=== PATIENT | male | born 1965 | race Caucasian/White ===

== ENCOUNTER 2016-11-25 14:51 | Inpatient (IN) | payer MEDICAID ==
[2016-11-25] VITALS (21 sets, daily range): BP systolic 87–133; BP diastolic 71–96; PULSE 73–84; RESP 16–23; TEMP 98; Ht 182.9 cm; Wt 90.1 kg
[~2016-11-25] VITALS: Ht 182.9 cm; Wt 90.1 kg
[2016-11-25] MEDS ORDERED: SODIUM CHLORIDE 0.9% 500 ML BAG IV* STA (15:29)
[2016-11-25] MEDS ORDERED: VECURONIUM 100 MG in DEXTROSE 5% 100 ML IV ONE (15:29)
[2016-11-25] MEDS ORDERED: MIDAZOLAM (DRIP) 50 mg/50 mL 50 ML IV SCH (15:30)
[2016-11-25 15:41] LABS: ADD SCAN DIFF NO
[2016-11-25 15:47] LABS: ABNORMAL IP MESSAGE 1; BASOPHIL # 0.1 10^3/ul (0.0-0.1); BASOPHILS % 0.4 % (0.0-2.0); EOSINOPHILS # 0.5 10^3/ul (0.0-0.5); EOSINOPHILS % 3.2 % (0.0-7.0); HEMATOCRIT 49.7 % (42.0-52.0); HEMOGLOBIN 15.5 g/dl (14.0-18.0); LYMPHOCYTES # 6.1 10^3/ul (0.8-2.9); MEAN CORPUSCULAR HEMOGLOBIN 29.3 pg (29.0-33.0); MEAN CORPUSCULAR HGB CONC 31.2 g/dl (32.0-37.0); MEAN PLATELET VOLUME 10.5 fl (7.4-10.4); MONOCYTE # 0.8 10^3/ul (0.3-0.9); MONOCYTES % 5.2 % (0.0-11.0); NEUTROPHIL # 5.9 10^3/ul (1.6-7.5); NEUTROPHILS % 41.1 % (39.0-77.0); NUCLEATED RED BLOOD CELLS # 0.1 10^3/ul (0.0-0.0); NUCLEATED RED BLOOD CELLS% 0.4 /100WBC (0.0-0.0); PLATELET COUNT 152 10^3/UL (140-415); RED BLOOD COUNT 5.29 10^6/ul (4.70-6.10); WHITE BLOOD COUNT 14.3 10^3/ul (4.8-10.8)
[2016-11-25 15:56] LABS: INR 1.55; PROTIME 18.7 Sec (12.2-14.2); PT RATIO 1.5
[2016-11-25 15:57] LABS: ADD UMIC YES; URINE BILIRUBIN (Dip) NEGATIVE (NEGATIVE); URINE BLOOD (Dip) 1+ (NEGATIVE); URINE COLOR LT. YELLOW (YELLOW); URINE GLUCOSE (Dip) NEGATIVE (NEGATIVE); URINE KETONES (Dip) NEGATIVE (NEGATIVE); URINE LEUKOCYTE ESTERASE (Dip) NEGATIVE (NEGATIVE); URINE NITRITE (Dip) NEGATIVE (NEGATIVE); URINE TOTAL PROTEIN (Dip) 1+ (NEGATIVE); URINE UROBILINOGEN (Dip) 0.2 E.U./dL (0.1-1.0)
[2016-11-25 15:58] LABS: ALBUMIN 3.4 g/dl (3.3-4.9)
[2016-11-25 15:59] LABS: POTASSIUM 3.6 mmol/L (3.5-5.1)
[2016-11-25 16:01] LABS: ALBUMIN/GLOBULIN RATIO 1.41; BILIRUBIN,INDIRECT 0.1 mg/dl (0-1.1); BILIRUBIN,TOTAL 0.1 mg/dl (0.2-1.3); CREATININE 1.16 mg/dl (0.61-1.24); TOTAL PROTEIN 5.8 g/dl (6.1-8.1)
[2016-11-25 16:02] LABS: CALCIUM 8.3 mg/dl (8.4-10.2); MAGNESIUM 2.9 mg/dl (1.7-2.5); PHOSPHORUS 9.7 mg/dl (2.5-4.9)
[2016-11-25] MEDS ORDERED: ROCURONIUM 50 MG INJ IV STA (16:03)
--- NOTE | 2016-11-25 16:03 | RADRPT ---
PROCEDURE: XR Chest. CLINICAL INDICATION: Assess nasogastric tube placement an endotracheal tube placement. TECHNIQUE: Single frontal view of the chest was obtained COMPARISON: No. FINDINGS: The soft tissues are normal. An atrial distal position at T3. An NG tube is noted distal to the GE junction. Monitoring electrodes return across the chest. The heart is enlarged. The cardiomedias tinal silhouette, pulmonary vasculature and hilar structures are normal. There is a left-sided aorta . there are bilateral mixed interstitial and alveolar infiltrates. The costophrenic angles are nor mal. IMPRESSION: 1. Cardiomegaly with bilateral pulmonary edema. 2. Indicated tube is well-positioned at T3-4. 3. The NG tube is well positioned distal to the GE junction. RPTAT:AAJJ Physician Simone Date Time Electronically viewed and signed by Luis Daniel Rodriguez Physician on 11/25/2016 16:03 RYAN/
[2016-11-25 16:11] LABS: BACTERIA,URINE MODERATE; SPERM,URINE MODERATE
[2016-11-25 16:20] LABS: TROPONIN-I 0.234 ng/ml (0.00-0.12)
[2016-11-25 17:00] LABS: AADO2 Arterial 582.3 mmHg (7.0-24.0); Allen Test ACCEPTAB; Arterial Base Excess -19.4 mmol/L (-3.0-3); Arterial COHb 1.6 % (0.0-3.0); Arterial Fraction of Oxyhgb 79.9 % (93.0-99.0); Arterial HCO3 13.5 mmol/L (22.0-26.0); Arterial MetHb 0.4 % (0.0-1.5); Arterial Total Hemglobin 16.8 g/dl (12.0-18.0); MODE VENT - AC
[2016-11-25 17:01] LABS: PARTIAL THROMBOPLASTIN TIME 84.4 Sec (25.0-35.0)
--- NOTE | 2016-11-25 17:05 | RADRPT ---
PROCEDURE: CT Head without. CLINICAL INDICATION: Hypothermia, cardiac arrest. TECHNIQUE: The study was performed utilizing a multi-slice, multidetector CT scanner. Direct spira l 1 mm axial sections were obtained through the head without the use of intravenous contrast materia l. 1 or more of the following dose reduction techniques were utilized: Automated exposure control, adjustment of the mA and/or kV according to patient's size, iterative reconstruction technique. Co chelita and sagittal reformations were obtained. The images were reviewed on a PACS workstation. RADIATION DOSE: CTDIvol: 50.6 mGyDLP: 817.8 mGy-cm COMPARISON: No prior studies are available for comparison. FINDINGS: There is no intracranial hemorrhage, extra-axial fluid collection, mass lesion, midline shift or hyd rocephalus. The ventricles, sulci and cisterns are within normal limits. The white matter is unrem arkable. The wilson-white matter differentiation is preserved. The basal cisterns are patent. The m idline structures are intact. The orbits, calvarium and extracranial soft tissues are normal in drake earance. The visualized paranasal sinuses, mastoid air cells and middle ear cavities are normally ae rated. IMPRESSION: 1. No acute intracranial abnormality. No intracranial hemorrhage, extra-axial fluid collection, ma ss lesion or hydrocephalous. Number 2. The wilson-white matter differentiation appears preserved wit hout significant cerebral edema at this time. RPTAT: HGAS .Benny Austin MD, Date Time Electronically viewed and signed by .Benny Austin MD, on 11/25/2016 17:05 .S/
[2016-11-25] MEDS ORDERED: PANTOPRAZOLE IV 80 MG in SOD CHLORIDE 0.9% 100 ML IV STA (17:19)
[2016-11-25] MEDS ORDERED: PANTOPRAZOLE IV 80 MG in SOD CHLORIDE 0.9% 100 ML IVPB STA (17:19)
[2016-11-25] MEDS ORDERED: NA BICARBONATE 8.4% 50 ML SYG IV ONE ×2 (17:30)
--- NOTE | 2016-11-25 17:33 | ERA ---
ER Documentation Chief Complaint Date/Time DATE: 11/25/16 TIME: 17:23 Chief Complaint cardiac arrest HPI This is a 50-year-old male who was at a massage parlor and once he completed his massage told the staff that he did not feel well. They told him to lay down and rest. When he came back to check on him 10 minutes later they found him unresponsive and 911 was called. When EMS arrived the patient had agonal respirations with initial rhythm of V. fib. The patient was in refractory V. fib during CPR and received defibrillation 7-8 and epinephrine intravenously 7 -8. Patient was intubated in the field successfully. The patient had CPR for 32-34 minutes by the paramedics without return of spontaneous circulation until they pulled up into our ambulance bay and a pulse was palpated. The patient soon lost his pulse when arrived in the ER here and CPR was reinstated along with bicarbonate and epinephrine. The patient was also shocked 2 more times and CPR was continued off and on until a pulse was again palpated and was sustained. Patient's blood pressure was adequate. There is no known medical history. ROS All systems reviewed and are negative except as per history of present illness. Medications Home Meds Unable to Obtain Active Prescriptions or Reported Meds PMhx/Soc Medical and Surgical Hx: Unable to obtain Hx Alcohol Use: No (unk) Hx Substance Use: No (unk) Hx Tobacco Use: No (unk) Smoking Status: Never smoker FmHx Unable to obtain due to mental status Physical Exam Vitals Vital Signs Date Time Temp Pulse Resp B/P Pulse Ox O2 Delivery O2 Flow Rate FiO2 11/25/16 17:15 88 22 88 100 11/25/16 15:37 59 30 100 11/25/16 14:55 48 12 128/84 79 Physical Exam Const: [] Head: Atraumatic, normocephalic Eyes: Normal Conjunctiva, pupils are mid range and not reacting ENT: Normal External Ears, Nose and Mouth. Neck: Full range of motion..~ No meningismus. Resp: No spontaneous respiration Cardio: No spontaneous cardiac activity Abd: Soft nondistended Skin: No petechiae or rashes, the skin is cyanotic from the neck up with delayed cap refill Back: Not inspected Ext: No cyanosis, or edema Neur: GCS of 3 Psych: Unable to obtain Result Diagram: 11/25/16 1450 11/25/16 1450 Results 24 hrs Laboratory Tests Test 11/25/16 14:45 11/25/16 14:50 11/25/16 15:00 11/25/16 15:29 Urine Amorphous Urates MODERATE Urine Bacteria MODERATE Urine Bilirubin NEGATIVE Urine Clarity SLIGHTLY CLOUDY Urine Color LT. YELLOW Urine Glucose NEGATIVE% Urine Hemoglobin 1+ Urine Ketones NEGATIVE Urine Leukocyte Esterase NEGATIVE Urine Microscopic RBC 2-5/HPF Urine Microscopic WBC NONE SEEN/HPF Urine Nitrite NEGATIVE Urine Specific [place] 1.025 Urine Sperm MODERATE Urine Total Protein 1+ Urine Urobilinogen 0.2 E.U./dL Urine pH 6.5 Alanine Aminotransferase (ALT/SGPT) 41IU/L Albumin 3.4g/dl Albumin/Globulin Ratio 1.41 Alkaline Phosphatase 74IU/L Anion Gap 33 Aspartate Amino Transf (AST/SGOT) 50IU/L Basophils # 0.110^3/ul Basophils % 0.4% Blood Urea Nitrogen 11mg/dl Calcium Level 8.3mg/dl Carbon Dioxide Level 15mmol/L Chloride Level 102mmol/L Creatinine 1.16mg/dl Differential Comment AUTO w/SCAN Direct Bilirubin 0.00mg/dl Eosinophils # 0.510^3/ul Eosinophils % 3.2% Globulin 2.40g/dl Glucose Level 329mg/dl Hematocrit 49.7% Hemoglobin 15.5g/dl Indirect Bilirubin 0.1mg/dl Lymphocytes # 6.110^3/ul Lymphocytes % 43.0% Magnesium Level 2.9mg/dl Mean Corpuscular Hemoglobin 29.3pg Mean Corpuscular Hemoglobin Concent 31.2g/dl Mean Corpuscular Volume 94.0fl Mean Platelet Volume 10.5fl Monocytes # 0.810^3/ul Monocytes % 5.2% Neutrophils # 5.910^3/ul Neutrophils % 41.1% Nucleated Red Blood Cells # 0.110^3/ul Nucleated Red Blood Cells % 0.4/100WBC Phosphorus Level 9.7mg/dl Platelet Count 29107^3/UL Potassium Level 3.6mmol/L Red Blood Count 5.2910^6/ul Red Cell Distribution Width 13.0% Sodium Level 146mmol/L Total Bilirubin 0.1mg/dl Total Protein 5.8g/dl Troponin I 0.234ng/ml White Blood Count 14.310^3/ul Bedside Glucose 302mg/dL Arterial Blood HCO3 13.5mmol/L Arterial Blood Base Excess -19.4mmol/L Arterial Blood Oxygen Saturation 81.5mmHG Shaun Test ACCEPTAB Arterial Blood Gas Puncture Site Left Radial Arterial Blood Carboxyhemoglobin 1.6% Arterial Blood Date Drawn 11/25/2016 4:55:01 PM Arterial Blood Methemoglobin 0.4% Arterial Blood pCO2 (Temp correct) 62.4mmhg Arterial Blood pH (Temp corrected) 6.954 Arterial Blood pO2 (Temp corrected) 68.3mmHG Blood Gas A-a O2 Differential 582.3mmHg Blood Gas Actual Respiration Rate 25 Blood Gas Critical Value Read Back ADRY Tinajero Blood Gas Low PEEP Setting 5.0cmH2O Blood Gas Modality VENT - AC Blood Gas Notified Time 11/25/2016 4:59:44 PM Blood Gas Notified Whom MDA Blood Gas Respiration Rate 18.0 Blood Gas Specimen Source Blood arterial Blood Gas Temperature 37.0C Blood Gas Tidal Volume 600.0mL FiO2 100.0% Oxyhemoglobin Percent 79.9% Total Hemoglobin 16.8g/dl Test 11/25/16 15:55 Activated Partial Thromboplast Time 84.4Sec INR International Normalized Ratio 1.55 Prothrombin Time 18.7Sec Prothrombin Time Ratio 1.5 Current Medications Medications (Trade) Dose Ordered Sig/Darlene Route PRN Reason Start Time Stop Time Status Last Admin Dose Admin Sodium Chloride 500 ml 500 ml ONCE STAT IV* 11/25/16 15:29 11/25/16 15:32 DC 11/25/16 15:00 Midazolam HCl 50 ml @ 2 mls/hr ONCE IV 11/25/16 15:30 11/25/16 16:11 Vecuronium Chambers/Dextrose (Norcuron/D5W) 100 ml @ 0 mls/hr Q0M ONCE IV 11/25/16 15:29 11/25/16 15:33 DC 11/25/16 16:16 Rocuronium Chambers (Zemuron) 70 mg ONCE STAT IV 11/25/16 16:03 11/25/16 16:05 DC 11/25/16 16:10 Sodium Bicarbonate (Na Bicarb 8.4% Syg) 50 ml ONCE ONCE IV 11/25/16 17:30 11/25/16 17:31 Sodium Bicarbonate (Na Bicarb 8.4% Syg) 50 ml ONCE ONCE IV 11/25/16 17:30 11/25/16 17:31 Procedures/MDM EKG: Rate/Rhythm: Undetermined rhythm wide-complex, right bundle branch block QRS, ST, QT: Wide QRS, QT] Impression: Abnormal EKG] EKG: Rate/Rhythm: Normal sinus rhythm with ST elevation in the inferior leads QRS, ST, QT: NORMAL VA, QRS, QT] Impression: Acute PR EKG] Central Line Placement by me: Patient consented, sterilely draped, full prep, gown, glove, mask, time out performed. Anesthesia: None Location: Right femoral Device: Multiple lumen Technique: Seldinger technique. Secured with suture. Results: Venous return from all ports with easy saline flush. No complications. [XOXOXO]Guide wire retrieved and disposed of. PROCEDURE: XR Chest. CLINICAL INDICATION: Assess nasogastric tube placement an endotracheal tube placement. TECHNIQUE: Single frontal view of the chest was obtained COMPARISON: No. FINDINGS: The soft tissues are normal. An atrial distal position at T3. An NG tube is noted distal to the GE junction. Monitoring electrodes return across the chest. The heart is enlarged. The cardiomediastinal silhouette, pulmonary vasculature and hilar structures are normal. There is a left-sided aorta. there are bilateral mixed interstitial and alveolar infiltrates. The costophrenic angles are normal. IMPRESSION: 1. Cardiomegaly with bilateral pulmonary edema. 2. Indicated tube is well-positioned at T3-4. 3. The NG tube is well positioned distal to the GE junction. RPTAT:AAJJ Physician Simone Date Time Electronically viewed and signed by Physician Simone on 11/25/2016 16:03 RYAN/ CC: KELLY RIDER DO PROCEDURE: CT Head without. CLINICAL INDICATION: Hypothermia, cardiac arrest. TECHNIQUE: The study was performed utilizing a multi-slice, multidetector CT scanner. Direct spiral 1 mm axial sections were obtained through the head without the use of intravenous contrast material. 1 or more of the following dose reduction techniques were utilized: Automated exposure control, adjustment of the mA and/or kV according to patient's size, iterative reconstruction technique. Coronal and sagittal reformations were obtained. The images were reviewed on a PACS workstation. RADIATION DOSE: CTDIvol: 50.6 mGy DLP: 817.8 mGy-cm COMPARISON: No prior studies are available for comparison. FINDINGS: There is no intracranial hemorrhage, extra-axial fluid collection, mass lesion, midline shift or hydrocephalus. The ventricles, sulci and cisterns are within normal limits. The white matter is unremarkable. The wilson-white matter differentiation is preserved. The basal cisterns are patent. The midline structures are intact. The orbits, calvarium and extracranial soft tissues are normal in appearance. The visualized paranasal sinuses, mastoid air cells and middle ear cavities are normally aerated. IMPRESSION: 1. No acute intracranial abnormality. No intracranial hemorrhage, extra-axial fluid collection, mass lesion or hydrocephalous. Number 2. The wilson-white matter differentiation appears preserved without significant cerebral edema at this time. RPTAT: HGAS .Benny Austin MD, MD Date Time Electronically viewed and signed by .Benny Austin MD, MD on 11/25/2016 17: 05 .S/ CC: KELLY RIDER DO Spoke with cardiology Dr. Seo and he reviewed the EKG and told me to activate the Office Receptionist. During this time an NG tube was placed and we were able to pullback 100 cc of dark red blood. The patient had been biting on his ET tube prior however do not see a gross tongue laceration or because of bleeding. It is possible that the blood is from his tongue however he could have a GI bleed. His coags are elevated however he is having a myocardial infarction and will go to the Office Receptionist now. Because the blood could be from his mouth will defer giving FFP at this time and will get GI involved. Critical Care Time: 45 minutes Treatments/Evaluations: Close monitoring and treatment of unstable vital signs, cardiorespiratory, and neurologic status, while maintaining tight balance of fluid, respiratory, and cardiac interventions. This time includes discussing the case with the patient and the patient's family. This time does not include all procedures stated elsewhere in this record. This time also includes reviewing old records, labs and radiological studies. This time includes examining and re-examining the patient. Additionally, this time also includes arranging care with admitting and consulting physicians. Departure Diagnosis: Primary Impression: Cardiac arrest Additional Impression: STEMI (ST elevation myocardial infarction) Qualified Code: I21.11 - ST elevation myocardial infarction involving right coronary artery Condition: Critical KELLY RIDER DO Nov 25, 2016 17:33
[2016-11-25 17:46] LABS: INR 1.33; PROTIME 16.6 Sec (12.2-14.2); PT RATIO 1.3
[2016-11-25] MEDS ORDERED: LIDOCAINE 1% (MDV) 20 ML INJ ONE (17:54)
[2016-11-25] MEDS ORDERED: SOD CHLORIDE 0.9% 500 ML ONE (17:54)
[2016-11-25] MEDS ORDERED: IODIXANOL LOCM 100 ML BTL ONE (17:54)
[2016-11-25] MEDS ORDERED: HEPARIN 1000 UNITS/ML 10 ML INJ ONE (17:54)
[2016-11-25 17:55] LABS: BARBITURATES Negative (NEGATIVE); BENZODIAZEPINES Negative (NEGATIVE); CANNABINOIDS Positive (NEGATIVE)
[2016-11-25 17:56] LABS: COCAINE Negative (NEGATIVE); OPIATES Negative (NEGATIVE)
[2016-11-25] MEDS ORDERED: NITROGLYCERIN (IC) 100 MCG/ML INJ ONE (17:56)
--- NOTE | 2016-11-25 17:56 | CONS ---
Date/Time of Note Date/Time of Note DATE: 11/25/16 TIME: 17:50 Assessment/Plan Assessment/Plan Chief Complaint/Hosp Course Impression: Inferior STEMI Abnormal EKG Ventricular fibrillation arrest Respiratory failure Metabolic acidosis Recommendation/plan: proceed emergently with cardiac cath; prognosis poor Problems: Consultation Date/Type/Reason Admit Date/Time Date of Consultation: Nov 25, 2016 Reason for Consultation ROSC, STEMI Hx of Present Illness The patient is a 50 y/o male who suffered cardiac arrest at [facility], shocked multiple times for Vfib arrest, intubated, received CPR for approximately 30 minutes in the field; upon arrival to ED patient lost pulse again, received CPR with shock x 2, hypothermia initiated. EKG with sinus tachycardia and 1-2mm ST elevations inferior leads; code AMI activated and patient taken emergently to cardiac seed analysis laboratory assistant. Subjective hx not possible: pt non-verbal Social History Smoking Status: Never smoker Exam/Review of Systems Vital Signs Vitals Vital Signs Date Time Temp Pulse Resp B/P Pulse Ox O2 Delivery O2 Flow Rate FiO2 11/25/16 17:15 88 22 88 100 11/25/16 14:55 128/84 Exam Eyes: PERRL Respiratory: normal air movement Cardiovascular: regular rate and rhythm Gastrointestinal: soft Extremities: No edema Results Result Diagram: 11/25/16 1450 11/25/16 1450 Results 24 hrs Laboratory Tests Test 11/25/16 14:45 11/25/16 14:50 11/25/16 15:00 11/25/16 15:29 Urine Amorphous Urates MODERATE Urine Bacteria MODERATE Urine Bilirubin NEGATIVE Urine Clarity SLIGHTLY CLOUDY Urine Color LT. YELLOW Urine Glucose NEGATIVE Urine Hemoglobin 1+ H Urine Ketones NEGATIVE Urine Leukocyte Esterase NEGATIVE Urine Microscopic RBC 2-5 Urine Microscopic WBC NONE SEEN Urine Nitrite NEGATIVE Urine Specific [place] 1.025 Urine Sperm MODERATE Urine Total Protein 1+ H Urine Urobilinogen 0.2 E.U./dL Urine pH 6.5 Alanine Aminotransferase (ALT/SGPT) 41 Albumin 3.4 Albumin/Globulin Ratio 1.41 Alkaline Phosphatase 74 Anion Gap 33 H Aspartate Amino Transf (AST/SGOT) 50 H Basophils # 0.1 Basophils % 0.4 Blood Urea Nitrogen 11 Calcium Level 8.3 L Carbon Dioxide Level 15 L Chloride Level 102 Creatinine 1.16 Differential Comment AUTO w/SCAN Direct Bilirubin 0.00 Eosinophils # 0.5 Eosinophils % 3.2 Globulin 2.40 Glucose Level 329 H Hematocrit 49.7 Hemoglobin 15.5 Indirect Bilirubin 0.1 Lymphocytes # 6.1 H Lymphocytes % 43.0 Magnesium Level 2.9 H Mean Corpuscular Hemoglobin 29.3 Mean Corpuscular Hemoglobin Concent 31.2 L Mean Corpuscular Volume 94.0 Mean Platelet Volume 10.5 H Monocytes # 0.8 Monocytes % 5.2 Neutrophils # 5.9 Neutrophils % 41.1 Nucleated Red Blood Cells # 0.1 H Nucleated Red Blood Cells % 0.4 H Phosphorus Level 9.7 H Platelet Count 152 Potassium Level 3.6 Red Blood Count 5.29 Red Cell Distribution Width 13.0 Sodium Level 146 H Total Bilirubin 0.1 L Total Protein 5.8 L Troponin I 0.234 *H White Blood Count 14.3 H Bedside Glucose 302 H Arterial Blood HCO3 13.5 L Arterial Blood Base Excess -19.4 L Arterial Blood Oxygen Saturation 81.5 L Shaun Test ACCEPTAB Arterial Blood Gas Puncture Site Left Radial Arterial Blood Carboxyhemoglobin 1.6 Arterial Blood Date Drawn 11/25/2016 4:55:01 PM Arterial Blood Methemoglobin 0.4 Arterial Blood pCO2 (Temp correct) 62.4 H Arterial Blood pH (Temp corrected) 6.954 *L Arterial Blood pO2 (Temp corrected) 68.3 L Blood Gas A-a O2 Differential 582.3 H Blood Gas Actual Respiration Rate 25 Blood Gas Critical Value Read Back ADRY Tinajero Blood Gas Low PEEP Setting 5.0 Blood Gas Modality VENT - AC Blood Gas Notified Time 11/25/2016 4:59:44 PM Blood Gas Notified Whom MDA Blood Gas Respiration Rate 18.0 Blood Gas Specimen Source Blood arterial Blood Gas Temperature 37.0 Blood Gas Tidal Volume 600.0 FiO2 100.0 Oxyhemoglobin Percent 79.9 L Total Hemoglobin 16.8 Test 11/25/16 15:55 11/25/16 17:20 Activated Partial Thromboplast Time 84.4 *H 63.0 H INR International Normalized Ratio 1.55 1.33 Prothrombin Time 18.7 H 16.6 H Prothrombin Time Ratio 1.5 1.3 Medications Medications Current Medications Midazolam HCl (Versed) 50 ml @ 2 mls/hr ONCE IV Last administered on 11/25/16t 16:11; Admin Dose 2 MLS/HR; Start 11/25/16 at 15:30 ANNIA EVANS 23, 2017 17:56
[2016-11-25] MEDS ORDERED: CANGRELOR TETRASODIUM/ NS 250 50 MG IV ONE (18:19)
[2016-11-25 18:29] LABS: AADO2 Arterial 637.2 mmHg (7.0-24.0); Arterial Base Excess -23.2 mmol/L (-3.0-3); Arterial COHb 0.1 % (0.0-3.0); Arterial Fraction of Oxyhgb 74.7 % (93.0-99.0); Arterial HCO3 5.7 mmol/L (22.0-26.0); Arterial MetHb 0.9 % (0.0-1.5); Arterial Total Hemglobin 9.2 g/dl (12.0-18.0); MODE VENT - AC
[2016-11-25] MEDS ORDERED: NA BICARBONATE 8.4% 50 ML SYG ONE (18:36)
[2016-11-25] MEDS ORDERED: AMIODARONE 900 MG in DEXTROSE 5% 482 ML IV SCH (19:00)
[2016-11-25] MEDS ORDERED: LIDOCAINE 1%/EPI (MDV) 20 ML INJ ONE (19:15)
[2016-11-25] MEDS ORDERED: IODIXANOL LOCM 50 ML BTL ONE (19:27)
--- NOTE | 2016-11-25 19:55 | EN ---
Date/Time of Note Date/Time of Note DATE: 11/25/16 TIME: 19:41 Event Note Cardiology Cardiology Event Note DATE OF PROCEDURE: 11/25/2016 UNHAIRING INSPECTOR: Bradly Evans MD PROCEDURES PERFORMED: 1. Balloon angioplasty and stent placement of the proximal Obtuse Marginal with ELISABETH Promus 3.0 x 16 and Promus 3.0 x 12 2. Manual aspiration thrombectomy of the Obtuse Marginal 3. Left heart catheterization. 4. Right femoral angiogram. 5. Closure device applied to right femoral arteriotomy site. PREINTERVENTION DIAGNOSIS: 1. Acute Inferior ST elevation myocardial infarction. POSTINTERVENTION DIAGNOSES: 1. Acute Inferior ST elevation myocardial infarction. DESCRIPTION OF PROCEDURE: The patient placed on monitoring analyst, pulse oximetry and supplemental oxygen as necessary. The right groin [] was prepped and draped in a sterile fashion and infiltrated with 1% lidocaine. Via the Seldinger technique, the right femoral artery was accessed. A 6-Panamanian sheath was inserted and through this the right coronary catheter and left coronary catheter and pigtail were advanced into the right coronary artery and left coronary artery and the left ventricle. Placement confirmed by fluoroscopy and hemodynamics. CATHETERIZATION FINDINGS: 1. Left main: No significant disease. 2. LAD: Large caliber vessel with no significant disease. 3. Circumflex: Medium caliber vessel with no significant disease. 4. Obtuse marginal: Medium caliber vessel with proximal 100% thrombotic occlusion 5. RCA: Large dominant vessel with no significant disease HEMODYNAMICS: LVEDP 18. No significant aortic valve gradient on pigtail pullback. LV EF: 40-45% with inferoapical hypokinesis RATIONALE FOR INTERVENTIONAL PROCEDURE: Decision was made to intervene on the OM due to the occlusive nature of the lesion angiographically and patient's presentation of Vfib arrest in the setting of STEMI. MEDICATIONS GIVEN DURING PROCEDURE: IC Nitroglycerin IV Cangrelor ANGIOPLASTY EQUIPMENT: 1. Guide: 6-Panamanian XB 3.5 2. Wire: Whisper. 3. Stent: ELISABETH Promus 3.0 x 16 and Promus 3.0 x 12 DESCRIPTION OF INTERVENTIONAL PROCEDURE: The guide catheter was advanced in the usual manner and the left main was engaged. Angioplasty wire was then used to successfully cross the lesion into the distal OM2. A second whisper wire was used to place in the distal OM3. Next, a pronto catheter was used to manually aspirate the lesion multiple times; repeat angiogram revealed improved URMILA 3 flow. The wire in the OM3 was removed and the lesion was direct stented with Promus 3.0 x 16. Repeat angiogram revealed dissection just distal to the stent. As such a second Promus 3.0 x 12 was used to stent the dissected area with stent overlap. Final coronary angiogram revealed adequate stent expansion , URMILA 3 flow, and no dissection. TOTAL CONTRAST: 150cc FLUOROSCOPY TIME: 8.0 min minutes. COMPLICATIONS: None. FINAL RESULTS: Successful balloon angioplasty and stent placement of the of the proximal Obtuse Marginal with ELISABETH Promus 3.0 x 16 and Promus 3.0 x 12 Pre- intervention stenosis 100%, post-intervention stenosis less than 5%. RECOMMENDATIONS: ICU admit Vent support Hypothermia protocol Assess for neurologic recovery Anticoagulation/antiplatelets held due to glenis bleeding from ET Tube Type and Screen PRBC Transfusion Prognosis extremely poor BRADLY EVANS Nov 25, 2016 19:55
--- NOTE | 2016-11-25 20:09 | RADRPT ---
Echocardiogram Report Patient Name: PERLA Chappell Gender: Male Date: 1965 Study Date: 25-Nov-2016 Tile Decorator: Randy Zapata RDCS Location: [facility] Ref. Physician: BRADLY EVANS Quality: Adequate Procedures: Transthoracic echocardiogram with complete 2D, M-Mode, and doppler examination. Indications: STEMI. 2D/M Mode Doppler Measurement Value Normal Ranges Measurement Value Normal Ranges LVIDd 2D 5.8 3.5 - 5.6 cm AV Peak [place] 1.2 m/sec LVIDs 2D 3.7 2.1 - 4.1 cm AV Peak PG 5.7 mmHg LVPWd 2D 0.9 0.6 - 1.1 cm LVOT Peak [place] 1.0 m/sec IVSd 2D 0.9 0.6 - 1.1 cm LVOT Peak PG 3.6 mmHg AoR Diam 2D 3.6 2.0 - 3.7 cm MV E Peak [place] 0.5 m/sec EDV 2D 169.4 cm3 MV A Peak [place] 0.6 m/sec ESV 2D 51.2 cm3 MV E/A 0.9 LA Dimen 2D 2.6 2.3 - 4.0 cm MV Decel Time 137 msec MV Decel Walker 4 MV E/A 0.9 TR Peak [place] 2.5 m/sec TR Peak PG 25.7 mmHg RVSP 41.0 mmHg Findings Left Ventricle: Mild global left ventricular systolic dysfunction. Ejection fraction is visually estimated at 45 %. Right Ventricle: Normal right ventricular size. Normal right ventricular systolic function. Left Atrium: The left atrium is normal in size. Right Atrium: The right atrium is normal in size. Mitral Valve: Normal appearance and function of the mitral valve with trace physiologic regurgitation. Aortic Valve: Normal appearance of the aortic valve. No significant aortic stenosis or insufficiency. Tricuspid Valve: Normal appearance and function of the tricuspid valve with trace physiologic regurgitation. Normal right ventricular systolic pressure. Pulmonic Valve: Normal pulmonic valve appearance. Pericardium: Normal pericardium with no significant pericardial effusion. Aorta: Normal aortic root. IVC: Inferior vena cava without respiratory collapse, however, patient on ventilator. Conclusions 1.Mild global left ventricular systolic dysfunction. Ejection fraction is visually estimated at 45 %. 2.Normal appearance and function of the mitral valve with trace physiologic regurgitation. 3.Normal appearance and function of the tricuspid valve with trace physiologic regurgitation. Normal right ventricular systolic pressure. Electronically Signed By: Bradly Evans 25-Nov-2016 20:08:18 -0800 Patient Name: PERLA Chappell Study Date: 25-Nov-2016 [id number]
[2016-11-25] MEDS ORDERED: DEXTROSE 5%-0.45% NACL 1,000 ML IV SCH (20:50)
[2016-11-25] MEDS ORDERED: ONDANSETRON 4 MG INJ IV PRN (21:00)
[2016-11-25] MEDS ORDERED: IPRATROPIUM (HFA) 12.9 GM INHALER INH PRN (21:00)
[2016-11-25] MEDS ORDERED: ALBUTEROL HFA 8 GM INHALER INH PRN (21:00)
[2016-11-25] MEDS ORDERED: ACETAMINOPHEN 650 MG SUPP PR PRN ×2 (21:00)
[2016-11-25] MEDS ORDERED: DEXTROSE 50% 50 ML SYRINGE IV PRN ×2 (21:00)
[2016-11-25] MEDS ORDERED: MEPERIDINE 25 MG INJ IV PRN ×2 (21:00)
[2016-11-25 21:25] LABS: AADO2 Arterial 645.1 mmHg (7.0-24.0); Allen Test ACCEPTAB; Arterial Base Excess -7.7 mmol/L (-3.0-3); Arterial COHb 0.4 % (0.0-3.0); Arterial Fraction of Oxyhgb 87.2 % (93.0-99.0); Arterial HCO3 18.7 mmol/L (22.0-26.0); Arterial MetHb 0.4 % (0.0-1.5); Arterial Total Hemglobin 17.2 g/dl (12.0-18.0); MODE VENT - AC
[2016-11-25] MEDS ORDERED: INSULIN REGULAR, HUMAN 100 UNIT in SOD CHLORIDE 0.9% 99 ML IV SCH ×2 (22:00)
[2016-11-25] MEDS ORDERED: NORepinephrine 8MG/250 ML (PMX 250 ML IV SCH (22:00)
--- NOTE | 2016-11-25 22:07 | RADRPT ---
PROCEDURE: XR Abdomen. CLINICAL INDICATION: Hyperthermia protocol TECHNIQUE: AP supine abdomen x-rays. COMPARISON: None. FINDINGS: Distal tip of a nasogastric tube is pointing inferiorly towards the midline in the region of the dis fuentes stomach. The bowel gas pattern is normal. There is no evidence of obstruction. Contrast media w ithin the kidneys and urinary bladder is present as well as the ureters, the bladder contracted arou nd a Layne catheter. A right inguinal approach central venous access catheter is present the tip pr ojecting over the right sacrum. The osseous structures are unremarkable. RPTAT:HJJR IMPRESSION: 1. Nasogastric tube and right inguinal central venous access catheter in good positions. 2. Residual contrast media within the chest urinary collecting system, the urinary bladder contract ed around a Layne catheter. 3. No evidence of acute intra-abdominal or intrapelvic pathology. Physician Aliya Date Time Electronically viewed and signed by Physician Ailya on 11/25/2016 22:06 /
[2016-11-25 22:35] LABS: ADD SCAN DIFF NO
[2016-11-25] MEDS: ACCUCHECK XX SCH ×2 (22:35→23:22)
[2016-11-25 22:37] LABS: ABNORMAL IP MESSAGE 1; HEMATOCRIT 47.5 % (42.0-52.0); HEMOGLOBIN 15.9 g/dl (14.0-18.0); MEAN CORPUSCULAR HEMOGLOBIN 29.4 pg (29.0-33.0); MEAN CORPUSCULAR HGB CONC 33.5 g/dl (32.0-37.0); MEAN CORPUSCULAR VOLUME 87.8 fl (82.0-101.0); MEAN PLATELET VOLUME 9.7 fl (7.4-10.4); PLATELET COUNT 258 10^3/UL (140-415); RED BLOOD COUNT 5.41 10^6/ul (4.70-6.10); RED CELL DISTRIBUTION WIDTH 13.2 % (11.5-14.5); WHITE BLOOD COUNT 29.4 10^3/ul (4.8-10.8)
[2016-11-25] MEDS ORDERED: VECURONIUM 100 MG in DEXTROSE 5% 100 ML IV SCH (22:46)
[2016-11-25 22:53] LABS: ALBUMIN/GLOBULIN RATIO 1.25; BILIRUBIN,INDIRECT 0.2 mg/dl (0-1.1); BILIRUBIN,TOTAL 0.2 mg/dl (0.2-1.3); CALCIUM 6.9 mg/dl (8.4-10.2); CREATININE 1.73 mg/dl (0.61-1.24); TOTAL PROTEIN 5.4 g/dl (6.1-8.1)
[2016-11-25 22:54] LABS: INR 1.44; PROTIME 17.6 Sec (12.2-14.2); PT RATIO 1.4
[2016-11-25 22:58] LABS: POTASSIUM 2.6 mmol/L (3.5-5.1)
[2016-11-25] MEDS ORDERED: FENTAnyl 50 MCG/ML VIAL IV SCH (23:00)
[2016-11-25] MEDS ORDERED: POTASSIUM CHLORIDE 50 ML ONE (23:09)
[2016-11-25] MEDS: POTASSIUM CHLORIDE 50 ML IVPB SCH (23:18)
[2016-11-25 23:25] LABS: LYMPHOCYTES # 2.1 10^3/ul (0.8-2.9); MONOCYTE # 0.3 10^3/ul (0.3-0.9); NEUTROPHIL # 23.8 10^3/ul (1.6-7.5)
[2016-11-25 23:26] LABS: PARTIAL THROMBOPLASTIN TIME 113.8 Sec (25.0-35.0)
[2016-11-25 23:27] LABS: D-DIMER > 10000.00 ng/ml (<460)
[2016-11-25] MEDS: CEFEPIME 1GM/50 ML (PMX) 50 ML IVPB SCH (23:30)
[2016-11-26] VITALS (83 sets, daily range): BP systolic 105–157; BP diastolic 73–112; PULSE 50–128; RESP 20–24
[2016-11-26] MEDS: ARTIFICIAL TEARS 15 ML OPH BOTH EYES SCH ×4 (00:31→18:34)
[2016-11-26] MEDS: OCULAR LUBRICANT 3.5 GM OPH OINT BOTH EYES SCH ×4 (00:31→18:34)
[2016-11-26] MEDS: ACCUCHECK XX SCH ×23 (00:32→22:59)
[2016-11-26] MEDS: POTASSIUM CHLORIDE 50 ML IVPB SCH ×3 (00:59→08:07)
[2016-11-26] MEDS: MIDAZOLAM (DRIP) 50 mg/50 mL 50 ML IV SCH ×3 (01:08→16:14)
[2016-11-26 03:11] LABS: AADO2 Arterial 600.8 mmHg (7.0-24.0); Allen Test ACCEPTAB; Arterial Base Excess -10.5 mmol/L (-3.0-3); Arterial COHb 0.3 % (0.0-3.0); Arterial Fraction of Oxyhgb 96.6 % (93.0-99.0); Arterial HCO3 17.3 mmol/L (22.0-26.0); Arterial MetHb 0.3 % (0.0-1.5); Arterial Total Hemglobin 16.8 g/dl (12.0-18.0); MODE VENT - AC
[2016-11-26 04:45] LABS: ADD SCAN DIFF NO
[2016-11-26 04:49] LABS: ABNORMAL IP MESSAGE 1; BASOPHIL # 0.1 10^3/ul (0.0-0.1); BASOPHILS % 0.3 % (0.0-2.0); HEMATOCRIT 46.9 % (42.0-52.0); HEMOGLOBIN 15.5 g/dl (14.0-18.0); LYMPHOCYTES % 3.6 % (15.0-51.0); MEAN CORPUSCULAR HEMOGLOBIN 28.9 pg (29.0-33.0); MEAN CORPUSCULAR VOLUME 87.5 fl (82.0-101.0); MEAN PLATELET VOLUME 9.6 fl (7.4-10.4); MONOCYTE # 0.9 10^3/ul (0.3-0.9); MONOCYTES % 3.1 % (0.0-11.0); NEUTROPHIL # 26.5 10^3/ul (1.6-7.5); NEUTROPHILS % 91.3 % (39.0-77.0); PLATELET COUNT 224 10^3/UL (140-415); RED BLOOD COUNT 5.36 10^6/ul (4.70-6.10); RED CELL DISTRIBUTION WIDTH 13.2 % (11.5-14.5)
[2016-11-26 05:12] LABS: ALBUMIN 2.8 g/dl (3.3-4.9)
[2016-11-26 05:14] LABS: BILIRUBIN,INDIRECT 0.2 mg/dl (0-1.1); BILIRUBIN,TOTAL 0.2 mg/dl (0.2-1.3); CHOL/HDL RATIO 5.8 RATIO; CREATININE 1.92 mg/dl (0.61-1.24)
[2016-11-26 05:15] LABS: ALBUMIN/GLOBULIN RATIO 1.12; TOTAL PROTEIN 5.3 g/dl (6.1-8.1)
[2016-11-26 05:20] LABS: POTASSIUM 2.5 mmol/L (3.5-5.1)
[2016-11-26 05:32] LABS: MAGNESIUM 1.7 mg/dl (1.7-2.5); PHOSPHORUS 0.8 mg/dl (2.5-4.9)
[2016-11-26 05:46] LABS: THYROID STIMULATING HORMONE 2.56 MIU/L (0.465-4.680)
[2016-11-26] MEDS ORDERED: PANTOPRAZOLE 40 MG INJ IV SCH (06:00)
[2016-11-26] MEDS: D5W-0.45 NACL + KCL 20 MEQ 1,000 ML IV SCH ×2 (06:07→16:14)
[2016-11-26 06:25] LABS: INR 1.32; PROTIME 16.5 Sec (12.2-14.2); PT RATIO 1.3
[2016-11-26 06:26] LABS: PARTIAL THROMBOPLASTIN TIME 37.9 Sec (25.0-35.0)
[2016-11-26] MEDS ORDERED: VANCOMYCIN IV PER PHARMACY XX SCH (06:30)
[2016-11-26 07:50] LABS: AADO2 Arterial 538.5 mmHg (7.0-24.0); Allen Test ACCEPTAB; Arterial Base Excess -9.3 mmol/L (-3.0-3); Arterial COHb 0.3 % (0.0-3.0); Arterial Fraction of Oxyhgb 98.1 % (93.0-99.0); Arterial HCO3 17.5 mmol/L (22.0-26.0); Arterial MetHb 0.4 % (0.0-1.5); Arterial Total Hemglobin 16.6 g/dl (12.0-18.0); MODE VENT - AC
[2016-11-26] MEDS: VECURONIUM 100 MG in DEXTROSE 5% 100 ML IV SCH ×2 (08:00→19:53)
[2016-11-26] MEDS ORDERED: VANCOMYCIN 1.75 GM in NS 500 ML IVPB ONE (08:00)
--- NOTE | 2016-11-26 08:06 | HP ---
DATE OF ADMISSION: 11/25/2016 TIME SEEN: 3 a.m. CHIEF COMPLAINT: Cardiac arrest. HISTORY OF PRESENT ILLNESS: The patient is a 50-year-old male with unknown medical history who was brought to the ER after having had a V fib cardiac arrest. Reportedly, the patient finished getting a massage when he informed the staff that he was not feeling well and wanted to lie down for a jaime le longer. After about 10 to 30 minutes, when they checked on him, they noticed that he was unconsc ious. After EMS arrived, he was shocked about 7 times and was given about 7 rounds of epinephrine a nd was intubated successfully in the field. It was also noted that the patient had agonal breathing when EMS arrived. Resuscitation by EMS was done about 35 minutes, and the patient with without ret urn of spontaneous circulation until the ambulance pulled up in the ER. As also as the patient got into the ER, he lost his pulse again, and CPR was restarted, he was shocked 2 times, and was given e pinephrine and bicarbonate before return of spontaneous circulation. EKG shows sinus tachycardia wi th ST elevation in the inferior leads, and as such, he was emergently taken to the research laboratory technician and had balloon angioplasty and stent placement of the proximal obtuse margin, and manual aspiration thrombe ctomy of the obtuse margin. He was started on hypothermia protocol and admitted to the ICU. It is also noted that after the patient was intubated, there was upper GI bleeding around his OG tube, and currently I have noticed that about 300 mL of bright red blood was suctioned. There was also a lit tle bit of blood that was oozing from his mouth which I suctioned, and I believes was about 50 mL. I did not notice any obvious injury while I examined his oral cavity. He is currently hemodynamical ly stable, but he has had multiple episodes of nonsustained ventricular tachycardia, the longest one being 14 beats. As far as his laboratory results are concerned, he presented with initial WBC of 1 4,000, which increased to 29,000 on repeat lab. Also, his bicarbonate was 15, anion gap 33, his ini tial glucose 329, and his first troponin was 0.234, but after he came back from the research laboratory technician, his tr oponin increased to 217. Also his initial liver chemistries were within normal limits except for sl ightly elevated AST of 50, but the repeat labs show AST also 653 and ALT of 144. His initial lactic acid was 9.5. Also, his initial creatinine was 1.16 which increased to 1.73. His initial potassiu m was 3.6, but since then he has been hypokalemic despite replacement. The patient is currently sed ated and also on paralytics, but he does not have a gag reflex and no corneal reflex, but his pupils are very minimally reactive to light. An attempt was made to reach any family members, but so far we have not been successful. REVIEW OF SYSTEMS: Unable to fully assess. PAST MEDICAL HISTORY: Unknown. PAST SURGICAL HISTORY: Unknown. SOCIAL HISTORY: Based on urine toxicology, positive for marijuana. ALLERGIES: UNKNOWN. HOME MEDICATIONS: Unknown. PHYSICAL EXAMINATION: VITAL SIGNS: Currently blood pressure on the monitor 128/95, heart rate 65, respiratory rate 22, te mperature earlier was 91 on hypothermia protocol and oxygen saturation 100% on 100% FIO2. GENERAL: The patient is intubated. He is unresponsive. No gag reflex, no corneal reflex. His pup ils are minimally reactive to light. HEENT: As mentioned above, plus he had some oozing of bright red blood from his mouth and around hi s OG tube. CARDIOVASCULAR: Tachycardic. LUNGS: Decreased breath sounds anteriorly at the bases. ABDOMEN: Soft, nontender, nondistended, positive bowel sounds. EXTREMITIES: No edema. NEUROLOGIC: Unable to fully assess, but as mentioned above. The patient had no gag reflex, no corn eal reflex, only his pupils are minimally reactive to light. LABORATORY: Pertinent positives as mentioned in the HPI. IMAGING: Chest x-ray: Cardiomegaly with bilateral pulmonary edema. Brain CT: No acute intracrani al abnormality. KUB: No evidence of acute intraabdominal or intrapelvic pathology. IMPRESSION: 1. Status post ventricular fibrillation cardiac arrest. 2. Acute inferior ST-elevation myocardial infarction, status post balloon angioplasty and stent nat cement of the proximal obtuse marginal as well as manual aspiration thrombectomy of the obtuse landen nal. 3. Ventilator-dependent respiratory failure. 4. Upper gastrointestinal bleed. 5. Likely anoxic brain injury. 6. Acute kidney injury. 7. Probable shock liver. 8. Hyperglycemia. 9. Hypokalemia. 10. Lactic acidosis. We will continue vent support as well as the hypothermia protocol. Unfortunately, given his active GI bleed, he will not be placed on antiplatelets and obviously also no anticoagulation. He will be seen by gastroenterology. He will be followed by cardiology, pulmonary, as well as nephrology. The patient is showing multiorgan failure with his rise in creatinine as well as his elevated transamin ases, likely secondary to shock liver. The patient, at this point, has an extremely poor prognosis. We will try to reach family members. We will place a consult for case finisher to help us locate h is family or friends. Will also get neurology involved and order an EEG to evaluate for likely anox ic brain injury. Will continue to replace the electrolytes and will continue him on insulin drip fo r better glycemic control. Further workup and management will be per clinical course. Total critical time spent is about 1 hour. PROGNOSIS: Extremely poor. Dictated By: BENNIE ANTONIO/KENDRA Conf#: [id number] DID#: [id number]
[2016-11-26] MEDS: CEFEPIME 1GM/50 ML (PMX) 50 ML IVPB SCH ×2 (09:10→21:43)
--- NOTE | 2016-11-26 09:17 | CONS ---
Date/Time of Note Date/Time of Note DATE: 11/26/16 TIME: 09:10 Assessment/Plan Assessment/Plan Additional Assessment/Plan ?Upper GI bleed * Stool OB * Monitor hemoglobin every 8 hours, transfuse 2 units for hemoglobin less than 7.5 * Protonix drip * EGD when clinically stable Transaminitis. * Likely secondary to shock liver. * Acute hepatitis panel * Monitor liver function tests Status post ventricular fibrillation cardiac arrest. Acute inferior ST-elevation myocardial infarction, status post balloon angioplasty and stent placement of the proximal obtuse marginal as well as manual aspiration thrombectomy of the obtuse marginal. Ventilator-dependent respiratory failure. Likely anoxic brain injury. Acute kidney injury. * Nephrology following Further recommendations depend on clinical course Patient seen in collaboration with Dr. Hernandez Consultation Date/Type/Reason Admit Date/Time Type of Consultation: Gastroenterology Reason for Consultation Upper GI bleeding Patient unresponsive at bedside secondary to sedation and intubation. Per previous as follows: This is a 50-year-old male who was at a massage parlor and once he completed his massage told the staff that he did not feel well. They told him to lay down and rest. When he came back to check on him 10 minutes later they found him unresponsive and 911 was called. When EMS arrived the patient had agonal respirations with initial rhythm of V. fib. The patient was in refractory V. fib during CPR and received defibrillation 7-8 and epinephrine intravenously 7 -8. Patient was intubated in the field successfully. The patient had CPR for 32-34 minutes by the paramedics without return of spontaneous circulation until they pulled up into our ambulance bay and a pulse was palpated. The patient soon lost his pulse when arrived in the ER here and CPR was reinstated along with bicarbonate and epinephrine. The patient was also shocked 2 more times and CPR was continued off and on until a pulse was again palpated and was sustained. Patient's blood pressure was adequate. There is no known medical history. Social History Smoking Status: Unknown if ever smoked Exam/Review of Systems Vital Signs Vitals Vital Signs Date Time Temp Pulse Resp B/P Pulse Ox O2 Delivery O2 Flow Rate FiO2 11/26/16 08:00 92.0 59 24 139/99 100 Mechanical Ventilator 11/26/16 05:23 100 Intake and Output 11/25/16 11/25/16 11/26/16 15:00 23:00 07:00 Intake Total 2363 ml 1035 ml Output Total 680 ml 680 ml Balance 1683 ml 355 ml Exam Constitutional: non-verbal ENMT: mucosa pink and moist, nl external ears & nose, nl lips & teeth, nl nasal mucosa & septum Respiratory: other (Intubated) Cardiovascular: irregular rhythm Gastrointestinal: non-tender, soft Musculoskeletal: nl extremities to inspection Neurological: other (Sedated) Results Result Diagram: 11/26/16 04211/26/16 0425 Results 24 hrs Laboratory Tests Test 11/25/16 14:45 11/25/16 14:50 11/25/16 15:00 11/25/16 15:29 Urine Amorphous Urates MODERATE Urine Amphetamines Screen Negative Urine Bacteria MODERATE Urine Barbiturates Negative Urine Benzodiazepines Screen Negative Urine Bilirubin NEGATIVE Urine Cannabinoids Positive Urine Clarity SLIGHTLY CLOUDY Urine Cocaine Screen Negative Urine Color LT. YELLOW Urine Glucose NEGATIVE Urine Hemoglobin 1+ H Urine Ketones NEGATIVE Urine Leukocyte Esterase NEGATIVE Urine Microscopic RBC 2-5 Urine Microscopic WBC NONE SEEN Urine Nitrite NEGATIVE Urine Opiates Screen Negative Urine Specific [place] 1.025 Urine Sperm MODERATE Urine Total Protein 1+ H Urine Urobilinogen 0.2 E.U./dL Urine pH 6.5 Alanine Aminotransferase (ALT/SGPT) 41 Albumin 3.4 Albumin/Globulin Ratio 1.41 Alkaline Phosphatase 74 Anion Gap 33 H Aspartate Amino Transf (AST/SGOT) 50 H Basophils # 0.1 Basophils % 0.4 Blood Urea Nitrogen 11 Calcium Level 8.3 L Carbon Dioxide Level 15 L Chloride Level 102 Creatinine 1.16 Differential Comment AUTO w/SCAN Direct Bilirubin 0.00 Eosinophils # 0.5 Eosinophils % 3.2 Globulin 2.40 Glucose Level 329 H Hematocrit 49.7 Hemoglobin 15.5 Indirect Bilirubin 0.1 Lymphocytes # 6.1 H Lymphocytes % 43.0 Magnesium Level 2.9 H Mean Corpuscular Hemoglobin 29.3 Mean Corpuscular Hemoglobin Concent 31.2 L Mean Corpuscular Volume 94.0 Mean Platelet Volume 10.5 H Monocytes # 0.8 Monocytes % 5.2 Neutrophils # 5.9 Neutrophils % 41.1 Nucleated Red Blood Cells # 0.1 H Nucleated Red Blood Cells % 0.4 H Phosphorus Level 9.7 H Platelet Count 152 Potassium Level 3.6 Red Blood Count 5.29 Red Cell Distribution Width 13.0 Sodium Level 146 H Total Bilirubin 0.1 L Total Protein 5.8 L Troponin I 0.234 *H White Blood Count 14.3 H Bedside Glucose 302 H Arterial Blood HCO3 13.5 L Arterial Blood Base Excess -19.4 L Arterial Blood Oxygen Saturation 81.5 L Shaun Test ACCEPTAB Arterial Blood Gas Puncture Site Left Radial Arterial Blood Carboxyhemoglobin 1.6 Arterial Blood Date Drawn 11/25/2016 4:55:01 PM Arterial Blood Methemoglobin 0.4 Arterial Blood pCO2 (Temp correct) 62.4 H Arterial Blood pH (Temp corrected) 6.954 *L Arterial Blood pO2 (Temp corrected) 68.3 L Blood Gas A-a O2 Differential 582.3 H Blood Gas Actual Respiration Rate 25 Blood Gas Critical Value Read Back ADRY Tinajero Blood Gas Low PEEP Setting 5.0 Blood Gas Modality VENT - AC Blood Gas Notified Time 11/25/2016 4:59:44 PM Blood Gas Notified Whom MDA Blood Gas Respiration Rate 18.0 Blood Gas Specimen Source Blood arterial Blood Gas Temperature 37.0 Blood Gas Tidal Volume 600.0 FiO2 100.0 Oxyhemoglobin Percent 79.9 L Total Hemoglobin 16.8 Test 11/25/16 15:55 11/25/16 17:20 11/25/16 18:22 11/25/16 20:50 Activated Partial Thromboplast Time 84.4 *H 63.0 H INR International Normalized Ratio 1.55 1.33 Prothrombin Time 18.7 H 16.6 H Prothrombin Time Ratio 1.5 1.3 Arterial Blood HCO3 5.7 *L 18.7 L Arterial Blood Base Excess -23.2 L -7.7 L Arterial Blood Oxygen Saturation 75.5 L 87.9 L Shaun Test N/A ACCEPTAB Arterial Blood Gas Puncture Site OTHER Left Radial Arterial Blood Carboxyhemoglobin 0.1 0.4 Arterial Blood Date Drawn 11/25/2016 6:24:48 PM 11/25/2016 9:10:55 PM Arterial Blood Methemoglobin 0.9 0.4 Arterial Blood pCO2 (Temp correct) 21.8 L 34.0 L Arterial Blood pH (Temp corrected) 7.039 *L 7.335 L Arterial Blood pO2 (Temp corrected) 54.0 *L 43.7 *L Blood Gas A-a O2 Differential 637.2 H 645.1 H Blood Gas Actual Respiration Rate 22 22 Blood Gas Critical Value Read Back FAKHERI M.D. JACKELINE RN Blood Gas Low PEEP Setting 10.0 10.0 Blood Gas Modality VENT - AC VENT - AC Blood Gas Notified Time 11/25/2016 6:28:50 PM 11/25/2016 9:25:30 PM Blood Gas Notified Whom KIRAN ANANYA Blood Gas Respiration Rate 22.0 22.0 Blood Gas Specimen Source Blood arterial Blood arterial Blood Gas Temperature 37.0 32.8 Blood Gas Tidal Volume 600.0 600.0 FiO2 100.0 100.0 Oxyhemoglobin Percent 74.7 L 87.2 L Total Hemoglobin 9.2 L 17.2 Test 11/25/16 21:13 11/25/16 22:20 11/25/16 22:23 11/26/16 00:27 Bedside Glucose 254 H 221 H 181 Activated Partial Thromboplast Time 113.8 *H Alanine Aminotransferase (ALT/SGPT) 144 H Albumin 3.0 L Albumin/Globulin Ratio 1.25 Alkaline Phosphatase 87 Amylase Level 234 H Anion Gap 18 #H Aspartate Amino Transf (AST/SGOT) 653 #H Band Neutrophils % 11.0 H Blood Urea Nitrogen 19 Calcium Level 6.9 L Carbon Dioxide Level 24 Chloride Level 102 Creatinine 1.73 H D-Dimer > 26366.00 H Direct Bilirubin 0.00 Fibrinogen 216.0 Globulin 2.40 Glucose Level 236 H Hematocrit 47.5 Hemoglobin 15.9 Hemoglobin A1c 5.8 INR International Normalized Ratio 1.44 Indirect Bilirubin 0.2 Lactic Acid Level 9.5 *H Lipase 227 Lymphocytes # 2.1 Lymphocytes % 7.0 L Magnesium Level 2.0 Mean Corpuscular Hemoglobin 29.4 Mean Corpuscular Hemoglobin Concent 33.5 Mean Corpuscular Volume 87.8 Mean Platelet Volume 9.7 Monocytes # 0.3 Monocytes % 1.0 Neutrophils # 23.8 H Neutrophils % 81.0 H Phosphorus Level 2.4 #L Platelet Count 258 # Potassium Level 2.6 *L Prothrombin Time 17.6 H Prothrombin Time Ratio 1.4 Red Blood Count 5.41 Red Cell Distribution Width 13.2 Sodium Level 141 Total Bilirubin 0.2 Total Protein 5.4 L Troponin I 217.000 *H White Blood Count 29.4 #H Test 11/26/16 01:20 11/26/16 02:11 11/26/16 02:50 11/26/16 03:03 Bedside Glucose 205 198 211 Arterial Blood HCO3 17.3 L Arterial Blood Base Excess -10.5 L Arterial Blood Oxygen Saturation 97.2 Shaun Test ACCEPTAB Arterial Blood Gas Puncture Site Left Radial Arterial Blood Carboxyhemoglobin 0.3 Arterial Blood Date Drawn 11/26/2016 3:00:05 AM Arterial Blood Methemoglobin 0.3 Arterial Blood pCO2 (Temp correct) 36.7 Arterial Blood pH (Temp corrected) 7.266 *L Arterial Blood pO2 (Temp corrected) 86.2 Blood Gas A-a O2 Differential 600.8 H Blood Gas Actual Respiration Rate 22 Blood Gas Critical Value Read Back JACKELINE RN Blood Gas Low PEEP Setting 12.0 Blood Gas Modality VENT - AC Blood Gas Notified Time 11/26/2016 3:11:01 AM Blood Gas Notified Whom MA Blood Gas Respiration Rate 22.0 Blood Gas Specimen Source Blood arterial Blood Gas Temperature 32.4 Blood Gas Tidal Volume 550.0 FiO2 100.0 Oxyhemoglobin Percent 96.6 Total Hemoglobin 16.8 Test 11/26/16 04:25 11/26/16 04:27 11/26/16 05:00 11/26/16 05:48 Activated Partial Thromboplast Time 37.9 H Alanine Aminotransferase (ALT/SGPT) 173 H Albumin 2.8 L Albumin/Globulin Ratio 1.12 Alkaline Phosphatase 69 Anion Gap 18 H Aspartate Amino Transf (AST/SGOT) 817 H Basophils # 0.1 Basophils % 0.3 Blood Urea Nitrogen 22 H Calcium Level 7.0 L Carbon Dioxide Level 22 Chloride Level 105 Cholesterol Level 176 Cholesterol/HDL Ratio 5.8 Creatinine 1.92 H Direct Bilirubin 0.00 Eosinophils # 0.0 Eosinophils % 0.0 Globulin 2.50 Glucose Level 220 HDL Cholesterol 30 Hematocrit 46.9 Hemoglobin 15.5 INR International Normalized Ratio 1.32 Indirect Bilirubin 0.2 LDL Cholesterol, Calculated 129 Lymphocytes # 1.0 Lymphocytes % 3.6 L Mean Corpuscular Hemoglobin 28.9 L Mean Corpuscular Hemoglobin Concent 33.0 Mean Corpuscular Volume 87.5 Mean Platelet Volume 9.6 Monocytes # 0.9 Monocytes % 3.1 Neutrophils # 26.5 H Neutrophils % 91.3 H Nucleated Red Blood Cells # 0.0 Nucleated Red Blood Cells % 0.0 Platelet Count 224 Potassium Level 2.5 *L Prothrombin Time 16.5 H Prothrombin Time Ratio 1.3 Red Blood Count 5.36 Red Cell Distribution Width 13.2 Sodium Level 142 Thyroid Stimulating Hormone (TSH) 2.560 Total Bilirubin 0.2 Total Protein 5.3 L Triglycerides Level 87 Troponin I 253.000 *H White Blood Count 29.0 H Bedside Glucose 207 192 Magnesium Level 1.7 Phosphorus Level 0.8 #L Test 11/26/16 06:53 11/26/16 07:00 11/26/16 07:57 Bedside Glucose 177 194 Arterial Blood HCO3 17.5 L Arterial Blood Base Excess -9.3 L Arterial Blood Oxygen Saturation 98.8 H Shaun Test ACCEPTAB Arterial Blood Gas Puncture Site Right Radial Arterial Blood Carboxyhemoglobin 0.3 Arterial Blood Date Drawn 11/26/2016 7:16:53 AM Arterial Blood Methemoglobin 0.4 Arterial Blood pCO2 (Temp correct) 35.7 Arterial Blood pH (Temp corrected) 7.291 *L Arterial Blood pO2 (Temp corrected) 146.7 H Blood Gas A-a O2 Differential 538.5 H Blood Gas Actual Respiration Rate 24 Blood Gas Critical Value Read Back Maren CUBA RN Blood Gas Low PEEP Setting 12.0 Blood Gas Modality VENT - AC Blood Gas Notified Time 11/26/2016 7:49:56 AM Blood Gas Notified Whom JLD Blood Gas Respiration Rate 24.0 Blood Gas Specimen Source Blood arterial Blood Gas Temperature 33.7 Blood Gas Tidal Volume 550.0 FiO2 100.0 Oxyhemoglobin Percent 98.1 Total Hemoglobin 16.6 Medications Medications Current Medications Amiodarone HCl/ Dextrose (Cordarone Iv/ D5W) 500 ml @ 0 mls/hr Q0M IV Last administered on 11/25/16 15:13; Admin Dose 33 MLS/HR; Start 11/25/16 at 19:00; Stop 11/26/16 at 18:59 Ondansetron HCl (Zofran Inj) 4 mg Q6H PRN IV NAUSEA AND/OR VOMITING; Start at 21:00 Acetaminophen (Tylenol Supp) 650 mg Q4H PRN MO PAIN LEVEL 1-3 OR FEVER; Start 11/25/16 at 21:00 Lorazepam (Ativan) 1 mg Q2H PRN IV ANXIETY; Start 11/25/16 at 21:00 Pantoprazole (Protonix Iv) 40 mg DAILY@06 IV Last administered on 11/26/16 06: 07; Admin Dose 40 MG; Start 11/26/16 at 06:00 Acetaminophen (Tylenol Supp) 650 mg Q4H PRN MO TEMP > 37C; Start 11/25/16 at 21 :00 Acetaminophen (Tylenol Liquid) 650 mg Q4H PRN PO TEMP > 37C; Start 11/25/16 at 21:00 Acetaminophen (Tylenol Supp) 500 mg Q6H MO ; Start 11/26/16 at 21:00 Acetaminophen (Tylenol Liquid) 500 mg Q6H PO ; Start 11/26/16 at 21:00 Meperidine HCl (Demerol) 12.5 mg Q4H PRN IV POST OPERATIVE SHIVERING; Start at 21:00 Meperidine HCl (Demerol) 25 mg Q4H PRN IV POST OPERATIVE SHIVERING; Start 11/25 at 21:00 Eye Lubricant (Akwa Oint) 1 applic Q6 BOTH EYES Last administered on 11/26/16 06:07; Admin Dose 1 APPLIC; Start 11/26/16 at 00:00 Eye Lubricant (Artificial Tears Oph) 2 drop Q6 BOTH EYES Last administered on 06:06; Admin Dose 2 DROP; Start 11/26/16 at 00:00 Diagnostic Test (Pha) (Accucheck) 1 ea Q1H XX Last administered on 11/26/16 08 :19; Admin Dose 1 EA; Start 11/25/16 at 22:00 Dextrose (D50w Syringe) 25 ml Q15M PRN IV Till BS 80 mg/dL or above x2; Start 11/25/16 at 21:00 Dextrose 50 ml 50 ml Q15M PRN IV Till BS 80 mg/dL or above x2; Start 11/25/16 at 21:00 Cefepime HCl 50 ml @ 100 mls/hr Q12 IVPB Last administered on 11/25/16 23:30 ; Admin Dose 100 MLS/HR; Start 11/25/16 at 21:30 Norepinephrine 16 mg/Dextrose 500 ml @ 1.87 mls/hr TITRATE IV ; Start 11/26/16 at 02:00 Potassium Chloride 50 ml @ 25 mls/hr Q2H IVPB Last administered on 11/26/16 08 :07; Admin Dose 25 MLS/HR; Start 11/26/16 at 06:00; Stop 11/26/16 at 09:59 Potassium Chloride/Dextrose/ Sod Cl 1,000 ml @ 100 mls/hr Q10H IV Last administered on 11/26/16 06:07; Admin Dose 100 MLS/HR; Start 11/26/16 at 06:00 Vancomycin HCl/ Sodium Chloride (Vancocin/NS) 500 ml @ 125 mls/hr ONCE ONCE IVPB Last administered on 11/26/16 08:14; Admin Dose 125 MLS/HR; Start at 08:00; Stop 11/26/16 at 11:59 RUSS ARECHIGA Nov 26, 2016 09:17
[2016-11-26] MEDS: PANTOPRAZOLE IV 80 MG in SOD CHLORIDE 0.9% 100 ML IV SCH ×2 (09:21→19:53)
--- NOTE | 2016-11-26 09:38 | CONS ---
Date/Time of Note Date/Time of Note DATE: 11/26/16 TIME: 09:30 Assessment/Plan Assessment/Plan Additional Assessment/Plan Chest x-ray was reviewed from yesterday which is showing bilateral pneumonia with possibly superimposed pulmonary edema. Findings are much worse on the right side. Endotracheal tube is at an adequate level. Current ventilator settings; assist control of 24, tidal volume of 550, 80% FiO2 , PEEP of 12. Assessment and recommendations; 1. Patient admitted with acute inferior DC with cardiac arrest and underwent prolonged CPR. 2. Status post emergent PTCA of proximal obtuse marginal branch. 3. Likely significant aspiration pneumonia. 4. Shock liver. 5. Renal insufficiency. 6. Likely anoxic brain injury. 7. Cardiac arrhythmia. However currently in sinus rhythm. Continue current supportive care. Obtain a blood gas on current ventilator settings. Prognosis depends upon adequate mental status recovery. Mental status to be evaluated once patient is off hypothermia protocol. Consultation Date/Type/Reason Admit Date/Time Date of Consultation: Nov 26, 2016 Type of Consultation: Pulmonary/critical care Reason for Consultation Patient admitted with cardiac arrest, pulmonary consultation obtained for management of respiratory failure. Next History of present in the; patient is a 50-year-old white male who was brought into the ER after he sustained a cardiac arrest while undergoing massage. EMS were called in and prolonged CPR was done lasting more than 30 minutes with revival of vital signs. When evaluated here the patient was diagnosed with acute inferior DC , patient was immediately taken to chemical laboratory scientist where emergent angiography was performed with stenting of obtuse marginal branch which was 100 % occluded. Patient currently remains orally intubated and sedated as well as paralyzed and is currently on hypothermia protocol. Next Past medical history; is essentially unremarkable per records. Medications; reviewed. Allergies; are none. Social history; currently not available. Family history; not available. Occupational history; not available. Review of systems; currently unable to be obtained. General exam; middle aged male, or intubated sedated. Social History Smoking Status: Unknown if ever smoked Exam/Review of Systems Vital Signs Vitals Vital Signs Date Time Temp Pulse Resp B/P Pulse Ox O2 Delivery O2 Flow Rate FiO2 11/26/16 08:00 61 11/26/16 08:00 92.0 24 139/99 100 Mechanical Ventilator 11/26/16 05:23 100 Intake and Output 11/25/16 11/25/16 11/26/16 15:00 23:00 07:00 Intake Total 2363 ml 1035 ml Output Total 680 ml 680 ml Balance 1683 ml 355 ml Exam H EENT examination; supple neck, pupils are small and fixed. Orally intubated. There is fresh blood seen coming from NG tube. He does have carious teeth. No thyromegaly. No neck masses. Midline trachea. Chest examination; diminished breath sounds bilaterally. S1-S2 audible, no murmurs. Regular rhythm. Abdomen examination; soft, bowel sounds are absent. No organomegaly. Extremity examination; no peripheral edema. Pulses 1+ bilaterally. LIVING ADVISOR examination; patient is sedated and paralyzed. Results Result Diagram: 11/26/16 0425 11/26/16 0425 Results 24 hrs Laboratory Tests Test 11/25/16 14:45 11/25/16 14:50 11/25/16 15:00 11/25/16 15:29 Urine Amorphous Urates MODERATE Urine Amphetamines Screen Negative Urine Bacteria MODERATE Urine Barbiturates Negative Urine Benzodiazepines Screen Negative Urine Bilirubin NEGATIVE Urine Cannabinoids Positive Urine Clarity SLIGHTLY CLOUDY Urine Cocaine Screen Negative Urine Color LT. YELLOW Urine Glucose NEGATIVE Urine Hemoglobin 1+ H Urine Ketones NEGATIVE Urine Leukocyte Esterase NEGATIVE Urine Microscopic RBC 2-5 Urine Microscopic WBC NONE SEEN Urine Nitrite NEGATIVE Urine Opiates Screen Negative Urine Specific [place] 1.025 Urine Sperm MODERATE Urine Total Protein 1+ H Urine Urobilinogen 0.2 E.U./dL Urine pH 6.5 Alanine Aminotransferase (ALT/SGPT) 41 Albumin 3.4 Albumin/Globulin Ratio 1.41 Alkaline Phosphatase 74 Anion Gap 33 H Aspartate Amino Transf (AST/SGOT) 50 H Basophils # 0.1 Basophils % 0.4 Blood Urea Nitrogen 11 Calcium Level 8.3 L Carbon Dioxide Level 15 L Chloride Level 102 Creatinine 1.16 Differential Comment AUTO w/SCAN Direct Bilirubin 0.00 Eosinophils # 0.5 Eosinophils % 3.2 Globulin 2.40 Glucose Level 329 H Hematocrit 49.7 Hemoglobin 15.5 Indirect Bilirubin 0.1 Lymphocytes # 6.1 H Lymphocytes % 43.0 Magnesium Level 2.9 H Mean Corpuscular Hemoglobin 29.3 Mean Corpuscular Hemoglobin Concent 31.2 L Mean Corpuscular Volume 94.0 Mean Platelet Volume 10.5 H Monocytes # 0.8 Monocytes % 5.2 Neutrophils # 5.9 Neutrophils % 41.1 Nucleated Red Blood Cells # 0.1 H Nucleated Red Blood Cells % 0.4 H Phosphorus Level 9.7 H Platelet Count 152 Potassium Level 3.6 Red Blood Count 5.29 Red Cell Distribution Width 13.0 Sodium Level 146 H Total Bilirubin 0.1 L Total Protein 5.8 L Troponin I 0.234 *H White Blood Count 14.3 H Bedside Glucose 302 H Arterial Blood HCO3 13.5 L Arterial Blood Base Excess -19.4 L Arterial Blood Oxygen Saturation 81.5 L Shaun Test ACCEPTAB Arterial Blood Gas Puncture Site Left Radial Arterial Blood Carboxyhemoglobin 1.6 Arterial Blood Date Drawn 11/25/2016 4:55:01 PM Arterial Blood Methemoglobin 0.4 Arterial Blood pCO2 (Temp correct) 62.4 H Arterial Blood pH (Temp corrected) 6.954 *L Arterial Blood pO2 (Temp corrected) 68.3 L Blood Gas A-a O2 Differential 582.3 H Blood Gas Actual Respiration Rate 25 Blood Gas Critical Value Read Back ADRY Tinajero Blood Gas Low PEEP Setting 5.0 Blood Gas Modality VENT - AC Blood Gas Notified Time 11/25/2016 4:59:44 PM Blood Gas Notified Whom MDA Blood Gas Respiration Rate 18.0 Blood Gas Specimen Source Blood arterial Blood Gas Temperature 37.0 Blood Gas Tidal Volume 600.0 FiO2 100.0 Oxyhemoglobin Percent 79.9 L Total Hemoglobin 16.8 Test 11/25/16 15:55 11/25/16 17:20 11/25/16 18:22 11/25/16 20:50 Activated Partial Thromboplast Time 84.4 *H 63.0 H INR International Normalized Ratio 1.55 1.33 Prothrombin Time 18.7 H 16.6 H Prothrombin Time Ratio 1.5 1.3 Arterial Blood HCO3 5.7 *L 18.7 L Arterial Blood Base Excess -23.2 L -7.7 L Arterial Blood Oxygen Saturation 75.5 L 87.9 L Shaun Test N/A ACCEPTAB Arterial Blood Gas Puncture Site OTHER Left Radial Arterial Blood Carboxyhemoglobin 0.1 0.4 Arterial Blood Date Drawn 11/25/2016 6:24:48 PM 11/25/2016 9:10:55 PM Arterial Blood Methemoglobin 0.9 0.4 Arterial Blood pCO2 (Temp correct) 21.8 L 34.0 L Arterial Blood pH (Temp corrected) 7.039 *L 7.335 L Arterial Blood pO2 (Temp corrected) 54.0 *L 43.7 *L Blood Gas A-a O2 Differential 637.2 H 645.1 H Blood Gas Actual Respiration Rate 22 22 Blood Gas Critical Value Read Back NATHAN VIVEROS RN Blood Gas Low PEEP Setting 10.0 10.0 Blood Gas Modality VENT - AC VENT - AC Blood Gas Notified Time 11/25/2016 6:28:50 PM 11/25/2016 9:25:30 PM Blood Gas Notified Whom KIRAN HARE Blood Gas Respiration Rate 22.0 22.0 Blood Gas Specimen Source Blood arterial Blood arterial Blood Gas Temperature 37.0 32.8 Blood Gas Tidal Volume 600.0 600.0 FiO2 100.0 100.0 Oxyhemoglobin Percent 74.7 L 87.2 L Total Hemoglobin 9.2 L 17.2 Test 11/25/16 21:13 11/25/16 22:20 11/25/16 22:23 11/26/16 00:27 Bedside Glucose 254 H 221 H 181 Activated Partial Thromboplast Time 113.8 *H Alanine Aminotransferase (ALT/SGPT) 144 H Albumin 3.0 L Albumin/Globulin Ratio 1.25 Alkaline Phosphatase 87 Amylase Level 234 H Anion Gap 18 #H Aspartate Amino Transf (AST/SGOT) 653 #H Band Neutrophils % 11.0 H Blood Urea Nitrogen 19 Calcium Level 6.9 L Carbon Dioxide Level 24 Chloride Level 102 Creatinine 1.73 H D-Dimer > 13269.00 H Direct Bilirubin 0.00 Fibrinogen 216.0 Globulin 2.40 Glucose Level 236 H Hematocrit 47.5 Hemoglobin 15.9 Hemoglobin A1c 5.8 INR International Normalized Ratio 1.44 Indirect Bilirubin 0.2 Lactic Acid Level 9.5 *H Lipase 227 Lymphocytes # 2.1 Lymphocytes % 7.0 L Magnesium Level 2.0 Mean Corpuscular Hemoglobin 29.4 Mean Corpuscular Hemoglobin Concent 33.5 Mean Corpuscular Volume 87.8 Mean Platelet Volume 9.7 Monocytes # 0.3 Monocytes % 1.0 Neutrophils # 23.8 H Neutrophils % 81.0 H Phosphorus Level 2.4 #L Platelet Count 258 # Potassium Level 2.6 *L Prothrombin Time 17.6 H Prothrombin Time Ratio 1.4 Red Blood Count 5.41 Red Cell Distribution Width 13.2 Sodium Level 141 Total Bilirubin 0.2 Total Protein 5.4 L Troponin I 217.000 *H White Blood Count 29.4 #H Test 11/26/16 01:20 11/26/16 02:11 11/26/16 02:50 11/26/16 03:03 Bedside Glucose 205 198 211 Arterial Blood HCO3 17.3 L Arterial Blood Base Excess -10.5 L Arterial Blood Oxygen Saturation 97.2 Shaun Test ACCEPTAB Arterial Blood Gas Puncture Site Left Radial Arterial Blood Carboxyhemoglobin 0.3 Arterial Blood Date Drawn 11/26/2016 3:00:05 AM Arterial Blood Methemoglobin 0.3 Arterial Blood pCO2 (Temp correct) 36.7 Arterial Blood pH (Temp corrected) 7.266 *L Arterial Blood pO2 (Temp corrected) 86.2 Blood Gas A-a O2 Differential 600.8 H Blood Gas Actual Respiration Rate 22 Blood Gas Critical Value Read Back JACKELINE RN Blood Gas Low PEEP Setting 12.0 Blood Gas Modality VENT - AC Blood Gas Notified Time 11/26/2016 3:11:01 AM Blood Gas Notified Whom MA Blood Gas Respiration Rate 22.0 Blood Gas Specimen Source Blood arterial Blood Gas Temperature 32.4 Blood Gas Tidal Volume 550.0 FiO2 100.0 Oxyhemoglobin Percent 96.6 Total Hemoglobin 16.8 Test 11/26/16 04:25 11/26/16 04:27 11/26/16 05:00 11/26/16 05:48 Activated Partial Thromboplast Time 37.9 H Alanine Aminotransferase (ALT/SGPT) 173 H Albumin 2.8 L Albumin/Globulin Ratio 1.12 Alkaline Phosphatase 69 Anion Gap 18 H Aspartate Amino Transf (AST/SGOT) 817 H Basophils # 0.1 Basophils % 0.3 Blood Urea Nitrogen 22 H Calcium Level 7.0 L Carbon Dioxide Level 22 Chloride Level 105 Cholesterol Level 176 Cholesterol/HDL Ratio 5.8 Creatinine 1.92 H Direct Bilirubin 0.00 Eosinophils # 0.0 Eosinophils % 0.0 Globulin 2.50 Glucose Level 220 HDL Cholesterol 30 Hematocrit 46.9 Hemoglobin 15.5 Hemoglobin A1c 5.6 INR International Normalized Ratio 1.32 Indirect Bilirubin 0.2 LDL Cholesterol, Calculated 129 Lymphocytes # 1.0 Lymphocytes % 3.6 L Mean Corpuscular Hemoglobin 28.9 L Mean Corpuscular Hemoglobin Concent 33.0 Mean Corpuscular Volume 87.5 Mean Platelet Volume 9.6 Monocytes # 0.9 Monocytes % 3.1 Neutrophils # 26.5 H Neutrophils % 91.3 H Nucleated Red Blood Cells # 0.0 Nucleated Red Blood Cells % 0.0 Platelet Count 224 Potassium Level 2.5 *L Prothrombin Time 16.5 H Prothrombin Time Ratio 1.3 Red Blood Count 5.36 Red Cell Distribution Width 13.2 Sodium Level 142 Thyroid Stimulating Hormone (TSH) 2.560 Total Bilirubin 0.2 Total Protein 5.3 L Triglycerides Level 87 Troponin I 253.000 *H White Blood Count 29.0 H Bedside Glucose 207 192 Magnesium Level 1.7 Phosphorus Level 0.8 #L Test 11/26/16 06:53 11/26/16 07:00 11/26/16 07:57 11/26/16 09:06 Bedside Glucose 177 194 198 Arterial Blood HCO3 17.5 L Arterial Blood Base Excess -9.3 L Arterial Blood Oxygen Saturation 98.8 H Shaun Test ACCEPTAB Arterial Blood Gas Puncture Site Right Radial Arterial Blood Carboxyhemoglobin 0.3 Arterial Blood Date Drawn 11/26/2016 7:16:53 AM Arterial Blood Methemoglobin 0.4 Arterial Blood pCO2 (Temp correct) 35.7 Arterial Blood pH (Temp corrected) 7.291 *L Arterial Blood pO2 (Temp corrected) 146.7 H Blood Gas A-a O2 Differential 538.5 H Blood Gas Actual Respiration Rate 24 Blood Gas Critical Value Read Back E BEREKET PALMA Blood Gas Low PEEP Setting 12.0 Blood Gas Modality VENT - AC Blood Gas Notified Time 11/26/2016 7:49:56 AM Blood Gas Notified Whom JLD Blood Gas Respiration Rate 24.0 Blood Gas Specimen Source Blood arterial Blood Gas Temperature 33.7 Blood Gas Tidal Volume 550.0 FiO2 100.0 Oxyhemoglobin Percent 98.1 Total Hemoglobin 16.6 Medications Medications Current Medications Amiodarone HCl/ Dextrose (Cordarone Iv/ D5W) 500 ml @ 0 mls/hr Q0M IV Last administered on 11/25/16t 15:13; Admin Dose 33 MLS/HR; Start 11/25/16 at 19:00; Stop 11/26/16 at 18:59 Ondansetron HCl (Zofran Inj) 4 mg Q6H PRN IV NAUSEA AND/OR VOMITING; Start at 21:00 Acetaminophen (Tylenol Supp) 650 mg Q4H PRN MS PAIN LEVEL 1-3 OR FEVER; Start 11/25/16 at 21:00 Lorazepam (Ativan) 1 mg Q2H PRN IV ANXIETY; Start 11/25/16 at 21:00 Acetaminophen (Tylenol Supp) 650 mg Q4H PRN MS TEMP > 37C; Start 11/25/16 at 21 :00 Acetaminophen (Tylenol Liquid) 650 mg Q4H PRN PO TEMP > 37C; Start 11/25/16 at 21:00 Acetaminophen (Tylenol Supp) 500 mg Q6H MS ; Start 11/26/16 at 21:00 Acetaminophen (Tylenol Liquid) 500 mg Q6H PO ; Start 11/26/16 at 21:00 Meperidine HCl (Demerol) 12.5 mg Q4H PRN IV POST OPERATIVE SHIVERING; Start at 21:00 Meperidine HCl (Demerol) 25 mg Q4H PRN IV POST OPERATIVE SHIVERING; Start 11/25 at 21:00 Eye Lubricant (Akwa Oint) 1 applic Q6 BOTH EYES Last administered on 11/26/16 06:07; Admin Dose 1 APPLIC; Start 11/26/16 at 00:00 Eye Lubricant (Artificial Tears Oph) 2 drop Q6 BOTH EYES Last administered on 06:06; Admin Dose 2 DROP; Start 11/26/16 at 00:00 Diagnostic Test (Pha) (Accucheck) 1 ea Q1H XX Last administered on 11/26/16 09 :11; Admin Dose 1 EA; Start 11/25/16 at 22:00 Dextrose (D50w Syringe) 25 ml Q15M PRN IV Till BS 80 mg/dL or above x2; Start 11/25/16 at 21:00 Dextrose 50 ml 50 ml Q15M PRN IV Till BS 80 mg/dL or above x2; Start 11/25/16 at 21:00 Cefepime HCl 50 ml @ 100 mls/hr Q12 IVPB Last administered on 11/26/16 09:10 ; Admin Dose 100 MLS/HR; Start 11/25/16 at 21:30 Norepinephrine 16 mg/Dextrose 500 ml @ 1.87 mls/hr TITRATE IV ; Start 11/26/16 at 02:00 Potassium Chloride 50 ml @ 25 mls/hr Q2H IVPB Last administered on 11/26/16 08 :07; Admin Dose 25 MLS/HR; Start 11/26/16 at 06:00; Stop 11/26/16 at 09:59 Potassium Chloride/Dextrose/ Sod Cl 1,000 ml @ 100 mls/hr Q10H IV Last administered on 11/26/16 06:07; Admin Dose 100 MLS/HR; Start 11/26/16 at 06:00 Vancomycin HCl 1.75 gm/Sodium Chloride 500 ml @ 125 mls/hr ONCE ONCE IVPB Last administered on 11/26/16 08:14; Admin Dose 125 MLS/HR; Start 11/26/16 at 08:00; Stop 11/26/16 at 11:59 Pantoprazole/ Sodium Chloride (Protonix Iv/NS) 100 ml @ 10 mls/hr Q10H IV Last administered on 11/26/16 09:21; Admin Dose 10 MLS/HR; Start 11/26/16 at 10 :00 BRITTNY GARG Nov 26, 2016 09:38
[2016-11-26 09:53] LABS: ADD SCAN DIFF NO
[2016-11-26 09:55] LABS: ABNORMAL IP MESSAGE 1; HEMATOCRIT 44.8 % (42.0-52.0); HEMOGLOBIN 15.1 g/dl (14.0-18.0); MEAN CORPUSCULAR HEMOGLOBIN 29.4 pg (29.0-33.0); MEAN CORPUSCULAR HGB CONC 33.7 g/dl (32.0-37.0); MEAN CORPUSCULAR VOLUME 87.3 fl (82.0-101.0); MEAN PLATELET VOLUME 9.7 fl (7.4-10.4); PLATELET COUNT 204 10^3/UL (140-415); RED BLOOD COUNT 5.13 10^6/ul (4.70-6.10); RED CELL DISTRIBUTION WIDTH 13.2 % (11.5-14.5); WHITE BLOOD COUNT 28.5 10^3/ul (4.8-10.8)
[2016-11-26] MEDS ORDERED: TICAGRELOR 90 MG TABLET PO ONE (10:00)
[2016-11-26] MEDS ORDERED: ASPIRIN 81 MG TAB NGT SCH (10:00)
[2016-11-26 10:09] LABS: INR 1.24; POTASSIUM 3.3 mmol/L (3.5-5.1); PROTIME 15.7 Sec (12.2-14.2); PT RATIO 1.2
[2016-11-26 10:10] LABS: PARTIAL THROMBOPLASTIN TIME 32.1 Sec (25.0-35.0)
[2016-11-26 10:12] LABS: CREATININE 2.02 mg/dl (0.61-1.24); PHOSPHORUS 0.8 mg/dl (2.5-4.9)
[2016-11-26 10:13] LABS: CALCIUM 7.1 mg/dl (8.4-10.2); MAGNESIUM 1.7 mg/dl (1.7-2.5)
[2016-11-26 11:18] LABS: MONOCYTE # 0.6 10^3/ul (0.3-0.9); NEUTROPHIL # 21.1 10^3/ul (1.6-7.5)
[2016-11-26 11:19] LABS: HAAIG REFLEX REFLEX FILED
[2016-11-26 13:00] LABS: HEPATITIS B CORE ANTIBODY NEGATIVE (NEGATIVE)
[2016-11-26 14:53] LABS: AADO2 Arterial 351.5 mmHg (7.0-24.0); Allen Test ACCEPTAB; Arterial Base Excess -7.3 mmol/L (-3.0-3); Arterial COHb 0.3 % (0.0-3.0); Arterial Fraction of Oxyhgb 97.7 % (93.0-99.0); Arterial HCO3 18.9 mmol/L (22.0-26.0); Arterial MetHb 0.4 % (0.0-1.5); Arterial Total Hemglobin 16.1 g/dl (12.0-18.0); MODE VENT - AC
[2016-11-26] MEDS: TICAGRELOR 90 MG TABLET PO SCH ×2 (17:12→21:44)
[2016-11-26 17:20] LABS: ADD SCAN DIFF NO
[2016-11-26 17:24] LABS: ABNORMAL IP MESSAGE 1; BASOPHIL # 0.1 10^3/ul (0.0-0.1); BASOPHILS % 0.3 % (0.0-2.0); HEMATOCRIT 41.1 % (42.0-52.0); LYMPHOCYTES # 1.1 10^3/ul (0.8-2.9); LYMPHOCYTES % 3.9 % (15.0-51.0); MEAN CORPUSCULAR HEMOGLOBIN 29.6 pg (29.0-33.0); MEAN CORPUSCULAR HGB CONC 34.1 g/dl (32.0-37.0); MEAN CORPUSCULAR VOLUME 86.9 fl (82.0-101.0); MEAN PLATELET VOLUME 10.3 fl (7.4-10.4); MONOCYTE # 1.4 10^3/ul (0.3-0.9); NEUTROPHIL # 24.9 10^3/ul (1.6-7.5); NEUTROPHILS % 89.1 % (39.0-77.0); PLATELET COUNT 184 10^3/UL (140-415); RED BLOOD COUNT 4.73 10^6/ul (4.70-6.10); RED CELL DISTRIBUTION WIDTH 13.3 % (11.5-14.5)
[2016-11-26] MEDS ORDERED: ASPIRIN 300 MG SUPP PR ONE (17:30)
[2016-11-26] MEDS: ASPIRIN 300 MG SUPP PR SCH ×2 (17:30→17:34)
[2016-11-26 17:46] LABS: POTASSIUM 5.5 mmol/L (3.5-5.1)
[2016-11-26 17:47] LABS: CREATININE 1.79 mg/dl (0.61-1.24); INR 1.16; PROTIME 14.8 Sec (12.2-14.2); PT RATIO 1.2
[2016-11-26 17:48] LABS: MAGNESIUM 1.4 mg/dl (1.7-2.5); PARTIAL THROMBOPLASTIN TIME 33.5 Sec (25.0-35.0); PHOSPHORUS 1.2 mg/dl (2.5-4.9)
--- NOTE | 2016-11-26 18:11 | PN ---
DATE: 11/26/2016 CARDIOLOGY FOLLOWUP Critical care note on behalf of ____. SUBJECTIVE: Discussed with the staff. Rhythm strip was reviewed. The patient remains in sinus rhy thm, had episodes of nonsustained VT. His blood pressure has improved and off of Levophed now. He is still intubated and on the vent. Nonresponsive. Warming up the hypothermia sedation, but no res ponse at this point noted. He also has had NG with ____ material, but H and H have remained stable. MEDICATIONS: Reviewed, which include: 1. Vancomycin. 2. Brilinta. 3. Protonix drip. 4. Aspirin. 5. Versed. 6. Vecuronium. 7. Cefepime. PHYSICAL EXAMINATION: VITAL SIGNS: Temperature 91.5, heart rate of 53, blood pressure 122/88, respiratory rate 24, O2 sat uration 99%. HEENT: Normocephalic, atraumatic. Pupils are constricted. Corneal reflex is absent. CARDIOVASCULAR: Regular rate and rhythm, systolic murmur. PULMONARY: Anteriorly with mild rhonchi. GASTROINTESTINAL: Soft, nontender. EXTREMITIES: No significant lower extremity edema. VASCULAR: Right femoral status post right femoral central line placement. NEUROLOGIC: No response to verbal or painful stimuli. LABORATORY DATA: Sodium 141, potassium 3.3, BUN of 24, creatinine 2.12, glucose of 212. Magnesium is 1.7. Troponin has peaked at 253. Cholesterol 176, LDL 129, HDL 30. TSH 2.56. Coronary angiogram of the patient, the films were personally reviewed as well. ASSESSMENT AND PLAN: 1. Cardiac arrest secondary to ventricular fibrillation arrest. 2. ST elevation myocardial infarction. 3. Significant coronary artery disease with 100% occlusion of the circumflex artery. 4. Status post successful stenting of the left circumflex artery. 5. Hypoxemic respiratory failure, status post intubation on the vent. 6. Acute renal failure. 7. Shock, leukocytosis, possible sepsis. 8. Possible upper gastrointestinal bleed with stable hemoglobin and hematocrit. 9. Encephalopathy and possible anoxic brain injury. RECOMMENDATIONS: Continue with the ICU care and vent support. Levophed as needed will be resumed. Follow up renal function. I will resume the patient's aspirin and Brilinta given the fact that he had an acute NH and the angiography appeared to have large clot of the circumflex artery as well as PTCA stent. Currently, H and H have been stable. We will need to transfuse and if needed. Protoni x drip will be continued as well. More than 40 minutes of critical care time was spent managing ____ this patient excluding any proced ures. Dictated By: RODGER CONTRERAS/KENDRA Conf#: [id number] DID#: [id number]
[2016-11-26 18:50] LABS: POTASSIUM 3.5 mmol/L (3.5-5.1)
[2016-11-26 18:53] LABS: CREATININE 2.16 mg/dl (0.61-1.24)
[2016-11-26 18:54] LABS: CALCIUM 6.9 mg/dl (8.4-10.2)
[2016-11-26] MEDS ORDERED: SOD CHLORIDE 0.9% 1,000 ML IV ONE (20:00)
[2016-11-26 20:44] LABS: POTASSIUM 4.1 mmol/L (3.5-5.1)
[2016-11-26 20:46] LABS: CREATININE 2.01 mg/dl (0.61-1.24)
[2016-11-26 21:06] LABS: AADO2 Arterial 285.7 mmHg (7.0-24.0); Allen Test ACCEPTAB; Arterial Base Excess -6.6 mmol/L (-3.0-3); Arterial COHb 0.3 % (0.0-3.0); Arterial Fraction of Oxyhgb 97.8 % (93.0-99.0); Arterial HCO3 18.4 mmol/L (22.0-26.0); Arterial MetHb 0.3 % (0.0-1.5); Arterial Total Hemglobin 14.5 g/dl (12.0-18.0); MODE VENT - AC
[2016-11-26] MEDS: ACETAMINOPHEN 650MG/20.3ML CUP PO SCH (21:44)
[2016-11-26] MEDS: ACETAMINOPHEN 650 MG SUPP PR SCH (21:44)
[2016-11-26 21:45] LABS: MAGNESIUM 1.8 mg/dl (1.7-2.5)
[2016-11-26] MEDS ORDERED: MAGNESIUM SULFATE 2 GM/50 ML 50 ML IVPB ONE (23:00)
[2016-11-27] VITALS (57 sets, daily range): BP systolic 100–179; BP diastolic 59–102; PULSE 65–127; RESP 22–29
[2016-11-27] MEDS: ACCUCHECK XX SCH ×16 (00:01→21:10)
[2016-11-27] MEDS: OCULAR LUBRICANT 3.5 GM OPH OINT BOTH EYES SCH ×5 (00:01→23:41)
[2016-11-27] MEDS: ARTIFICIAL TEARS 15 ML OPH BOTH EYES SCH ×5 (00:02→23:41)
[2016-11-27 01:26] LABS: Allen Test ACCEPTAB; Arterial Base Excess -7.7 mmol/L (-3.0-3); Arterial COHb 0.3 % (0.0-3.0); Arterial Fraction of Oxyhgb 95.2 % (93.0-99.0); Arterial HCO3 16.8 mmol/L (22.0-26.0); Arterial MetHb 0.2 % (0.0-1.5); Arterial Total Hemglobin 15.1 g/dl (12.0-18.0); MODE VENT - AC
[2016-11-27 01:45] LABS: ADD SCAN DIFF NO
[2016-11-27 01:59] LABS: ABNORMAL IP MESSAGE 1; BASOPHIL # 0.1 10^3/ul (0.0-0.1); BASOPHILS % 0.3 % (0.0-2.0); HEMATOCRIT 39.8 % (42.0-52.0); LYMPHOCYTES # 1.2 10^3/ul (0.8-2.9); LYMPHOCYTES % 3.8 % (15.0-51.0); MEAN CORPUSCULAR HGB CONC 35.2 g/dl (32.0-37.0); MEAN CORPUSCULAR VOLUME 85.2 fl (82.0-101.0); MEAN PLATELET VOLUME 10.5 fl (7.4-10.4); MONOCYTE # 1.5 10^3/ul (0.3-0.9); MONOCYTES % 4.8 % (0.0-11.0); NEUTROPHIL # 26.9 10^3/ul (1.6-7.5); PLATELET COUNT 171 10^3/UL (140-415); RED BLOOD COUNT 4.67 10^6/ul (4.70-6.10); RED CELL DISTRIBUTION WIDTH 13.4 % (11.5-14.5); WHITE BLOOD COUNT 30.2 10^3/ul (4.8-10.8)
[2016-11-27 02:00] LABS: INR 1.09; PROTIME 14.1 Sec (12.2-14.2); PT RATIO 1.1
[2016-11-27] MEDS: D5W-0.45 NACL + KCL 20 MEQ 1,000 ML IV SCH (02:00)
[2016-11-27 02:01] LABS: PARTIAL THROMBOPLASTIN TIME 34.2 Sec (25.0-35.0)
[2016-11-27 02:06] LABS: CALCIUM 6.7 mg/dl (8.4-10.2); CREATININE 2.23 mg/dl (0.61-1.24); PHOSPHORUS 3.5 mg/dl (2.5-4.9)
[2016-11-27 02:07] LABS: MAGNESIUM 1.9 mg/dl (1.7-2.5)
[2016-11-27 02:21] LABS: TROPONIN-I 75.7 ng/ml (0.00-0.12)
[2016-11-27] MEDS ORDERED: hydrALAzine 20 MG INJ IV PRN (02:30)
[2016-11-27] MEDS: MIDAZOLAM (DRIP) 50 mg/50 mL 50 ML IV SCH ×3 (02:44→23:38)
[2016-11-27] MEDS: PROPOFOL 100 ML IV SCH ×3 (02:54→19:41)
[2016-11-27] MEDS: ACETAMINOPHEN 650MG/20.3ML CUP PO SCH ×4 (03:50→21:05)
[2016-11-27] MEDS: ACETAMINOPHEN 650 MG SUPP PR SCH ×4 (03:50→21:00)
[2016-11-27] MEDS: PANTOPRAZOLE IV 80 MG in SOD CHLORIDE 0.9% 100 ML IV SCH ×3 (05:02→23:37)
[2016-11-27 05:55] LABS: ADD SCAN DIFF NO
[2016-11-27 06:08] LABS: INR 1.12; PROTIME 14.4 Sec (12.2-14.2); PT RATIO 1.1
[2016-11-27 06:09] LABS: PARTIAL THROMBOPLASTIN TIME 31.7 Sec (25.0-35.0)
[2016-11-27 06:09] LABS: AADO2 Arterial 333.7 mmHg (7.0-24.0); Allen Test ACCEPTAB; Arterial Base Excess -4.5 mmol/L (-3.0-3); Arterial COHb 0.3 % (0.0-3.0); Arterial Fraction of Oxyhgb 92.2 % (93.0-99.0); Arterial HCO3 20.3 mmol/L (22.0-26.0); Arterial MetHb 0.3 % (0.0-1.5); Arterial Total Hemglobin 15.2 g/dl (12.0-18.0); MODE VENT - AC
[2016-11-27 06:15] LABS: ABNORMAL IP MESSAGE 1; BASOPHIL # 0.1 10^3/ul (0.0-0.1); BASOPHILS % 0.2 % (0.0-2.0); HEMOGLOBIN 14.5 g/dl (14.0-18.0); LYMPHOCYTES # 1.1 10^3/ul (0.8-2.9); LYMPHOCYTES % 2.9 % (15.0-51.0); MEAN CORPUSCULAR HEMOGLOBIN 29.5 pg (29.0-33.0); MEAN CORPUSCULAR HGB CONC 34.5 g/dl (32.0-37.0); MEAN CORPUSCULAR VOLUME 85.5 fl (82.0-101.0); MEAN PLATELET VOLUME 10.7 fl (7.4-10.4); MONOCYTE # 1.6 10^3/ul (0.3-0.9); MONOCYTES % 4.5 % (0.0-11.0); NEUTROPHIL # 31.9 10^3/ul (1.6-7.5); NEUTROPHILS % 88.8 % (39.0-77.0); PLATELET COUNT 201 10^3/UL (140-415); RED BLOOD COUNT 4.91 10^6/ul (4.70-6.10); RED CELL DISTRIBUTION WIDTH 13.7 % (11.5-14.5)
[2016-11-27 06:32] LABS: POTASSIUM 4.3 mmol/L (3.5-5.1)
[2016-11-27 06:34] LABS: CREATININE 2.32 mg/dl (0.61-1.24)
[2016-11-27 06:35] LABS: CALCIUM 6.8 mg/dl (8.4-10.2); MAGNESIUM 1.9 mg/dl (1.7-2.5); PHOSPHORUS 4.3 mg/dl (2.5-4.9)
[2016-11-27 07:07] LABS: TROPONIN-I 65.6 ng/ml (0.00-0.12)
[2016-11-27] MEDS: VANCOMYCIN 1.25 GM in SOD CHLORIDE 0.9% 250 ML IVPB SCH (07:50)
[2016-11-27] MEDS: CEFEPIME 1GM/50 ML (PMX) 50 ML IVPB SCH ×2 (08:41→21:05)
[2016-11-27] MEDS: ASPIRIN 300 MG SUPP PR SCH (08:42)
[2016-11-27] MEDS: TICAGRELOR 90 MG TABLET PO SCH ×2 (08:43→21:06)
--- NOTE | 2016-11-27 09:19 | PN ---
Date/Time of Note Date/Time of Note DATE: 11/27/16 TIME: 09:03 Assessment/Plan VTE Prophylaxis VTE Prophylaxis Intervention: SCD's VTE Contraindication Reason: bleeding Lines/Catheters IV Catheter Type (from Nrsg): Central Line Central line still needed: Yes Urinary Cath still in place: Yes Reason Cath still needed: other (indicate) Assessment/Plan Assessment/Plan Unfortunate 50 yo M brought in after cardiac arrest in the field found down after unknown period of time with 1. Status post ventricular fibrillation cardiac arrest. V fib likely 2/2 #2 - Off amiodarone for now / few beats of VTach noted during rewarming In rewarming phase of Hypothermia Protocol 2. Acute inferior ST-elevation myocardial infarction, status post balloon angioplasty and stent placement of the proximal obtuse marginal as well as manual aspiration thrombectomy of the obtuse marginal. 3. Ventilator-dependent respiratory failure. 4. Upper gastrointestinal bleed. 5. Severe SIRS 2/2 #1 + Lactic acidosis.. 6. Acute kidney injury with metabolic acidosis 2/2 ATN from shock + superimposed life saving contrast administration still in injury phase 7. Probable shock liver. 8. Hyperglycemia with Nml A1C - likely reactive 9. Hypokalemia: repleted 10. Mild acute pancreatitis 11. Likely anoxic brain injury PLAN: * Continue Vent mgt and ICU care / Appreciate pulm input * Cardiology wants to continue brilinta and aspirin while closely monitoring h/ h and Transfusion PRN / Appreciate recs * Resume amiodarone as needed for arrthymias / closely monitor electrolytes * Continue protonix drip/ for endoscopy once stable * Gentle hydration for poor kidney function bearing in mind systolic dysfxn / Nephrology consult * Avoid ACEi, ARBs for now . Renally dose all meds. Serial labs. * Consider RUQ USS to eval abn liver fxn and pancreatitis if non resolving / patient is not a candidate for any kind of intervention at this time / trend levels * Continue Insulin drip / remain NPO PROPHYLAXIS: SCDs / Protonix drip CRITICAL CARE TIME: >35 mins Prognosis: Guarded Subjective 24 Hr Interval Summary Free Text/Dictation Patient seen and examined. in rewarming Subjective hx not possible: pt critical status Exam/Review of Systems Vital Signs Vitals Vital Signs Date Time Temp Pulse Resp B/P Pulse Ox O2 Delivery O2 Flow Rate FiO2 11/27/16 08:00 70 2/25/17 08:00 96.8 120 24 144/80 99 Mechanical Ventilator Intake and Output 11/26/16 11/26/16 11/27/16 15:00 23:00 07:00 Intake Total 1726.06 ml 1394.54 ml 182.676 ml Output Total 466 ml 420 ml 378 ml Balance 1260.06 ml 974.54 ml -195.324 ml Exam Constitutional: other (intubated), No alert, No oriented Head: normocephalic Eyes: PERRL ENMT: intubated Respiratory: clear to auscultation, No crackles/rales, No labored breathing Cardiovascular: No regular rate and rhythm (tachy) Gastrointestinal: bowel sounds, non-tender, soft Neurological: No nl mental status Results Result Diagram: 11/27/16 0510 11/27/16 0510 Results 24 hrs Laboratory Tests Test 11/26/16 09:06 11/26/16 09:39 11/26/16 09:53 11/26/16 11:19 Bedside Glucose 198 183 Activated Partial Thromboplast Time 32.1 Anion Gap 16 Blood Urea Nitrogen 24 H Calcium Level 7.1 L Carbon Dioxide Level 22 Chloride Level 106 Creatinine 2.02 H Glucose Level 212 Hematocrit 44.8 Hemoglobin 15.1 INR International Normalized Ratio 1.24 Lymphocytes # 2.0 Lymphocytes % 7.0 L Magnesium Level 1.7 Mean Corpuscular Hemoglobin 29.4 Mean Corpuscular Hemoglobin Concent 33.7 Mean Corpuscular Volume 87.3 Mean Platelet Volume 9.7 Monocytes # 0.6 Monocytes % 2.0 Neutrophils # 21.1 H Neutrophils % 74.0 Phosphorus Level 0.8 L Platelet Count 204 Potassium Level 3.3 L Prothrombin Time 15.7 H Prothrombin Time Ratio 1.2 Red Blood Count 5.13 Red Cell Distribution Width 13.2 Sodium Level 141 Troponin I 178.000 *H White Blood Count 28.5 H Hepatitis A IgM Antibody NON-REACTIVE Test 11/26/16 11:21 11/26/16 12:27 11/26/16 13:08 11/26/16 14:37 Bedside Glucose 176 150 164 153 Test 11/26/16 14:50 11/26/16 15:38 11/26/16 16:27 11/26/16 16:42 Arterial Blood HCO3 18.9 L Arterial Blood Base Excess -7.3 L Arterial Blood Oxygen Saturation 98.4 H Shaun Test ACCEPTAB Arterial Blood Gas Puncture Site Right Radial Arterial Blood Carboxyhemoglobin 0.3 Arterial Blood Date Drawn 11/26/2016 2:32:07 PM Arterial Blood Methemoglobin 0.4 Arterial Blood pCO2 (Temp correct) 34.6 L Arterial Blood pH (Temp corrected) 7.336 L Arterial Blood pO2 (Temp corrected) 116.7 H Blood Gas A-a O2 Differential 351.5 H Blood Gas Actual Respiration Rate 26 Blood Gas Critical Value Read Back E BEREKET PALMA Blood Gas Low PEEP Setting 12.0 Blood Gas Modality VENT - AC Blood Gas Notified Time 11/26/2016 2:53:11 PM Blood Gas Notified Whom JLD Blood Gas Respiration Rate 24.0 Blood Gas Specimen Source Blood arterial Blood Gas Temperature 33.2 Blood Gas Tidal Volume 550.0 FiO2 70.0 Oxyhemoglobin Percent 97.7 Total Hemoglobin 16.1 Bedside Glucose 143 138 Activated Partial Thromboplast Time 33.5 Amylase Level 161 H Anion Gap 15 Basophils # 0.1 Basophils % 0.3 Blood Urea Nitrogen 25 H Calcium Level 6.0 L Carbon Dioxide Level 20 L Chloride Level 106 Creatinine 1.79 H Eosinophils # 0.0 Eosinophils % 0.0 Fibrinogen 320.0 # Glucose Level 512 #*H Hematocrit 41.1 L Hemoglobin 14.0 INR International Normalized Ratio 1.16 Lipase 449 H Lymphocytes # 1.1 Lymphocytes % 3.9 L Magnesium Level 1.4 L Mean Corpuscular Hemoglobin 29.6 Mean Corpuscular Hemoglobin Concent 34.1 Mean Corpuscular Volume 86.9 Mean Platelet Volume 10.3 Monocytes # 1.4 H Monocytes % 5.0 Neutrophils # 24.9 H Neutrophils % 89.1 H Nucleated Red Blood Cells # 0.0 Nucleated Red Blood Cells % 0.0 Phosphorus Level 1.2 L Platelet Count 184 Potassium Level 5.5 #H Prothrombin Time 14.8 H Prothrombin Time Ratio 1.2 Red Blood Count 4.73 Red Cell Distribution Width 13.3 Sodium Level 135 Troponin I 120.000 *H White Blood Count 28.0 H Test 11/26/16 17:28 11/26/16 18:20 11/26/16 18:25 11/26/16 19:19 Bedside Glucose 127 161 105 Anion Gap 15 Blood Urea Nitrogen 30 H Calcium Level 6.9 L Carbon Dioxide Level 22 Chloride Level 108 Creatinine 2.16 H Glucose Level 119 # Potassium Level 3.5 # Sodium Level 141 Test 11/26/16 20:03 11/26/16 20:25 11/26/16 20:50 11/26/16 20:56 Bedside Glucose 86 70 Anion Gap 16 Blood Urea Nitrogen 30 H Calcium Level 7.0 L Carbon Dioxide Level 20 L Chloride Level 110 Creatinine 2.01 H Glucose Level 89 Magnesium Level 1.8 Phosphorus Level 2.0 L Potassium Level 4.1 Sodium Level 142 Arterial Blood HCO3 18.4 L Arterial Blood Base Excess -6.6 L Arterial Blood Oxygen Saturation 98.4 H Shaun Test ACCEPTAB Arterial Blood Gas Puncture Site Right Radial Arterial Blood Carboxyhemoglobin 0.3 Arterial Blood Date Drawn 11/26/2016 8:55:08 PM Arterial Blood Methemoglobin 0.3 Arterial Blood pCO2 (Temp correct) 30.1 L Arterial Blood pH (Temp corrected) 7.386 Arterial Blood pO2 (Temp corrected) 114.2 H Blood Gas A-a O2 Differential 285.7 H Blood Gas Actual Respiration Rate 24 Blood Gas Low PEEP Setting 12.0 Blood Gas Modality VENT - AC Blood Gas Notified Time 11/26/2016 9:05:55 PM Blood Gas Notified Whom MG Blood Gas Respiration Rate 24.0 Blood Gas Specimen Source Blood arterial Blood Gas Temperature 33.3 Blood Gas Tidal Volume 550.0 FiO2 60.0 Oxyhemoglobin Percent 97.8 Total Hemoglobin 14.5 Test 11/26/16 21:18 11/26/16 21:59 11/26/16 22:23 11/26/16 22:51 Bedside Glucose 71 69 L 135 122 Test 11/26/16 23:55 11/27/16 00:00 11/27/16 01:03 11/27/16 02:04 Bedside Glucose 125 115 105 Arterial Blood HCO3 16.8 L Arterial Blood Base Excess -7.7 L Arterial Blood Oxygen Saturation 95.7 Shaun Test ACCEPTAB Arterial Blood Gas Puncture Site Right Radial Arterial Blood Carboxyhemoglobin 0.3 Arterial Blood Date Drawn 11/27/2016 1:15:15 AM Arterial Blood Methemoglobin 0.2 Arterial Blood pCO2 (Temp correct) 28.1 L Arterial Blood pH (Temp corrected) 7.380 Arterial Blood pO2 (Temp corrected) 68.9 L Blood Gas A-a O2 Differential 332.0 H Blood Gas Actual Respiration Rate 24 Blood Gas Low PEEP Setting 10.0 Blood Gas Modality VENT - AC Blood Gas Notified Time 11/27/2016 1:26:27 AM Blood Gas Notified Whom Blood Gas Respiration Rate 24.0 Blood Gas Specimen Source Blood arterial Blood Gas Temperature 34.2 Blood Gas Tidal Volume 550.0 FiO2 60.0 Oxyhemoglobin Percent 95.2 Total Hemoglobin 15.1 Activated Partial Thromboplast Time 34.2 Amylase Level 210 H Anion Gap 14 Basophils # 0.1 Basophils % 0.3 Blood Urea Nitrogen 30 H Calcium Level 6.7 L Carbon Dioxide Level 23 Chloride Level 109 Creatinine 2.23 H Eosinophils # 0.0 Eosinophils % 0.0 Fibrinogen 389.0 # Glucose Level 113 Hematocrit 39.8 L Hemoglobin 14.0 INR International Normalized Ratio 1.09 Lipase 501 H Lymphocytes # 1.2 Lymphocytes % 3.8 L Magnesium Level 1.9 Mean Corpuscular Hemoglobin 30.0 Mean Corpuscular Hemoglobin Concent 35.2 Mean Corpuscular Volume 85.2 Mean Platelet Volume 10.5 H Monocytes # 1.5 H Monocytes % 4.8 Neutrophils # 26.9 H Neutrophils % 89.0 H Nucleated Red Blood Cells # 0.0 Nucleated Red Blood Cells % 0.0 Phosphorus Level 3.5 Platelet Count 171 Potassium Level 4.0 Prothrombin Time 14.1 Prothrombin Time Ratio 1.1 Red Blood Count 4.67 L Red Cell Distribution Width 13.4 Sodium Level 142 Troponin I 75.700 *H White Blood Count 30.2 H Test 11/27/16 02:48 11/27/16 03:57 11/27/16 05:10 11/27/16 05:13 Bedside Glucose 124 125 128 Activated Partial Thromboplast Time 31.7 Amylase Level 200 H Anion Gap 14 B-Type Natriuretic Peptide 2360 H Basophils # 0.1 Basophils % 0.2 Blood Urea Nitrogen 32 H Calcium Level 6.8 L Carbon Dioxide Level 23 Chloride Level 108 Creatine Kinase Pending Creatine Kinase Index Pending Creatinine 2.32 H Creatinine Kinase MB (Mass) 538.00 H Eosinophils # 0.0 Eosinophils % 0.0 Fibrinogen 457.0 # Glucose Level 130 Hematocrit 42.0 Hemoglobin 14.5 INR International Normalized Ratio 1.12 Lipase 541 H Lymphocytes # 1.1 Lymphocytes % 2.9 L Magnesium Level 1.9 Mean Corpuscular Hemoglobin 29.5 Mean Corpuscular Hemoglobin Concent 34.5 Mean Corpuscular Volume 85.5 Mean Platelet Volume 10.7 H Monocytes # 1.6 H Monocytes % 4.5 Neutrophils # 31.9 H Neutrophils % 88.8 H Nucleated Red Blood Cells # 0.0 Nucleated Red Blood Cells % 0.0 Phosphorus Level 4.3 Platelet Count 201 Potassium Level 4.3 Prothrombin Time 14.4 H Prothrombin Time Ratio 1.1 Red Blood Count 4.91 Red Cell Distribution Width 13.7 Sodium Level 141 Troponin I 65.600 *H White Blood Count 36.0 H Test 11/27/16 06:00 11/27/16 07:59 Arterial Blood HCO3 20.3 L Arterial Blood Base Excess -4.5 L Arterial Blood Oxygen Saturation 92.8 L Shaun Test ACCEPTAB Arterial Blood Gas Puncture Site Right Radial Arterial Blood Carboxyhemoglobin 0.3 Arterial Blood Date Drawn 11/27/2016 6:00:54 AM Arterial Blood Methemoglobin 0.3 Arterial Blood pCO2 (Temp correct) 34.3 L Arterial Blood pH (Temp corrected) 7.382 Arterial Blood pO2 (Temp corrected) 58.8 L Blood Gas A-a O2 Differential 333.7 H Blood Gas Actual Respiration Rate 24 Blood Gas Low PEEP Setting 10.0 Blood Gas Modality VENT - AC Blood Gas Notified Time 11/27/2016 6:08:53 AM Blood Gas Notified Whom MH Blood Gas Respiration Rate 24.0 Blood Gas Specimen Source Blood arterial Blood Gas Temperature 35.4 Blood Gas Tidal Volume 550.0 FiO2 60.0 Oxyhemoglobin Percent 92.2 L Total Hemoglobin 15.2 Bedside Glucose 103 Medications Medications Current Medications Ondansetron HCl (Zofran Inj) 4 mg Q6H PRN IV NAUSEA AND/OR VOMITING; Start at 21:00 Acetaminophen (Tylenol Supp) 650 mg Q4H PRN RI PAIN LEVEL 1-3 OR FEVER; Start 11/25/16 at 21:00 Lorazepam (Ativan) 1 mg Q2H PRN IV ANXIETY; Start 11/25/16 at 21:00 Acetaminophen (Tylenol Supp) 650 mg Q4H PRN RI TEMP > 37C; Start 11/25/16 at 21 :00 Acetaminophen (Tylenol Liquid) 650 mg Q4H PRN PO TEMP > 37C; Start 11/25/16 at 21:00 Acetaminophen (Tylenol Supp) 500 mg Q6H RI Last administered on 2/25/17at 08:42 ; Admin Dose 500 MG; Start 11/26/16 at 21:00 Acetaminophen (Tylenol Liquid) 500 mg Q6H PO Last administered on 11/27/16 03: 50; Admin Dose 500 MG; Start 11/26/16 at 21:00 Meperidine HCl (Demerol) 12.5 mg Q4H PRN IV POST OPERATIVE SHIVERING; Start at 21:00 Meperidine HCl (Demerol) 25 mg Q4H PRN IV POST OPERATIVE SHIVERING; Start 11/25 at 21:00 Eye Lubricant (Akwa Oint) 1 applic Q6 BOTH EYES Last administered on 11/27/16 06:29; Admin Dose 1 APPLIC; Start 11/26/16 at 00:00 Eye Lubricant (Artificial Tears Oph) 2 drop Q6 BOTH EYES Last administered on 06:29; Admin Dose 2 DROP; Start 11/26/16 at 00:00 Diagnostic Test (Pha) (Accucheck) 1 ea Q1H XX Last administered on 11/27/16 08 :03; Admin Dose 1 EA; Start 11/25/16 at 22:00 Dextrose (D50w Syringe) 25 ml Q15M PRN IV Till BS 80 mg/dL or above x2 Last administered on 11/26/16 22:12; Admin Dose 25 ML; Start 11/25/16 at 21:00 Dextrose 50 ml 50 ml Q15M PRN IV Till BS 80 mg/dL or above x2; Start 11/25/16 at 21:00 Cefepime HCl 50 ml @ 100 mls/hr Q12 IVPB Last administered on 11/27/16 08:41 ; Admin Dose 100 MLS/HR; Start 11/25/16 at 21:30 Norepinephrine 16 mg/Dextrose 500 ml @ 1.87 mls/hr TITRATE IV ; Start 11/26/16 at 02:00 Pantoprazole/ Sodium Chloride (Protonix Iv/NS) 100 ml @ 10 mls/hr Q10H IV Last administered on 11/27/16 05:02; Admin Dose 10 MLS/HR; Start 11/26/16 at 10 :00 Ticagrelor 90 mg 90 mg BID PO Last administered on 11/27/16 08:43; Admin Dose 90 MG; Start 11/26/16 at 21:00 Vancomycin HCl/ Sodium Chloride (Vancocin/NS) 250 ml @ 83.333 mls/ hr Q24H IVPB Last administered on 11/27/16 07:50; Admin Dose 83.333 MLS/HR; Start at 08:00 Aspirin (Aspirin) 150 mg DAILY RI Last administered on 11/27/16 08:42; Admin Dose 150 MG; Start 11/26/16 at 17:30 Hydralazine HCl (Apresoline) 10 mg Q6H PRN IV SBP greater than 160 Last administered on 11/27/16 02:19; Admin Dose 10 MG; Start 11/27/16 at 02:30 Procedures Procedures KYM DUPREE Nov 27, 2016 09:19
[2016-11-27] MEDS ORDERED: SOD CHLORIDE 0.9% 1,000 ML IV SCH (09:30)
[2016-11-27] MEDS ORDERED: CALCIUM GLUCONATE 10% 2 GM in SOD CHLORIDE 0.9% 100 ML IVPB ONE (09:30)
--- NOTE | 2016-11-27 09:49 | RADRPT ---
PROCEDURE: XR Chest. CLINICAL INDICATION: Shortness of breath. TECHNIQUE: A single portable view of the chest was obtained. COMPARISON: 11/25/2016 FINDINGS: The endotracheal tube and nasogastric tube are essentially unchanged. The aorta is tortuous and ath erosclerotic. The cardiomediastinal silhouette is otherwise enlarged and is stable. Diffuse pulmon jennifer vascular congestion is seen with likely underlying pulmonary edema and is improved. The lung vol umes are low with bibasilar compressive atelectasis. The soft tissues and osseous structures demonst rate benign age related senescent changes. IMPRESSION: Radiographic findings of congestive heart failure again seen with improvement in the pulmonary vascu lar congestion and underlying pulmonary edema. RPTAT: HPNM Physician Trish Date Time Electronically viewed and signed by Physician Trish on 11/27/2016 09:48 /
--- NOTE | 2016-11-27 10:16 | CONS ---
Date/Time of Note Date/Time of Note DATE: 11/27/16 TIME: 10:11 Assessment/Plan Assessment/Plan Additional Assessment/Plan Ventilator settings; assist control of 24, tidal volume 550, PEEP of 10, currently on 70% FiO2. Next ABG was reviewed from today which is showing mild hypoxemia this was done on 600 FiO2 with above-mentioned settings. Chest x-ray was reviewed from today which is showing markedly improved pulmonary edema. Right lower lobe infiltrate cannot be excluded. Endotracheal tube is at an adequate level. Assessment and recommendations; next 1. Patient admitted with cardiac arrest underwent prolonged CPR and is status post emergent coronary angiography with stenting of 1 of the coronary arteries. Next 2. Significant leukocytosis possibly indicative of aspiration pneumonia involving the right lower lobe. 3. Small amount of upper GI bleed without any drop in hematocrit. 4. Slight increase in serum creatinine likely from hypoperfusion of kidneys. Patient however maintaining adequate urine output. 5. At this time difficult to rule out any anoxic brain injury. Patient currently on IV sedation. Continue current treatment for now monitor renal function. Obtain follow-up chest x-ray tomorrow morning. Weaning from ventilator will depend upon adequate mental status recovery. Prognosis is still very guarded. Continue current antibiotics. Consultation Date/Type/Reason Admit Date/Time Nov 25, 2016 at 20:00 Initial Consult Date 11/26/16 Type of Consultation: Pulmonary/critical care 24 HR Interval Summary Free Text/Dictation Patient's condition remains critical. Still requiring full ventilator support. Patient now is being slowly weaned off hypothermia protocol. Off paralytic drip. Patient still having small amounts of fresh blood from the NG tube. General exam; middle aged man, orally intubated, sedated. Currently in no distress. Exam/Review of Systems Vital Signs Vitals Vital Signs Date Time Temp Pulse Resp B/P Pulse Ox O2 Delivery O2 Flow Rate FiO2 11/27/16 08:00 70 11/27/16 08:00 96.8 120 24 144/80 99 Mechanical Ventilator Intake and Output 11/26/16 11/26/16 11/27/16 15:00 23:00 07:00 Intake Total 1726.06 ml 1394.54 ml 182.676 ml Output Total 466 ml 420 ml 378 ml Balance 1260.06 ml 974.54 ml -195.324 ml Exam H EENT examination; supple neck, pupils are small but reactive to light bilaterally sluggishly. NG tube is in place with fresh blood seen. No neck masses. No thyromegaly. No lymphadenopathy. No neck bruits. Orally intubated. Chest examination; diminished but clear breath sounds bilaterally. S1-S2 audible, no murmurs. Regular rhythm. Abdomen examination; soft, nondistended. Bowel sounds are sluggish. No organomegaly. Extremity examination; no peripheral edema. Pulses 1+ bilaterally. 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 Results Result Diagram: 11/27/16 0510 11/27/16 0510 Results 24 hrs Laboratory Tests Test 11/26/16 11:19 11/26/16 11:21 11/26/16 12:27 11/26/16 13:08 Hepatitis A IgM Antibody NON-REACTIVE Bedside Glucose 176 150 164 Test 11/26/16 14:37 11/26/16 14:50 11/26/16 15:38 11/26/16 16:27 Bedside Glucose 153 143 138 Arterial Blood HCO3 18.9 L Arterial Blood Base Excess -7.3 L Arterial Blood Oxygen Saturation 98.4 H Shaun Test ACCEPTAB Arterial Blood Gas Puncture Site Right Radial Arterial Blood Carboxyhemoglobin 0.3 Arterial Blood Date Drawn 11/26/2016 2:32:07 PM Arterial Blood Methemoglobin 0.4 Arterial Blood pCO2 (Temp correct) 34.6 L Arterial Blood pH (Temp corrected) 7.336 L Arterial Blood pO2 (Temp corrected) 116.7 H Blood Gas A-a O2 Differential 351.5 H Blood Gas Actual Respiration Rate 26 Blood Gas Critical Value Read Back Maren CUBA RN Blood Gas Low PEEP Setting 12.0 Blood Gas Modality VENT - AC Blood Gas Notified Time 11/26/2016 2:53:11 PM Blood Gas Notified Whom JLD Blood Gas Respiration Rate 24.0 Blood Gas Specimen Source Blood arterial Blood Gas Temperature 33.2 Blood Gas Tidal Volume 550.0 FiO2 70.0 Oxyhemoglobin Percent 97.7 Total Hemoglobin 16.1 Test 11/26/16 16:42 11/26/16 17:28 11/26/16 18:20 11/26/16 18:25 Activated Partial Thromboplast Time 33.5 Amylase Level 161 H Anion Gap 15 15 Basophils # 0.1 Basophils % 0.3 Blood Urea Nitrogen 25 H 30 H Calcium Level 6.0 L 6.9 L Carbon Dioxide Level 20 L 22 Chloride Level 106 108 Creatinine 1.79 H 2.16 H Eosinophils # 0.0 Eosinophils % 0.0 Fibrinogen 320.0 # Glucose Level 512 #*H 119 # Hematocrit 41.1 L Hemoglobin 14.0 INR International Normalized Ratio 1.16 Lipase 449 H Lymphocytes # 1.1 Lymphocytes % 3.9 L Magnesium Level 1.4 L Mean Corpuscular Hemoglobin 29.6 Mean Corpuscular Hemoglobin Concent 34.1 Mean Corpuscular Volume 86.9 Mean Platelet Volume 10.3 Monocytes # 1.4 H Monocytes % 5.0 Neutrophils # 24.9 H Neutrophils % 89.1 H Nucleated Red Blood Cells # 0.0 Nucleated Red Blood Cells % 0.0 Phosphorus Level 1.2 L Platelet Count 184 Potassium Level 5.5 #H 3.5 # Prothrombin Time 14.8 H Prothrombin Time Ratio 1.2 Red Blood Count 4.73 Red Cell Distribution Width 13.3 Sodium Level 135 141 Troponin I 120.000 *H White Blood Count 28.0 H Bedside Glucose 127 161 Test 11/26/16 19:19 11/26/16 20:03 11/26/16 20:25 11/26/16 20:50 Bedside Glucose 105 86 Anion Gap 16 Blood Urea Nitrogen 30 H Calcium Level 7.0 L Carbon Dioxide Level 20 L Chloride Level 110 Creatinine 2.01 H Glucose Level 89 Magnesium Level 1.8 Phosphorus Level 2.0 L Potassium Level 4.1 Sodium Level 142 Arterial Blood HCO3 18.4 L Arterial Blood Base Excess -6.6 L Arterial Blood Oxygen Saturation 98.4 H Shaun Test ACCEPTAB Arterial Blood Gas Puncture Site Right Radial Arterial Blood Carboxyhemoglobin 0.3 Arterial Blood Date Drawn 11/26/2016 8:55:08 PM Arterial Blood Methemoglobin 0.3 Arterial Blood pCO2 (Temp correct) 30.1 L Arterial Blood pH (Temp corrected) 7.386 Arterial Blood pO2 (Temp corrected) 114.2 H Blood Gas A-a O2 Differential 285.7 H Blood Gas Actual Respiration Rate 24 Blood Gas Low PEEP Setting 12.0 Blood Gas Modality VENT - AC Blood Gas Notified Time 11/26/2016 9:05:55 PM Blood Gas Notified Whom MG Blood Gas Respiration Rate 24.0 Blood Gas Specimen Source Blood arterial Blood Gas Temperature 33.3 Blood Gas Tidal Volume 550.0 FiO2 60.0 Oxyhemoglobin Percent 97.8 Total Hemoglobin 14.5 Test 11/26/16 20:56 11/26/16 21:18 11/26/16 21:59 11/26/16 22:23 Bedside Glucose 70 71 69 L 135 Test 11/26/16 22:51 11/26/16 23:55 11/27/16 00:00 11/27/16 01:03 Bedside Glucose 122 125 115 Arterial Blood HCO3 16.8 L Arterial Blood Base Excess -7.7 L Arterial Blood Oxygen Saturation 95.7 Shaun Test ACCEPTAB Arterial Blood Gas Puncture Site Right Radial Arterial Blood Carboxyhemoglobin 0.3 Arterial Blood Date Drawn 11/27/2016 1:15:15 AM Arterial Blood Methemoglobin 0.2 Arterial Blood pCO2 (Temp correct) 28.1 L Arterial Blood pH (Temp corrected) 7.380 Arterial Blood pO2 (Temp corrected) 68.9 L Blood Gas A-a O2 Differential 332.0 H Blood Gas Actual Respiration Rate 24 Blood Gas Low PEEP Setting 10.0 Blood Gas Modality VENT - AC Blood Gas Notified Time 11/27/2016 1:26:27 AM Blood Gas Notified Whom Blood Gas Respiration Rate 24.0 Blood Gas Specimen Source Blood arterial Blood Gas Temperature 34.2 Blood Gas Tidal Volume 550.0 FiO2 60.0 Oxyhemoglobin Percent 95.2 Total Hemoglobin 15.1 Activated Partial Thromboplast Time 34.2 Amylase Level 210 H Anion Gap 14 Basophils # 0.1 Basophils % 0.3 Blood Urea Nitrogen 30 H Calcium Level 6.7 L Carbon Dioxide Level 23 Chloride Level 109 Creatinine 2.23 H Eosinophils # 0.0 Eosinophils % 0.0 Fibrinogen 389.0 # Glucose Level 113 Hematocrit 39.8 L Hemoglobin 14.0 INR International Normalized Ratio 1.09 Lipase 501 H Lymphocytes # 1.2 Lymphocytes % 3.8 L Magnesium Level 1.9 Mean Corpuscular Hemoglobin 30.0 Mean Corpuscular Hemoglobin Concent 35.2 Mean Corpuscular Volume 85.2 Mean Platelet Volume 10.5 H Monocytes # 1.5 H Monocytes % 4.8 Neutrophils # 26.9 H Neutrophils % 89.0 H Nucleated Red Blood Cells # 0.0 Nucleated Red Blood Cells % 0.0 Phosphorus Level 3.5 Platelet Count 171 Potassium Level 4.0 Prothrombin Time 14.1 Prothrombin Time Ratio 1.1 Red Blood Count 4.67 L Red Cell Distribution Width 13.4 Sodium Level 142 Troponin I 75.700 *H White Blood Count 30.2 H Test 2/25/17 02:04 11/27/16 02:48 11/27/16 03:57 11/27/16 05:10 Bedside Glucose 105 124 125 Activated Partial Thromboplast Time 31.7 Amylase Level 200 H Anion Gap 14 B-Type Natriuretic Peptide 2360 H Basophils # 0.1 Basophils % 0.2 Blood Urea Nitrogen 32 H Calcium Level 6.8 L Carbon Dioxide Level 23 Chloride Level 108 Creatine Kinase 8956 H Creatine Kinase Index 6.0 Creatinine 2.32 H Creatinine Kinase MB (Mass) 538.00 H Eosinophils # 0.0 Eosinophils % 0.0 Fibrinogen 457.0 # Glucose Level 130 Hematocrit 42.0 Hemoglobin 14.5 INR International Normalized Ratio 1.12 Lipase 541 H Lymphocytes # 1.1 Lymphocytes % 2.9 L Magnesium Level 1.9 Mean Corpuscular Hemoglobin 29.5 Mean Corpuscular Hemoglobin Concent 34.5 Mean Corpuscular Volume 85.5 Mean Platelet Volume 10.7 H Monocytes # 1.6 H Monocytes % 4.5 Neutrophils # 31.9 H Neutrophils % 88.8 H Nucleated Red Blood Cells # 0.0 Nucleated Red Blood Cells % 0.0 Phosphorus Level 4.3 Platelet Count 201 Potassium Level 4.3 Prothrombin Time 14.4 H Prothrombin Time Ratio 1.1 Red Blood Count 4.91 Red Cell Distribution Width 13.7 Sodium Level 141 Troponin I 65.600 *H White Blood Count 36.0 H Test 11/27/16 05:13 11/27/16 06:00 11/27/16 07:59 Bedside Glucose 128 103 Arterial Blood HCO3 20.3 L Arterial Blood Base Excess -4.5 L Arterial Blood Oxygen Saturation 92.8 L Shaun Test ACCEPTAB Arterial Blood Gas Puncture Site Right Radial Arterial Blood Carboxyhemoglobin 0.3 Arterial Blood Date Drawn 11/27/2016 6:00:54 AM Arterial Blood Methemoglobin 0.3 Arterial Blood pCO2 (Temp correct) 34.3 L Arterial Blood pH (Temp corrected) 7.382 Arterial Blood pO2 (Temp corrected) 58.8 L Blood Gas A-a O2 Differential 333.7 H Blood Gas Actual Respiration Rate 24 Blood Gas Low PEEP Setting 10.0 Blood Gas Modality VENT - AC Blood Gas Notified Time 11/27/2016 6:08:53 AM Blood Gas Notified Whom MH Blood Gas Respiration Rate 24.0 Blood Gas Specimen Source Blood arterial Blood Gas Temperature 35.4 Blood Gas Tidal Volume 550.0 FiO2 60.0 Oxyhemoglobin Percent 92.2 L Total Hemoglobin 15.2 Medications Medications Current Medications Ondansetron HCl (Zofran Inj) 4 mg Q6H PRN IV NAUSEA AND/OR VOMITING; Start at 21:00 Acetaminophen (Tylenol Supp) 650 mg Q4H PRN TN PAIN LEVEL 1-3 OR FEVER; Start 11/25/16 at 21:00 Lorazepam (Ativan) 1 mg Q2H PRN IV ANXIETY; Start 11/25/16 at 21:00 Acetaminophen (Tylenol Supp) 650 mg Q4H PRN TN TEMP > 37C; Start 11/25/16 at 21 :00 Acetaminophen (Tylenol Liquid) 650 mg Q4H PRN PO TEMP > 37C; Start 11/25/16 at 21:00 Acetaminophen (Tylenol Supp) 500 mg Q6H TN Last administered on 11/27/16 08:42 ; Admin Dose 500 MG; Start 11/26/16 at 21:00 Acetaminophen (Tylenol Liquid) 500 mg Q6H PO Last administered on 11/27/16 03: 50; Admin Dose 500 MG; Start 11/26/16 at 21:00 Meperidine HCl (Demerol) 12.5 mg Q4H PRN IV POST OPERATIVE SHIVERING; Start at 21:00 Meperidine HCl (Demerol) 25 mg Q4H PRN IV POST OPERATIVE SHIVERING; Start 11/25 at 21:00 Eye Lubricant (Akwa Oint) 1 applic Q6 BOTH EYES Last administered on 11/27/16 06:29; Admin Dose 1 APPLIC; Start 11/26/16 at 00:00 Eye Lubricant (Artificial Tears Oph) 2 drop Q6 BOTH EYES Last administered on 06:29; Admin Dose 2 DROP; Start 11/26/16 at 00:00 Diagnostic Test (Pha) (Accucheck) 1 ea Q1H XX Last administered on 11/27/16 08 :03; Admin Dose 1 EA; Start 11/25/16 at 22:00 Dextrose (D50w Syringe) 25 ml Q15M PRN IV Till BS 80 mg/dL or above x2 Last administered on 11/26/16 22:12; Admin Dose 25 ML; Start 11/25/16 at 21:00 Dextrose 50 ml 50 ml Q15M PRN IV Till BS 80 mg/dL or above x2; Start 11/25/16 at 21:00 Cefepime HCl 50 ml @ 100 mls/hr Q12 IVPB Last administered on 11/27/16 08:41 ; Admin Dose 100 MLS/HR; Start 11/25/16 at 21:30 Norepinephrine 16 mg/Dextrose 500 ml @ 1.87 mls/hr TITRATE IV ; Start 11/26/16 at 02:00 Pantoprazole/ Sodium Chloride (Protonix Iv/NS) 100 ml @ 10 mls/hr Q10H IV Last administered on 11/27/16 05:02; Admin Dose 10 MLS/HR; Start 11/26/16 at 10 :00 Ticagrelor 90 mg 90 mg BID PO Last administered on 11/27/16 08:43; Admin Dose 90 MG; Start 11/26/16 at 21:00 Vancomycin HCl/ Sodium Chloride (Vancocin/NS) 250 ml @ 83.333 mls/ hr Q24H IVPB Last administered on 11/27/16 07:50; Admin Dose 83.333 MLS/HR; Start at 08:00 Aspirin (Aspirin) 150 mg DAILY TN Last administered on 11/27/16 08:42; Admin Dose 150 MG; Start 11/26/16 at 17:30 Hydralazine HCl 10 mg 10 mg Q6H PRN IV SBP greater than 160 Last administered on 11/27/16 02:19; Admin Dose 10 MG; Start 11/27/16 at 02:30 Sodium Chloride 1,000 ml @ 60 mls/hr [id number] IV Last administered on 10:05; Admin Dose 60 MLS/HR; Start 11/27/16 at 09:30 Calcium Gluconate/ Sodium Chloride (Ca Gluc/NS) 120 ml @ 60 mls/hr ONCE ONCE IVPB ; Start 11/27/16 at 09:30; Stop 11/27/16 at 11:29 BRITTNY GARG Nov 27, 2016 10:16
[2016-11-27] MEDS ORDERED: FUROSEMIDE 40 MG INJ IV ONE (11:30)
--- NOTE | 2016-11-27 11:39 | PN ---
Date/Time of Note Date/Time of Note DATE: 11/27/16 TIME: 11:37 Assessment/Plan VTE Prophylaxis VTE Prophylaxis Intervention: SCD's Lines/Catheters IV Catheter Type (from Nrs): Central Line Central line still needed: Yes Urinary Cath still in place: Yes Reason Cath still needed: urinary retention Assessment/Plan Assessment/Plan Assessment/Plan Upper GI bleed/insignificant/inactive * Monitor hemoglobin * Protonix drip * EGD only if clinically indicated for therapeutic control bleeding Transaminitis. * Likely secondary to shock liver. * Acute hepatitis panel/negative * Monitor liver function tests Elevated amylase/lipase * Likely related to ischemic event Status post ventricular fibrillation cardiac arrest. Acute inferior ST-elevation myocardial infarction, status post balloon angioplasty and stent placement of the proximal obtuse marginal as well as manual aspiration thrombectomy of the obtuse marginal. Ventilator-dependent respiratory failure. Likely anoxic brain injury. Acute kidney injury. * Nephrology following Further recommendations depend on clinical course Subjective 24 Hr Interval Summary Free Text/Dictation Course reviewed with nursing staff Hemoglobin hematocrit stable Unresponsive Liver function tests remain abnormal likely ischemic Hepatitis serology negative Amylase and lipase also elevated likely ischemic Exam/Review of Systems Vital Signs Vitals Vital Signs Date Time Temp Pulse Resp B/P Pulse Ox O2 Delivery O2 Flow Rate FiO2 11/27/16 10:00 124 23 159/88 98 Mechanical Ventilator 11/27/16 08:00 70 11/27/16 08:00 96.8 Intake and Output 11/26/16 11/26/16 11/27/16 15:00 23:00 07:00 Intake Total 1726.06 ml 1394.54 ml 182.676 ml Output Total 466 ml 420 ml 378 ml Balance 1260.06 ml 974.54 ml -195.324 ml Exam Constitutional: non-verbal, intubated, unresponsive ENMT: mucosa pink and moist, nl external ears & nose, nl lips & teeth, nl nasal mucosa & septum Respiratory: other (Intubated) Cardiovascular: irregular rhythm Gastrointestinal: non-tender, soft Musculoskeletal: nl extremities to inspection Neurological: other (Sedated) Results Result Diagram: 11/27/16 0510 11/27/16 0510 Results 24 hrs Laboratory Tests Test 11/26/16 12:27 11/26/16 13:08 11/26/16 14:37 11/26/16 14:50 Bedside Glucose 150 164 153 Arterial Blood HCO3 18.9 L Arterial Blood Base Excess -7.3 L Arterial Blood Oxygen Saturation 98.4 H Shaun Test ACCEPTAB Arterial Blood Gas Puncture Site Right Radial Arterial Blood Carboxyhemoglobin 0.3 Arterial Blood Date Drawn 11/26/2016 2:32:07 PM Arterial Blood Methemoglobin 0.4 Arterial Blood pCO2 (Temp correct) 34.6 L Arterial Blood pH (Temp corrected) 7.336 L Arterial Blood pO2 (Temp corrected) 116.7 H Blood Gas A-a O2 Differential 351.5 H Blood Gas Actual Respiration Rate 26 Blood Gas Critical Value Read Back E BEREKET PALMA Blood Gas Low PEEP Setting 12.0 Blood Gas Modality VENT - AC Blood Gas Notified Time 11/26/2016 2:53:11 PM Blood Gas Notified Whom JLD Blood Gas Respiration Rate 24.0 Blood Gas Specimen Source Blood arterial Blood Gas Temperature 33.2 Blood Gas Tidal Volume 550.0 FiO2 70.0 Oxyhemoglobin Percent 97.7 Total Hemoglobin 16.1 Test 11/26/16 15:38 11/26/16 16:27 11/26/16 16:42 11/26/16 17:28 Bedside Glucose 143 138 127 Activated Partial Thromboplast Time 33.5 Amylase Level 161 H Anion Gap 15 Basophils # 0.1 Basophils % 0.3 Blood Urea Nitrogen 25 H Calcium Level 6.0 L Carbon Dioxide Level 20 L Chloride Level 106 Creatinine 1.79 H Eosinophils # 0.0 Eosinophils % 0.0 Fibrinogen 320.0 # Glucose Level 512 #*H Hematocrit 41.1 L Hemoglobin 14.0 INR International Normalized Ratio 1.16 Lipase 449 H Lymphocytes # 1.1 Lymphocytes % 3.9 L Magnesium Level 1.4 L Mean Corpuscular Hemoglobin 29.6 Mean Corpuscular Hemoglobin Concent 34.1 Mean Corpuscular Volume 86.9 Mean Platelet Volume 10.3 Monocytes # 1.4 H Monocytes % 5.0 Neutrophils # 24.9 H Neutrophils % 89.1 H Nucleated Red Blood Cells # 0.0 Nucleated Red Blood Cells % 0.0 Phosphorus Level 1.2 L Platelet Count 184 Potassium Level 5.5 #H Prothrombin Time 14.8 H Prothrombin Time Ratio 1.2 Red Blood Count 4.73 Red Cell Distribution Width 13.3 Sodium Level 135 Troponin I 120.000 *H White Blood Count 28.0 H Test 11/26/16 18:20 11/26/16 18:25 11/26/16 19:19 11/26/16 20:03 Anion Gap 15 Blood Urea Nitrogen 30 H Calcium Level 6.9 L Carbon Dioxide Level 22 Chloride Level 108 Creatinine 2.16 H Glucose Level 119 # Potassium Level 3.5 # Sodium Level 141 Bedside Glucose 161 105 86 Test 11/26/16 20:25 11/26/16 20:50 11/26/16 20:56 11/26/16 21:18 Anion Gap 16 Blood Urea Nitrogen 30 H Calcium Level 7.0 L Carbon Dioxide Level 20 L Chloride Level 110 Creatinine 2.01 H Glucose Level 89 Magnesium Level 1.8 Phosphorus Level 2.0 L Potassium Level 4.1 Sodium Level 142 Arterial Blood HCO3 18.4 L Arterial Blood Base Excess -6.6 L Arterial Blood Oxygen Saturation 98.4 H Shaun Test ACCEPTAB Arterial Blood Gas Puncture Site Right Radial Arterial Blood Carboxyhemoglobin 0.3 Arterial Blood Date Drawn 11/26/2016 8:55:08 PM Arterial Blood Methemoglobin 0.3 Arterial Blood pCO2 (Temp correct) 30.1 L Arterial Blood pH (Temp corrected) 7.386 Arterial Blood pO2 (Temp corrected) 114.2 H Blood Gas A-a O2 Differential 285.7 H Blood Gas Actual Respiration Rate 24 Blood Gas Low PEEP Setting 12.0 Blood Gas Modality VENT - AC Blood Gas Notified Time 11/26/2016 9:05:55 PM Blood Gas Notified Whom MG Blood Gas Respiration Rate 24.0 Blood Gas Specimen Source Blood arterial Blood Gas Temperature 33.3 Blood Gas Tidal Volume 550.0 FiO2 60.0 Oxyhemoglobin Percent 97.8 Total Hemoglobin 14.5 Bedside Glucose 70 71 Test 11/26/16 21:59 11/26/16 22:23 11/26/16 22:51 11/26/16 23:55 Bedside Glucose 69 L 135 122 125 Test 11/27/16 00:00 11/27/16 01:03 11/27/16 02:04 11/27/16 02:48 Arterial Blood HCO3 16.8 L Arterial Blood Base Excess -7.7 L Arterial Blood Oxygen Saturation 95.7 Shaun Test ACCEPTAB Arterial Blood Gas Puncture Site Right Radial Arterial Blood Carboxyhemoglobin 0.3 Arterial Blood Date Drawn 11/27/2016 1:15:15 AM Arterial Blood Methemoglobin 0.2 Arterial Blood pCO2 (Temp correct) 28.1 L Arterial Blood pH (Temp corrected) 7.380 Arterial Blood pO2 (Temp corrected) 68.9 L Blood Gas A-a O2 Differential 332.0 H Blood Gas Actual Respiration Rate 24 Blood Gas Low PEEP Setting 10.0 Blood Gas Modality VENT - AC Blood Gas Notified Time 11/27/2016 1:26:27 AM Blood Gas Notified Whom Blood Gas Respiration Rate 24.0 Blood Gas Specimen Source Blood arterial Blood Gas Temperature 34.2 Blood Gas Tidal Volume 550.0 FiO2 60.0 Oxyhemoglobin Percent 95.2 Total Hemoglobin 15.1 Activated Partial Thromboplast Time 34.2 Amylase Level 210 H Anion Gap 14 Basophils # 0.1 Basophils % 0.3 Bedside Glucose 115 105 124 Blood Urea Nitrogen 30 H Calcium Level 6.7 L Carbon Dioxide Level 23 Chloride Level 109 Creatinine 2.23 H Eosinophils # 0.0 Eosinophils % 0.0 Fibrinogen 389.0 # Glucose Level 113 Hematocrit 39.8 L Hemoglobin 14.0 INR International Normalized Ratio 1.09 Lipase 501 H Lymphocytes # 1.2 Lymphocytes % 3.8 L Magnesium Level 1.9 Mean Corpuscular Hemoglobin 30.0 Mean Corpuscular Hemoglobin Concent 35.2 Mean Corpuscular Volume 85.2 Mean Platelet Volume 10.5 H Monocytes # 1.5 H Monocytes % 4.8 Neutrophils # 26.9 H Neutrophils % 89.0 H Nucleated Red Blood Cells # 0.0 Nucleated Red Blood Cells % 0.0 Phosphorus Level 3.5 Platelet Count 171 Potassium Level 4.0 Prothrombin Time 14.1 Prothrombin Time Ratio 1.1 Red Blood Count 4.67 L Red Cell Distribution Width 13.4 Sodium Level 142 Troponin I 75.700 *H White Blood Count 30.2 H Test 11/27/16 03:57 11/27/16 05:10 11/27/16 05:13 11/27/16 06:00 Bedside Glucose 125 128 Activated Partial Thromboplast Time 31.7 Amylase Level 200 H Anion Gap 14 B-Type Natriuretic Peptide 2360 H Basophils # 0.1 Basophils % 0.2 Blood Urea Nitrogen 32 H Calcium Level 6.8 L Carbon Dioxide Level 23 Chloride Level 108 Creatine Kinase 8956 H Creatine Kinase Index 6.0 Creatinine 2.32 H Creatinine Kinase MB (Mass) 538.00 H Eosinophils # 0.0 Eosinophils % 0.0 Fibrinogen 457.0 # Glucose Level 130 Hematocrit 42.0 Hemoglobin 14.5 INR International Normalized Ratio 1.12 Lipase 541 H Lymphocytes # 1.1 Lymphocytes % 2.9 L Magnesium Level 1.9 Mean Corpuscular Hemoglobin 29.5 Mean Corpuscular Hemoglobin Concent 34.5 Mean Corpuscular Volume 85.5 Mean Platelet Volume 10.7 H Monocytes # 1.6 H Monocytes % 4.5 Neutrophils # 31.9 H Neutrophils % 88.8 H Nucleated Red Blood Cells # 0.0 Nucleated Red Blood Cells % 0.0 Phosphorus Level 4.3 Platelet Count 201 Potassium Level 4.3 Prothrombin Time 14.4 H Prothrombin Time Ratio 1.1 Red Blood Count 4.91 Red Cell Distribution Width 13.7 Sodium Level 141 Troponin I 65.600 *H White Blood Count 36.0 H Arterial Blood HCO3 20.3 L Arterial Blood Base Excess -4.5 L Arterial Blood Oxygen Saturation 92.8 L Shaun Test ACCEPTAB Arterial Blood Gas Puncture Site Right Radial Arterial Blood Carboxyhemoglobin 0.3 Arterial Blood Date Drawn 11/27/2016 6:00:54 AM Arterial Blood Methemoglobin 0.3 Arterial Blood pCO2 (Temp correct) 34.3 L Arterial Blood pH (Temp corrected) 7.382 Arterial Blood pO2 (Temp corrected) 58.8 L Blood Gas A-a O2 Differential 333.7 H Blood Gas Actual Respiration Rate 24 Blood Gas Low PEEP Setting 10.0 Blood Gas Modality VENT - AC Blood Gas Notified Time 11/27/2016 6:08:53 AM Blood Gas Notified Whom MH Blood Gas Respiration Rate 24.0 Blood Gas Specimen Source Blood arterial Blood Gas Temperature 35.4 Blood Gas Tidal Volume 550.0 FiO2 60.0 Oxyhemoglobin Percent 92.2 L Total Hemoglobin 15.2 Test 11/27/16 07:59 11/27/16 10:08 Bedside Glucose 103 98 Medications Medications Current Medications Ondansetron HCl (Zofran Inj) 4 mg Q6H PRN IV NAUSEA AND/OR VOMITING; Start at 21:00 Acetaminophen (Tylenol Supp) 650 mg Q4H PRN DE PAIN LEVEL 1-3 OR FEVER; Start 11/25/16 at 21:00 Lorazepam (Ativan) 1 mg Q2H PRN IV ANXIETY; Start 11/25/16 at 21:00 Acetaminophen (Tylenol Supp) 650 mg Q4H PRN DE TEMP > 37C; Start 11/25/16 at 21 :00 Acetaminophen (Tylenol Liquid) 650 mg Q4H PRN PO TEMP > 37C; Start 11/25/16 at 21:00 Acetaminophen (Tylenol Supp) 500 mg Q6H DE Last administered on 11/27/16 08:42 ; Admin Dose 500 MG; Start 11/26/16 at 21:00 Acetaminophen (Tylenol Liquid) 500 mg Q6H PO Last administered on 11/27/16 03: 50; Admin Dose 500 MG; Start 11/26/16 at 21:00 Meperidine HCl (Demerol) 12.5 mg Q4H PRN IV POST OPERATIVE SHIVERING; Start at 21:00 Meperidine HCl (Demerol) 25 mg Q4H PRN IV POST OPERATIVE SHIVERING; Start 11/25 at 21:00 Eye Lubricant (Akwa Oint) 1 applic Q6 BOTH EYES Last administered on 11/27/16 06:29; Admin Dose 1 APPLIC; Start 11/26/16 at 00:00 Eye Lubricant (Artificial Tears Oph) 2 drop Q6 BOTH EYES Last administered on 06:29; Admin Dose 2 DROP; Start 11/26/16 at 00:00 Diagnostic Test (Pha) (Accucheck) 1 ea Q1H XX Last administered on 11/27/16 10 :09; Admin Dose 1 EA; Start 11/25/16 at 22:00 Dextrose (D50w Syringe) 25 ml Q15M PRN IV Till BS 80 mg/dL or above x2 Last administered on 11/26/16 22:12; Admin Dose 25 ML; Start 11/25/16 at 21:00 Dextrose 50 ml 50 ml Q15M PRN IV Till BS 80 mg/dL or above x2; Start 11/25/16 at 21:00 Cefepime HCl 50 ml @ 100 mls/hr Q12 IVPB Last administered on 11/27/16 08:41 ; Admin Dose 100 MLS/HR; Start 11/25/16 at 21:30 Norepinephrine 16 mg/Dextrose 500 ml @ 1.87 mls/hr TITRATE IV ; Start 11/26/16 at 02:00 Pantoprazole/ Sodium Chloride (Protonix Iv/NS) 100 ml @ 10 mls/hr Q10H IV Last administered on 11/27/16 05:02; Admin Dose 10 MLS/HR; Start 11/26/16 at 10 :00 Ticagrelor 90 mg 90 mg BID PO Last administered on 11/27/16 08:43; Admin Dose 90 MG; Start 11/26/16 at 21:00 Vancomycin HCl/ Sodium Chloride (Vancocin/NS) 250 ml @ 83.333 mls/ hr Q24H IVPB Last administered on 11/27/16 07:50; Admin Dose 83.333 MLS/HR; Start at 08:00 Aspirin (Aspirin) 150 mg DAILY DE Last administered on 11/27/16 08:42; Admin Dose 150 MG; Start 11/26/16 at 17:30 Hydralazine HCl 10 mg 10 mg Q6H PRN IV SBP greater than 160 Last administered on 11/27/16 02:19; Admin Dose 10 MG; Start 11/27/16 at 02:30 Dextrose (D5W) 1,000 ml @ 50 mls/hr Q20H IV ; Start 11/27/16 at 11:30 MIKEY MAN MD Nov 27, 2016 11:39 Medications Medications Current Medications Ondansetron HCl (Zofran Inj) 4 mg Q6H PRN IV NAUSEA AND/OR VOMITING; Start at 21:00 Acetaminophen (Tylenol Supp) 650 mg Q4H PRN DE PAIN LEVEL 1-3 OR FEVER; Start 11/25/16 at 21:00 Lorazepam (Ativan) 1 mg Q2H PRN IV ANXIETY; Start 11/25/16 at 21:00 Acetaminophen (Tylenol Supp) 650 mg Q4H PRN DE TEMP > 37C; Start 11/25/16 at 21 :00 Acetaminophen (Tylenol Liquid) 650 mg Q4H PRN PO TEMP > 37C; Start 11/25/16 at 21:00 Acetaminophen (Tylenol Supp) 500 mg Q6H DE Last administered on 11/27/16 08:42 ; Admin Dose 500 MG; Start 11/26/16 at 21:00 Acetaminophen (Tylenol Liquid) 500 mg Q6H PO Last administered on 11/27/16 03: 50; Admin Dose 500 MG; Start 11/26/16 at 21:00 Meperidine HCl (Demerol) 12.5 mg Q4H PRN IV POST OPERATIVE SHIVERING; Start at 21:00 Meperidine HCl (Demerol) 25 mg Q4H PRN IV POST OPERATIVE SHIVERING; Start 11/25 at 21:00 Eye Lubricant (Akwa Oint) 1 applic Q6 BOTH EYES Last administered on 11/27/16 06:29; Admin Dose 1 APPLIC; Start 11/26/16 at 00:00 Eye Lubricant (Artificial Tears Oph) 2 drop Q6 BOTH EYES Last administered on 06:29; Admin Dose 2 DROP; Start 11/26/16 at 00:00 Diagnostic Test (Pha) (Accucheck) 1 ea Q1H XX Last administered on 11/27/16 10 :09; Admin Dose 1 EA; Start 11/25/16 at 22:00 Dextrose (D50w Syringe) 25 ml Q15M PRN IV Till BS 80 mg/dL or above x2 Last administered on 11/26/16 22:12; Admin Dose 25 ML; Start 11/25/16 at 21:00 Dextrose 50 ml 50 ml Q15M PRN IV Till BS 80 mg/dL or above x2; Start 11/25/16 at 21:00 Cefepime HCl 50 ml @ 100 mls/hr Q12 IVPB Last administered on 11/27/16 08:41 ; Admin Dose 100 MLS/HR; Start 11/25/16 at 21:30 Norepinephrine 16 mg/Dextrose 500 ml @ 1.87 mls/hr TITRATE IV ; Start 11/26/16 at 02:00 Pantoprazole/ Sodium Chloride (Protonix Iv/NS) 100 ml @ 10 mls/hr Q10H IV Last administered on 11/27/16 05:02; Admin Dose 10 MLS/HR; Start 11/26/16 at 10 :00 Ticagrelor 90 mg 90 mg BID PO Last administered on 11/27/16 08:43; Admin Dose 90 MG; Start 11/26/16 at 21:00 Vancomycin HCl/ Sodium Chloride (Vancocin/NS) 250 ml @ 83.333 mls/ hr Q24H IVPB Last administered on 11/27/16 07:50; Admin Dose 83.333 MLS/HR; Start at 08:00 Aspirin (Aspirin) 150 mg DAILY DE Last administered on 11/27/16 08:42; Admin Dose 150 MG; Start 11/26/16 at 17:30 Hydralazine HCl 10 mg 10 mg Q6H PRN IV SBP greater than 160 Last administered on 11/27/16t 02:19; Admin Dose 10 MG; Start 11/27/16 at 02:30 Dextrose (D5W) 1,000 ml @ 50 mls/hr Q20H IV ; Start 11/27/16 at 11:30 MIKEY MAN MD Nov 27, 2016 11:39
[2016-11-27] MEDS: DEXTROSE 5% 1,000 ML IV SCH (11:55)
--- NOTE | 2016-11-27 12:00 | CONS ---
DATE OF ADMISSION: 11/25/2016 DATE OF CONSULTATION: TYPE OF CONSULTATION: Nephrology. REASON FOR CONSULTATION: Acute kidney injury. REQUESTING PHYSICIAN: Dr. Dempsey. HISTORY OF PRESENT ILLNESS: This is a 50-year-old male with an unknown past medical history who was brought into [facility] after having a cardiac arrest. The patient apparently we nt to a spa and did not feel well. The patient was then found to be unresponsive and 911 was called . When EMS arrived, the patient was in ventricular fibrillation and had agonal breathing. CPR was i nitiated. The patient defibrillation 7 times, as well as IV epinephrine. The patient was subsequen tly intubated in the field and had spontaneous return of circulation after about 34 minutes of CPR. The patient was brought to [facility], where he was seen by the auto transmission technician and found to have a ST elevated AK. The patient was taken to cardiac catheterization and had 2 stents p laced to the OM. The patient was initiated on hypothermic protocol and admitted to the intensive ca re unit. While in the intensive care unit the patient was also noted to have an episode of GI bleed ing, which subsequently resolved. The patient has since currently been hemodynamically stable. He remained ventilator dependent, has had minimal neurological response. No other acute events have be en noted. No hemoptysis, hemetemesis or hematochezia. In terms of the patient's renal history, the patient's baseline renal function is unknown. Upon adm ission the patient was noted to have a creatinine of 1.16. His creatinine has declined over the las t 48 hours to 2.32 mg/dL. During this time the patient has had contrast exposure of 150 mL of contr ast. There have been significant hemodynamic fluctuations, with blood pressures as low as 100 and a s high as 160. The patient's urinary output has been marginal, around 30 mL per hour. PAST MEDICAL HISTORY: Unknown. PAST SURGICAL HISTORY: Unknown. SOCIAL HISTORY: Urine tox is positive for marijuana. ALLERGIES: Unknown. HOME MEDICATION: Unknown. REVIEW OF SYSTEMS: Unable to do adequate do, as the patient is obtunded. PHYSICAL EXAMINATION: VITAL SIGNS: Blood pressure is currently 130/72, heart rate 72, respirations 18, temperature 98.6. I's and O's: 3.4 liters in, 1.2 liters out. HEENT: Head is normocephalic. NECK: Supple. HEART: Regular rate. LUNGS: Show diminished breath sounds at the base. ABDOMEN: Soft, nontender to palpation. No rebound or guarding. EXTREMITIES: Negative for clubbing or cyanosis. Trace edema. DERMATOLOGIC: No rashes. MUSCULOSKELETAL: Have no joint effusion. NEUROLOGIC: Limited exam, as the patient is obtunded. LABORATORY DATA: Shows sodium 141, potassium 4.3, chloride 108, BUN is 32, creatinine 2.32. White count is 36.0, hemoglobin 14.5, hematocrit 42.0, platelet count 201. The patient's initial urinalys is on 11/25/2016 showed no pyuria, no hematuria. IMAGING STUDIES: Chest x-ray on 11/27/2016 shows vascular congestion and underlying pulmonary edema . ASSESSMENT AND PLAN: This is a 50-year-old male who presents with: 1. Nonoliguric acute kidney injury, with a previous baseline creatinine around 1.16 mg/dL. Etiolog y of acute kidney injury is secondary to acute tubular necrosis due to ischemic hypoperfusion from c ode arrest, possible contrast-associated nephropathy. The patient's urinalysis shows no active sedi ment. Therefore, a low suspicion for acute glomerulonephritis vasculitis or interstitial nephritis. The patient is likely in the injury phase of acute tubular necrosis, as renal function continues t o decline. Urinary output has been marginal, at approximately 30 mL an hour. Plan at this point is to check a renal ultrasound to rule out obstruction to evaluate renal parenchyma. Will repeat a UA with microanalysis. Will check urine electrolytes. Will discontinue IV fluids, as the patient has evidence of pulmonary congestion. Will give the patient diuretics, Lasix 60 mg IV x1. Will otherw ise continue supportive care, renally dose meds, and avoid nephrotoxins. 2. Volume overload. The patient's chest x-ray shows findings of pulmonary congestion. The patient has noted edema on exam. Plan at this point is to hold normal saline. Will give the patient Lasix 60 mg IV x1. Will monitor I's and O's closely. 3. Mineral bone disorder. Will monitor calcium and phosphorus levels. No need for phosphate binde rs. 4. Cardiac arrest secondary to STEMI. The patient is status post PCI, with 2 stents placed in the obtuse marginal. The patient is status post hypothermic protocol. Will continue to monitor. 5. Coronary artery disease, status post STEMI. The patient is status post percutaneous coronary in tervention with stent placement. Continue medical management. 6. Ventilator-dependent respiratory failure. Vent settings have been reviewed. ABG has been revie wed. Continue to monitor. 7. Probable shock liver. Will continue to monitor. 8. Acute encephalopathy, with likely anoxic brain injury. Continue to monitor. Thank you, Dr. Dempsey, for this interesting consult. I would be a pleasure to follow up the patient wi th you throughout the hospital course. Dictated By: POLO SALDAÑA DO NR/NTS Conf#: [id number] DID#: [id number]
--- NOTE | 2016-11-27 12:35 | RADRPT ---
PROCEDURE: US Retroperitoneum. CLINICAL INDICATION: Acute kidney injury. TECHNIQUE: Sonographic evaluation of the kidneys and bladder was performed using a curved array tr ansducer. COMPARISON: None. FINDINGS: Right kidney measures 10.6 cm in length. Left kidney measures 10.7 cm in length. Bilateral kidneys demonstrate cortical thinning with increased echogenicity. Nonspecific small chayito nephric fluid is noted. No hydronephrosis or renal calculus. Layne catheter in place within a partially decompressed urinary bladder IMPRESSION: 1. Morphologic changes reflecting medical renal disease without hydronephrosis. RPTAT: [facility] .Lance Hilton MD, Date Time Electronically viewed and signed by .Lance Hilton MD, on 11/27/2016 12:34 .C/
--- NOTE | 2016-11-27 13:46 | CONS ---
Date/Time of Note Date/Time of Note DATE: 11/27/16 TIME: 13:43 Assessment/Plan Assessment/Plan Chief Complaint/Hosp Course Impression: Inferior STEMI s/p PCI OM Abnormal EKG Ventricular fibrillation arrest Respiratory failure rule out anoxic encephalopathy Recommendation/plan: ASA 81mg daily Ticagrelor 90mg BID Monitor Cr; nephrology following Assess for neurologic activity when off sedation Wean FiO2 as tolerated B-[place] if Hemodynamically stable in next 24-48hrs ACEI when renal failure resolved Statin when transaminitis resolved Problems: Consultation Date/Type/Reason Admit Date/Time Nov 25, 2016 at 20:00 Initial Consult Date 11/26/16 Type of Consultation: Pulmonary/critical care 24 HR Interval Summary Free Text/Dictation rewarming completed Intubated Tele sinus tachycardia Exam/Review of Systems Vital Signs Vitals Vital Signs Date Time Temp Pulse Resp B/P Pulse Ox O2 Delivery O2 Flow Rate FiO2 11/27/16 12:00 124 11/27/16 10:00 23 159/88 98 Mechanical Ventilator 11/27/16 08:00 70 11/27/16 08:00 96.8 Intake and Output 11/26/16 11/26/16 11/27/16 15:00 23:00 07:00 Intake Total 1726.06 ml 1394.54 ml 182.676 ml Output Total 466 ml 420 ml 378 ml Balance 1260.06 ml 974.54 ml -195.324 ml Exam Neck: No jvd Respiratory: normal air movement Cardiovascular: regular rate and rhythm Gastrointestinal: soft Extremities: normal pulses Results Result Diagram: 11/27/16 0510 11/27/16 0510 Results 24 hrs Laboratory Tests Test 11/26/16 14:37 11/26/16 14:50 11/26/16 15:38 11/26/16 16:27 Bedside Glucose 153 143 138 Arterial Blood HCO3 18.9 L Arterial Blood Base Excess -7.3 L Arterial Blood Oxygen Saturation 98.4 H Shaun Test ACCEPTAB Arterial Blood Gas Puncture Site Right Radial Arterial Blood Carboxyhemoglobin 0.3 Arterial Blood Date Drawn 11/26/2016 2:32:07 PM Arterial Blood Methemoglobin 0.4 Arterial Blood pCO2 (Temp correct) 34.6 L Arterial Blood pH (Temp corrected) 7.336 L Arterial Blood pO2 (Temp corrected) 116.7 H Blood Gas A-a O2 Differential 351.5 H Blood Gas Actual Respiration Rate 26 Blood Gas Critical Value Read Back Maren CUBA RN Blood Gas Low PEEP Setting 12.0 Blood Gas Modality VENT - AC Blood Gas Notified Time 11/26/2016 2:53:11 PM Blood Gas Notified Whom JLD Blood Gas Respiration Rate 24.0 Blood Gas Specimen Source Blood arterial Blood Gas Temperature 33.2 Blood Gas Tidal Volume 550.0 FiO2 70.0 Oxyhemoglobin Percent 97.7 Total Hemoglobin 16.1 Test 11/26/16 16:42 11/26/16 17:28 11/26/16 18:20 11/26/16 18:25 Activated Partial Thromboplast Time 33.5 Amylase Level 161 H Anion Gap 15 15 Basophils # 0.1 Basophils % 0.3 Blood Urea Nitrogen 25 H 30 H Calcium Level 6.0 L 6.9 L Carbon Dioxide Level 20 L 22 Chloride Level 106 108 Creatinine 1.79 H 2.16 H Eosinophils # 0.0 Eosinophils % 0.0 Fibrinogen 320.0 # Glucose Level 512 #*H 119 # Hematocrit 41.1 L Hemoglobin 14.0 INR International Normalized Ratio 1.16 Lipase 449 H Lymphocytes # 1.1 Lymphocytes % 3.9 L Magnesium Level 1.4 L Mean Corpuscular Hemoglobin 29.6 Mean Corpuscular Hemoglobin Concent 34.1 Mean Corpuscular Volume 86.9 Mean Platelet Volume 10.3 Monocytes # 1.4 H Monocytes % 5.0 Neutrophils # 24.9 H Neutrophils % 89.1 H Nucleated Red Blood Cells # 0.0 Nucleated Red Blood Cells % 0.0 Phosphorus Level 1.2 L Platelet Count 184 Potassium Level 5.5 #H 3.5 # Prothrombin Time 14.8 H Prothrombin Time Ratio 1.2 Red Blood Count 4.73 Red Cell Distribution Width 13.3 Sodium Level 135 141 Troponin I 120.000 *H White Blood Count 28.0 H Bedside Glucose 127 161 Test 11/26/16 19:19 11/26/16 20:03 11/26/16 20:25 11/26/16 20:50 Bedside Glucose 105 86 Anion Gap 16 Blood Urea Nitrogen 30 H Calcium Level 7.0 L Carbon Dioxide Level 20 L Chloride Level 110 Creatinine 2.01 H Glucose Level 89 Magnesium Level 1.8 Phosphorus Level 2.0 L Potassium Level 4.1 Sodium Level 142 Arterial Blood HCO3 18.4 L Arterial Blood Base Excess -6.6 L Arterial Blood Oxygen Saturation 98.4 H Shaun Test ACCEPTAB Arterial Blood Gas Puncture Site Right Radial Arterial Blood Carboxyhemoglobin 0.3 Arterial Blood Date Drawn 11/26/2016 8:55:08 PM Arterial Blood Methemoglobin 0.3 Arterial Blood pCO2 (Temp correct) 30.1 L Arterial Blood pH (Temp corrected) 7.386 Arterial Blood pO2 (Temp corrected) 114.2 H Blood Gas A-a O2 Differential 285.7 H Blood Gas Actual Respiration Rate 24 Blood Gas Low PEEP Setting 12.0 Blood Gas Modality VENT - AC Blood Gas Notified Time 11/26/2016 9:05:55 PM Blood Gas Notified Whom MG Blood Gas Respiration Rate 24.0 Blood Gas Specimen Source Blood arterial Blood Gas Temperature 33.3 Blood Gas Tidal Volume 550.0 FiO2 60.0 Oxyhemoglobin Percent 97.8 Total Hemoglobin 14.5 Test 11/26/16 20:56 11/26/16 21:18 11/26/16 21:59 11/26/16 22:23 Bedside Glucose 70 71 69 L 135 Test 11/26/16 22:51 11/26/16 23:55 11/27/16 00:00 11/27/16 01:03 Bedside Glucose 122 125 115 Arterial Blood HCO3 16.8 L Arterial Blood Base Excess -7.7 L Arterial Blood Oxygen Saturation 95.7 Shaun Test ACCEPTAB Arterial Blood Gas Puncture Site Right Radial Arterial Blood Carboxyhemoglobin 0.3 Arterial Blood Date Drawn 11/27/2016 1:15:15 AM Arterial Blood Methemoglobin 0.2 Arterial Blood pCO2 (Temp correct) 28.1 L Arterial Blood pH (Temp corrected) 7.380 Arterial Blood pO2 (Temp corrected) 68.9 L Blood Gas A-a O2 Differential 332.0 H Blood Gas Actual Respiration Rate 24 Blood Gas Low PEEP Setting 10.0 Blood Gas Modality VENT - AC Blood Gas Notified Time 11/27/2016 1:26:27 AM Blood Gas Notified Whom MH Blood Gas Respiration Rate 24.0 Blood Gas Specimen Source Blood arterial Blood Gas Temperature 34.2 Blood Gas Tidal Volume 550.0 FiO2 60.0 Oxyhemoglobin Percent 95.2 Total Hemoglobin 15.1 Activated Partial Thromboplast Time 34.2 Amylase Level 210 H Anion Gap 14 Basophils # 0.1 Basophils % 0.3 Blood Urea Nitrogen 30 H Calcium Level 6.7 L Carbon Dioxide Level 23 Chloride Level 109 Creatinine 2.23 H Eosinophils # 0.0 Eosinophils % 0.0 Fibrinogen 389.0 # Glucose Level 113 Hematocrit 39.8 L Hemoglobin 14.0 INR International Normalized Ratio 1.09 Lipase 501 H Lymphocytes # 1.2 Lymphocytes % 3.8 L Magnesium Level 1.9 Mean Corpuscular Hemoglobin 30.0 Mean Corpuscular Hemoglobin Concent 35.2 Mean Corpuscular Volume 85.2 Mean Platelet Volume 10.5 H Monocytes # 1.5 H Monocytes % 4.8 Neutrophils # 26.9 H Neutrophils % 89.0 H Nucleated Red Blood Cells # 0.0 Nucleated Red Blood Cells % 0.0 Phosphorus Level 3.5 Platelet Count 171 Potassium Level 4.0 Prothrombin Time 14.1 Prothrombin Time Ratio 1.1 Red Blood Count 4.67 L Red Cell Distribution Width 13.4 Sodium Level 142 Troponin I 75.700 *H White Blood Count 30.2 H Test 11/27/16 02:04 11/27/16 02:48 11/27/16 03:57 11/27/16 05:10 Bedside Glucose 105 124 125 Activated Partial Thromboplast Time 31.7 Amylase Level 200 H Anion Gap 14 B-Type Natriuretic Peptide 2360 H Basophils # 0.1 Basophils % 0.2 Blood Urea Nitrogen 32 H Calcium Level 6.8 L Carbon Dioxide Level 23 Chloride Level 108 Creatine Kinase 8956 H Creatine Kinase Index 6.0 Creatinine 2.32 H Creatinine Kinase MB (Mass) 538.00 H Eosinophils # 0.0 Eosinophils % 0.0 Fibrinogen 457.0 # Glucose Level 130 Hematocrit 42.0 Hemoglobin 14.5 INR International Normalized Ratio 1.12 Lipase 541 H Lymphocytes # 1.1 Lymphocytes % 2.9 L Magnesium Level 1.9 Mean Corpuscular Hemoglobin 29.5 Mean Corpuscular Hemoglobin Concent 34.5 Mean Corpuscular Volume 85.5 Mean Platelet Volume 10.7 H Monocytes # 1.6 H Monocytes % 4.5 Neutrophils # 31.9 H Neutrophils % 88.8 H Nucleated Red Blood Cells # 0.0 Nucleated Red Blood Cells % 0.0 Phosphorus Level 4.3 Platelet Count 201 Potassium Level 4.3 Prothrombin Time 14.4 H Prothrombin Time Ratio 1.1 Red Blood Count 4.91 Red Cell Distribution Width 13.7 Sodium Level 141 Troponin I 65.600 *H White Blood Count 36.0 H Test 11/27/16 05:13 11/27/16 06:00 11/27/16 07:59 11/27/16 10:08 Bedside Glucose 128 103 98 Arterial Blood HCO3 20.3 L Arterial Blood Base Excess -4.5 L Arterial Blood Oxygen Saturation 92.8 L Shaun Test ACCEPTAB Arterial Blood Gas Puncture Site Right Radial Arterial Blood Carboxyhemoglobin 0.3 Arterial Blood Date Drawn 11/27/2016 6:00:54 AM Arterial Blood Methemoglobin 0.3 Arterial Blood pCO2 (Temp correct) 34.3 L Arterial Blood pH (Temp corrected) 7.382 Arterial Blood pO2 (Temp corrected) 58.8 L Blood Gas A-a O2 Differential 333.7 H Blood Gas Actual Respiration Rate 24 Blood Gas Low PEEP Setting 10.0 Blood Gas Modality VENT - AC Blood Gas Notified Time 11/27/2016 6:08:53 AM Blood Gas Notified Whom MH Blood Gas Respiration Rate 24.0 Blood Gas Specimen Source Blood arterial Blood Gas Temperature 35.4 Blood Gas Tidal Volume 550.0 FiO2 60.0 Oxyhemoglobin Percent 92.2 L Total Hemoglobin 15.2 Test 11/27/16 12:00 11/27/16 12:08 Lactic Acid Level 2.1 Bedside Glucose 108 Medications Medications Current Medications Ondansetron HCl (Zofran Inj) 4 mg Q6H PRN IV NAUSEA AND/OR VOMITING; Start at 21:00 Acetaminophen (Tylenol Supp) 650 mg Q4H PRN [place] PAIN LEVEL 1-3 OR FEVER; Start 11/25/16 at 21:00 Lorazepam (Ativan) 1 mg Q2H PRN IV ANXIETY; Start 11/25/16 at 21:00 Acetaminophen (Tylenol Supp) 650 mg Q4H PRN [place] TEMP > 37C; Start 11/25/16 at 21 :00 Acetaminophen (Tylenol Liquid) 650 mg Q4H PRN PO TEMP > 37C; Start 11/25/16 at 21:00 Acetaminophen (Tylenol Supp) 500 mg Q6H [place] Last administered on 11/27/16 08:42 ; Admin Dose 500 MG; Start 11/26/16 at 21:00 Acetaminophen (Tylenol Liquid) 500 mg Q6H PO Last administered on 11/27/16 03: 50; Admin Dose 500 MG; Start 11/26/16 at 21:00 Meperidine HCl (Demerol) 12.5 mg Q4H PRN IV POST OPERATIVE SHIVERING; Start at 21:00 Meperidine HCl (Demerol) 25 mg Q4H PRN IV POST OPERATIVE SHIVERING; Start 11/25 at 21:00 Eye Lubricant (Akwa Oint) 1 applic Q6 BOTH EYES Last administered on 11/27/16 11:56; Admin Dose 1 APPLIC; Start 11/26/16 at 00:00 Eye Lubricant (Artificial Tears Oph) 2 drop Q6 BOTH EYES Last administered on 11:56; Admin Dose 2 DROP; Start 11/26/16 at 00:00 Dextrose (D50w Syringe) 25 ml Q15M PRN IV Till BS 80 mg/dL or above x2 Last administered on 11/26/16 22:12; Admin Dose 25 ML; Start 11/25/16 at 21:00 Dextrose 50 ml 50 ml Q15M PRN IV Till BS 80 mg/dL or above x2; Start 11/25/16 at 21:00 Cefepime HCl 50 ml @ 100 mls/hr Q12 IVPB Last administered on 11/27/16 08:41 ; Admin Dose 100 MLS/HR; Start 11/25/16 at 21:30 Norepinephrine 16 mg/Dextrose 500 ml @ 1.87 mls/hr TITRATE IV ; Start 11/26/16 at 02:00 Pantoprazole/ Sodium Chloride (Protonix Iv/NS) 100 ml @ 10 mls/hr Q10H IV Last administered on 11/27/16 05:02; Admin Dose 10 MLS/HR; Start 11/26/16 at 10 :00 Ticagrelor 90 mg 90 mg BID PO Last administered on 11/27/16 08:43; Admin Dose 90 MG; Start 11/26/16 at 21:00 Vancomycin HCl/ Sodium Chloride (Vancocin/NS) 250 ml @ 83.333 mls/ hr Q24H IVPB Last administered on 11/27/16 07:50; Admin Dose 83.333 MLS/HR; Start at 08:00 Aspirin (Aspirin) 150 mg DAILY [place] Last administered on 11/27/16 08:42; Admin Dose 150 MG; Start 11/26/16 at 17:30 Hydralazine HCl 10 mg 10 mg Q6H PRN IV SBP greater than 160 Last administered on 11/27/16 02:19; Admin Dose 10 MG; Start 11/27/16 at 02:30 Dextrose (D5W) 1,000 ml @ 50 mls/hr Q20H IV Last administered on 11/27/16 11: 55; Admin Dose 50 MLS/HR; Start 11/27/16 at 11:30 Diagnostic Test (Pha) (Accucheck) 1 ea Q4 XX ; Start 11/27/16 at 13:00 ANNIA EVANS Nov 27, 2016 13:45
[2016-11-28] VITALS (57 sets, daily range): BP systolic 96–126; BP diastolic 62–82; PULSE 74–104; RESP 17–27
[2016-11-28] MEDS: ACCUCHECK XX SCH ×4 (01:00→13:25)
[2016-11-28] MEDS: PROPOFOL 100 ML IV SCH ×3 (02:50→18:43)
[2016-11-28] MEDS: ACETAMINOPHEN 650 MG SUPP PR SCH (03:00)
[2016-11-28] MEDS: ACETAMINOPHEN 650MG/20.3ML CUP PO SCH ×4 (03:34→20:29)
[2016-11-28 04:27] LABS: ADD SCAN DIFF NO
[2016-11-28 04:37] LABS: ABNORMAL IP MESSAGE 1; BASOPHILS % 0.2 % (0.0-2.0); HEMATOCRIT 34.6 % (42.0-52.0); HEMOGLOBIN 11.7 g/dl (14.0-18.0); LYMPHOCYTES % 4.2 % (15.0-51.0); MEAN CORPUSCULAR HEMOGLOBIN 29.3 pg (29.0-33.0); MEAN CORPUSCULAR HGB CONC 33.8 g/dl (32.0-37.0); MEAN CORPUSCULAR VOLUME 86.7 fl (82.0-101.0); MEAN PLATELET VOLUME 10.4 fl (7.4-10.4); MONOCYTE # 1.4 10^3/ul (0.3-0.9); MONOCYTES % 5.8 % (0.0-11.0); NEUTROPHIL # 21.3 10^3/ul (1.6-7.5); PLATELET COUNT 133 10^3/UL (140-415); RED BLOOD COUNT 3.99 10^6/ul (4.70-6.10); RED CELL DISTRIBUTION WIDTH 14.4 % (11.5-14.5); WHITE BLOOD COUNT 24.7 10^3/ul (4.8-10.8)
[2016-11-28 04:39] LABS: ALBUMIN 2.5 g/dl (3.3-4.9)
[2016-11-28 04:40] LABS: POTASSIUM 4.3 mmol/L (3.5-5.1)
[2016-11-28 04:42] LABS: ALBUMIN/GLOBULIN RATIO 1.04; BILIRUBIN,INDIRECT 0.3 mg/dl (0-1.1); BILIRUBIN,TOTAL 0.3 mg/dl (0.2-1.3); CALCIUM 6.9 mg/dl (8.4-10.2); CREATININE 3.14 mg/dl (0.61-1.24); PHOSPHORUS 4.8 mg/dl (2.5-4.9); TOTAL PROTEIN 4.9 g/dl (6.1-8.1)
[2016-11-28] MEDS: ARTIFICIAL TEARS 15 ML OPH BOTH EYES SCH ×4 (05:25→23:15)
[2016-11-28] MEDS: OCULAR LUBRICANT 3.5 GM OPH OINT BOTH EYES SCH ×4 (05:25→23:15)
--- NOTE | 2016-11-28 08:31 | PN ---
DATE: 11/28/2016 SUBJECTIVE: The patient remains critically ill on full ventilatory support. The patient remains se dated, opening eyes but not following commands, urinary output has improved, approximately 2 liters in the last 24 hours. No other acute events noted. OBJECTIVE: VITAL SIGNS: Blood pressure 106/68, respiration 24, pulse 87, temperature 98.6. I's AND O'S: The patient had 1.8 liters in, 2.5 liters out. HEENT: Head is normocephalic. NECK: Supple. HEART: Regular rate. LUNGS: Show diminished breath sounds at the base. ABDOMEN: Soft, nontender to palpation. No rebound or guarding. EXTREMITIES: Negative for clubbing, cyanosis. Trace edema. DERMATOLOGIC: No rashes. MUSCULOSKELETAL: No joint effusions. NEUROLOGIC: No change in exam. MEDICATIONS: The patient's medications have been reviewed. LABORATORY DATA: Shows sodium 140, potassium 4.3, chloride 105, BUN 42, creatinine 3.14. White cou nt 24.7, hemoglobin 11.7, hematocrit 34.6, platelet count 123. Renal ultrasound shows no evidence o f obstruction and findings consistent with medical renal disease and increased echogenicity. ASSESSMENT AND PLAN: 1. Nonoliguric acute kidney injury, with possible chronic kidney disease, previous baseline creatin ine of 1.16 mg/dL. Etiology of acute kidney injury is multifactorial secondary to acute tubular nec rosis due to ischemic hypoperfusion, possible contrast-associated nephropathy. The patient's urinal ysis showed no active sediment. The patient's renal ultrasound shows increased echogenicity consist ent with possible underlying chronic kidney disease. At this point, the patient remains in injury p hase of acute tubular necrosis. Renal function continues to decline. Would continue current treat ent plan, supportive care, renally dose all meds, avoid nephrotoxins. Will continue to give intermi ttent diuretic therapy as needed to obtain euvolemic status. There is no immediate need for renal r eplacement therapy at this point. We will continue to follow and monitor closely. 2. Volume overload. The patient's chest x-ray showed pulmonary congestion, likely heart failure se condary to acute ST elevation myocardial infarction. The patient is status post Lasix yesterday. We will follow up x-ray this morning. Will give intermittent diuretic therapy as needed. 3. Mineral bone disorder. Continue to monitor calcium and phosphorus levels. No need for phosphat e binders. 4. Cardiac arrest secondary to ST elevation myocardial infarction. The patient is status post hypo thermic protocol, status post percutaneous coronary intervention with 2 stents placed. Continue med ical management and follow up with Cardiology. 5. Ventilator dependent respiratory failure. Vent settings have been reviewed. ABG has been revie wed. Continue to monitor. 6. Shock liver. The patient's LFTs have been improving and continue to observe. 7. Acute encephalopathy, likely from anoxic injury. Continue to monitor. Consider neurologic eval uation. 8. Leukocytosis, likely due to shock margination. The patient is on empiric antibiotics. Cultures have been negative to date, will continue to observe. Please note I spent over 40 minutes of critical care time with this patient. Dictated By: POLO BATES/KENDRA Conf#: [id number] DID#: [id number]
[2016-11-28] MEDS: CEFEPIME 1GM/50 ML (PMX) 50 ML IVPB SCH (08:47)
--- NOTE | 2016-11-28 08:58 | PN ---
Date/Time of Note Date/Time of Note DATE: 11/28/16 TIME: 08:51 Assessment/Plan VTE Prophylaxis VTE Prophylaxis Intervention: SCD's VTE Contraindication Reason: bleeding (GI) Lines/Catheters IV Catheter Type (from Nrs): Central Line Central line still needed: Yes Urinary Cath still in place: Yes Reason Cath still needed: other (indicate) Assessment/Plan Assessment/Plan Unfortunate 50 yo M brought in after cardiac arrest in the field found down after unknown period of time with 1. Status post ventricular fibrillation cardiac arrest. V fib likely 2/2 #2 - Off amiodarone for now s/p Hypothermia Protocol 2. Acute inferior ST-elevation myocardial infarction, status post balloon angioplasty and stent placement of the proximal obtuse marginal as well as manual aspiration thrombectomy of the obtuse marginal. 3. Ventilator-dependent respiratory failure. 4. Upper gastrointestinal bleed. 5. Severe SIRS 2/2 #1 + Lactic acidosis: improved 6. Acute kidney injury with metabolic acidosis 2/2 ATN from shock + superimposed life saving contrast administration still in injury phase 7. Probable shock liver: improving 8. Hyperglycemia with Nml A1C - likely reactive 9. Hypokalemia: repleted 10. Mild acute pancreatitis 11. High probability for anoxic brain injury 12. Recurrent hypocalcemia PLAN: * Continue Vent mgt and ICU care / Appreciate pulm input * Cardiology wants to continue brilinta and aspirin while closely monitoring h/ h and Transfusion PRN / Appreciate recs * Resume amiodarone as needed for arrthymias / closely monitor electrolytes * Continue protonix drip/ for endoscopy once stable * Gentle hydration for poor kidney function bearing in mind systolic dysfxn / appreciate Nephrology consult * Avoid ACEi, ARBs for now . Renally dose all meds. Serial labs. * Consider RUQ USS to eval abn liver fxn and pancreatitis if non resolving / patient is not a candidate for any kind of intervention at this time / trend levels * Continue SSI while NPO * ?Start tube feeds PROPHYLAXIS: SCDs / Protonix drip CRITICAL CARE TIME: >35 mins Prognosis: Guarded Subjective 24 Hr Interval Summary Free Text/Dictation Patient seen and examined. remains intubated but off sedation, not fully alert Exam/Review of Systems Vital Signs Vitals Vital Signs Date Time Temp Pulse Resp B/P Pulse Ox O2 Delivery O2 Flow Rate FiO2 11/28/16 06:30 87 24 106/68 100 Mechanical Ventilator 11/28/16 05:21 60 11/28/16 04:00 99.0 Intake and Output 11/27/16 11/27/16 11/28/16 15:00 23:00 07:00 Intake Total 864.092 ml 459.545 ml 466.363 ml Output Total 1504 ml 898 ml 85 ml Balance -639.908 ml -438.455 ml 381.363 ml Exam Constitutional: No alert, No oriented Eyes: PERRL ENMT: intubated Respiratory: clear to auscultation Cardiovascular: regular rate and rhythm, No murmurs/extra sounds Gastrointestinal: bowel sounds, non-tender, soft Extremities: edema Neurological: No nl mental status Results Result Diagram: 11/28/165 11/28/16 0405 Results 24 hrs Laboratory Tests Test 11/27/16 10:08 11/27/16 12:00 11/27/16 12:08 11/27/16 17:16 Bedside Glucose 98 108 118 Lactic Acid Level 2.1 Test 11/27/16 21:04 11/28/16 01:31 11/28/16 04:05 11/28/16 05:24 Bedside Glucose 126 131 120 Alanine Aminotransferase (ALT/SGPT) 129 H Albumin 2.5 L Albumin/Globulin Ratio 1.04 Alkaline Phosphatase 72 Amylase Level 142 H Anion Gap 14 Aspartate Amino Transf (AST/SGOT) 279 #H Basophils # 0.0 Basophils % 0.2 Blood Urea Nitrogen 42 H Calcium Level 6.9 L Carbon Dioxide Level 25 Chloride Level 105 Creatinine 3.14 H Direct Bilirubin 0.00 Eosinophils # 0.0 Eosinophils % 0.0 Globulin 2.40 Glucose Level 120 Hematocrit 34.6 L Hemoglobin 11.7 L Indirect Bilirubin 0.3 Lactic Acid Level 1.4 Lipase 401 H Lymphocytes # 1.0 Lymphocytes % 4.2 L Magnesium Level 2.0 Mean Corpuscular Hemoglobin 29.3 Mean Corpuscular Hemoglobin Concent 33.8 Mean Corpuscular Volume 86.7 Mean Platelet Volume 10.4 Monocytes # 1.4 H Monocytes % 5.8 Neutrophils # 21.3 H Neutrophils % 86.0 H Nucleated Red Blood Cells # 0.0 Nucleated Red Blood Cells % 0.0 Phosphorus Level 4.8 Platelet Count 133 #L Potassium Level 4.3 Red Blood Count 3.99 L Red Cell Distribution Width 14.4 Sodium Level 140 Total Bilirubin 0.3 Total Protein 4.9 L White Blood Count 24.7 #H Medications Medications Current Medications Ondansetron HCl (Zofran Inj) 4 mg Q6H PRN IV NAUSEA AND/OR VOMITING; Start at 21:00 Acetaminophen (Tylenol Supp) 650 mg Q4H PRN [place] PAIN LEVEL 1-3 OR FEVER; Start 11/25/16 at 21:00 Lorazepam (Ativan) 1 mg Q2H PRN IV ANXIETY; Start 11/25/16 at 21:00 Acetaminophen (Tylenol Liquid) 650 mg Q4H PRN PO TEMP > 37C; Start 11/25/16 at 21:00 Acetaminophen (Tylenol Liquid) 500 mg Q6H PO Last administered on 11/28/16 03: 34; Admin Dose 500 MG; Start 11/26/16 at 21:00 Eye Lubricant (Akwa Oint) 1 applic Q6 BOTH EYES Last administered on 11/28/16 05:25; Admin Dose 1 APPLIC; Start 11/26/16 at 00:00 Eye Lubricant 2 drop 2 drop Q6 BOTH EYES Last administered on 11/28/16 05:25; Admin Dose 2 DROP; Start 11/26/16 at 00:00 Pantoprazole/ Sodium Chloride (Protonix Iv/NS) 100 ml @ 10 mls/hr Q10H IV Last administered on 11/27/16 23:37; Admin Dose 10 MLS/HR; Start 11/26/16 at 10 :00 Ticagrelor 90 mg 90 mg BID PO Last administered on 11/27/16 21:06; Admin Dose 90 MG; Start 11/26/16 at 21:00 Vancomycin HCl/ Sodium Chloride (Vancocin/NS) 250 ml @ 83.333 mls/ hr Q24H IVPB Last administered on 11/27/16 07:50; Admin Dose 83.333 MLS/HR; Start at 08:00 Aspirin (Aspirin) 150 mg DAILY [place] Last administered on 11/27/16 08:42; Admin Dose 150 MG; Start 11/26/16 at 17:30 Hydralazine HCl 10 mg 10 mg Q6H PRN IV SBP greater than 160 Last administered on 2/25/17at 02:19; Admin Dose 10 MG; Start 11/27/16 at 02:30 Dextrose (D5W) 1,000 ml @ 50 mls/hr Q20H IV Last administered on 11/27/16 11: 55; Admin Dose 50 MLS/HR; Start 11/27/16 at 11:30 Diagnostic Test (Pha) 1 ea 1 ea Q4 XX Last administered on 11/28/16 05:25; Admin Dose 1 EA; Start 11/27/16 at 13:00 Cefepime HCl (Maxipime 1gm/50 ml (Pmx)) 50 ml @ 100 mls/hr Q24H IVPB ; Start at 09:00 Procedures Procedures PROCEDURE: XR Chest. CLINICAL INDICATION: Shortness of breath. TECHNIQUE: A single portable view of the chest was obtained. COMPARISON: 11/25/2016 FINDINGS: The endotracheal tube and nasogastric tube are essentially unchanged. The aorta is tortuous and atherosclerotic. The cardiomediastinal silhouette is otherwise enlarged and is stable. Diffuse pulmonary vascular congestion is seen with likely underlying pulmonary edema and is improved. The lung volumes are low with bibasilar compressive atelectasis. The soft tissues and osseous structures demonstrate benign age related senescent changes. IMPRESSION: Radiographic findings of congestive heart failure again seen with improvement in the pulmonary vascular congestion and underlying pulmonary edema. RPTAT: HPNM Physician Trish Date Time Electronically viewed and signed by Physician Trish on 11/27/2016 09 :48 / CC: BRITTNY GARG PROCEDURE: US Retroperitoneum. CLINICAL INDICATION: Acute kidney injury. TECHNIQUE: Sonographic evaluation of the kidneys and bladder was performed using a curved array transducer. COMPARISON: None. FINDINGS: Right kidney measures 10.6 cm in length. Left kidney measures 10.7 cm in length. Bilateral kidneys demonstrate cortical thinning with increased echogenicity. Nonspecific small perinephric fluid is noted. No hydronephrosis or renal calculus. Layne catheter in place within a partially decompressed urinary bladder IMPRESSION: 1. Morphologic changes reflecting medical renal disease without hydronephrosis. RPTAT: [facility] .Lance Hilton MD, MD Date Time Electronically viewed and signed by .Lance Hilton MD, MD on 11/27/2016 12:34 .C/ CC: POLO SALDAÑA BOLATITO M. Nov 28, 2016 08:58
[2016-11-28] MEDS: TICAGRELOR 90 MG TABLET PO SCH ×2 (09:05→20:29)
[2016-11-28] MEDS: DEXTROSE 5% 1,000 ML IV SCH (09:11)
[2016-11-28 09:45] LABS: ADD UMIC YES; URINE BILIRUBIN (Dip) NEGATIVE (NEGATIVE); URINE BLOOD (Dip) 2+ (NEGATIVE); URINE COLOR LT. YELLOW (YELLOW); URINE GLUCOSE (Dip) NEGATIVE (NEGATIVE); URINE KETONES (Dip) NEGATIVE (NEGATIVE); URINE LEUKOCYTE ESTERASE (Dip) NEGATIVE (NEGATIVE); URINE NITRITE (Dip) NEGATIVE (NEGATIVE); URINE TOTAL PROTEIN (Dip) TRACE (NEGATIVE); URINE UROBILINOGEN (Dip) 0.2 E.U./dL (0.1-1.0)
[2016-11-28 09:50] LABS: SQUAMOUS EPITHELIAL CELL,UR FEW; URINE RBCS 0-2 /HPF (0)
[2016-11-28 09:56] LABS: URIC ACID CRYSTALS,URINE FEW
[2016-11-28 10:17] LABS: PROTEIN URINE 27.4 mg/dl (0.0-9.9)
[2016-11-28] MEDS: VANCOMYCIN 1.25 GM in SOD CHLORIDE 0.9% 250 ML IVPB SCH (10:18)
[2016-11-28] MEDS: PANTOPRAZOLE IV 80 MG in SOD CHLORIDE 0.9% 100 ML IV SCH ×2 (10:18→18:42)
[2016-11-28] MEDS: ASPIRIN 300 MG SUPP PR SCH (10:18)
--- NOTE | 2016-11-28 10:53 | CONS ---
Date/Time of Note Date/Time of Note DATE: 11/28/16 TIME: 10:47 Assessment/Plan Assessment/Plan Additional Assessment/Plan Ventilator settings; assist control 24, tidal volume 550, PEEP of 10, 40% FiO2. Assessment recommendations; 1. Patient admitted with acute STEMI with stenting of obtuse marginal branch. 2. Significant aspiration pneumonia. 3. Status post CPR. 4. Patient off hypothermia protocol. 5. Persistent leukocytosis. Likely from underlying pneumonia. 6. Renal insufficiency. Likely from renal hypoperfusion during cardiac arrest. However, patient is making adequate urine. Current treatment. Obtain a chest x-ray. Start the patient on tube feeding. Wean down PEEP of 5. Wean down FiO2 also to keep O2 sat around 94%. The chest x-rays done I will do reviewed and make further recommendations. Consultation Date/Type/Reason Admit Date/Time Nov 25, 2016 at 20:00 Initial Consult Date 11/26/16 Type of Consultation: Pulmonary/critical care 24 HR Interval Summary Free Text/Dictation Patient's condition remains critical. Still on full ventilator support. However has remained hemodynamically stable. General examination; regimen, or intubated, sedated. Currently in no distress. Exam/Review of Systems Vital Signs Vitals Vital Signs Date Time Temp Pulse Resp B/P Pulse Ox O2 Delivery O2 Flow Rate FiO2 11/28/16 09:30 86 24 109/73 100 11/28/16 09:00 Mechanical Ventilator 11/28/16 08:00 40 11/28/16 08:00 98.6 Intake and Output 11/27/16 11/27/16 11/28/16 15:00 23:00 07:00 Intake Total 864.092 ml 459.545 ml 542.272 ml Output Total 1504 ml 898 ml 106 ml Balance -639.908 ml -438.455 ml 436.272 ml Exam H EENT examination; supple neck, no JVD. No lymphadenopathy. Midline trachea. Orally intubated. Pupils are midsize and reactive to light bilaterally. Chest examination; diminished but clear breath sounds bilaterally. S1-S2 audible, no murmurs. Regular rhythm. Abdomen examination; soft, nondistended. No organomegaly. Bowel sounds audible. Extremity examination; no peripheral edema. Pulses 1+ bilaterally. CHECKER STOCKER examination; patient is sedated. Results Result Diagram: 11/28/16 0405 11/28/16 0405 Results 24 hrs Laboratory Tests Test 11/27/16 12:00 11/27/16 12:08 11/27/16 17:16 11/27/16 21:04 Lactic Acid Level 2.1 Bedside Glucose 108 118 126 Test 11/28/16 01:31 11/28/16 04:05 11/28/16 05:24 11/28/16 07:00 Bedside Glucose 131 120 Alanine Aminotransferase (ALT/SGPT) 129 H Albumin 2.5 L Albumin/Globulin Ratio 1.04 Alkaline Phosphatase 72 Amylase Level 142 H Anion Gap 14 Aspartate Amino Transf (AST/SGOT) 279 #H Basophils # 0.0 Basophils % 0.2 Blood Urea Nitrogen 42 H Calcium Level 6.9 L Carbon Dioxide Level 25 Chloride Level 105 Creatinine 3.14 H Direct Bilirubin 0.00 Eosinophils # 0.0 Eosinophils % 0.0 Globulin 2.40 Glucose Level 120 Hematocrit 34.6 L Hemoglobin 11.7 L Indirect Bilirubin 0.3 Lactic Acid Level 1.4 Lipase 401 H Lymphocytes # 1.0 Lymphocytes % 4.2 L Magnesium Level 2.0 Mean Corpuscular Hemoglobin 29.3 Mean Corpuscular Hemoglobin Concent 33.8 Mean Corpuscular Volume 86.7 Mean Platelet Volume 10.4 Monocytes # 1.4 H Monocytes % 5.8 Neutrophils # 21.3 H Neutrophils % 86.0 H Nucleated Red Blood Cells # 0.0 Nucleated Red Blood Cells % 0.0 Phosphorus Level 4.8 Platelet Count 133 #L Potassium Level 4.3 Red Blood Count 3.99 L Red Cell Distribution Width 14.4 Sodium Level 140 Total Bilirubin 0.3 Total Protein 4.9 L White Blood Count 24.7 #H Vancomycin Level Trough 12.6 Test 11/28/16 08:28 11/28/16 08:49 Urine Bilirubin NEGATIVE Urine Clarity CLEAR Urine Color LT. YELLOW Urine Glucose NEGATIVE Urine Hemoglobin 2+ H Urine Ketones NEGATIVE Urine Leukocyte Esterase NEGATIVE Urine Microscopic RBC 0-2 Urine Microscopic WBC 0-2 Urine Nitrite NEGATIVE Urine Random Creatinine 100.07 Urine Random Sodium 21 L Urine Specific [place] 1.025 Urine Squamous Epithelial Cells FEW Urine Total Protein 27.4 H Urine Uric Acid Crystals FEW Urine Urobilinogen 0.2 E.U./dL Urine pH 5.5 Bedside Glucose 115 Medications Medications Current Medications Ondansetron HCl (Zofran Inj) 4 mg Q6H PRN IV NAUSEA AND/OR VOMITING; Start at 21:00 Acetaminophen (Tylenol Supp) 650 mg Q4H PRN [place] PAIN LEVEL 1-3 OR FEVER; Start 11/25/16 at 21:00 Lorazepam (Ativan) 1 mg Q2H PRN IV ANXIETY; Start 11/25/16 at 21:00 Acetaminophen (Tylenol Liquid) 650 mg Q4H PRN PO TEMP > 37C; Start 11/25/16 at 21:00 Acetaminophen (Tylenol Liquid) 500 mg Q6H PO Last administered on 11/28/16 08: 47; Admin Dose 500 MG; Start 11/26/16 at 21:00 Eye Lubricant (Akwa Oint) 1 applic Q6 BOTH EYES Last administered on 11/28/16 05:25; Admin Dose 1 APPLIC; Start 11/26/16 at 00:00 Eye Lubricant 2 drop 2 drop Q6 BOTH EYES Last administered on 11/28/16 05:25; Admin Dose 2 DROP; Start 11/26/16 at 00:00 Pantoprazole/ Sodium Chloride (Protonix Iv/NS) 100 ml @ 10 mls/hr Q10H IV Last administered on 11/28/16 10:18; Admin Dose 10 MLS/HR; Start 11/26/16 at 10 :00 Ticagrelor 90 mg 90 mg BID PO Last administered on 11/28/16 09:05; Admin Dose 90 MG; Start 11/26/16 at 21:00 Vancomycin HCl/ Sodium Chloride (Vancocin/NS) 250 ml @ 83.333 mls/ hr Q24H IVPB Last administered on 11/28/16 10:18; Admin Dose 83.333 MLS/HR; Start at 08:00; Stop 11/28/16 at 19:00 Aspirin (Aspirin) 150 mg DAILY [place] Last administered on 11/28/16 10:18; Admin Dose 150 MG; Start 11/26/16 at 17:30 Hydralazine HCl 10 mg 10 mg Q6H PRN IV SBP greater than 160 Last administered on 11/27/16 02:19; Admin Dose 10 MG; Start 11/27/16 at 02:30 Dextrose (D5W) 1,000 ml @ 50 mls/hr Q20H IV Last administered on 11/28/16 09: 11; Admin Dose 50 MLS/HR; Start 11/27/16 at 11:30 Diagnostic Test (Pha) 1 ea 1 ea Q4 XX Last administered on 11/28/16 09:10; Admin Dose 1 EA; Start 11/27/16 at 13:00 Cefepime HCl 50 ml @ 100 mls/hr Q24H IVPB Last administered on 11/28/16 08:47 ; Admin Dose 100 MLS/HR; Start 11/28/16 at 09:00 Calcium Gluconate 2 gm/Sodium Chloride 120 ml @ 60 mls/hr Q4H IVPB ; Start at 11:00; Stop 11/28/16 at 16:59 Vancomycin HCl/ Sodium Chloride (Vancocin/NS) 250 ml @ 83.333 mls/ hr Q36H IVPB ; Start 11/29/16 at 22:00 BRITTNY GARG Nov 28, 2016 10:52
--- NOTE | 2016-11-28 11:32 | RADRPT ---
PROCEDURE: XR Chest. CLINICAL INDICATION: Shortness of breath. TECHNIQUE: A single portable view of the chest was obtained. COMPARISON: 11/27/2016 FINDINGS: The endotracheal tube and nasogastric tube are essentially unchanged. The aorta is tortuous and ath erosclerotic. The cardiomediastinal silhouette is otherwise enlarged and is stable. Diffuse pulmon jennifer vascular congestion is seen with likely underlying pulmonary edema and is improved. Bilateral pl eural effusions are again noted and are improved. The soft tissues and osseous structures demonstrat e benign age related senescent changes. IMPRESSION: Radiographic findings of congestive heart failure again seen which is improved. RPTAT: HPNM Physician Trish Date Time Electronically viewed and signed by Physician Trish on 11/28/2016 11:31 /
--- NOTE | 2016-11-28 12:14 | RADRPT ---
PROCEDURE: XR Chest. CLINICAL INDICATION: Shortness of breath. TECHNIQUE: Single frontal view. COMPARISON: 11/28/2016. FINDINGS: The endotracheal tube and nasogastric tube are in satisfactory position. There is mild pulmonary ed valeria with interstitial disease in the mid and lower lung zones. The lungs are otherwise clear. The heart size is normal. There is no pleural effusion. There is no pneumothorax. IMPRESSION: 1. Endotracheal tube and nasogastric tube in satisfactory position. 2. Mild pulmonary edema. 3. Otherwise unremarkable study. RPTAT: QQ .Elliott Guillory MD, MD Date Time Electronically viewed and signed by .Elliott Guillory MD, MD on 11/28/2016 12:13 .R/
[2016-11-28] MEDS: CALCIUM GLUCONATE 10% 2 GM in SOD CHLORIDE 0.9% 100 ML IVPB SCH ×2 (12:51→17:04)
--- NOTE | 2016-11-28 14:51 | PN ---
Date/Time of Note Date/Time of Note DATE: 11/28/16 TIME: 14:48 Assessment/Plan VTE Prophylaxis VTE Prophylaxis Intervention: SCD's Lines/Catheters IV Catheter Type (from Nrs): Central Line Central line still needed: Yes Urinary Cath still in place: Yes Reason Cath still needed: other (indicate) (Unresponsive) Assessment/Plan Assessment/Plan Upper GI bleed/insignificant/inactive * Monitor hemoglobin * Protonix drip * EGD only if clinically indicated for therapeutic control bleeding Transaminitis. * Likely secondary to shock liver. * Acute hepatitis panel/negative * Monitor liver function tests Elevated amylase/lipase * Likely related to ischemic event Status post ventricular fibrillation cardiac arrest. Acute inferior ST-elevation myocardial infarction, status post balloon angioplasty and stent placement of the proximal obtuse marginal as well as manual aspiration thrombectomy of the obtuse marginal. Ventilator-dependent respiratory failure. Likely anoxic brain injury. Acute kidney injury. * Nephrology following Further recommendations depend on clinical course Subjective 24 Hr Interval Summary Free Text/Dictation Course reviewed with nursing staff Hemoglobin hematocrit stable Unresponsive Liver function tests remain abnormal likely ischemic Hepatitis serology negative Amylase and lipase also elevated likely ischemic Obtain abdominal ultrasound Exam/Review of Systems Vital Signs Vitals Vital Signs Date Time Temp Pulse Resp B/P Pulse Ox O2 Delivery O2 Flow Rate FiO2 11/28/16 14:30 84 21 109/64 95 11/28/16 14:00 Mechanical Ventilator 11/28/16 12:00 98.4 11/28/16 11:30 35 Intake and Output 11/27/16 11/27/16 11/28/16 15:00 23:00 07:00 Intake Total 864.092 ml 459.545 ml 542.272 ml Output Total 1504 ml 898 ml 106 ml Balance -639.908 ml -438.455 ml 436.272 ml Exam Constitutional: non-verbal, intubated, unresponsive ENMT: mucosa pink and moist, nl external ears & nose, nl lips & teeth, nl nasal mucosa & septum Respiratory: other (Intubated) clear to A/P Cardiovascular: irregular rhythm Gastrointestinal: non-tender, soft, no masses/organomegaly Musculoskeletal: nl extremities to inspection Neurological: other (Sedated) Results Result Diagram: 11/28/16 0405 11/28/16 0405 Results 24 hrs Laboratory Tests Test 11/27/16 17:16 11/27/16 21:04 11/28/16 01:31 11/28/16 04:05 Bedside Glucose 118 126 131 Alanine Aminotransferase (ALT/SGPT) 129 H Albumin 2.5 L Albumin/Globulin Ratio 1.04 Alkaline Phosphatase 72 Amylase Level 142 H Anion Gap 14 Aspartate Amino Transf (AST/SGOT) 279 #H Basophils # 0.0 Basophils % 0.2 Blood Urea Nitrogen 42 H Calcium Level 6.9 L Carbon Dioxide Level 25 Chloride Level 105 Creatinine 3.14 H Direct Bilirubin 0.00 Eosinophils # 0.0 Eosinophils % 0.0 Globulin 2.40 Glucose Level 120 Hematocrit 34.6 L Hemoglobin 11.7 L Indirect Bilirubin 0.3 Lactic Acid Level 1.4 Lipase 401 H Lymphocytes # 1.0 Lymphocytes % 4.2 L Magnesium Level 2.0 Mean Corpuscular Hemoglobin 29.3 Mean Corpuscular Hemoglobin Concent 33.8 Mean Corpuscular Volume 86.7 Mean Platelet Volume 10.4 Monocytes # 1.4 H Monocytes % 5.8 Neutrophils # 21.3 H Neutrophils % 86.0 H Nucleated Red Blood Cells # 0.0 Nucleated Red Blood Cells % 0.0 Phosphorus Level 4.8 Platelet Count 133 #L Potassium Level 4.3 Red Blood Count 3.99 L Red Cell Distribution Width 14.4 Sodium Level 140 Total Bilirubin 0.3 Total Protein 4.9 L White Blood Count 24.7 #H Test 11/28/16 05:24 11/28/16 07:00 11/28/16 08:28 11/28/16 08:49 Bedside Glucose 120 115 Vancomycin Level Trough 12.6 Urine Bilirubin NEGATIVE Urine Clarity CLEAR Urine Color LT. YELLOW Urine Glucose NEGATIVE Urine Hemoglobin 2+ H Urine Ketones NEGATIVE Urine Leukocyte Esterase NEGATIVE Urine Microscopic RBC 0-2 Urine Microscopic WBC 0-2 Urine Nitrite NEGATIVE Urine Random Creatinine 100.07 Urine Random Sodium 21 L Urine Specific [place] 1.025 Urine Squamous Epithelial Cells FEW Urine Total Protein 27.4 H Urine Uric Acid Crystals FEW Urine Urobilinogen 0.2 E.U./dL Urine pH 5.5 Test 11/28/16 13:24 Bedside Glucose 99 Medications Medications Current Medications Ondansetron HCl (Zofran Inj) 4 mg Q6H PRN IV NAUSEA AND/OR VOMITING; Start at 21:00 Acetaminophen (Tylenol Supp) 650 mg Q4H PRN [place] PAIN LEVEL 1-3 OR FEVER; Start 11/25/16 at 21:00 Lorazepam (Ativan) 1 mg Q2H PRN IV ANXIETY; Start 11/25/16 at 21:00 Acetaminophen (Tylenol Liquid) 650 mg Q4H PRN PO TEMP > 37C; Start 11/25/16 at 21:00 Acetaminophen (Tylenol Liquid) 500 mg Q6H PO Last administered on 11/28/16 08: 47; Admin Dose 500 MG; Start 11/26/16 at 21:00 Eye Lubricant (Akwa Oint) 1 applic Q6 BOTH EYES Last administered on 11/28/16 12:14; Admin Dose 1 APPLIC; Start 11/26/16 at 00:00 Eye Lubricant 2 drop 2 drop Q6 BOTH EYES Last administered on 11/28/16 12:14; Admin Dose 2 DROP; Start 11/26/16 at 00:00 Pantoprazole/ Sodium Chloride (Protonix Iv/NS) 100 ml @ 10 mls/hr Q10H IV Last administered on 11/28/16 10:18; Admin Dose 10 MLS/HR; Start 11/26/16 at 10 :00 Ticagrelor 90 mg 90 mg BID PO Last administered on 11/28/16 09:05; Admin Dose 90 MG; Start 11/26/16 at 21:00 Vancomycin HCl/ Sodium Chloride (Vancocin/NS) 250 ml @ 83.333 mls/ hr Q24H IVPB Last administered on 11/28/16 10:18; Admin Dose 83.333 MLS/HR; Start at 08:00; Stop 11/28/16 at 19:00 Aspirin (Aspirin) 150 mg DAILY [place] Last administered on 11/28/16 10:18; Admin Dose 150 MG; Start 11/26/16 at 17:30 Hydralazine HCl 10 mg 10 mg Q6H PRN IV SBP greater than 160 Last administered on 11/27/16 02:19; Admin Dose 10 MG; Start 11/27/16 at 02:30 Dextrose 1,000 ml @ 50 mls/hr Q20H IV Last administered on 11/28/16 09:11; Admin Dose 50 MLS/HR; Start 11/27/16 at 11:30 Cefepime HCl 50 ml @ 100 mls/hr Q24H IVPB Last administered on 11/28/16 08:47 ; Admin Dose 100 MLS/HR; Start 11/28/16 at 09:00 Calcium Gluconate 2 gm/Sodium Chloride 120 ml @ 60 mls/hr Q4H IVPB Last administered on 11/28/16 12:51; Admin Dose 60 MLS/HR; Start 11/28/16 at 11:00; Stop 11/28/16 at 16:59 Vancomycin HCl/ Sodium Chloride (Vancocin/NS) 250 ml @ 83.333 mls/ hr Q36H IVPB ; Start 11/29/16 at 22:00 MIKEY MAN MD Nov 28, 2016 14:51
[2016-11-28] MEDS: MIDAZOLAM (DRIP) 50 mg/50 mL 50 ML IV SCH (15:51)
--- NOTE | 2016-11-28 20:19 | RADRPT ---
PROCEDURE: US Abdomen and Retroperitoneum. CLINICAL INDICATION: Abnormal liver function tests. TECHNIQUE: Multiple real-time longitudinal and transverse images were acquired of the patient's ab domen and retroperitoneum utilizing a curved array transducer. COMPARISON: No prior studies are available for comparison. FINDINGS: The liver is enlarged and normal in echogenicity. The liver has a normal smooth surface. There is n o focal hepatic lesion. Color Doppler and pulsed Doppler sonography demonstrate normal antegrade ale w in the portal vein. The gallbladder is normal with no stones or wall thickening. The bile ducts are normal with the common bile duct measuring 3.2 mm in diameter. The spleen is normal in size. There is no focal splenic lesion. The pancreas is partially seen and is unremarkable. There is no free fluid. The right kidney measures 10.4 x 4.9 x 5.8 cm and the left kidney measures 9.0 x 5.4 x 5.3 cm. There is no renal mass. There is no hydronephrosis or calculus. The abdominal aorta is not dilated. The inferior vena cava is unremarkable. IMPRESSION: 1. Hepatomegaly. 2. Otherwise normal abdomen ultrasound. RPTAT: QQ .Elliott Guillory MD, Date Time Electronically viewed and signed by .Elliott Guillory MD, on 11/28/2016 20:19 .R/
[2016-11-29] VITALS (58 sets, daily range): BP systolic 106–136; BP diastolic 62–98; PULSE 66–89; RESP 15–28
[2016-11-29] MEDS: MIDAZOLAM (DRIP) 50 mg/50 mL 50 ML IV SCH (01:52)
[2016-11-29] MEDS: PROPOFOL 100 ML IV SCH ×2 (02:57→12:05)
[2016-11-29] MEDS: ACETAMINOPHEN 650MG/20.3ML CUP PO SCH ×4 (03:26→20:06)
[2016-11-29] MEDS: PANTOPRAZOLE IV 80 MG in SOD CHLORIDE 0.9% 100 ML IV SCH ×2 (03:26→14:20)
[2016-11-29] MEDS: DEXTROSE 5% 1,000 ML IV SCH (03:26)
[2016-11-29 04:55] LABS: ADD SCAN DIFF NO
[2016-11-29 05:03] LABS: BASOPHILS % 0.1 % (0.0-2.0); EOSINOPHILS # 0.1 10^3/ul (0.0-0.5); EOSINOPHILS % 0.4 % (0.0-7.0); HEMATOCRIT 31.4 % (42.0-52.0); HEMOGLOBIN 10.4 g/dl (14.0-18.0); LYMPHOCYTES # 1.3 10^3/ul (0.8-2.9); LYMPHOCYTES % 7.9 % (15.0-51.0); MEAN CORPUSCULAR HEMOGLOBIN 29.2 pg (29.0-33.0); MEAN CORPUSCULAR HGB CONC 33.1 g/dl (32.0-37.0); MEAN CORPUSCULAR VOLUME 88.2 fl (82.0-101.0); MEAN PLATELET VOLUME 10.6 fl (7.4-10.4); MONOCYTE # 0.9 10^3/ul (0.3-0.9); MONOCYTES % 5.2 % (0.0-11.0); NEUTROPHIL # 14.3 10^3/ul (1.6-7.5); NEUTROPHILS % 85.9 % (39.0-77.0); PLATELET COUNT 117 10^3/UL (140-415); RED BLOOD COUNT 3.56 10^6/ul (4.70-6.10); RED CELL DISTRIBUTION WIDTH 14.4 % (11.5-14.5); WHITE BLOOD COUNT 16.6 10^3/ul (4.8-10.8)
[2016-11-29 05:31] LABS: ALBUMIN 2.5 g/dl (3.3-4.9); POTASSIUM 3.7 mmol/L (3.5-5.1)
[2016-11-29 05:34] LABS: ALBUMIN/GLOBULIN RATIO 1.08; BILIRUBIN,INDIRECT 0.4 mg/dl (0-1.1); BILIRUBIN,TOTAL 0.4 mg/dl (0.2-1.3); CALCIUM 7.9 mg/dl (8.4-10.2); CREATININE 2.85 mg/dl (0.61-1.24); TOTAL PROTEIN 4.8 g/dl (6.1-8.1)
[2016-11-29] MEDS: OCULAR LUBRICANT 3.5 GM OPH OINT BOTH EYES SCH ×3 (05:37→18:23)
[2016-11-29] MEDS: ARTIFICIAL TEARS 15 ML OPH BOTH EYES SCH ×3 (05:37→18:23)
[2016-11-29] MEDS ORDERED: FUROSEMIDE 20 MG INJ IV ONE (08:30)
[2016-11-29] MEDS: TICAGRELOR 90 MG TABLET PO SCH ×2 (08:36→20:08)
[2016-11-29] MEDS: ASPIRIN 300 MG SUPP PR SCH (08:39)
[2016-11-29] MEDS: CEFEPIME 1GM/50 ML (PMX) 50 ML IVPB SCH (09:16)
--- NOTE | 2016-11-29 09:22 | PN ---
DATE: 11/29/2016 SUBJECTIVE: The patient remains critically ill on ventilatory support. No acute events noted. No he moptysis, hematemesis, hematochezia. OBJECTIVE: VITAL SIGNS: Blood pressure is 118/77, respiration 18, pulse 71, temperature 98.6. I's AND O'S: The patient had 2.3 liters in, 1.3 liters out. HEENT: Head is normocephalic. NECK: Supple. HEART: Regular rate. LUNGS: Show diminished breath sounds at the base. ABDOMEN: Soft, nontender to palpation. No rebound or guarding. EXTREMITIES: Negative for clubbing, cyanosis. DERMATOLOGIC: No rashes. MUSCULOSKELETAL: No joint effusions. NEUROLOGIC: No change in exam. MEDICATIONS: The patient's medications have been reviewed. LABORATORY DATA: Shows sodium 138, potassium 2.7, chloride 106, BUN 42, creatinine 2.85. White cou nt 16.6, hemoglobin 10.4, hematocrit 31.4, platelet count 117. IMAGING: Chest x-ray was reviewed, shows evidence of pulmonary congestion. ASSESSMENT AND PLAN: 1. Nonoliguric acute kidney injury on top of chronic kidney disease with previous baseline creatini ne 1.16 mg/dL. Etiology of acute kidney injury is secondary to acute tubular necrosis due to ischem ic hypoperfusion, possible contrast-associated nephropathy. The patient's renal function has improv ed in the last 24 hours. Possibly entering recovery phase of acute tubular necrosis. We will randa nue current treatment plan, supportive care, renally dose all meds, avoid nephrotoxins. 2. Volume overload, the patient's chest x-ray continues to show pulmonary congestion, although impr patricia. We will give 1 dose of Lasix 20 mg IV x1 and monitor electrolytes and renal function closely. 3. Mineral bone disorder. Will monitor calcium and phosphorus levels. 4. Cardiac arrest secondary to ST elevation myocardial infarction. The patient is status post hypot hermic protocol, status post PCI with 2 stents placed. We will continue current medical management. Follow up with cardiology. 4. Ventilator dependent respiratory failure. Vent settings have been reviewed. ABG has been revie wed. Continue to monitor. 5. Acute encephalopathy, likely from anoxic injury. Continue to monitor. 6. Shock liver. Continue to monitor LFTs. 7. Leukocytosis, possibly due to shock demargination. The patient is on empiric antibiotics. Cult ures have been reviewed. Please note I spent over 40 minutes of critical care time with this patient. Dictated By: POLO BATES/KENDRA Conf#: [id number] DID#: [id number]
--- NOTE | 2016-11-29 10:17 | CONS ---
Date/Time of Note Date/Time of Note DATE: 11/29/16 TIME: 10:14 Assessment/Plan Assessment/Plan Additional Assessment/Plan Ventilator settings; AC of 16, tidal volume 500, PEEP of 5, 40% FiO2. Assessment recommendations; next 1. Patient admitted with cardiac arrest due to acute CT. 2. Emergent coronary grafting was performed with stenting of obtuse marginal branch. 3. Patient off hypothermia protocol and is exhibiting excellent overall clinical status. 4. Possibly aspiration pneumonia. 5. Renal insufficiency with improving serum creatinine. Patient maintaining adequate urine output. The patient has been switched over to CPAP mode currently has excellent weaning parameters. I would recommend observing him for the next 30 minutes and the patient meets criteria to extubate him. Consultation Date/Type/Reason Admit Date/Time Nov 25, 2016 at 20:00 Initial Consult Date 11/26/16 Type of Consultation: Pulmonary/critical care 24 HR Interval Summary Free Text/Dictation Patient condition remains critical but the patient has markedly improved over the last 24 hours. He has been taken off sedation short while ago patient is awake alert and follows simple commands. Has remained hemodynamically stable. General examination; middle-aged man, orally intubated, awake and alert. Currently in no distress. Exam/Review of Systems Vital Signs Vitals Vital Signs Date Time Temp Pulse Resp B/P Pulse Ox O2 Delivery O2 Flow Rate FiO2 11/29/16 08:00 35 11/29/16 08:00 79 11/29/16 08:00 99.0 24 126/80 97 Mechanical Ventilator Intake and Output 11/28/16 11/28/16 11/29/16 15:00 23:00 07:00 Intake Total 1197.909 ml 604.327 ml 594.1 ml Output Total 653 ml 421 ml 320 ml Balance 544.909 ml 183.327 ml 274.1 ml Exam HEENT examination; supple neck, no JVD. No lymphadenopathy. Midsize pupils. Fair dentition. No neck masses. No thyromegaly. Orally intubated. Chest examination; diminished but clear breath sounds bilaterally. S1-S2 audible, no murmurs. Regular rhythm. Abdomen examination; soft, nondistended. Nontender, no organomegaly. Bowel sounds audible. Extremity examination; no peripheral edema. Pulses 2+ bilaterally. DIGITAL CONTR[employer]S TECHNICAL OFFICER examination; no focal deficit. Results Result Diagram: 11/29/16 0400 11/29/16 0400 Results 24 hrs Laboratory Tests Test 11/28/16 13:24 11/28/16 14:30 11/29/16 04:00 Bedside Glucose 99 Stool Occult Blood NEGATIVE Alanine Aminotransferase (ALT/SGPT) 103 H Albumin 2.5 L Albumin/Globulin Ratio 1.08 Alkaline Phosphatase 86 Amylase Level 78 Anion Gap 7 L Aspartate Amino Transf (AST/SGOT) 172 H Basophils # 0.0 Basophils % 0.1 Blood Urea Nitrogen 42 H Calcium Level 7.9 L Carbon Dioxide Level 29 Chloride Level 106 Creatinine 2.85 H Direct Bilirubin 0.00 Eosinophils # 0.1 Eosinophils % 0.4 Globulin 2.30 Glucose Level 102 Hematocrit 31.4 L Hemoglobin 10.4 L Indirect Bilirubin 0.4 Lipase 333 H Lymphocytes # 1.3 Lymphocytes % 7.9 L Mean Corpuscular Hemoglobin 29.2 Mean Corpuscular Hemoglobin Concent 33.1 Mean Corpuscular Volume 88.2 Mean Platelet Volume 10.6 H Monocytes # 0.9 Monocytes % 5.2 Neutrophils # 14.3 H Neutrophils % 85.9 H Nucleated Red Blood Cells # 0.0 Nucleated Red Blood Cells % 0.0 Platelet Count 117 L Potassium Level 3.7 Red Blood Count 3.56 L Red Cell Distribution Width 14.4 Sodium Level 138 Total Bilirubin 0.4 Total Protein 4.8 L White Blood Count 16.6 #H Medications Medications Current Medications Ondansetron HCl (Zofran Inj) 4 mg Q6H PRN IV NAUSEA AND/OR VOMITING; Start at 21:00 Acetaminophen (Tylenol Supp) 650 mg Q4H PRN [place] PAIN LEVEL 1-3 OR FEVER; Start 11/25/16 at 21:00 Lorazepam (Ativan) 1 mg Q2H PRN IV ANXIETY; Start 11/25/16 at 21:00 Acetaminophen (Tylenol Liquid) 650 mg Q4H PRN PO TEMP > 37C; Start 11/25/16 at 21:00 Acetaminophen (Tylenol Liquid) 500 mg Q6H PO Last administered on 11/29/16 08: 35; Admin Dose 500 MG; Start 11/26/16 at 21:00 Eye Lubricant (Akwa Oint) 1 applic Q6 BOTH EYES Last administered on 11/29/16 05:37; Admin Dose 1 APPLIC; Start 11/26/16 at 00:00 Eye Lubricant 2 drop 2 drop Q6 BOTH EYES Last administered on 11/29/16 05:37; Admin Dose 2 DROP; Start 11/26/16 at 00:00 Pantoprazole/ Sodium Chloride (Protonix Iv/NS) 100 ml @ 10 mls/hr Q10H IV Last administered on 11/29/16 03:26; Admin Dose 10 MLS/HR; Start 11/26/16 at 10 :00 Ticagrelor (Brilinta) 90 mg BID PO Last administered on 11/29/16 08:36; Admin Dose 90 MG; Start 11/26/16 at 21:00 Aspirin (Aspirin) 150 mg DAILY [place] Last administered on 11/29/16 08:39; Admin Dose 150 MG; Start 11/26/16 at 17:30 Hydralazine HCl 10 mg 10 mg Q6H PRN IV SBP greater than 160 Last administered on 11/27/16 02:19; Admin Dose 10 MG; Start 11/27/16 at 02:30 Dextrose 1,000 ml @ 50 mls/hr Q20H IV Last administered on 11/29/16 03:26; Admin Dose 50 MLS/HR; Start 11/27/16 at 11:30 Cefepime HCl 50 ml @ 100 mls/hr Q24H IVPB Last administered on 11/29/16 09:16 ; Admin Dose 100 MLS/HR; Start 11/28/16 at 09:00 Vancomycin HCl/ Sodium Chloride (Vancocin/NS) 250 ml @ 83.333 mls/ hr Q36H IVPB ; Start 11/29/16 at 22:00 BRITTNY GARG Nov 29, 2016 10:17
[2016-11-29 11:00] LABS: AADO2 Arterial 175.4 mmHg (7.0-24.0); Allen Test ACCEPTAB; Arterial Base Excess 1.3 mmol/L (-3.0-3); Arterial COHb 0 % (0.0-3.0); Arterial Fraction of Oxyhgb 93.3 % (93.0-99.0); Arterial MetHb 0.2 % (0.0-1.5); Arterial Total Hemglobin 12.4 g/dl (12.0-18.0); Blood Gas PS 10; MODE VENT - CPAP
--- NOTE | 2016-11-29 11:44 | RADRPT ---
PROCEDURE: XR Chest. CLINICAL INDICATION: pain TECHNIQUE: Single portable view of the chest was obtained COMPARISON: Yesterday FINDINGS: The heart, lungs and mediastinum are unchanged. The heart is normal in size. There are mild bibasil ar infiltrates and atelectatic changes. There is an endotracheal tube 6.5 cm above the taniya.. The nasogastric tube has been removed. RPTAT: AA IMPRESSION: Nasogastric tube has been removed. Mild bibasilar infiltrates and atelectatic changes. .Asad Kearney MD, MD Date Time Electronically viewed and signed by .Asad Kearney MD, on 11/29/2016 11:44 .S/
--- NOTE | 2016-11-29 14:23 | PN ---
Date/Time of Note Date/Time of Note DATE: 11/29/16 TIME: 14:12 Assessment/Plan VTE Prophylaxis VTE Prophylaxis Intervention: contraindicated, SCD's VTE Contraindication Reason: bleeding, thrombocytopenia Lines/Catheters IV Catheter Type (from Nrsg): Central Line Central line still needed: Yes Urinary Cath still in place: Yes Reason Cath still needed: urinary retention Assessment/Plan Chief Complaint/Hosp Course Assessment/Plan: Unfortunate 50 yo M brought in after cardiac arrest in the field found down after unknown period of time with: 1. Status post ventricular fibrillation cardiac arrest. V fib likely 2/2 #2 - Off amiodarone for now; s/p Hypothermia Protocol - Resume amiodarone as needed for arrhythmias/ closely monitor electrolytes 2. Acute inferior ST-elevation myocardial infarction, status post balloon angioplasty and stent placement of the proximal obtuse marginal as well as manual aspiration thrombectomy of the obtuse marginal. - Cardiology recommending to continue brilinta and aspirin while closely monitoring h/h and Transfusion PRN / Appreciate recs 3. Ventilator-dependent respiratory failure. - Continue Vent mgt and ICU care / Appreciate pulm input - abx 4. Upper gastrointestinal bleed. - Continue protonix drip/ for endoscopy once stable - continue NG tube w/ suction, monitor output as well. 5. Severe SIRS 2/2 #1 + Lactic acidosis: improved - continue abx (possible PNA source) 6. Acute kidney injury with metabolic acidosis 2/2 ATN from shock + superimposed life saving contrast administration - improving now. - Gentle hydration for poor kidney function bearing in mind systolic dysfxn / appreciate Nephrology consult - Avoiding ACEi, ARBs for now . Renally dose all meds. Serial labs. 7. Probable shock liver: improving - monitor, if worsens, consider RUQ USS to eval abn liver fxn and pancreatitis if non resolving / patient is not a candidate for any kind of intervention at this time / trend levels 8. Hyperglycemia with Nml A1C - likely reactive - Continue SSI while NPO 9. Hypokalemia: repleted 10. Mild acute pancreatitis 11. High probability for anoxic brain injury - monitor, EEG? 12. Recurrent hypocalcemia 13. low plts - sepsis vs med's - cautiously continue ASA + Brilinta - monitor bleeding - hold Cefepime and vanco (can cause low plts), switch to Primaxin low dose for now - tx PNA. PLAN: PROPHYLAXIS: SCDs / Protonix drip CRITICAL CARE TIME: 45 mins Problems: Subjective 24 Hr Interval Summary Free Text/Dictation Still intubated, on suction with NG tube. Exam/Review of Systems Vital Signs Vitals Vital Signs Date Time Temp Pulse Resp B/P Pulse Ox O2 Delivery O2 Flow Rate FiO2 11/29/16 13:30 67 19 123/72 100 11/29/16 13:24 35 11/29/16 13:00 Mechanical Ventilator 11/29/16 12:00 98.9 Intake and Output 11/28/16 11/28/16 11/29/16 15:00 23:00 07:00 Intake Total 1197.909 ml 604.327 ml 594.1 ml Output Total 653 ml 421 ml 320 ml Balance 544.909 ml 183.327 ml 274.1 ml Exam Constitutional: No alert, No oriented Eyes: PERRL ENMT: intubated Respiratory: clear to auscultation Cardiovascular: regular rate and rhythm, No murmurs/extra sounds Gastrointestinal: bowel sounds, non-tender, soft Extremities: edema Neurological: No nl mental status Results Result Diagram: 11/29/16 0400 11/29/16 0400 Results 24 hrs Laboratory Tests Test 11/28/16 14:30 11/29/16 04:00 11/29/16 10:45 Stool Occult Blood NEGATIVE Alanine Aminotransferase (ALT/SGPT) 103 H Albumin 2.5 L Albumin/Globulin Ratio 1.08 Alkaline Phosphatase 86 Amylase Level 78 Anion Gap 7 L Aspartate Amino Transf (AST/SGOT) 172 H Basophils # 0.0 Basophils % 0.1 Blood Urea Nitrogen 42 H Calcium Level 7.9 L Carbon Dioxide Level 29 Chloride Level 106 Creatinine 2.85 H Direct Bilirubin 0.00 Eosinophils # 0.1 Eosinophils % 0.4 Globulin 2.30 Glucose Level 102 Hematocrit 31.4 L Hemoglobin 10.4 L Indirect Bilirubin 0.4 Lipase 333 H Lymphocytes # 1.3 Lymphocytes % 7.9 L Mean Corpuscular Hemoglobin 29.2 Mean Corpuscular Hemoglobin Concent 33.1 Mean Corpuscular Volume 88.2 Mean Platelet Volume 10.6 H Monocytes # 0.9 Monocytes % 5.2 Neutrophils # 14.3 H Neutrophils % 85.9 H Nucleated Red Blood Cells # 0.0 Nucleated Red Blood Cells % 0.0 Platelet Count 117 L Potassium Level 3.7 Red Blood Count 3.56 L Red Cell Distribution Width 14.4 Sodium Level 138 Total Bilirubin 0.4 Total Protein 4.8 L White Blood Count 16.6 #H Arterial Blood HCO3 25.0 Arterial Blood Base Excess 1.3 Arterial Blood Oxygen Saturation 93.5 L Shaun Test ACCEPTAB Arterial Blood Gas Puncture Site Right Radial Arterial Blood Carboxyhemoglobin 0 Arterial Blood Date Drawn 11/29/2016 10:50:33 AM Arterial Blood Methemoglobin 0.2 Arterial Blood pCO2 (Temp correct) 36.3 Arterial Blood pH (Temp corrected) 7.456 H Arterial Blood pO2 (Temp corrected) 68.1 L Blood Gas A-a O2 Differential 175.4 H Blood Gas Actual Respiration Rate 25 Blood Gas Low PEEP Setting 5.0 Blood Gas Modality VENT - CPAP Blood Gas Notified Time 11/29/2016 11:00:12 AM Blood Gas Notified Whom TM Blood Gas Pressure Support 10 Blood Gas Specimen Source Blood arterial Blood Gas Temperature 37.0 FiO2 40.0 Oxyhemoglobin Percent 93.3 Total Hemoglobin 12.4 Medications Medications Current Medications Ondansetron HCl (Zofran Inj) 4 mg Q6H PRN IV NAUSEA AND/OR VOMITING; Start at 21:00 Acetaminophen (Tylenol Supp) 650 mg Q4H PRN [place] PAIN LEVEL 1-3 OR FEVER; Start 11/25/16 at 21:00 Lorazepam (Ativan) 1 mg Q2H PRN IV ANXIETY; Start 11/25/16 at 21:00 Acetaminophen (Tylenol Liquid) 650 mg Q4H PRN PO TEMP > 37C; Start 11/25/16 at 21:00 Acetaminophen (Tylenol Liquid) 500 mg Q6H PO Last administered on 11/29/16 08: 35; Admin Dose 500 MG; Start 11/26/16 at 21:00 Eye Lubricant (Akwa Oint) 1 applic Q6 BOTH EYES Last administered on 11/29/16 12:04; Admin Dose 1 APPLIC; Start 11/26/16 at 00:00 Eye Lubricant 2 drop 2 drop Q6 BOTH EYES Last administered on 11/29/16 12:04; Admin Dose 2 DROP; Start 11/26/16 at 00:00 Pantoprazole/ Sodium Chloride (Protonix Iv/NS) 100 ml @ 10 mls/hr Q10H IV Last administered on 11/29/16 03:26; Admin Dose 10 MLS/HR; Start 11/26/16 at 10 :00 Ticagrelor (Brilinta) 90 mg BID PO Last administered on 11/29/16 08:36; Admin Dose 90 MG; Start 11/26/16 at 21:00 Aspirin (Aspirin) 150 mg DAILY [place] Last administered on 11/29/16 08:39; Admin Dose 150 MG; Start 11/26/16 at 17:30 Hydralazine HCl 10 mg 10 mg Q6H PRN IV SBP greater than 160 Last administered on 11/27/16 02:19; Admin Dose 10 MG; Start 11/27/16 at 02:30 Dextrose 1,000 ml @ 50 mls/hr Q20H IV Last administered on 11/29/16 03:26; Admin Dose 50 MLS/HR; Start 11/27/16 at 11:30 Cefepime HCl 50 ml @ 100 mls/hr Q24H IVPB Last administered on 11/29/16 09:16 ; Admin Dose 100 MLS/HR; Start 11/28/16 at 09:00 Vancomycin HCl/ Sodium Chloride (Vancocin/NS) 250 ml @ 83.333 mls/ hr Q36H IVPB ; Start 11/29/16 at 22:00 SOHAIL DEL CASTILLO Nov 29, 2016 14:23
[2016-11-29] MEDS ORDERED: LIDOCAINE 1% (MDV) 20 ML INJ SC ONE (15:30)
[2016-11-29] MEDS: ATORVASTATIN 40 MG TAB PO SCH (20:06)
[2016-11-29] MEDS: IMIPENEM-CILAST 500MG IV (PMX) 100 ML IVPB SCH (20:06)
[2016-11-29] MEDS ORDERED: ATORVASTATIN 80 MG TAB NGT SCH ×2 (21:00)
[2016-11-29] MEDS ORDERED: VANCOMYCIN 1.25 GM in SOD CHLORIDE 0.9% 250 ML IVPB SCH (22:00)
[2016-11-30] VITALS (61 sets, daily range): BP systolic 108–139; BP diastolic 63–84; PULSE 67–100; RESP 13–28
[2016-11-30] MEDS: DEXTROSE 5% 1,000 ML IV SCH ×2 (03:39→20:52)
[2016-11-30] MEDS: PANTOPRAZOLE IV 80 MG in SOD CHLORIDE 0.9% 100 ML IV SCH ×3 (03:39→21:18)
[2016-11-30] MEDS: ACETAMINOPHEN 650MG/20.3ML CUP PO SCH (03:39)
[2016-11-30] MEDS: OCULAR LUBRICANT 3.5 GM OPH OINT BOTH EYES SCH ×4 (03:39→18:34)
[2016-11-30] MEDS: ARTIFICIAL TEARS 15 ML OPH BOTH EYES SCH ×4 (03:39→18:33)
[2016-11-30 04:43] LABS: ADD SCAN DIFF NO
[2016-11-30 04:53] LABS: BASOPHILS % 0.1 % (0.0-2.0); EOSINOPHILS # 0.3 10^3/ul (0.0-0.5); EOSINOPHILS % 2.2 % (0.0-7.0); HEMATOCRIT 30.8 % (42.0-52.0); HEMOGLOBIN 10.1 g/dl (14.0-18.0); LYMPHOCYTES % 8.4 % (15.0-51.0); MEAN CORPUSCULAR HEMOGLOBIN 28.9 pg (29.0-33.0); MEAN CORPUSCULAR HGB CONC 32.8 g/dl (32.0-37.0); MEAN CORPUSCULAR VOLUME 88.3 fl (82.0-101.0); MEAN PLATELET VOLUME 10.2 fl (7.4-10.4); MONOCYTE # 0.9 10^3/ul (0.3-0.9); MONOCYTES % 7.1 % (0.0-11.0); NEUTROPHIL # 9.8 10^3/ul (1.6-7.5); NEUTROPHILS % 81.3 % (39.0-77.0); PLATELET COUNT 138 10^3/UL (140-415); RED BLOOD COUNT 3.49 10^6/ul (4.70-6.10); RED CELL DISTRIBUTION WIDTH 14.1 % (11.5-14.5)
[2016-11-30] MEDS: PROPOFOL 100 ML IV SCH (04:54)
[2016-11-30] MEDS: MIDAZOLAM (DRIP) 50 mg/50 mL 50 ML IV SCH ×4 (04:55→20:56)
[2016-11-30 05:28] LABS: MAGNESIUM 2.1 mg/dl (1.7-2.5); PHOSPHORUS 2.7 mg/dl (2.5-4.9)
[2016-11-30 05:48] LABS: ALBUMIN 2.7 g/dl (3.3-4.9); POTASSIUM 3.5 mmol/L (3.5-5.1)
[2016-11-30 05:50] LABS: BILIRUBIN,INDIRECT 0.4 mg/dl (0-1.1); BILIRUBIN,TOTAL 0.4 mg/dl (0.2-1.3); CREATININE 2.58 mg/dl (0.61-1.24)
[2016-11-30 05:51] LABS: ALBUMIN/GLOBULIN RATIO 0.79; TOTAL PROTEIN 6.1 g/dl (6.1-8.1)
[2016-11-30 05:52] LABS: CALCIUM 8.2 mg/dl (8.4-10.2); CK-MB 7.13 ng/ml (0.0-2.4)
[2016-11-30 05:58] LABS: AADO2 Arterial 117.5 mmHg (7.0-24.0); Allen Test ACCEPTAB; Arterial COHb 0.3 % (0.0-3.0); Arterial Fraction of Oxyhgb 95.6 % (93.0-99.0); Arterial HCO3 25.7 mmol/L (22.0-26.0); Arterial MetHb 0.3 % (0.0-1.5); Arterial Total Hemglobin 11.3 g/dl (12.0-18.0); MODE VENT - AC
--- NOTE | 2016-11-30 07:01 | PN ---
DATE: 11/29/2016 SUBJECTIVE: Discussed with the staff. Rhythm strip was reviewed. The patient remains in sinus rhy thm. Blood pressure has remained stable. The patient still has some amount of bleeding from NG tub e. ____ intubated on the vent. ____ secretions. MEDICATIONS: Reviewed. PHYSICAL EXAMINATION: VITAL SIGNS: Temperature 98.9, heart rate of 71, blood pressure 130/80, respiratory rate of 17, sat urating 100%. HEENT: Normocephalic, atraumatic. Status post intubation, on the vent. CARDIOVASCULAR: Regular rate and rhythm. Systolic murmur. PULMONARY: Anteriorly with no wheezes. GASTROINTESTINAL: Soft. No rebound, no guarding. EXTREMITIES: ____ lower extremity edema. NEUROLOGIC: Currently sedated. DIAGNOSTIC DATA: Chest x-ray shows NG tube has been removed, mild basilar infiltrate and atelectati c changes. LABORATORY: Sodium 138, potassium 3.7, BUN 42, creatinine 2.85, glucose of 102. AST has come down to 172, ALT of 103. Albumin is 2.5. Lipase is 333. Echocardiogram shows ejection fraction of 45%. ASSESSMENT AND PLAN: 1. Status post cardiopulmonary arrest. 2. Status post ventricular fibrillation arrest. 3. ST elevation myocardial infarction, status post percutaneous coronary intervention of obtuse mar ginal. 4. Acute renal failure. 5. Status post shock. 6. Hypoxemic respiratory failure, status post intubation, on the vent. 7. Encephalopathy, possible anoxic brain injury. 8. Elevated liver function tests. RECOMMENDATION: I will change aspirin to 81 from the NG tube only. Brilinta will be continued give n his recent acute SD and PCI. Follow the GI recommendations. Will start the patient on statin for his acute SD and monitor the LFTs. If they continue to rise, we might have to hold off on the stat in or cut down on the dosage. Continue the Brilinta and aspirin for now as ____ H and H remain stab le. Continue with the ICU care. More than 40 minutes of critical care time was spent in management of this patient excluding any pro cedures. Dictated By: RODGER CONTRERAS/KENDRA Conf#: [id number] DID#: [id number] CC: SOHAIL DEL CASTILLO;*EndCC*
--- NOTE | 2016-11-30 07:40 | RADRPT ---
PROCEDURE: XR Chest. CLINICAL INDICATION: Check endotracheal tube position. TECHNIQUE: Single frontal view. COMPARISON: 11/29/2016. FINDINGS: The endotracheal tube tip is at the level of the upper clavicles and should be advanced approximatel y 5 cm. The nasogastric tube tip is in the stomach. There is mild atelectasis at the lung bases, u nchanged. The lungs are otherwise clear. The heart size is normal. There is no pleural effusion. There is no pneumothorax. IMPRESSION: 1. New nasogastric tube tip in the stomach. 2. Endotracheal tube should be advanced approximately 5 cm. 3. Atelectasis at the lung bases, unchanged. RPTAT: QQ .Elliott Guillory MD, MD Date Time Electronically viewed and signed by .Elliott Guillory MD, on 11/30/2016 07:39 .R/
[2016-11-30] MEDS: IMIPENEM-CILAST 500MG IV (PMX) 100 ML IVPB SCH ×2 (09:18→20:54)
[2016-11-30] MEDS: ASPIRIN 81 MG TAB NGT SCH (09:18)
[2016-11-30] MEDS: TICAGRELOR 90 MG TABLET PO SCH ×2 (09:19→21:20)
--- NOTE | 2016-11-30 09:45 | PN ---
DATE: 11/30/2016 SUBJECTIVE: The patient remains critically ill and remains obtunded. Other events noted. No hemopt ysis, hematemesis, hematochezia. OBJECTIVE: VITAL SIGNS: Blood pressure is 134/73, respiration 18, pulse 70, temperature 98.6. I's AND O'S: The patient had 1.9 liters in with 3 liters out. HEENT: Head is normocephalic. NECK: Supple. HEART: Regular rate. LUNGS: Show diminished breath sounds at the base. ABDOMEN: Soft, nontender to palpation. No rebound or guarding. EXTREMITIES: Negative for clubbing, cyanosis. No edema. DERMATOLOGIC: No rashes. MUSCULOSKELETAL: No joint effusions. NEUROLOGIC: No change in exam. MEDICATIONS: The patient's medications have been reviewed. LABORATORY DATA: Shows sodium 143, potassium 3.5, chloride 106, BUN 39, creatinine 2.58. White cou nt 12.0, hemoglobin 10.1, hematocrit 30.8, platelet count is 138. IMAGING: The patient's chest x-ray was reviewed, showed no acute cardiopulmonary disease. ASSESSMENT AND PLAN: 1. Nonoliguric acute kidney injury on top of chronic kidney disease with previous baseline creatini ne of 1.16 mg/dL. Etiology of acute kidney injury is secondary to acute tubular necrosis. Patient' s renal function has been improving over the last 48 hours, likely entering recovery phase of acute tubular necrosis. We will continue current treatment plan, supportive care, renally dose all medica tions, avoid nephrotoxins. 2. Volume overload. The patient is status post diuretic therapy with good clinical response. Cont inue to monitor. We will give intermittent Lasix as needed. 3. Mineral bone. Continue to monitor calcium and phosphorus levels. 4. Cardiac arrest secondary to ST elevation myocardial infarction. The patient is status post hypot hermic protocol, status post percutaneous coronary intervention with stent placement. Continue to mo nitor. 5. Ventilatory dependent respiratory failure. Vent settings reviewed. ABG is reviewed. Continue to monitor. 6. Acute encephalopathy, likely from anoxic injury. Continue to observe. 7. Shock liver, improving. Continue to monitor LFTs. 8. Leukocytosis, likely from demargination stress, improving. Continue empiric antibiotics. Dictated By: POLO SALDAÑA DO NR/KENDRA Conf#: [id number] DID#: [id number]
--- NOTE | 2016-11-30 10:19 | CONS ---
Date/Time of Note Date/Time of Note DATE: 11/30/16 TIME: 10:14 Assessment/Plan Assessment/Plan Additional Assessment/Plan Ventilator settings; AC of 18, tidal volume 500, PEEP of 5, 30% FiO2. Chest x-ray was reviewed from today which is essentially clear. Assessment recommendations; 1. Patient admitted with cardiac arrest underwent emergent PTCA of obtuse marginal branch. Patient also was on hypothermia protocol and has been taken off now for more than a day exhibiting excellent mental status as evaluated yesterday off sedation, however patient had to be sedated because of significant secretions coming through the endotracheal tube which led to continuation of ventilator support for additional 24 hours. 2. Aspiration pneumonia with marked clinical and radiological improvement. 3. Renal insufficiency with continually improving renal function. 4. Small amount of upper GI bleed initially without any further recurrence. Stop sedation again when the patient is off sedative effect he will be extubated. Continue current supportive care. Patient may or may not require an EGD later. Consultation Date/Type/Reason Admit Date/Time Nov 25, 2016 at 20:00 Initial Consult Date 11/26/16 Type of Consultation: Pulmonary/critical care 24 HR Interval Summary Free Text/Dictation Patient's condition remains critical. The patient was given a sedation vacation yesterday morning however the patient did have significant secretions coming through the endotracheal tube and it was decided therefore to await extubation for 1 more day. Patient currently sedated. Has remained hemodynamically stable. General examination; he does remain, sedated, orally intubated. Currently in no distress. Exam/Review of Systems Vital Signs Vitals Vital Signs Date Time Temp Pulse Resp B/P Pulse Ox O2 Delivery O2 Flow Rate FiO2 11/30/16 08:45 81 19 100 11/30/16 08:30 125/75 Mechanical Ventilator 11/30/16 08:00 98.5 11/30/16 07:20 35 Intake and Output 11/29/16 11/29/16 11/30/16 15:00 23:00 07:00 Intake Total 690.046 ml 455.456 ml 766.364 ml Output Total 2117 ml 535 ml 646 ml Balance -1426.954 ml -79.544 ml 120.364 ml Exam HEENT examination; supple neck, no JVD. No lymphadenopathy. Midline trachea. Pupils are small bilaterally. No neck masses. Orally intubated. Chest examination; clear to auscultation bilaterally. S1-S2 audible, no murmurs. Regular rhythm. Abdomen examination; soft, nondistended. No organomegaly. Bowel sounds audible. Extremity examination; no peripheral edema. Pulses 2+ bilaterally. NUCLEAR PHYSICIAN examination; patient is sedated. Results Result Diagram: 11/30/16 0400 11/30/16 0400 Results 24 hrs Laboratory Tests Test 11/29/16 10:45 11/30/16 04:00 11/30/16 05:00 Arterial Blood HCO3 25.0 25.7 Arterial Blood Base Excess 1.3 2.0 Arterial Blood Oxygen Saturation 93.5 L 96.2 Shaun Test ACCEPTAB ACCEPTAB Arterial Blood Gas Puncture Site Right Radial Left Radial Arterial Blood Carboxyhemoglobin 0 0.3 Arterial Blood Date Drawn 11/29/2016 10:50:33 AM 11/30/2016 5:47:37 AM Arterial Blood Methemoglobin 0.2 0.3 Arterial Blood pCO2 (Temp correct) 36.3 37.0 Arterial Blood pH (Temp corrected) 7.456 H 7.460 H Arterial Blood pO2 (Temp corrected) 68.1 L 89.0 Blood Gas A-a O2 Differential 175.4 H 117.5 H Blood Gas Actual Respiration Rate 25 20 Blood Gas Low PEEP Setting 5.0 5.0 Blood Gas Modality VENT - CPAP VENT - AC Blood Gas Notified Time 11/29/2016 11:00:12 AM 11/30/2016 5:58:01 AM Blood Gas Notified Whom TM RTR Blood Gas Pressure Support 10 Blood Gas Specimen Source Blood arterial Blood arterial Blood Gas Temperature 37.0 37.0 FiO2 40.0 35.0 Oxyhemoglobin Percent 93.3 95.6 Total Hemoglobin 12.4 11.3 L Alanine Aminotransferase (ALT/SGPT) 90 H Albumin 2.7 L Albumin/Globulin Ratio 0.79 Alkaline Phosphatase 123 H Anion Gap 12 Aspartate Amino Transf (AST/SGOT) 149 H Basophils # 0.0 Basophils % 0.1 Blood Urea Nitrogen 39 H Calcium Level 8.2 L Carbon Dioxide Level 29 Chloride Level 106 Creatine Kinase 2361 H Creatine Kinase Index 0.3 Creatinine 2.58 H Creatinine Kinase MB (Mass) 7.13 H Direct Bilirubin 0.00 Eosinophils # 0.3 Eosinophils % 2.2 Globulin 3.40 H Glucose Level 85 Hematocrit 30.8 L Hemoglobin 10.1 L Indirect Bilirubin 0.4 Lymphocytes # 1.0 Lymphocytes % 8.4 L Magnesium Level 2.1 Mean Corpuscular Hemoglobin 28.9 L Mean Corpuscular Hemoglobin Concent 32.8 Mean Corpuscular Volume 88.3 Mean Platelet Volume 10.2 Monocytes # 0.9 Monocytes % 7.1 Neutrophils # 9.8 H Neutrophils % 81.3 H Nucleated Red Blood Cells # 0.0 Nucleated Red Blood Cells % 0.0 Phosphorus Level 2.7 # Platelet Count 138 L Potassium Level 3.5 Red Blood Count 3.49 L Red Cell Distribution Width 14.1 Sodium Level 143 Total Bilirubin 0.4 Total Protein 6.1 # Troponin I 22.000 *H White Blood Count 12.0 #H Blood Gas Respiration Rate 18.0 Blood Gas Tidal Volume 500.0 Medications Medications Current Medications Ondansetron HCl (Zofran Inj) 4 mg Q6H PRN IV NAUSEA AND/OR VOMITING; Start at 21:00 Acetaminophen (Tylenol Supp) 650 mg Q4H PRN [place] PAIN LEVEL 1-3 OR FEVER; Start 11/25/16 at 21:00 Lorazepam (Ativan) 1 mg Q2H PRN IV ANXIETY; Start 11/25/16 at 21:00 Acetaminophen (Tylenol Liquid) 650 mg Q4H PRN PO TEMP > 37C; Start 11/25/16 at 21:00 Eye Lubricant (Akwa Oint) 1 applic Q6 BOTH EYES Last administered on 11/30/16 06:10; Admin Dose 1 APPLIC; Start 11/26/16 at 00:00 Eye Lubricant 2 drop 2 drop Q6 BOTH EYES Last administered on 11/30/16 06:10; Admin Dose 2 DROP; Start 11/26/16 at 00:00 Pantoprazole/ Sodium Chloride (Protonix Iv/NS) 100 ml @ 10 mls/hr Q10H IV Last administered on 11/30/16 03:39; Admin Dose 10 MLS/HR; Start 11/26/16 at 10 :00 Ticagrelor (Brilinta) 90 mg BID PO Last administered on 11/30/16 09:19; Admin Dose 90 MG; Start 11/26/16 at 21:00 Hydralazine HCl 10 mg 10 mg Q6H PRN IV SBP greater than 160 Last administered on 11/27/16 02:19; Admin Dose 10 MG; Start 11/27/16 at 02:30 Dextrose 1,000 ml @ 50 mls/hr Q20H IV Last administered on 11/30/16 03:39; Admin Dose 50 MLS/HR; Start 11/27/16 at 11:30 Imipenem/ Cilastatin Sodium (Primaxin 500 Mg/ 100 ml (Pmx)) 100 ml @ 100 mls/ hr Q12 IVPB Last administered on 11/30/16 09:18; Admin Dose 100 MLS/HR; Start 11/29/16 at 21:00 Aspirin (Aspirin) 81 mg DAILY NGT Last administered on 11/30/16 09:18; Admin Dose 81 MG; Start 11/30/16 at 09:00 Carvedilol (Coreg) 3.125 mg BID NGT Last administered on 11/30/16 09:19; Admin Dose 3.125 MG; Start 11/29/16 at 21:00 Atorvastatin Calcium (Lipitor) 40 mg DAILY@21 PO Last administered on 20:06; Admin Dose 40 MG; Start 11/29/16 at 21:00 BRITTNY GARG Nov 30, 2016 10:19
--- NOTE | 2016-11-30 12:15 | PN ---
Date/Time of Note Date/Time of Note DATE: 11/30/16 TIME: 12:10 Assessment/Plan VTE Prophylaxis VTE Prophylaxis Intervention: contraindicated, SCD's VTE Contraindication Reason: bleeding, thrombocytopenia Lines/Catheters IV Catheter Type (from Nrs): Central Line Central line still needed: Yes Urinary Cath still in place: Yes Reason Cath still needed: urinary retention Assessment/Plan Chief Complaint/Hosp Course Assessment/Plan: Unfortunate 50 yo M brought in after cardiac arrest in the field found down after unknown period of time with: 1. Status post ventricular fibrillation cardiac arrest. V fib likely 2/2 #2 - Off amiodarone for now; s/p Hypothermia Protocol - Resume amiodarone as needed for arrhythmias/ closely monitor electrolytes - f/u CV rec's 2. Acute inferior ST-elevation myocardial infarction, status post balloon angioplasty and stent placement of the proximal obtuse marginal as well as manual aspiration thrombectomy of the obtuse marginal. - Cardiology recommending to continue brilinta and aspirin while closely monitoring h/h and Transfusion PRN / Appreciate recs - statin as well 3. Ventilator-dependent respiratory failure. - Continue Vent mgt and ICU care / Appreciate pulm input, try to wean off vent as tolerated - abx for URI 4. Upper gastrointestinal bleed. - Continue protonix drip/ for endoscopy once stable - continue NG tube w/ suction, monitor output as well. 5. Severe SIRS 2/2 #1 + Lactic acidosis: improved - continue abx (possible PNA source) 6. Acute kidney injury with metabolic acidosis 2/2 ATN from shock + superimposed life saving contrast administration - improving now. - Gentle hydration for poor kidney function bearing in mind systolic dysfxn / appreciate Nephrology consult - Avoiding ACEi, ARBs for now . Renally dose all meds. Serial labs. 7. Probable shock liver: improving - monitor, if worsens, consider RUQ USS to eval abn liver fxn and pancreatitis if non resolving / patient is not a candidate for any kind of intervention at this time / trend levels 8. Hyperglycemia with Nml A1C - likely reactive - Continue SSI while NPO 9. Hypokalemia: repleted 10. Mild acute pancreatitis 11. High probability for anoxic brain injury - appears more alert now, however\ - monitor for now 12. Recurrent hypocalcemia - monitor levels, replete as needed 13. low plts - sepsis vs med's. Plts slightly improved today (117 -> 132) - cautiously continue ASA + Brilinta - monitor bleeding - holding Cefepime and vanco (can cause low plts), and continue Primaxin low dose for now - tx PNA. PROPHYLAXIS: SCDs / Protonix drip CRITICAL CARE TIME: 40 mins Problems: Subjective 24 Hr Interval Summary Free Text/Dictation Pt more alert today, still intubated, seen by multiple family/friends as well. Exam/Review of Systems Vital Signs Vitals Vital Signs Date Time Temp Pulse Resp B/P Pulse Ox O2 Delivery O2 Flow Rate FiO2 11/30/16 11:10 94 28 93 35 11/30/16 08:30 125/75 Mechanical Ventilator 11/30/16 08:00 98.5 Intake and Output 11/29/16 11/29/16 11/30/16 15:00 23:00 07:00 Intake Total 690.046 ml 455.456 ml 831.364 ml Output Total 2117 ml 535 ml 719 ml Balance -1426.954 ml -79.544 ml 112.364 ml Exam Constitutional: opens eyes, a bit more alert today Eyes: PERRL, EOMI ENMT: intubated Respiratory: clear to auscultation Cardiovascular: regular rate and rhythm, No murmurs/extra sounds Gastrointestinal: bowel sounds, non-tender, soft Extremities: edema Neurological: unable to fully assess now Results Result Diagram: 11/30/16 0400 11/30/16 0400 Results 24 hrs Laboratory Tests Test 11/30/16 04:00 11/30/16 05:00 Alanine Aminotransferase (ALT/SGPT) 90 H Albumin 2.7 L Albumin/Globulin Ratio 0.79 Alkaline Phosphatase 123 H Anion Gap 12 Aspartate Amino Transf (AST/SGOT) 149 H Basophils # 0.0 Basophils % 0.1 Blood Urea Nitrogen 39 H Calcium Level 8.2 L Carbon Dioxide Level 29 Chloride Level 106 Creatine Kinase 2361 H Creatine Kinase Index 0.3 Creatinine 2.58 H Creatinine Kinase MB (Mass) 7.13 H Direct Bilirubin 0.00 Eosinophils # 0.3 Eosinophils % 2.2 Globulin 3.40 H Glucose Level 85 Hematocrit 30.8 L Hemoglobin 10.1 L Indirect Bilirubin 0.4 Lymphocytes # 1.0 Lymphocytes % 8.4 L Magnesium Level 2.1 Mean Corpuscular Hemoglobin 28.9 L Mean Corpuscular Hemoglobin Concent 32.8 Mean Corpuscular Volume 88.3 Mean Platelet Volume 10.2 Monocytes # 0.9 Monocytes % 7.1 Neutrophils # 9.8 H Neutrophils % 81.3 H Nucleated Red Blood Cells # 0.0 Nucleated Red Blood Cells % 0.0 Phosphorus Level 2.7 # Platelet Count 138 L Potassium Level 3.5 Red Blood Count 3.49 L Red Cell Distribution Width 14.1 Sodium Level 143 Total Bilirubin 0.4 Total Protein 6.1 # Troponin I 22.000 *H White Blood Count 12.0 #H Arterial Blood HCO3 25.7 Arterial Blood Base Excess 2.0 Arterial Blood Oxygen Saturation 96.2 Shaun Test ACCEPTAB Arterial Blood Gas Puncture Site Left Radial Arterial Blood Carboxyhemoglobin 0.3 Arterial Blood Date Drawn 11/30/2016 5:47:37 AM Arterial Blood Methemoglobin 0.3 Arterial Blood pCO2 (Temp correct) 37.0 Arterial Blood pH (Temp corrected) 7.460 H Arterial Blood pO2 (Temp corrected) 89.0 Blood Gas A-a O2 Differential 117.5 H Blood Gas Actual Respiration Rate 20 Blood Gas Low PEEP Setting 5.0 Blood Gas Modality VENT - AC Blood Gas Notified Time 11/30/2016 5:58:01 AM Blood Gas Notified Whom RTR Blood Gas Respiration Rate 18.0 Blood Gas Specimen Source Blood arterial Blood Gas Temperature 37.0 Blood Gas Tidal Volume 500.0 FiO2 35.0 Oxyhemoglobin Percent 95.6 Total Hemoglobin 11.3 L Medications Medications Current Medications Ondansetron HCl (Zofran Inj) 4 mg Q6H PRN IV NAUSEA AND/OR VOMITING; Start at 21:00 Acetaminophen (Tylenol Supp) 650 mg Q4H PRN [place] PAIN LEVEL 1-3 OR FEVER; Start 11/25/16 at 21:00 Lorazepam (Ativan) 1 mg Q2H PRN IV ANXIETY; Start 11/25/16 at 21:00 Acetaminophen (Tylenol Liquid) 650 mg Q4H PRN PO TEMP > 37C; Start 11/25/16 at 21:00 Eye Lubricant (Akwa Oint) 1 applic Q6 BOTH EYES Last administered on 11/30/16 11:12; Admin Dose 1 APPLIC; Start 11/26/16 at 00:00 Eye Lubricant 2 drop 2 drop Q6 BOTH EYES Last administered on 11/30/16 11:12; Admin Dose 2 DROP; Start 11/26/16 at 00:00 Pantoprazole/ Sodium Chloride (Protonix Iv/NS) 100 ml @ 10 mls/hr Q10H IV Last administered on 11/30/16 11:05; Admin Dose 10 MLS/HR; Start 11/26/16 at 10 :00 Ticagrelor (Brilinta) 90 mg BID PO Last administered on 11/30/16 09:19; Admin Dose 90 MG; Start 11/26/16 at 21:00 Hydralazine HCl 10 mg 10 mg Q6H PRN IV SBP greater than 160 Last administered on 11/27/16 02:19; Admin Dose 10 MG; Start 11/27/16 at 02:30 Dextrose 1,000 ml @ 50 mls/hr Q20H IV Last administered on 11/30/16 03:39; Admin Dose 50 MLS/HR; Start 11/27/16 at 11:30 Imipenem/ Cilastatin Sodium (Primaxin 500 Mg/ 100 ml (Pmx)) 100 ml @ 100 mls/ hr Q12 IVPB Last administered on 11/30/16 09:18; Admin Dose 100 MLS/HR; Start 11/29/16 at 21:00 Aspirin (Aspirin) 81 mg DAILY NGT Last administered on 11/30/16 09:18; Admin Dose 81 MG; Start 11/30/16 at 09:00 Carvedilol (Coreg) 3.125 mg BID NGT Last administered on 11/30/16 09:19; Admin Dose 3.125 MG; Start 11/29/16 at 21:00 Atorvastatin Calcium (Lipitor) 40 mg DAILY@21 PO Last administered on 20:06; Admin Dose 40 MG; Start 11/29/16 at 21:00 SOHAIL DEL CASTILLO Nov 30, 2016 12:15
--- NOTE | 2016-11-30 12:21 | RADRPT ---
PROCEDURE: XR Chest. CLINICAL INDICATION: Tube placement TECHNIQUE: Single frontal chest x-ray. COMPARISON: 11/30/2016 06:05 a.m. FINDINGS: Endotracheal tube has been advanced with the tip 3 cm above the taniya. Nasogastric tube is in plac e with tip extending into the stomach. . There is cardiomegaly with hilar vascular congestion and i ncreased perihilar and basilar edema or infiltrates.. Cardiac silhouette is stable.. The osseous st ructures are intact. IMPRESSION: Endotracheal tube advanced with 23 cm above the taniya. Nasogastric tube in place. Cardiomegaly with increased congestion and perihilar edema or infiltrates.. RPTAT: TT .Forrest Le MD, MD Date Time Electronically viewed and signed by .Forrest Le MD, on 11/30/2016 12:21 .L/
--- NOTE | 2016-11-30 15:00 | CONS ---
Date/Time of Note Date/Time of Note DATE: 11/30/16 TIME: 14:57 Assessment/Plan Assessment/Plan Additional Assessment/Plan Upper GI bleed/insignificant/inactive * Monitor hemoglobin * Protonix drip * EGD tomorrow with Dr. Hernandez Transaminitis. * Likely secondary to shock liver. * Acute hepatitis panel/negative * Monitor liver function tests Elevated amylase/lipase * Likely related to ischemic event Status post ventricular fibrillation cardiac arrest. Acute inferior ST-elevation myocardial infarction, status post balloon angioplasty and stent placement of the proximal obtuse marginal as well as manual aspiration thrombectomy of the obtuse marginal. Ventilator-dependent respiratory failure. Likely anoxic brain injury. Acute kidney injury. * Nephrology following Further recommendations depend on clinical course Pt seen in collaboration with Dr. Hernandez Consultation Date/Type/Reason Admit Date/Time Nov 25, 2016 at 20:00 Initial Consult Date 11/26/16 Type of Consultation: GI 24 HR Interval Summary Free Text/Dictation Hgb trending downward but stable Plan for EGD tomorrow bedside Explained procedure to pt's brother and his SO and they will call back to advise if they consent Exam/Review of Systems Vital Signs Vitals Vital Signs Date Time Temp Pulse Resp B/P Pulse Ox O2 Delivery O2 Flow Rate FiO2 11/30/16 13:14 81 17 98 35 11/30/16 13:00 112/64 Mechanical Ventilator 11/30/16 12:00 97.9 Intake and Output 11/29/16 11/29/16 11/30/16 15:00 23:00 07:00 Intake Total 690.046 ml 455.456 ml 831.364 ml Output Total 2117 ml 535 ml 719 ml Balance -1426.954 ml -79.544 ml 112.364 ml Exam Constitutional: non-verbal, intubated, unresponsive ENMT: mucosa pink and moist, nl external ears & nose, nl lips & teeth, nl nasal mucosa & septum Respiratory: other (Intubated) clear to A/P Cardiovascular: irregular rhythm Gastrointestinal: non-tender, soft, no masses/organomegaly Musculoskeletal: nl extremities to inspection Neurological: other (Sedated) Results Result Diagram: 11/30/16 0400 11/30/16 0400 Results 24 hrs Laboratory Tests Test 11/30/16 04:00 11/30/16 05:00 Alanine Aminotransferase (ALT/SGPT) 90 H Albumin 2.7 L Albumin/Globulin Ratio 0.79 Alkaline Phosphatase 123 H Anion Gap 12 Aspartate Amino Transf (AST/SGOT) 149 H Basophils # 0.0 Basophils % 0.1 Blood Urea Nitrogen 39 H Calcium Level 8.2 L Carbon Dioxide Level 29 Chloride Level 106 Creatine Kinase 2361 H Creatine Kinase Index 0.3 Creatinine 2.58 H Creatinine Kinase MB (Mass) 7.13 H Direct Bilirubin 0.00 Eosinophils # 0.3 Eosinophils % 2.2 Globulin 3.40 H Glucose Level 85 Hematocrit 30.8 L Hemoglobin 10.1 L Indirect Bilirubin 0.4 Lymphocytes # 1.0 Lymphocytes % 8.4 L Magnesium Level 2.1 Mean Corpuscular Hemoglobin 28.9 L Mean Corpuscular Hemoglobin Concent 32.8 Mean Corpuscular Volume 88.3 Mean Platelet Volume 10.2 Monocytes # 0.9 Monocytes % 7.1 Neutrophils # 9.8 H Neutrophils % 81.3 H Nucleated Red Blood Cells # 0.0 Nucleated Red Blood Cells % 0.0 Phosphorus Level 2.7 # Platelet Count 138 L Potassium Level 3.5 Red Blood Count 3.49 L Red Cell Distribution Width 14.1 Sodium Level 143 Total Bilirubin 0.4 Total Protein 6.1 # Troponin I 22.000 *H White Blood Count 12.0 #H Arterial Blood HCO3 25.7 Arterial Blood Base Excess 2.0 Arterial Blood Oxygen Saturation 96.2 Shaun Test ACCEPTAB Arterial Blood Gas Puncture Site Left Radial Arterial Blood Carboxyhemoglobin 0.3 Arterial Blood Date Drawn 11/30/2016 5:47:37 AM Arterial Blood Methemoglobin 0.3 Arterial Blood pCO2 (Temp correct) 37.0 Arterial Blood pH (Temp corrected) 7.460 H Arterial Blood pO2 (Temp corrected) 89.0 Blood Gas A-a O2 Differential 117.5 H Blood Gas Actual Respiration Rate 20 Blood Gas Low PEEP Setting 5.0 Blood Gas Modality VENT - AC Blood Gas Notified Time 11/30/2016 5:58:01 AM Blood Gas Notified Whom RTR Blood Gas Respiration Rate 18.0 Blood Gas Specimen Source Blood arterial Blood Gas Temperature 37.0 Blood Gas Tidal Volume 500.0 FiO2 35.0 Oxyhemoglobin Percent 95.6 Total Hemoglobin 11.3 L Medications Medications Current Medications Ondansetron HCl (Zofran Inj) 4 mg Q6H PRN IV NAUSEA AND/OR VOMITING; Start at 21:00 Acetaminophen (Tylenol Supp) 650 mg Q4H PRN [place] PAIN LEVEL 1-3 OR FEVER; Start 11/25/16 at 21:00 Lorazepam (Ativan) 1 mg Q2H PRN IV ANXIETY; Start 11/25/16 at 21:00 Acetaminophen (Tylenol Liquid) 650 mg Q4H PRN PO TEMP > 37C; Start 11/25/16 at 21:00 Eye Lubricant (Akwa Oint) 1 applic Q6 BOTH EYES Last administered on 11/30/16 11:12; Admin Dose 1 APPLIC; Start 11/26/16 at 00:00 Eye Lubricant 2 drop 2 drop Q6 BOTH EYES Last administered on 11/30/16 11:12; Admin Dose 2 DROP; Start 11/26/16 at 00:00 Pantoprazole/ Sodium Chloride (Protonix Iv/NS) 100 ml @ 10 mls/hr Q10H IV Last administered on 11/30/16 11:05; Admin Dose 10 MLS/HR; Start 11/26/16 at 10 :00 Ticagrelor (Brilinta) 90 mg BID PO Last administered on 11/30/16 09:19; Admin Dose 90 MG; Start 11/26/16 at 21:00 Hydralazine HCl 10 mg 10 mg Q6H PRN IV SBP greater than 160 Last administered on 11/27/16 02:19; Admin Dose 10 MG; Start 11/27/16 at 02:30 Dextrose 1,000 ml @ 50 mls/hr Q20H IV Last administered on 11/30/16 03:39; Admin Dose 50 MLS/HR; Start 11/27/16 at 11:30 Imipenem/ Cilastatin Sodium (Primaxin 500 Mg/ 100 ml (Pmx)) 100 ml @ 100 mls/ hr Q12 IVPB Last administered on 11/30/16 09:18; Admin Dose 100 MLS/HR; Start 11/29/16 at 21:00 Aspirin (Aspirin) 81 mg DAILY NGT Last administered on 11/30/16 09:18; Admin Dose 81 MG; Start 11/30/16 at 09:00 Carvedilol (Coreg) 3.125 mg BID NGT Last administered on 11/30/16 09:19; Admin Dose 3.125 MG; Start 11/29/16 at 21:00 Atorvastatin Calcium (Lipitor) 40 mg DAILY@21 PO Last administered on t 20:06; Admin Dose 40 MG; Start 11/29/16 at 21:00 RUSS ARECHIGA Nov 30, 2016 15:00
--- NOTE | 2016-11-30 16:01 | PN ---
DATE: 11/30/2016 CARDIOLOGY FOLLOWUP SUBJECTIVE: Surgery was discussed with the staff and Dr. Del Castillo. I discussed the patient needs discu ssed patient's clinical trend. The patient remains in sinus rhythm. Heart rate and blood pressure has remained stable. All vital signs have remained stable. The patient is more responsive. He is still on NG and tube suction and coffee-ground emesis low but stable. H and H has remained stable. MEDICATIONS: Reviewed. Medical records personally reviewed. PHYSICAL EXAMINATION: VITAL SIGNS: Temperature 97.9, heart rate of 81, blood pressure 112/64, respiration rate of 17, sat urating 99%. HEENT: Normocephalic, atraumatic. Pupils equal and round. Status post intubation on the vent. CARDIOVASCULAR: Regular rate and rhythm, systolic murmur. PULMONARY: With no wheezes anteriorly, mild rhonchi. GASTROINTESTINAL: Soft, nontender. EXTREMITIES: With positive trivial edema. NEUROLOGIC: Opens his eyes. Appears to be drowsy but follows simple commands. LABORATORY: WBC of 12, hemoglobin 10.1, platelets of 138. Sodium 143, potassium 3.5, BUN of 39, cr eatinine of 0.58, glucose of 85. I's and O's shows 1984 in and 3328 out. There was 3178 from emesi s though. Chest x-ray shows new NG tube in stomach. ET tube should be advanced, atelectasis. ASSESSMENT AND PLAN 1. Acute ST elevation myocardial infarction. 2. Status post ventricular tachycardia arrest. 3. Renal failure, acute. 4. Status post shock, currently blood pressure improved. 5. Respiratory failure, status post intubation and still on the vent 6. Encephalopathy anoxic brain injury, currently slowly improving. 7. Elevated liver function tests, appear to be stabilizing. 8. Gastrointestinal bleed. RECOMMENDATIONS: 1. Aspirin 2. Brilinta will be continued as long as he can tolerate it given his new stent. We will continue with the statin and beta flores. 3. Follow with GI recommendations. 4. Vanceril for now will be continued. Vent weaning as tolerated. 5. Continue with the ICU care. More than 45 minutes critical care time was spent in management and treating this patient excluding any procedures. Dictated By: RODGER CONTRERAS/KENDRA Conf#: [id number] DID#: [id number] CC: SOHAIL DEL CASTILLO;*EndCC*
--- NOTE | 2016-11-30 17:42 | RADRPT ---
Vent Rate: 76 bpm RR Interval: 0 msec ND Interval: 164 msec QRS Duration: 104 msec QT Interval: 480 msec QTC Interval: 540 msec P-R-T [place]: 81 - 31 - -55 degrees Normal sinus rhythm Low voltage QRS Nonspecific ST and T wave abnormality Prolonged QT Abnormal ECG Electronically Signed By: Manuel Garza [id number]
--- NOTE | 2016-11-30 17:48 | RADRPT ---
Vent Rate: 76 bpm RR Interval: 0 msec PA Interval: 160 msec QRS Duration: 92 msec QT Interval: 482 msec QTC Interval: 542 msec P-R-T [place]: 82 - 70 - 116 degrees Normal sinus rhythm Nonspecific T wave abnormality Prolonged QT Abnormal ECG Electronically Signed By: Manuel Garza [id number]
--- NOTE | 2016-11-30 17:53 | RADRPT ---
Vent Rate: 56 bpm RR Interval: 0 msec PA Interval: 0 msec QRS Duration: 100 msec QT Interval: 516 msec QTC Interval: 497 msec P-R-T [place]: 0 - 64 - 97 degrees Junctional rhythm Low voltage QRS Septal infarct , age undetermined Abnormal ECG Electronically Signed By: Manuel Garza [id number]
[2016-11-30] MEDS: ATORVASTATIN 40 MG TAB PO SCH (21:19)
[2016-11-30] MEDS: LORAZEPAM 2 MG INJ IV PRN (23:04)
[2016-12-01] VITALS (48 sets, daily range): BP systolic 116–142; BP diastolic 65–93; PULSE 74–116; RESP 12–29
[2016-12-01] MEDS: ARTIFICIAL TEARS 15 ML OPH BOTH EYES SCH ×4 (00:50→17:30)
[2016-12-01] MEDS: OCULAR LUBRICANT 3.5 GM OPH OINT BOTH EYES SCH ×4 (00:50→17:30)
[2016-12-01] MEDS: MIDAZOLAM (DRIP) 50 mg/50 mL 50 ML IV SCH ×2 (02:20→05:17)
[2016-12-01] MEDS: LORAZEPAM 2 MG INJ IV PRN (03:34)
--- NOTE | 2016-12-01 04:35 | RADRPT ---
PROCEDURE: CHEST - 1 VIEW December 01, 2016 at 03:41 a.m. CLINICAL INDICATION: 50-year-old male for tube placement. TECHNIQUE: A single frontal supine view of the chest was performed portably. The images were revi ewed on a PACS workstation. COMPARISON: Chest x-ray November 30, 2016 at 12:04 p.m.. FINDINGS: There is an endotracheal tube identified within the mid trachea approximately 4.4 cm above the malcolm a. There is a nasogastric tube identified extending to the gastric fundus region in the left upper quadrant. The cardiomediastinal silhouette mildly enlarged but without significant interval change. There is clearing pulmonary vascular congestion. There is no evidence for focal consolidation. T here is no evidence for pneumothorax. The osseous structures are intact. IMPRESSION: 1. Endotracheal tube with the tip in the mid trachea. 2. Nasogastric tube in place. 3. Mild cardiomegaly. 4. Clearing pulmonary vascular congestion. .Adolph Woodard MD, MD Date Time Electronically viewed and signed by .Adolph Woodard MD, on 12/01/2016 04:35 .M/
[2016-12-01 05:22] LABS: ADD SCAN DIFF NO
[2016-12-01 05:29] LABS: BASOPHILS % 0.2 % (0.0-2.0); EOSINOPHILS # 0.4 10^3/ul (0.0-0.5); EOSINOPHILS % 3.5 % (0.0-7.0); HEMATOCRIT 29.1 % (42.0-52.0); HEMOGLOBIN 9.6 g/dl (14.0-18.0); LYMPHOCYTES # 0.9 10^3/ul (0.8-2.9); LYMPHOCYTES % 7.9 % (15.0-51.0); MEAN CORPUSCULAR HEMOGLOBIN 28.7 pg (29.0-33.0); MEAN CORPUSCULAR VOLUME 87.1 fl (82.0-101.0); MEAN PLATELET VOLUME 10.1 fl (7.4-10.4); MONOCYTE # 1.1 10^3/ul (0.3-0.9); MONOCYTES % 9.6 % (0.0-11.0); NEUTROPHIL # 8.8 10^3/ul (1.6-7.5); NEUTROPHILS % 76.1 % (39.0-77.0); PLATELET COUNT 174 10^3/UL (140-415); RED BLOOD COUNT 3.34 10^6/ul (4.70-6.10); RED CELL DISTRIBUTION WIDTH 13.6 % (11.5-14.5); WHITE BLOOD COUNT 11.6 10^3/ul (4.8-10.8)
[2016-12-01 05:44] LABS: INR 0.98
[2016-12-01 05:48] LABS: POTASSIUM 3.5 mmol/L (3.5-5.1)
[2016-12-01 05:50] LABS: CREATININE 2.14 mg/dl (0.61-1.24)
[2016-12-01 05:51] LABS: CALCIUM 8.2 mg/dl (8.4-10.2); PHOSPHORUS 2.7 mg/dl (2.5-4.9)
[2016-12-01 05:52] LABS: MAGNESIUM 2.2 mg/dl (1.7-2.5)
[2016-12-01] MEDS ORDERED: FENTAnyl (DRIP) 1000 mcg/100mL 100 ML IV SCH (06:30)
[2016-12-01] MEDS: PANTOPRAZOLE IV 80 MG in SOD CHLORIDE 0.9% 100 ML IV SCH ×2 (07:50→17:30)
[2016-12-01] MEDS ORDERED: POTASSIUM CHLORIDE 250 ML IVPB ONE (08:00)
--- NOTE | 2016-12-01 08:56 | RADRPT ---
PROCEDURE: XR Chest. CLINICAL INDICATION: ETT placement. TECHNIQUE: Single frontal chest x-ray. COMPARISON: Exam dated 12/01/2016. FINDINGS: The ETT is approximately 8.4 cm above the taniya and should be advanced approximately 3 cm. There i s an NG tube tip overlying the stomach. The cardiomediastinal silhouette remains mildly enlarged. M ild diffuse prominence of the interstitium and perihilar opacity is not significantly changed. Ther e is no effusion or pneumothorax. There are no acute osseous abnormalities. IMPRESSION: 1. ETT approximately 8.4 cm above the taniya, which should be advanced approximately 3 cm. 2. Cardiomegaly and findings of mild hydrostatic edema, not significantly changed. RPTAT: GG .Preston Nugent MD, Date Time Electronically viewed and signed by .Preston Nugent MD, on 12/01/2016 08:56 .P/
[2016-12-01] MEDS: IMIPENEM-CILAST 500MG IV (PMX) 100 ML IVPB SCH ×2 (08:59→21:25)
--- NOTE | 2016-12-01 09:00 | PN ---
DATE: 12/01/2016 CARDIOLOGY FOLLOWUP SUBJECTIVE: I discussed with the staff. Rhythm strip was reviewed. The patient had episodes of no nsustained VT this morning. He remains intubated on the vent. He still gets agitated when he is aw jacob apparently. NG is still to suction. Bleeding appeared to have been subsided, though. Blood pr essure has remained stable. Tolerating the Coreg so far. MEDICATIONS: Reviewed, as per medical reconciliation, personally reviewed. PHYSICAL EXAMINATION: VITAL SIGNS: Temperature 98.6, heart rate of 89, blood pressure 137/78, respiration rate of 24, sat urating 96%. HEENT: Normocephalic, atraumatic. Status post intubation, on the vent. CARDIOVASCULAR: Regular rate and rhythm, systolic murmur. PULMONARY: With no wheezes anteriorly. GASTROINTESTINAL: Soft. No rebound or guarding. OROPHARYNX: Has NG tube in place. EXTREMITIES: Trivial edema. NEUROLOGIC: Sedated. PSYCHIATRIC: Appears to be calm right now. LABORATORY: WBC of 11.6, hemoglobin 9.6, platelet of 174,000. Sodium 143, potassium 3.5, BUN of 40 , creatinine 2.14, glucose of 89, magnesium is 2.2. Chest x-ray shows ET tube with the tip in the mid trachea, clearing of pulmonary vascular congestion . ASSESSMENT AND PLAN: 1. Status post cardiac arrest secondary to ventricular fibrillation arrest. 2. Status post ST elevation myocardial infarction. 3. Status post emergent percutaneous coronary intervention of the circumflex artery. 4. Nonsustained ventricular tachycardia. 5. Hypoxemic respiratory failure, status post intubation on the vent. 6. Anoxic brain injury, encephalopathy. 7. Elevated liver enzymes, most likely related to shock liver. 8. Gastrointestinal bleed and oozing 9. Thrombocytopenia. 10. Anemia. RECOMMENDATIONS: Aspirin and Brilinta will be continued, given his acute IL and PCI. GI workup and treatment as needed. Family has not consented to GI procedures. Weaning if the patient tolerates. PPIs will be continued. I will continue with the Coreg for now. I will also add the patient on a miodarone p.o., given his recurrent nonsustained VT, and replace the potassium. Renal failure is be ing managed as per nephrology. Renal function is slowly improving. We will continue with the ICU c are. More than 40 minutes of critical care time was spent with this patient excluding any procedures. Dictated By: RODGER CONTRERAS/KENDRA Conf#: [id number] DID#: [id number] CC: SOHAIL DEL CASTILLO;*EndCC*
--- NOTE | 2016-12-01 09:04 | PN ---
DATE: 12/01/2016 SUBJECTIVE: The patient continues to be sedated, does awaken, on sedation vacation, but is very wea k. The patient continues to have bleeding from his NG tube site. No other events noted. OBJECTIVE: VITAL SIGNS: Blood pressure 130/78, respirations 24, pulse 87, temperature 98.6. HEENT: Head is normocephalic. NECK: Supple. HEART: Regular rate. LUNGS: Show diminished breath sounds at base. ABDOMEN: Soft, nontender to palpation. No rebound or guarding. EXTREMITIES: Negative for clubbing, cyanosis. No edema. DERMATOLOGIC: No rashes. MUSCULOSKELETAL: No joint effusions. NEUROLOGIC: Limited exam, as the patient is sedated. LABORATORY DATA: Shows sodium 143, potassium chloride 108, BUN 40, creatinine 2.14. White co unt 11.6, hemoglobin 9.6, hematocrit 29.1, platelet count 174,000. IMAGING: Chest x-ray reviewed, clearing congestion. ASSESSMENT AND PLAN: 1. Nonoliguric acute kidney injury with a previous baseline creatinine around 1.16 mg/dL. Etiology of acute kidney injury is secondary to acute tubular necrosis. Patient's in recovery phase of acut e tubular necrosis. At this point we will continue current treatment plan, supportive care, monitor electrolytes closely. 2. Volume overload, improving. The patient is status post diuretic therapy. Continue to monitor, give intermittent Lasix as needed. 3. Mineral bone disorder. Continue to monitor calcium and phosphorus levels. 4. Hypokalemia. We will replete potassium chloride. We will add potassium in the patient's mainte nance fluids. 5. Cardiac arrest, status post ST-elevation myocardial infarction. The patient is status post hypo thermic protocol, status post percutaneous coronary intervention with stent placement. Continue cur rent medical management. Follow up with cardiology. 6. Upper gastrointestinal bleed. Etiology is unclear. The patient is pending EGD. Continue to mo nitor. 7. Ventilator dependent respiratory failure. Vent settings have been reviewed. ABG has been revie tue. 8. Acute encephalopathy, likely from anoxic injury. Continue to observe. 9. Shock liver, improving. Continue to monitor LFTs. 10. Systemic inflammatory response syndrome. Patient remains on antibiotic therapy. We will randa nue. Dictated By: POLO BATES/KENDRA Conf#: [id number] [facility]#: [id number]
[2016-12-01] MEDS: AMIODARONE 200 MG TAB GTB SCH ×2 (09:10→21:25)
[2016-12-01] MEDS: ASPIRIN 81 MG TAB NGT SCH (09:10)
[2016-12-01] MEDS: TICAGRELOR 90 MG TABLET PO SCH ×2 (09:13→21:30)
[2016-12-01] MEDS: POTASSIUM CHLORIDE 30 MEQ in DEXTROSE 5% 1,000 ML IV SCH (09:49)
--- NOTE | 2016-12-01 10:31 | CONS ---
Date/Time of Note Date/Time of Note DATE: 12/01/16 TIME: 10:28 Assessment/Plan Assessment/Plan Additional Assessment/Plan Ventilator settings; assist control of 16, tidal volume 500, PEEP of 5, 30% FiO2. Assessment and recommendations; 1. Patient admitted with acute IL underwent emergent angioplasty of obtuse marginal branch. 2. Patient also underwent CPR and required hypothermia protocol with marked improvement in mental status. 3. Renal insufficiency. With continued improvement in renal function. 4. History of hypertension. 5. Likely some element of aspiration pneumonia. Chest x-ray from today is essentially clear. 6. Patient did have upper GI bleed on presentation without any further recurrence. Hematocrit is stable. Patient had been switched over to CPAP mode has been off sedation now and is exhibiting excellent parameters so far. I would recommend weaning him off from ventilator as tolerated. Meanwhile continue current treatment. Consultation Date/Type/Reason Admit Date/Time Nov 25, 2016 at 20:00 Initial Consult Date 11/26/16 Type of Consultation: Pulmonary/critical care 24 HR Interval Summary Free Text/Dictation Patient condition remains critical but stable. Still on full ventilator support. Has remained hemodynamically stable. Extubation was again deferred yesterday because of increased secretions through the endotracheal tube. However that is markedly decreased over the last 12 hours. Patient has been taken off sedation again. General examination; middle aged man, or intubated, awake and alert. Currently in no distress. Exam/Review of Systems Vital Signs Vitals Vital Signs Date Time Temp Pulse Resp B/P Pulse Ox O2 Delivery O2 Flow Rate FiO2 12/01/16 09:52 95 16 99 35 12/01/16 04:00 98.6 130/78 Mechanical Ventilator Intake and Output 11/30/16 11/30/16 12/01/16 15:00 23:00 07:00 Intake Total 665 ml 640 ml 455 ml Output Total 518 ml 896 ml 928 ml Balance 147 ml -256 ml -473 ml Exam HEENT examination; supple neck, no JVD. No lymphadenopathy. Midline trachea. No thyromegaly. Or intubated. Pupils are midsize and reactive to light. Chest examination; clear to auscultation bilaterally. S1-S2 audible, no murmurs. Regular rhythm. Abdomen examination; soft, nontender, nondistended. No organomegaly. Bowel sounds audible. Extremity examination; no peripheral edema. Pulses 2+ bilaterally. PHLEBOTOMIST MEDICAL LAB ASSISTANT examination; no focal deficit. Results Result Diagram: 12/01/1615 12/01/1615 Results 24 hrs Laboratory Tests Test 12/01/16 05:15 Activated Partial Thromboplast Time 36.0 H Anion Gap 11 Basophils # 0.0 Basophils % 0.2 Blood Urea Nitrogen 40 H Calcium Level 8.2 L Carbon Dioxide Level 28 Chloride Level 108 Creatinine 2.14 H Eosinophils # 0.4 Eosinophils % 3.5 Glucose Level 89 Hematocrit 29.1 L Hemoglobin 9.6 L INR International Normalized Ratio 0.98 Lymphocytes # 0.9 Lymphocytes % 7.9 L Magnesium Level 2.2 Mean Corpuscular Hemoglobin 28.7 L Mean Corpuscular Hemoglobin Concent 33.0 Mean Corpuscular Volume 87.1 Mean Platelet Volume 10.1 Monocytes # 1.1 H Monocytes % 9.6 Neutrophils # 8.8 H Neutrophils % 76.1 Nucleated Red Blood Cells # 0.0 Nucleated Red Blood Cells % 0.0 Phosphorus Level 2.7 Platelet Count 174 # Potassium Level 3.5 Prothrombin Time 13.0 Prothrombin Time Ratio 1.0 Red Blood Count 3.34 L Red Cell Distribution Width 13.6 Sodium Level 143 White Blood Count 11.6 H Medications Medications Current Medications Ondansetron HCl (Zofran Inj) 4 mg Q6H PRN IV NAUSEA AND/OR VOMITING; Start at 21:00 Acetaminophen (Tylenol Supp) 650 mg Q4H PRN [place] PAIN LEVEL 1-3 OR FEVER; Start 11/25/16 at 21:00 Lorazepam (Ativan) 1 mg Q2H PRN IV ANXIETY Last administered on 12/01/16 03:34 ; Admin Dose 1 MG; Start 11/25/16 at 21:00 Acetaminophen (Tylenol Liquid) 650 mg Q4H PRN PO TEMP > 37C; Start 11/25/16 at 21:00 Eye Lubricant (Akwa Oint) 1 applic Q6 BOTH EYES Last administered on 12/01/16 05:17; Admin Dose 1 APPLIC; Start 11/26/16 at 00:00 Eye Lubricant 2 drop 2 drop Q6 BOTH EYES Last administered on 12/01/16 05:17; Admin Dose 2 DROP; Start 11/26/16 at 00:00 Pantoprazole/ Sodium Chloride (Protonix Iv/NS) 100 ml @ 10 mls/hr Q10H IV Last administered on 12/01/16 07:50; Admin Dose 10 MLS/HR; Start 11/26/16 at 10: 00 Ticagrelor (Brilinta) 90 mg BID PO Last administered on 12/01/16 09:13; Admin Dose 90 MG; Start 11/26/16 at 21:00 Hydralazine HCl 10 mg 10 mg Q6H PRN IV SBP greater than 160 Last administered on 11/27/16 02:19; Admin Dose 10 MG; Start 11/27/16 at 02:30 Imipenem/ Cilastatin Sodium (Primaxin 500 Mg/ 100 ml (Pmx)) 100 ml @ 100 mls/ hr Q12 IVPB Last administered on 12/01/16 08:59; Admin Dose 100 MLS/HR; Start 11/29/16 at 21:00 Aspirin (Aspirin) 81 mg DAILY NGT Last administered on 12/01/16 09:10; Admin Dose 81 MG; Start 11/30/16 at 09:00 Carvedilol (Coreg) 3.125 mg BID NGT Last administered on 12/01/16 09:08; Admin Dose 3.125 MG; Start 11/29/16 at 21:00 Atorvastatin Calcium 40 mg 40 mg DAILY@21 PO Last administered on 11/30/16 21: 19; Admin Dose 40 MG; Start 11/29/16 at 21:00 Fentanyl (Sublimaze) 100 ml @ 2.5 mls/hr TITRATE IV Last administered on 06:42; Admin Dose 2.5 MLS/HR; Start 12/01/16 at 06:30 Amiodarone HCl 400 mg 400 mg BID GTB Last administered on 12/01/16 09:10; Admin Dose 400 MG; Start 12/01/16 at 09:00 Potassium Chloride 30 meq/ Dextrose 1,015 ml @ 50 mls/hr [id number] IV Last administered on 12/01/16 09:49; Admin Dose 50 MLS/HR; Start 12/01/16 at 09:00 Potassium Chloride (KCl 40 MEQ/250 ML NS) 250 ml @ 62.5 mls/hr ONCE ONCE IVPB Last administered on 12/01/16 09:49; Admin Dose 62.5 MLS/HR; Start 12/01/16 at 08:00; Stop 12/01/16 at 11:59 BRITTNY GARG Dec 01, 2016 10:31
[2016-12-01 11:14] LABS: AADO2 Arterial 95.5 mmHg (7.0-24.0); Allen Test ACCEPTAB; Arterial Base Excess 0.7 mmol/L (-3.0-3); Arterial COHb 0.3 % (0.0-3.0); Arterial HCO3 24.5 mmol/L (22.0-26.0); Arterial MetHb 0.4 % (0.0-1.5); Arterial Total Hemglobin 11.4 g/dl (12.0-18.0); Blood Gas PS 10; MODE VENT - CPAP
--- NOTE | 2016-12-01 12:38 | PN ---
Date/Time of Note Date/Time of Note DATE: 12/01/16 TIME: 12:38 Assessment/Plan VTE Prophylaxis VTE Prophylaxis Intervention: contraindicated, SCD's VTE Contraindication Reason: bleeding, thrombocytopenia Lines/Catheters IV Catheter Type (from Nrsg): Central Line Central line still needed: Yes Urinary Cath still in place: Yes Reason Cath still needed: urinary retention Assessment/Plan Chief Complaint/Hosp Course Assessment/Plan: Unfortunate 50 yo M brought in after cardiac arrest in the field found down after unknown period of time with: 1. Status post ventricular fibrillation cardiac arrest. V fib likely 2/2 #2 - Off amiodarone for now; s/p Hypothermia Protocol - Resume amiodarone as needed for arrhythmias/ closely monitor electrolytes - f/u CV rec's 2. Acute inferior ST-elevation myocardial infarction, status post balloon angioplasty and stent placement of the proximal obtuse marginal as well as manual aspiration thrombectomy of the obtuse marginal. - Cardiology recommending to continue brilinta and aspirin while closely monitoring h/h and Transfusion PRN / Appreciate recs - statin as well 3. Ventilator-dependent respiratory failure - extubated today. - f/u pulm input - abx for URI 4. Upper gastrointestinal bleed. - Continue protonix drip/ for endoscopy once stable - possibly today - continue NG tube w/ suction, monitor output as well. 5. Severe SIRS 2/2 #1 + Lactic acidosis: improved - continue abx (aspiration PNA source) 6. Acute kidney injury with metabolic acidosis 2/2 ATN from shock + superimposed life saving contrast administration - improving now. - Gentle hydration for poor kidney function bearing in mind systolic dysfxn / appreciate Nephrology consult - Avoiding ACEi, ARBs for now . Renally dose all meds. Serial labs. 7. Probable shock liver: improving - monitor, if worsens, consider RUQ USS to eval abn liver fxn and pancreatitis if non resolving / patient is not a candidate for any kind of intervention at this time / trend levels 8. Hyperglycemia with Nml A1C - likely reactive - Continue SSI while NPO 9. Hypokalemia: repleted 10. Mild acute pancreatitis 11. Questionable anoxic brain injury - appears more alert now, however, extubated - monitor for now 12. Recurrent hypocalcemia - monitor levels, replete as needed 13. low plts - sepsis vs med's. Plts nL now(117 -> 132 -> 174) - cautiously continue ASA + Brilinta - monitor bleeding - holding Cefepime and vanco (can cause low plts), and continue Primaxin low dose for now for aspiration PNA PROPHYLAXIS: SCDs / Protonix drip CRITICAL CARE TIME: 40 mins Problems: Subjective 24 Hr Interval Summary Free Text/Dictation Pt had episodes of nonsustained VT this morning, presently stable, extubated this AM as well. Still with NG tube with low intermittent suction, awaiting possible EGD later today. PICC not placed yet. Exam/Review of Systems Vital Signs Vitals Vital Signs Date Time Temp Pulse Resp B/P Pulse Ox O2 Delivery O2 Flow Rate FiO2 12/01/16 11:00 85 24 117/82 99 CPAP 12/01/16 09:52 35 12/01/16 08:00 98.8 Intake and Output 11/30/16 11/30/16 12/01/16 15:00 23:00 07:00 Intake Total 665 ml 640 ml 525.6 ml Output Total 518 ml 896 ml 991 ml Balance 147 ml -256 ml -465.4 ml Exam Constitutional: opens eyes, a bit more alert today Eyes: PERRL, EOMI ENMT: nL Respiratory: clear to auscultation Cardiovascular: regular rate and rhythm, No murmurs/extra sounds Gastrointestinal: bowel sounds, non-tender, soft Extremities: edema Neurological: no focal deficits Results Result Diagram: 12/01/16 0515 12/01/16 0515 Results 24 hrs Laboratory Tests Test 12/01/16 05:15 12/01/16 10:20 Activated Partial Thromboplast Time 36.0 H Anion Gap 11 Basophils # 0.0 Basophils % 0.2 Blood Urea Nitrogen 40 H Calcium Level 8.2 L Carbon Dioxide Level 28 Chloride Level 108 Creatinine 2.14 H Eosinophils # 0.4 Eosinophils % 3.5 Glucose Level 89 Hematocrit 29.1 L Hemoglobin 9.6 L INR International Normalized Ratio 0.98 Lymphocytes # 0.9 Lymphocytes % 7.9 L Magnesium Level 2.2 Mean Corpuscular Hemoglobin 28.7 L Mean Corpuscular Hemoglobin Concent 33.0 Mean Corpuscular Volume 87.1 Mean Platelet Volume 10.1 Monocytes # 1.1 H Monocytes % 9.6 Neutrophils # 8.8 H Neutrophils % 76.1 Nucleated Red Blood Cells # 0.0 Nucleated Red Blood Cells % 0.0 Phosphorus Level 2.7 Platelet Count 174 # Potassium Level 3.5 Prothrombin Time 13.0 Prothrombin Time Ratio 1.0 Red Blood Count 3.34 L Red Cell Distribution Width 13.6 Sodium Level 143 White Blood Count 11.6 H Arterial Blood HCO3 24.5 Arterial Blood Base Excess 0.7 Arterial Blood Oxygen Saturation 97.7 Shaun Test ACCEPTAB Arterial Blood Gas Puncture Site Left Radial Arterial Blood Carboxyhemoglobin 0.3 Arterial Blood Date Drawn 12/01/2016 11:00:46 AM Arterial Blood Methemoglobin 0.4 Arterial Blood pCO2 (Temp correct) 36.5 Arterial Blood pH (Temp corrected) 7.445 Arterial Blood pO2 (Temp corrected) 111.6 H Blood Gas A-a O2 Differential 95.5 H Blood Gas Actual Respiration Rate 18 Blood Gas High PEEP Setting 5.0 Blood Gas Modality VENT - CPAP Blood Gas Notified Time 12/01/2016 11:14:19 AM Blood Gas Notified Whom T KASSAII Blood Gas Pressure Support 10 Blood Gas Specimen Source Blood arterial Blood Gas Temperature 37.0 FiO2 35.0 Oxyhemoglobin Percent 97.0 Total Hemoglobin 11.4 L Medications Medications Current Medications Ondansetron HCl (Zofran Inj) 4 mg Q6H PRN IV NAUSEA AND/OR VOMITING; Start at 21:00 Acetaminophen (Tylenol Supp) 650 mg Q4H PRN [place] PAIN LEVEL 1-3 OR FEVER; Start 11/25/16 at 21:00 Lorazepam (Ativan) 1 mg Q2H PRN IV ANXIETY Last administered on 12/01/16 03:34 ; Admin Dose 1 MG; Start 11/25/16 at 21:00 Acetaminophen (Tylenol Liquid) 650 mg Q4H PRN PO TEMP > 37C; Start 11/25/16 at 21:00 Eye Lubricant (Akwa Oint) 1 applic Q6 BOTH EYES Last administered on 12/01/16 05:17; Admin Dose 1 APPLIC; Start 11/26/16 at 00:00 Eye Lubricant 2 drop 2 drop Q6 BOTH EYES Last administered on 12/01/16 05:17; Admin Dose 2 DROP; Start 11/26/16 at 00:00 Pantoprazole/ Sodium Chloride (Protonix Iv/NS) 100 ml @ 10 mls/hr Q10H IV Last administered on 12/01/16 07:50; Admin Dose 10 MLS/HR; Start 11/26/16 at 10: 00 Ticagrelor (Brilinta) 90 mg BID PO Last administered on 12/01/16 09:13; Admin Dose 90 MG; Start 11/26/16 at 21:00 Hydralazine HCl 10 mg 10 mg Q6H PRN IV SBP greater than 160 Last administered on 11/27/16 02:19; Admin Dose 10 MG; Start 11/27/16 at 02:30 Imipenem/ Cilastatin Sodium (Primaxin 500 Mg/ 100 ml (Pmx)) 100 ml @ 100 mls/ hr Q12 IVPB Last administered on 12/01/16 08:59; Admin Dose 100 MLS/HR; Start 11/29/16 at 21:00 Aspirin (Aspirin) 81 mg DAILY NGT Last administered on 12/01/16 09:10; Admin Dose 81 MG; Start 11/30/16 at 09:00 Carvedilol (Coreg) 3.125 mg BID NGT Last administered on 12/01/16 09:08; Admin Dose 3.125 MG; Start 11/29/16 at 21:00 Atorvastatin Calcium 40 mg 40 mg DAILY@21 PO Last administered on 11/30/16 21: 19; Admin Dose 40 MG; Start 11/29/16 at 21:00 Fentanyl (Sublimaze) 100 ml @ 2.5 mls/hr TITRATE IV Last administered on 06:42; Admin Dose 2.5 MLS/HR; Start 12/01/16 at 06:30 Amiodarone HCl 400 mg 400 mg BID GTB Last administered on 12/01/16 09:10; Admin Dose 400 MG; Start 12/01/16 at 09:00 Potassium Chloride/Dextrose (KCl/D5W) 1,015 ml @ 50 mls/hr [id number] IV Last administered on 12/01/16 09:49; Admin Dose 50 MLS/HR; Start 12/01/16 at 09:00 SOHAIL DEL CASTILLO Dec 01, 2016 12:38
--- NOTE | 2016-12-01 17:39 | PN ---
Date/Time of Note Date/Time of Note DATE: 12/01/16 TIME: 17:34 Assessment/Plan VTE Prophylaxis VTE Prophylaxis Intervention: SCD's Lines/Catheters IV Catheter Type (from Nrs): Peripheral IV Urinary Cath still in place: Yes Reason Cath still needed: urinary retention Assessment/Plan Assessment/Plan Upper GI bleed/insignificant/inactive * Protonix drip * EGD cancelled as patient refuses * Will monitor H/H Transaminitis. * Likely secondary to shock liver. * Acute hepatitis panel/negative * Monitor liver function tests Elevated amylase/lipase * Likely related to ischemic event Status post ventricular fibrillation cardiac arrest. Acute inferior ST-elevation myocardial infarction, status post balloon angioplasty and stent placement of the proximal obtuse marginal as well as manual aspiration thrombectomy of the obtuse marginal. Ventilator-dependent respiratory failure. Likely anoxic brain injury. Acute kidney injury. * Nephrology following Subjective 24 Hr Interval Summary Free Text/Dictation Course reviewed with nursing staff Hemoglobin hematocrit slowly dropped Now extubated, alert Refuses EGD Exam/Review of Systems Vital Signs Vitals Vital Signs Date Time Temp Pulse Resp B/P Pulse Ox O2 Delivery O2 Flow Rate FiO2 12/01/16 17:10 95 2.0 28 12/01/16 16:30 91 25 127/80 Nasal Cannula 12/01/16 16:00 98.2 Intake and Output 11/30/16 11/30/16 12/01/16 15:00 23:00 07:00 Intake Total 665 ml 640 ml 525.6 ml Output Total 518 ml 896 ml 991 ml Balance 147 ml -256 ml -465.4 ml Exam Constitutional: Extubated, slow responses ENMT: mucosa pink and moist, nl external ears & nose, nl lips & teeth, nl nasal mucosa & septum Respiratory: clear to A/P Cardiovascular: irregular rhythm Gastrointestinal: non-tender, soft, no masses/organomegaly Musculoskeletal: nl extremities to inspection Results Result Diagram: 12/01/16 0515 12/01/16 0515 Results 24 hrs Laboratory Tests Test 12/01/16 05:15 12/01/16 10:20 Activated Partial Thromboplast Time 36.0 H Anion Gap 11 Basophils # 0.0 Basophils % 0.2 Blood Urea Nitrogen 40 H Calcium Level 8.2 L Carbon Dioxide Level 28 Chloride Level 108 Creatinine 2.14 H Eosinophils # 0.4 Eosinophils % 3.5 Glucose Level 89 Hematocrit 29.1 L Hemoglobin 9.6 L INR International Normalized Ratio 0.98 Lymphocytes # 0.9 Lymphocytes % 7.9 L Magnesium Level 2.2 Mean Corpuscular Hemoglobin 28.7 L Mean Corpuscular Hemoglobin Concent 33.0 Mean Corpuscular Volume 87.1 Mean Platelet Volume 10.1 Monocytes # 1.1 H Monocytes % 9.6 Neutrophils # 8.8 H Neutrophils % 76.1 Nucleated Red Blood Cells # 0.0 Nucleated Red Blood Cells % 0.0 Phosphorus Level 2.7 Platelet Count 174 # Potassium Level 3.5 Prothrombin Time 13.0 Prothrombin Time Ratio 1.0 Red Blood Count 3.34 L Red Cell Distribution Width 13.6 Sodium Level 143 White Blood Count 11.6 H Arterial Blood HCO3 24.5 Arterial Blood Base Excess 0.7 Arterial Blood Oxygen Saturation 97.7 Shaun Test ACCEPTAB Arterial Blood Gas Puncture Site Left Radial Arterial Blood Carboxyhemoglobin 0.3 Arterial Blood Date Drawn 12/01/2016 11:00:46 AM Arterial Blood Methemoglobin 0.4 Arterial Blood pCO2 (Temp correct) 36.5 Arterial Blood pH (Temp corrected) 7.445 Arterial Blood pO2 (Temp corrected) 111.6 H Blood Gas A-a O2 Differential 95.5 H Blood Gas Actual Respiration Rate 18 Blood Gas High PEEP Setting 5.0 Blood Gas Modality VENT - CPAP Blood Gas Notified Time 12/01/2016 11:14:19 AM Blood Gas Notified Whom T KASSAII Blood Gas Pressure Support 10 Blood Gas Specimen Source Blood arterial Blood Gas Temperature 37.0 FiO2 35.0 Oxyhemoglobin Percent 97.0 Total Hemoglobin 11.4 L Medications Medications Current Medications Ondansetron HCl (Zofran Inj) 4 mg Q6H PRN IV NAUSEA AND/OR VOMITING; Start at 21:00 Acetaminophen (Tylenol Supp) 650 mg Q4H PRN [place] PAIN LEVEL 1-3 OR FEVER; Start 11/25/16 at 21:00 Lorazepam (Ativan) 1 mg Q2H PRN IV ANXIETY Last administered on 12/01/16t 03:34 ; Admin Dose 1 MG; Start 11/25/16 at 21:00 Acetaminophen (Tylenol Liquid) 650 mg Q4H PRN PO TEMP > 37C; Start 11/25/16 at 21:00 Eye Lubricant (Akwa Oint) 1 applic Q6 BOTH EYES Last administered on 12/01/16 17:30; Admin Dose 1 APPLIC; Start 11/26/16 at 00:00 Eye Lubricant 2 drop 2 drop Q6 BOTH EYES Last administered on 12/01/16 17:30; Admin Dose 2 DROP; Start 11/26/16 at 00:00 Pantoprazole/ Sodium Chloride (Protonix Iv/NS) 100 ml @ 10 mls/hr Q10H IV Last administered on 12/01/16 17:30; Admin Dose 10 MLS/HR; Start 11/26/16 at 10: 00 Ticagrelor (Brilinta) 90 mg BID PO Last administered on 12/01/16 09:13; Admin Dose 90 MG; Start 11/26/16 at 21:00 Hydralazine HCl 10 mg 10 mg Q6H PRN IV SBP greater than 160 Last administered on 11/27/16 02:19; Admin Dose 10 MG; Start 11/27/16 at 02:30 Imipenem/ Cilastatin Sodium (Primaxin 500 Mg/ 100 ml (Pmx)) 100 ml @ 100 mls/ hr Q12 IVPB Last administered on 12/01/16 08:59; Admin Dose 100 MLS/HR; Start 11/29/16 at 21:00 Aspirin (Aspirin) 81 mg DAILY NGT Last administered on 12/01/16 09:10; Admin Dose 81 MG; Start 11/30/16 at 09:00 Carvedilol (Coreg) 3.125 mg BID NGT Last administered on 12/01/16 09:08; Admin Dose 3.125 MG; Start 11/29/16 at 21:00 Atorvastatin Calcium 40 mg 40 mg DAILY@21 PO Last administered on 11/30/16 21: 19; Admin Dose 40 MG; Start 11/29/16 at 21:00 Fentanyl (Sublimaze) 100 ml @ 2.5 mls/hr TITRATE IV Last administered on 06:42; Admin Dose 2.5 MLS/HR; Start 12/01/16 at 06:30 Amiodarone HCl 400 mg 400 mg BID GTB Last administered on 12/01/16 09:10; Admin Dose 400 MG; Start 12/01/16 at 09:00 Potassium Chloride/Dextrose (KCl/D5W) 1,015 ml @ 50 mls/hr [id number] IV Last administered on 12/01/16t 09:49; Admin Dose 50 MLS/HR; Start 12/01/16 at 09:00 MIKEY MAN MD Dec 01, 2016 17:39
[2016-12-01] MEDS: ATORVASTATIN 40 MG TAB PO SCH (21:29)
[2016-12-02] VITALS (33 sets, daily range): BP systolic 109–151; BP diastolic 59–86; PULSE 54–84; RESP 10–20
[2016-12-02] MEDS: OCULAR LUBRICANT 3.5 GM OPH OINT BOTH EYES SCH ×4 (00:52→18:04)
[2016-12-02] MEDS: ARTIFICIAL TEARS 15 ML OPH BOTH EYES SCH ×4 (00:52→18:04)
[2016-12-02] MEDS: PANTOPRAZOLE IV 80 MG in SOD CHLORIDE 0.9% 100 ML IV SCH ×2 (04:00→14:30)
[2016-12-02 04:51] LABS: ADD SCAN DIFF NO
[2016-12-02] MEDS: POTASSIUM CHLORIDE 30 MEQ in DEXTROSE 5% 1,000 ML IV SCH (05:00)
[2016-12-02 05:01] LABS: BASOPHILS % 0.2 % (0.0-2.0); EOSINOPHILS # 0.4 10^3/ul (0.0-0.5); EOSINOPHILS % 3.7 % (0.0-7.0); HEMOGLOBIN 9.8 g/dl (14.0-18.0); LYMPHOCYTES # 0.7 10^3/ul (0.8-2.9); LYMPHOCYTES % 6.7 % (15.0-51.0); MEAN CORPUSCULAR HEMOGLOBIN 29.7 pg (29.0-33.0); MEAN CORPUSCULAR HGB CONC 33.8 g/dl (32.0-37.0); MEAN CORPUSCULAR VOLUME 87.9 fl (82.0-101.0); MEAN PLATELET VOLUME 10.1 fl (7.4-10.4); MONOCYTES % 9.3 % (0.0-11.0); NEUTROPHIL # 8.1 10^3/ul (1.6-7.5); NEUTROPHILS % 75.4 % (39.0-77.0); PLATELET COUNT 207 10^3/UL (140-415); RED CELL DISTRIBUTION WIDTH 13.3 % (11.5-14.5); WHITE BLOOD COUNT 10.8 10^3/ul (4.8-10.8)
[2016-12-02 05:09] LABS: MAGNESIUM 2.1 mg/dl (1.7-2.5)
[2016-12-02 05:10] LABS: POTASSIUM 3.8 mmol/L (3.5-5.1)
[2016-12-02 05:13] LABS: CREATININE 1.99 mg/dl (0.61-1.24); PHOSPHORUS 2.5 mg/dl (2.5-4.9)
[2016-12-02 05:14] LABS: CALCIUM 8.7 mg/dl (8.4-10.2)
--- NOTE | 2016-12-02 07:44 | PN ---
DATE: SUBJECTIVE: The patient was extubated. The patient is confused, but alert to name. The patient is pending EGD. No other events noted. OBJECTIVE: VITAL SIGNS: Blood pressure is 124/82, respirations 15, pulse 79, temperature 98.4. HEENT: Head is normocephalic. NECK: Supple. HEART: Regular rate. LUNGS: Show diminished breath sounds at the base. ABDOMEN: Soft, nontender to palpation. No rebound or guarding. EXTREMITIES: Negative for clubbing or cyanosis. No edema. DERMATOLOGIC: No rashes. MUSCULOSKELETAL: Have no joint effusion. NEUROLOGIC: No change in exam. MEDICATIONS: The patient's medications were reviewed. LABORATORY DATA: Shows white count 10.8, hemoglobin 9.8, hematocrit 29.0, platelet count 207. Sodi um 145, potassium 3.8, BUN 40, creatinine 1.99. ASSESSMENT AND PLAN: 1. Nonoliguric acute kidney injury, with a previous baseline creatinine around 1.16 mg/dL. Etiolog y of acute kidney injury is secondary to acute tubular necrosis. The patient's renal function has s lowly been recovering. Will continue the current treatment plan, supportive care, renally dose all medicines. 2. Volume overload. Improving. The patient is status post diuretic therapy. Will continue to mon itor. 3. Mineral bone disorder. Will continue to monitor calcium and phosphorus levels. 4. Hypernatremia. Etiology is secondary to insensible loss. Will increase the rate of D5W to 75 m L an hour and monitor. 4. Hyperkalemia. Resolved. 5. Cardiac arrest. Status post PCI. Will continue the current medical management. Follow up with cardiology. 6. Upper gastrointestinal bleed. The patient is pending EGD 7. Respiratory failure. Status post extubation. The patient is currently stable on nasal cannula. Continue to monitor. 8. Encephalopathy. Etiology may be from anoxic injury. Will continue to monitor. 9. Shock liver. Improving. 10. Systemic inflammatory response syndrome. The patient is on empiric antibiotics. Continue to m onitor. Dictated By: POLO BATES/KENDRA Conf#: [id number] DID#: [id number]
[2016-12-02] MEDS: D5W + KCL 20 MEQ 1,000 ML IV SCH ×2 (08:15→21:56)
[2016-12-02] MEDS: ASPIRIN 81 MG TAB NGT SCH (09:27)
[2016-12-02] MEDS: IMIPENEM-CILAST 500MG IV (PMX) 100 ML IVPB SCH ×2 (09:27→22:00)
[2016-12-02] MEDS: AMIODARONE 200 MG TAB GTB SCH ×2 (09:27→22:04)
[2016-12-02] MEDS: TICAGRELOR 90 MG TABLET PO SCH ×2 (09:30→21:58)
--- NOTE | 2016-12-02 10:00 | PN ---
DATE: 12/02/2016 SUBJECTIVE: Patient Татьяна is awake, alert, oriented this morning. Nasogastric tube in place. . He has agreed for endoscopy. Currently he remains hemodynamically stable. PHYSICAL EXAMINATION: VITAL SIGNS: Temperature 98, pulse 79, blood pressure 124/82, O2 saturation 98% on 2 L nasal cannul a. NECK: Supple. No JVD or lymphadenopathy. CARDIAC: S1, S2. No added sounds or murmurs. CHEST: Diminished air entry bilaterally, but no rales or wheezes. ABDOMEN: Soft, nontender. No guarding or rebound. EXTREMITIES: No cyanosis, clubbing, edema. NEUROLOGIC: Grossly intact. No focal deficits. LABORATORY DATA: White count 10.8, hemoglobin 9.8, platelets 207. BUN 40, creatinine 1.99. Arteri al blood gas yesterday pH of 7.44, pCO2 of 36, PaO2 of 111. INR was 0.98. Hepatitis A, B and C wer e unremarkable. IMPRESSION AND PLAN: 1. Status post respiratory failure, safely extubated. 2. Acute cardiopulmonary arrest, status post coronary intervention with angioplasty to obtuse landen nal branch. 3. Renal insufficiency, likely acute tubular necrosis injury, now improving. 4. Questionable gastrointestinal bleed. The patient pending possible endoscopy. 4. Continue deep venous thrombosis and gastrointestinal prophylaxis. From pulmonary standpoint, patient can be transferred to telemetry floor. Should continue with phys ical therapy. Removal of nasogastric tube if cleared by GI and advancement of diet. Dictated By: NADIRA RIVAS/KENDRA Conf#: [id number] DID#: [id number]
--- NOTE | 2016-12-02 10:15 | PN ---
DATE: 12/02/2016 CARDIOLOGY FOLLOWUP SUBJECTIVE: Discussed with the staff. Rhythm strip was reviewed. The patient remains in sinus rhy thm. No edema or tachycardia. The patient has been extubated successfully and responds very appropriately. NG is still to suction. Some bleeding but has significantly improved. MEDICATIONS: Reviewed. PHYSICAL EXAMINATION: VITAL SIGNS: Temperature 98.4, heart rate of 79, blood pressure 124/82, respiratory rate of 15, sat urating 99%. HEENT: Normocephalic, atraumatic. No acute distress. Pupils are equal. Oropharynx status post NG tube in place. CARDIOVASCULAR: Regular rate and rhythm, systolic murmur. PULMONARY: With no wheezes. GASTROINTESTINAL: Soft, nontender. EXTREMITIES: With no significant lower extremity edema. NEUROLOGIC: Awake, responds appropriately to person and place. Could not respond to date though. PSYCHIATRIC: Appears to be calm. LABORATORY DATA: Shows sodium 145, potassium 3.8, BUN of 40, creatinine of 1.99, glucose of 112. P roBNP of 3120. Hemoglobin is 9.8, platelets of 207. ASSESSMENT AND PLAN: 1. Status post cardiopulmonary arrest secondary to ventricular fibrillation arrest. 2. Status post ST elevation myocardial infarction. 3. Status post percutaneous coronary intervention of left circumflex artery. 4. Possible gastrointestinal bleed. 5. Acute renal failure. 6. Nonsustained ventricular tachycardia post myocardial infarction, improved on amiodarone. 7. Encephalopathy, significantly improved. 8. Elevated liver enzymes, slowly improving. 9. Anemia. RECOMMENDATIONS: We will continue with the current cardiac care. GI workup as per internal medicin e. Coreg will be continued. Aspirin and Brilinta will be continued for now. Dictated By: RODGER GRIFFIN MD AV/KENDRA Conf#: [id number] DID#: [id number] CC: SOHAIL DEL CASTILLO;*EndCC*
--- NOTE | 2016-12-02 11:46 | PN ---
Date/Time of Note Date/Time of Note DATE: 12/02/16 TIME: 11:37 Assessment/Plan VTE Prophylaxis VTE Prophylaxis Intervention: contraindicated, SCD's VTE Contraindication Reason: bleeding Lines/Catheters IV Catheter Type (from Nrs): Peripheral IV Urinary Cath still in place: Yes Reason Cath still needed: urinary retention Assessment/Plan Chief Complaint/Hosp Course Assessment/Plan: Unfortunate 50 yo M brought in after cardiac arrest in the field found down after unknown period of time with: 1. Status post ventricular fibrillation cardiac arrest. V fib likely 2/2 #2 - ; s/p Hypothermia Protocol - continue amiodarone PO as needed for arrhythmias/ closely monitor electrolytes - f/u CV rec's 2. Acute inferior ST-elevation myocardial infarction, status post balloon angioplasty and stent placement of the proximal obtuse marginal as well as manual aspiration thrombectomy of the obtuse marginal. - Cardiology recommending to continue brilinta and aspirin while closely monitoring h/h and Transfusion PRN / Appreciate recs - statin as well 3. Ventilator-dependent respiratory failure - extubated 2 days ago. - f/u pulm input - abx for URI 4. Upper gastrointestinal bleed. - Continue protonix drip/ for endoscopy once stable - possibly today - continue NG tube w/ suction, monitor output as well. 5. Severe SIRS 2/2 #1 + Lactic acidosis: improved - continue abx (aspiration PNA source) 6. Acute kidney injury with metabolic acidosis 2/2 ATN from shock + superimposed life saving contrast administration - improving now. - Gentle hydration for poor kidney function bearing in mind systolic dysfxn / appreciate Nephrology consult - Avoiding ACEi, ARBs for now . Renally dose all meds. Serial labs. 7. Probable shock liver: improving - monitor 8. Hyperglycemia with Nml A1C - likely reactive - Continue SSI while NPO 9. Hypokalemia: repleted - stable - monitor 10. Mild acute pancreatitis 11. Questionable anoxic brain injury - appears more alert now, however, extubated 2 days ago, alert - monitor for now 12. Recurrent hypocalcemia - monitor levels, replete as needed 13. low plts - sepsis vs med's - appears resolved now - Plts nL now (117 -> 132 -> 174 -> 207) - cautiously continue ASA + Brilinta - monitor bleeding - have held Cefepime and vanco (can cause low plts), and continue Primaxin low dose for now instead for aspiration PNA PROPHYLAXIS: SCDs / Protonix drip CRITICAL CARE TIME: 45 mins Problems: Subjective 24 Hr Interval Summary Free Text/Dictation Pt apparently refused EGD yesterday, but now "recondensing". No acute events overnight. Exam/Review of Systems Vital Signs Vitals Vital Signs Date Time Temp Pulse Resp B/P Pulse Ox O2 Delivery O2 Flow Rate FiO2 12/02/16 10:00 63 17 130/83 98 Nasal Cannula 2.0 12/02/16 08:00 98.4 12/01/16 19:35 28 Intake and Output 12/01/16 12/01/16 12/02/16 15:00 23:00 07:00 Intake Total 649.5 ml 660 ml 420 ml Output Total 480 ml 599 ml 941 ml Balance 169.5 ml 61 ml -521 ml Exam Constitutional: more alert, NAD Eyes: PERRL, EOMI ENMT: nL Respiratory: clear to auscultation Cardiovascular: regular rate and rhythm, No murmurs/extra sounds Gastrointestinal: bowel sounds, non-tender, soft Extremities: edema Neurological: no focal deficits Results Result Diagram: 12/02/16 0400 12/02/16 0400 Results 24 hrs Laboratory Tests Test 12/02/16 04:00 Anion Gap 12 B-Type Natriuretic Peptide 3120 H Basophils # 0.0 Basophils % 0.2 Blood Urea Nitrogen 40 H Calcium Level 8.7 Carbon Dioxide Level 27 Chloride Level 110 Creatinine 1.99 H Eosinophils # 0.4 Eosinophils % 3.7 Glucose Level 112 Hematocrit 29.0 L Hemoglobin 9.8 L Lymphocytes # 0.7 L Lymphocytes % 6.7 L Magnesium Level 2.1 Mean Corpuscular Hemoglobin 29.7 Mean Corpuscular Hemoglobin Concent 33.8 Mean Corpuscular Volume 87.9 Mean Platelet Volume 10.1 Monocytes # 1.0 H Monocytes % 9.3 Neutrophils # 8.1 H Neutrophils % 75.4 Nucleated Red Blood Cells # 0.0 Nucleated Red Blood Cells % 0.0 Phosphorus Level 2.5 Platelet Count 207 Potassium Level 3.8 Red Blood Count 3.30 L Red Cell Distribution Width 13.3 Sodium Level 145 H White Blood Count 10.8 Medications Medications Current Medications Ondansetron HCl (Zofran Inj) 4 mg Q6H PRN IV NAUSEA AND/OR VOMITING; Start at 21:00 Acetaminophen (Tylenol Supp) 650 mg Q4H PRN [place] PAIN LEVEL 1-3 OR FEVER; Start 11/25/16 at 21:00 Lorazepam (Ativan) 1 mg Q2H PRN IV ANXIETY Last administered on 12/01/16 03:34 ; Admin Dose 1 MG; Start 11/25/16 at 21:00 Acetaminophen (Tylenol Liquid) 650 mg Q4H PRN PO TEMP > 37C; Start 11/25/16 at 21:00 Eye Lubricant (Akwa Oint) 1 applic Q6 BOTH EYES Last administered on 12/02/16 04:08; Admin Dose 1 APPLIC; Start 11/26/16 at 00:00 Eye Lubricant 2 drop 2 drop Q6 BOTH EYES Last administered on 12/02/16 04:08; Admin Dose 2 DROP; Start 11/26/16 at 00:00 Pantoprazole/ Sodium Chloride (Protonix Iv/NS) 100 ml @ 10 mls/hr Q10H IV Last administered on 12/02/16 04:00; Admin Dose 10 MLS/HR; Start 11/26/16 at 10: 00 Ticagrelor (Brilinta) 90 mg BID PO Last administered on 12/02/16 09:30; Admin Dose 90 MG; Start 11/26/16 at 21:00 Hydralazine HCl 10 mg 10 mg Q6H PRN IV SBP greater than 160 Last administered on 11/27/16 02:19; Admin Dose 10 MG; Start 11/27/16 at 02:30 Imipenem/ Cilastatin Sodium (Primaxin 500 Mg/ 100 ml (Pmx)) 100 ml @ 100 mls/ hr Q12 IVPB Last administered on 12/02/16 09:27; Admin Dose 100 MLS/HR; Start 11/29/16 at 21:00 Aspirin (Aspirin) 81 mg DAILY NGT Last administered on 12/02/16 09:27; Admin Dose 81 MG; Start 11/30/16 at 09:00 Carvedilol (Coreg) 3.125 mg BID NGT Last administered on 12/02/16 09:28; Admin Dose 3.125 MG; Start 11/29/16 at 21:00 Atorvastatin Calcium 40 mg 40 mg DAILY@21 PO Last administered on 12/01/16 21: 29; Admin Dose 40 MG; Start 11/29/16 at 21:00 Fentanyl (Sublimaze) 100 ml @ 2.5 mls/hr TITRATE IV Last administered on 06:42; Admin Dose 2.5 MLS/HR; Start 12/01/16 at 06:30 Amiodarone HCl 400 mg 400 mg BID GTB Last administered on 12/02/16 09:27; Admin Dose 400 MG; Start 12/01/16 at 09:00 Potassium Chloride/Dextrose (D5W + KCl 20 Meq) 1,000 ml @ 75 mls/hr [id number] IV Last administered on 12/02/16 08:15; Admin Dose 75 MLS/HR; Start 12/02/16 at 07 :30 SOHAIL DEL CASTILLO Dec 02, 2016 11:46
--- NOTE | 2016-12-02 13:39 | CONS ---
Date/Time of Note Date/Time of Note DATE: 12/02/16 TIME: 13:33 Assessment/Plan Assessment/Plan Additional Assessment/Plan Upper GI bleed/insignificant/inactive * Monitor hemoglobin * Protonix drip * EGD tomorrow with Dr. Toribio Transaminitis. * Likely secondary to shock liver. * Acute hepatitis panel/negative * Monitor liver function tests, trending downward Elevated amylase/lipase * Likely related to ischemic event, trending down Status post ventricular fibrillation cardiac arrest. Acute inferior ST-elevation myocardial infarction, status post balloon angioplasty and stent placement of the proximal obtuse marginal as well as manual aspiration thrombectomy of the obtuse marginal. Acute kidney injury. * Nephrology following Further recommendations depend on clinical course Pt seen in collaboration with Dr. Hernandez Consultation Date/Type/Reason Admit Date/Time Nov 25, 2016 at 20:00 Initial Consult Date 11/26/16 Type of Consultation: GI 24 HR Interval Summary Free Text/Dictation Tolerating clear liquids at bedside Successfully extubated yesterday Past bedside swallow Will allow soft diet now EGD tomorrow with Dr. TORIBIO Hemoglobin stable Exam/Review of Systems Vital Signs Vitals Vital Signs Date Time Temp Pulse Resp B/P Pulse Ox O2 Delivery O2 Flow Rate FiO2 12/02/16 12:00 66 12/02/16 10:00 17 130/83 98 Nasal Cannula 2.0 12/02/16 08:00 98.4 12/01/16 19:35 28 Intake and Output 12/01/16 12/01/16 12/02/16 14:59 22:59 06:59 Intake Total 660.1 ml 660 ml 480 ml Output Total 461 ml 489 ml 1118 ml Balance 199.1 ml 171 ml -638 ml Exam Constitutional: A and O 4, not in any acute distress ENMT: mucosa pink and moist, nl external ears & nose, nl lips & teeth, nl nasal mucosa & septum Respiratory: Normal air movement Cardiovascular: Normal S1 and S2 Gastrointestinal: non-tender, soft, no masses/organomegaly Musculoskeletal: nl extremities to inspection Neurological: Relaxed mood Results Result Diagram: 12/02/16 0400 12/02/16 0400 Results 24 hrs Laboratory Tests Test 12/02/16 04:00 Anion Gap 12 B-Type Natriuretic Peptide 3120 H Basophils # 0.0 Basophils % 0.2 Blood Urea Nitrogen 40 H Calcium Level 8.7 Carbon Dioxide Level 27 Chloride Level 110 Creatinine 1.99 H Eosinophils # 0.4 Eosinophils % 3.7 Glucose Level 112 Hematocrit 29.0 L Hemoglobin 9.8 L Lymphocytes # 0.7 L Lymphocytes % 6.7 L Magnesium Level 2.1 Mean Corpuscular Hemoglobin 29.7 Mean Corpuscular Hemoglobin Concent 33.8 Mean Corpuscular Volume 87.9 Mean Platelet Volume 10.1 Monocytes # 1.0 H Monocytes % 9.3 Neutrophils # 8.1 H Neutrophils % 75.4 Nucleated Red Blood Cells # 0.0 Nucleated Red Blood Cells % 0.0 Phosphorus Level 2.5 Platelet Count 207 Potassium Level 3.8 Red Blood Count 3.30 L Red Cell Distribution Width 13.3 Sodium Level 145 H White Blood Count 10.8 Medications Medications Current Medications Ondansetron HCl (Zofran Inj) 4 mg Q6H PRN IV NAUSEA AND/OR VOMITING; Start at 21:00 Acetaminophen (Tylenol Supp) 650 mg Q4H PRN [place] PAIN LEVEL 1-3 OR FEVER; Start 11/25/16 at 21:00 Lorazepam (Ativan) 1 mg Q2H PRN IV ANXIETY Last administered on 12/01/16 03:34 ; Admin Dose 1 MG; Start 11/25/16 at 21:00 Acetaminophen (Tylenol Liquid) 650 mg Q4H PRN PO TEMP > 37C; Start 11/25/16 at 21:00 Eye Lubricant (Akwa Oint) 1 applic Q6 BOTH EYES Last administered on 12/02/16 04:08; Admin Dose 1 APPLIC; Start 11/26/16 at 00:00 Eye Lubricant 2 drop 2 drop Q6 BOTH EYES Last administered on 12/02/16 04:08; Admin Dose 2 DROP; Start 11/26/16 at 00:00 Pantoprazole/ Sodium Chloride (Protonix Iv/NS) 100 ml @ 10 mls/hr Q10H IV Last administered on 12/02/16 04:00; Admin Dose 10 MLS/HR; Start 11/26/16 at 10: 00 Ticagrelor (Brilinta) 90 mg BID PO Last administered on 12/02/16 09:30; Admin Dose 90 MG; Start 11/26/16 at 21:00 Hydralazine HCl 10 mg 10 mg Q6H PRN IV SBP greater than 160 Last administered on 11/27/16 02:19; Admin Dose 10 MG; Start 11/27/16 at 02:30 Imipenem/ Cilastatin Sodium (Primaxin 500 Mg/ 100 ml (Pmx)) 100 ml @ 100 mls/ hr Q12 IVPB Last administered on 12/02/16 09:27; Admin Dose 100 MLS/HR; Start 11/29/16 at 21:00 Aspirin (Aspirin) 81 mg DAILY NGT Last administered on 12/02/16 09:27; Admin Dose 81 MG; Start 11/30/16 at 09:00 Carvedilol (Coreg) 3.125 mg BID NGT Last administered on 12/02/16 09:28; Admin Dose 3.125 MG; Start 11/29/16 at 21:00 Atorvastatin Calcium 40 mg 40 mg DAILY@21 PO Last administered on 12/01/16 21: 29; Admin Dose 40 MG; Start 11/29/16 at 21:00 Fentanyl (Sublimaze) 100 ml @ 2.5 mls/hr TITRATE IV Last administered on 06:42; Admin Dose 2.5 MLS/HR; Start 12/01/16 at 06:30 Amiodarone HCl 400 mg 400 mg BID GTB Last administered on 12/02/16 09:27; Admin Dose 400 MG; Start 12/01/16 at 09:00 Potassium Chloride/Dextrose (D5W + KCl 20 Meq) 1,000 ml @ 75 mls/hr [id number] IV Last administered on 12/02/16 08:15; Admin Dose 75 MLS/HR; Start 12/02/16 at 07 :30 RUSS ARECHIGA Dec 02, 2016 13:39
[2016-12-02] MEDS: ATORVASTATIN 40 MG TAB PO SCH (21:57)
[2016-12-03] VITALS (11 sets, daily range): BP systolic 114–138; BP diastolic 62–87; PULSE 56–75; RESP 18–20
[2016-12-03] MEDS: PANTOPRAZOLE IV 80 MG in SOD CHLORIDE 0.9% 100 ML IV SCH ×2 (00:18→11:50)
[2016-12-03] MEDS: OCULAR LUBRICANT 3.5 GM OPH OINT BOTH EYES SCH ×4 (00:18→17:43)
[2016-12-03] MEDS: ARTIFICIAL TEARS 15 ML OPH BOTH EYES SCH ×4 (00:18→17:43)
[2016-12-03 07:57] LABS: ADD SCAN DIFF NO
[2016-12-03 08:00] LABS: BASOPHILS % 0.4 % (0.0-2.0); EOSINOPHILS # 0.6 10^3/ul (0.0-0.5); EOSINOPHILS % 5.7 % (0.0-7.0); HEMATOCRIT 29.4 % (42.0-52.0); HEMOGLOBIN 9.7 g/dl (14.0-18.0); LYMPHOCYTES % 10.6 % (15.0-51.0); MEAN CORPUSCULAR VOLUME 87.8 fl (82.0-101.0); MEAN PLATELET VOLUME 9.9 fl (7.4-10.4); MONOCYTE # 0.8 10^3/ul (0.3-0.9); MONOCYTES % 8.5 % (0.0-11.0); NEUTROPHIL # 6.9 10^3/ul (1.6-7.5); NEUTROPHILS % 70.9 % (39.0-77.0); PLATELET COUNT 241 10^3/UL (140-415); RED BLOOD COUNT 3.35 10^6/ul (4.70-6.10); RED CELL DISTRIBUTION WIDTH 13.4 % (11.5-14.5); WHITE BLOOD COUNT 9.8 10^3/ul (4.8-10.8)
[2016-12-03 08:12] LABS: INR 0.97; PROTIME 12.9 Sec (12.2-14.2)
[2016-12-03 08:13] LABS: PARTIAL THROMBOPLASTIN TIME 34.9 Sec (25.0-35.0)
[2016-12-03] MEDS: ASPIRIN 81 MG TAB NGT SCH (08:41)
[2016-12-03] MEDS: TICAGRELOR 90 MG TABLET PO SCH ×2 (08:43→21:44)
[2016-12-03] MEDS: AMIODARONE 200 MG TAB GTB SCH ×2 (08:45→20:30)
[2016-12-03] MEDS: IMIPENEM-CILAST 500MG IV (PMX) 100 ML IVPB SCH ×2 (08:45→20:32)
[2016-12-03 08:49] LABS: POTASSIUM 3.6 mmol/L (3.5-5.1)
[2016-12-03 08:51] LABS: CREATININE 1.64 mg/dl (0.61-1.24)
[2016-12-03 08:52] LABS: CALCIUM 8.3 mg/dl (8.4-10.2); PHOSPHORUS 2.6 mg/dl (2.5-4.9)
[2016-12-03 08:53] LABS: MAGNESIUM 1.9 mg/dl (1.7-2.5)
--- NOTE | 2016-12-03 09:02 | PN ---
DATE: 12/03/2016 SUBJECTIVE: The patient is stable, no acute events overnight. No fevers, chills, nausea, vomiting. OBJECTIVE: VITAL SIGNS: Blood pressure is 123/67, respirations 20, pulse 57, temperature 98.3. HEENT: Head is normocephalic. NECK: Supple. HEART: Regular rate. LUNGS: Show diminished breath sounds at base. ABDOMEN: Soft, nontender to palpation without rebound or guarding. EXTREMITIES: Negative for clubbing, cyanosis, no edema. DERMATOLOGIC: No rashes. MUSCULOSKELETAL: No joint effusions. NEUROLOGIC: No change in examine. MEDICATIONS: Reviewed. LABORATORY DATA: Currently pending. ASSESSMENT AND PLAN: 1. Nonoliguric acute kidney injury with previous baseline creatinine 1.16 mg/dL. Etiology is secon servando to acute tubular necrosis. Renal function has slowly been improving. Continue supportive care , renally dose all meds, and avoid nephrotoxins. 2. Volume overload, improving. Continue intermittent diuretic therapy as needed. 3. Mineral bone disorder. Continue to monitor calcium and phosphorus levels. No need for phosphat e binders. 4. Hyponatremia secondary to insensible losses. The patient is currently on hypertonic fluid. Con tinue to monitor and adjust as needed. 5. Hypokalemia, resolved. 6. Cardiac arrest status post percutaneous coronary intervention. Continue current medical managem ent. 7. Upper gastrointestinal bleed. The patient is pending EGD. Continue to monitor H and H levels. 8. Respiratory failure, status post extubation. The patient is currently stable on nasal cannula. Continue to monitor. 9. Encephalopathy, improving. Continue to monitor. 10. Systemic inflammatory response syndrome. Continue empiric antibiotics. 11. Shock liver, improving. Dictated By: POLO BATES/NTS Conf#: [id number] DID#: [id number]
[2016-12-03] MEDS: D5W + KCL 20 MEQ 1,000 ML IV SCH ×2 (10:10→23:30)
--- NOTE | 2016-12-03 11:47 | PN ---
Date/Time of Note Date/Time of Note DATE: 12/03/16 TIME: 11:42 Assessment/Plan VTE Prophylaxis VTE Prophylaxis Intervention: contraindicated, SCD's VTE Contraindication Reason: bleeding Lines/Catheters IV Catheter Type (from Nrs): Peripheral IV Urinary Cath still in place: No Assessment/Plan Chief Complaint/Hosp Course Assessment/Plan: Unfortunate 50 yo M brought in after cardiac arrest in the field found down after unknown period of time with: 1. Status post ventricular fibrillation cardiac arrest. V fib likely 2/2 #2; s /p Hypothermia Protocol, now extubated, more alert, out of ICU. - continue amiodarone PO as needed for arrhythmias/ closely monitor electrolytes - f/u CV rec's, also on Coreg, Lipitor 2. Acute inferior ST-elevation myocardial infarction, status post balloon angioplasty and stent placement of the proximal obtuse marginal as well as manual aspiration thrombectomy of the obtuse marginal. - Cardiology recommending to continue brilinta and aspirin while closely monitoring h/h and Transfusion PRN / Appreciate recs - statin as well 3. Ventilator-dependent respiratory failure - extubated 3 days ago. - f/u pulm input - abx for URI 4. Upper gastrointestinal bleed - NG tube out, seems minimal now, H/h stable. - Continue protonix drip/ now refusing EGD. - monitor for any UGI or LGI bleeding now 5. Severe SIRS 2/2 #1 + Lactic acidosis: improved - continue abx (aspiration PNA source) 6. Acute kidney injury with metabolic acidosis 2/2 ATN from shock + superimposed life saving contrast administration - improving now. - Gentle hydration for poor kidney function bearing in mind systolic dysfxn / appreciate Nephrology consult - Avoiding ACEi, ARBs for now . Renally dose all meds. Serial labs. 7. Probable shock liver: improving - monitor 8. Hyperglycemia with Nml A1C - likely reactive - Continue SSI while NPO 9. Hypokalemia: repleted - stable - monitor 10. Mild acute pancreatitis 11. Questionable anoxic brain injury - appears more alert now, however, extubated 3 days ago, alert - monitor for now 12. Recurrent hypocalcemia - monitor levels, replete as needed 13. low plts - sepsis vs med's - appears resolved now - Plts nL now (117 -> 132 -> 174 -> 207 ->240) - cautiously continue ASA + Brilinta - monitor bleeding - have held Cefepime and vanco (can cause low plts), and continue Primaxin low dose for now instead for aspiration PNA 14. inguinal hernia - will get gen surgey consult for this. PROPHYLAXIS: SCDs / Protonix drip Problems: Subjective 24 Hr Interval Summary Free Text/Dictation Pt out of ICU now, refusing EGD now. NG tube"came out" yesterday, tolerating CLD , states he is having some mild "dark coughing" but denies LGI bleed. Exam/Review of Systems Vital Signs Vitals Vital Signs Date Time Temp Pulse Resp B/P Pulse Ox O2 Delivery O2 Flow Rate FiO2 12/03/16 11:39 98.2 77 20 138/87 96 12/02/16 18:34 Room Air 12/02/16 17:56 21 12/02/16 11:00 2.0 Intake and Output 12/02/16 12/02/16 12/03/16 15:00 23:00 07:00 Intake Total 1755 ml 655 ml 500 ml Output Total 636 ml 245 ml Balance 1119 ml 410 ml 500 ml Exam Constitutional: AaOx3 now, NAD Eyes: PERRL, EOMI ENMT: nL Respiratory: clear to auscultation Cardiovascular: regular rate and rhythm, No murmurs/extra sounds Gastrointestinal: bowel sounds, non-tender, soft Extremities: no LE edema B/L Neurological: no focal deficits Results Result Diagram: 12/03/16 0705 12/03/16 0705 Results 24 hrs Laboratory Tests Test 12/03/16 07:05 Activated Partial Thromboplast Time 34.9 Anion Gap 15 Basophils # 0.0 Basophils % 0.4 Blood Urea Nitrogen 35 H Calcium Level 8.3 L Carbon Dioxide Level 25 Chloride Level 104 Creatinine 1.64 H Eosinophils # 0.6 H Eosinophils % 5.7 Glucose Level 114 Hematocrit 29.4 L Hemoglobin 9.7 L INR International Normalized Ratio 0.97 Lymphocytes # 1.0 Lymphocytes % 10.6 L Magnesium Level 1.9 Mean Corpuscular Hemoglobin 29.0 Mean Corpuscular Hemoglobin Concent 33.0 Mean Corpuscular Volume 87.8 Mean Platelet Volume 9.9 Monocytes # 0.8 Monocytes % 8.5 Neutrophils # 6.9 Neutrophils % 70.9 Nucleated Red Blood Cells # 0.0 Nucleated Red Blood Cells % 0.0 Phosphorus Level 2.6 Platelet Count 241 Potassium Level 3.6 Prothrombin Time 12.9 Prothrombin Time Ratio 1.0 Red Blood Count 3.35 L Red Cell Distribution Width 13.4 Sodium Level 140 White Blood Count 9.8 Medications Medications Current Medications Ondansetron HCl (Zofran Inj) 4 mg Q6H PRN IV NAUSEA AND/OR VOMITING; Start at 21:00 Acetaminophen (Tylenol Supp) 650 mg Q4H PRN [place] PAIN LEVEL 1-3 OR FEVER; Start 11/25/16 at 21:00 Lorazepam (Ativan) 1 mg Q2H PRN IV ANXIETY Last administered on 12/01/16 03:34 ; Admin Dose 1 MG; Start 11/25/16 at 21:00 Acetaminophen (Tylenol Liquid) 650 mg Q4H PRN PO TEMP > 37C; Start 11/25/16 at 21:00 Eye Lubricant (Akwa Oint) 1 applic Q6 BOTH EYES Last administered on 12/03/16 00:18; Admin Dose 1 APPLIC; Start 11/26/16 at 00:00 Eye Lubricant 2 drop 2 drop Q6 BOTH EYES Last administered on 12/03/16 00:18; Admin Dose 2 DROP; Start 11/26/16 at 00:00 Pantoprazole/ Sodium Chloride (Protonix Iv/NS) 100 ml @ 10 mls/hr Q10H IV Last administered on 12/03/16 00:18; Admin Dose 10 MLS/HR; Start 11/26/16 at 10: 00 Ticagrelor (Brilinta) 90 mg BID PO Last administered on 12/03/16 08:43; Admin Dose 90 MG; Start 11/26/16 at 21:00 Hydralazine HCl 10 mg 10 mg Q6H PRN IV SBP greater than 160 Last administered on 11/27/16 02:19; Admin Dose 10 MG; Start 11/27/16 at 02:30 Imipenem/ Cilastatin Sodium (Primaxin 500 Mg/ 100 ml (Pmx)) 100 ml @ 100 mls/ hr Q12 IVPB Last administered on 12/03/16 08:45; Admin Dose 100 MLS/HR; Start 11/29/16 at 21:00 Aspirin (Aspirin) 81 mg DAILY NGT Last administered on 12/03/16 08:41; Admin Dose 81 MG; Start 11/30/16 at 09:00 Carvedilol (Coreg) 3.125 mg BID NGT Last administered on 12/02/16 22:03; Admin Dose 3.125 MG; Start 11/29/16 at 21:00 Atorvastatin Calcium (Lipitor) 40 mg DAILY@21 PO Last administered on 12/02/16 21:57; Admin Dose 40 MG; Start 11/29/16 at 21:00 Amiodarone HCl 400 mg 400 mg BID GTB Last administered on 12/03/16 08:45; Admin Dose 400 MG; Start 12/01/16 at 09:00 Potassium Chloride/Dextrose (D5W + KCl 20 Meq) 1,000 ml @ 75 mls/hr [id number] IV Last administered on 12/02/16 21:56; Admin Dose 75 MLS/HR; Start 12/02/16 at 07 :30 SOHAIL DEL CASTILLO Dec 03, 2016 11:47
--- NOTE | 2016-12-03 12:56 | CONS ---
Date/Time of Note Date/Time of Note DATE: 12/03/16 TIME: 12:53 Assessment/Plan Assessment/Plan Additional Assessment/Plan Upper GI bleed/insignificant/inactive * Monitor hemoglobin * Protonix PPI BID * EGD recommended with precipitous drop in Hgb Transaminitis. * Likely secondary to shock liver. * Acute hepatitis panel/negative * Monitor liver function tests, trending downward Elevated amylase/lipase * Likely related to ischemic event, trending down Status post ventricular fibrillation cardiac arrest. Acute inferior ST-elevation myocardial infarction, status post balloon angioplasty and stent placement of the proximal obtuse marginal as well as manual aspiration thrombectomy of the obtuse marginal. Acute kidney injury. * Nephrology following Further recommendations depend on clinical course Pt seen in collaboration with Dr. Hernandez Consultation Date/Type/Reason Admit Date/Time Nov 25, 2016 at 20:00 Initial Consult Date 11/26/16 Type of Consultation: GI 24 HR Interval Summary Free Text/Dictation Patient declines EGD Hemoglobin stable LFTs trending downward Denies abdominal pain, nausea, vomiting Exam/Review of Systems Vital Signs Vitals Vital Signs Date Time Temp Pulse Resp B/P Pulse Ox O2 Delivery O2 Flow Rate FiO2 12/03/16 12:13 60 12/03/16 11:39 98.2 20 138/87 96 12/02/16 18:34 Room Air 12/02/16 17:56 21 12/02/16 11:00 2.0 Intake and Output 12/02/16 12/02/16 12/03/16 15:00 23:00 07:00 Intake Total 1755 ml 655 ml 500 ml Output Total 636 ml 245 ml Balance 1119 ml 410 ml 500 ml Exam Constitutional: A and O 4, not in any acute distress ENMT: mucosa pink and moist, nl external ears & nose, nl lips & teeth, nl nasal mucosa & septum Respiratory: Normal air movement Cardiovascular: Normal S1 and S2 Gastrointestinal: non-tender, soft, no masses/organomegaly Musculoskeletal: nl extremities to inspection Neurological: Relaxed mood Results Result Diagram: 12/03/16 0705 12/03/16 0705 Results 24 hrs Laboratory Tests Test 12/03/16 07:05 Activated Partial Thromboplast Time 34.9 Anion Gap 15 Basophils # 0.0 Basophils % 0.4 Blood Urea Nitrogen 35 H Calcium Level 8.3 L Carbon Dioxide Level 25 Chloride Level 104 Creatinine 1.64 H Eosinophils # 0.6 H Eosinophils % 5.7 Glucose Level 114 Hematocrit 29.4 L Hemoglobin 9.7 L INR International Normalized Ratio 0.97 Lymphocytes # 1.0 Lymphocytes % 10.6 L Magnesium Level 1.9 Mean Corpuscular Hemoglobin 29.0 Mean Corpuscular Hemoglobin Concent 33.0 Mean Corpuscular Volume 87.8 Mean Platelet Volume 9.9 Monocytes # 0.8 Monocytes % 8.5 Neutrophils # 6.9 Neutrophils % 70.9 Nucleated Red Blood Cells # 0.0 Nucleated Red Blood Cells % 0.0 Phosphorus Level 2.6 Platelet Count 241 Potassium Level 3.6 Prothrombin Time 12.9 Prothrombin Time Ratio 1.0 Red Blood Count 3.35 L Red Cell Distribution Width 13.4 Sodium Level 140 White Blood Count 9.8 Medications Medications Current Medications Ondansetron HCl (Zofran Inj) 4 mg Q6H PRN IV NAUSEA AND/OR VOMITING; Start at 21:00 Acetaminophen (Tylenol Supp) 650 mg Q4H PRN [place] PAIN LEVEL 1-3 OR FEVER; Start 11/25/16 at 21:00 Lorazepam (Ativan) 1 mg Q2H PRN IV ANXIETY Last administered on 12/01/16 03:34 ; Admin Dose 1 MG; Start 11/25/16 at 21:00 Acetaminophen (Tylenol Liquid) 650 mg Q4H PRN PO TEMP > 37C; Start 11/25/16 at 21:00 Eye Lubricant (Akwa Oint) 1 applic Q6 BOTH EYES Last administered on 12/03/16 11:51; Admin Dose 1 APPLIC; Start 11/26/16 at 00:00 Eye Lubricant 2 drop 2 drop Q6 BOTH EYES Last administered on 12/03/16 11:50; Admin Dose 2 DROP; Start 11/26/16 at 00:00 Pantoprazole/ Sodium Chloride (Protonix Iv/NS) 100 ml @ 10 mls/hr Q10H IV Last administered on 12/03/16 11:50; Admin Dose 10 MLS/HR; Start 11/26/16 at 10: 00 Ticagrelor (Brilinta) 90 mg BID PO Last administered on 12/03/16 08:43; Admin Dose 90 MG; Start 11/26/16 at 21:00 Hydralazine HCl 10 mg 10 mg Q6H PRN IV SBP greater than 160 Last administered on 11/27/16 02:19; Admin Dose 10 MG; Start 11/27/16 at 02:30 Imipenem/ Cilastatin Sodium (Primaxin 500 Mg/ 100 ml (Pmx)) 100 ml @ 100 mls/ hr Q12 IVPB Last administered on 12/03/16 08:45; Admin Dose 100 MLS/HR; Start 11/29/16 at 21:00 Aspirin (Aspirin) 81 mg DAILY NGT Last administered on 12/03/16 08:41; Admin Dose 81 MG; Start 11/30/16 at 09:00 Carvedilol (Coreg) 3.125 mg BID NGT Last administered on 12/02/16 22:03; Admin Dose 3.125 MG; Start 11/29/16 at 21:00 Atorvastatin Calcium 40 mg 40 mg DAILY@21 PO Last administered on 12/02/16 21: 57; Admin Dose 40 MG; Start 11/29/16 at 21:00 Potassium Chloride/Dextrose (D5W + KCl 20 Meq) 1,000 ml @ 75 mls/hr [id number] IV Last administered on 12/02/16 21:56; Admin Dose 75 MLS/HR; Start 12/02/16 at 07 :30 Amiodarone HCl (Cordarone) 200 mg BID GTB ; Start 12/03/16 at 21:00 RUSS ARECHIGA Dec 03, 2016 12:56 RUSS ARECHIGA Dec 03, 2016 12:56
--- NOTE | 2016-12-03 13:12 | PN ---
DATE: 12/03/2016 CARDIOLOGY FOLLOWUP SUBJECTIVE: The patient with no chest pain or pressure. No palpitation. Denies any rectal bleedin g to me. He is able to eat. Remains in sinus rhythm. MEDICATIONS: Reviewed. PHYSICAL EXAMINATION: VITAL SIGNS: Temperature 98.2, heart rate of 60, blood pressure 138/87, respiration rate of 20. HEENT: Normocephalic, atraumatic. Pupils are equal. CARDIOVASCULAR: Regular rate and rhythm, systolic murmur. PULMONARY: Anteriorly with no wheezes. GASTROINTESTINAL: Soft, nontender. EXTREMITIES: No significant edema. NEUROLOGIC: Awake, responds appropriately. PSYCHIATRIC: Appears to be calm. LABORATORY: WBC of 9.8, hemoglobin 9.7, platelets 241. Sodium 140, potassium 3.6, BUN of 35, creat inine 1.64, glucose 114, magnesium is 1.9. ASSESSMENT AND PLAN: 1. Status post ventricular fibrillation arrest. 2. ST elevation myocardial infarction, status post emergent percutaneous coronary intervention. 3. Ischemic cardiomyopathy. 4. Acute renal failure, currently improving. 5. Possible GI bleed. 6. Anemia. 7. Hypertension. RECOMMENDATIONS: We will continue with the Coreg. I would decrease the amiodarone 200 mg p.o. b.i. d. only. Antibiotic as per internal medicine. Coreg will be continued and increased as tolerated. Brilinta will be continued. Dr. Elise will follow up the care tomorrow. Dictated By: RODGER GRIFFIN MD AV/KENDRA Conf#: [id number] DID#: [id number] CC: SOHAIL DEL CASTILLO;*EndCC*
[2016-12-03] MEDS: PANTOPRAZOLE (EC) 40 MG TAB PO SCH (17:42)
[2016-12-03] MEDS: ATORVASTATIN 40 MG TAB PO SCH (20:30)
[2016-12-04] VITALS (13 sets, daily range): BP systolic 110–153; BP diastolic 66–74; PULSE 54–71; RESP 17–18
[2016-12-04] MEDS: ARTIFICIAL TEARS 15 ML OPH BOTH EYES SCH ×4 (06:00→17:39)
[2016-12-04] MEDS: OCULAR LUBRICANT 3.5 GM OPH OINT BOTH EYES SCH ×4 (06:00→17:39)
[2016-12-04 06:05] LABS: ADD SCAN DIFF NO
[2016-12-04 06:26] LABS: BASOPHILS % 0.3 % (0.0-2.0); EOSINOPHILS # 0.5 10^3/ul (0.0-0.5); HEMATOCRIT 29.1 % (42.0-52.0); HEMOGLOBIN 9.6 g/dl (14.0-18.0); LYMPHOCYTES # 1.6 10^3/ul (0.8-2.9); LYMPHOCYTES % 13.1 % (15.0-51.0); MEAN CORPUSCULAR HEMOGLOBIN 28.7 pg (29.0-33.0); MEAN CORPUSCULAR VOLUME 86.9 fl (82.0-101.0); MONOCYTE # 1.1 10^3/ul (0.3-0.9); NEUTROPHIL # 8.5 10^3/ul (1.6-7.5); NEUTROPHILS % 71.3 % (39.0-77.0); PLATELET COUNT 285 10^3/UL (140-415); RED BLOOD COUNT 3.35 10^6/ul (4.70-6.10); RED CELL DISTRIBUTION WIDTH 13.2 % (11.5-14.5); WHITE BLOOD COUNT 11.9 10^3/ul (4.8-10.8)
[2016-12-04] MEDS: PANTOPRAZOLE (EC) 40 MG TAB PO SCH ×2 (06:41→17:37)
[2016-12-04 08:10] LABS: POTASSIUM 3.4 mmol/L (3.5-5.1)
[2016-12-04] MEDS: ASPIRIN 81 MG TAB NGT SCH (08:11)
[2016-12-04] MEDS: IMIPENEM-CILAST 500MG IV (PMX) 100 ML IVPB SCH ×2 (08:11→21:08)
[2016-12-04 08:12] LABS: CREATININE 1.7 mg/dl (0.61-1.24)
[2016-12-04] MEDS: AMIODARONE 200 MG TAB GTB SCH ×2 (08:12→20:58)
[2016-12-04 08:13] LABS: CALCIUM 8.4 mg/dl (8.4-10.2)
[2016-12-04] MEDS: TICAGRELOR 90 MG TABLET PO SCH ×2 (08:16→21:21)
--- NOTE | 2016-12-04 09:04 | CONS ---
Date/Time of Note Date/Time of Note DATE: 12/04/16 TIME: 09:03 Consult Date/Type/Reason Admit Date/Time Nov 25, 2016 at 20:00 Initial Consult Date 11/26/16 Type of Consultation: GI Subjective pt. seen and examined good uop no new events Objective Vital Signs Date Time Temp Pulse Resp B/P Pulse Ox O2 Delivery O2 Flow Rate FiO2 12/04/16 08:10 56 12/04/16 07:52 98.3 18 110/72 98 12/03/16 20:28 Room Air 2.0 12/02/16 17:56 21 Intake and Output 12/03/16 12/03/16 12/04/16 15:00 23:00 07:00 Intake Total 800 ml 1125 ml Balance 800 ml 1125 ml Results/Medications Result Diagram: 12/04/16 0556 12/04/16 0556 Results 24 hrs Laboratory Tests Test 12/04/16 05:56 Anion Gap 14 Basophils # 0.0 Basophils % 0.3 Blood Urea Nitrogen 29 H Calcium Level 8.4 Carbon Dioxide Level 26 Chloride Level 105 Creatinine 1.70 H Eosinophils # 0.5 Eosinophils % 4.0 Glucose Level 108 Hematocrit 29.1 L Hemoglobin 9.6 L Lymphocytes # 1.6 Lymphocytes % 13.1 L Mean Corpuscular Hemoglobin 28.7 L Mean Corpuscular Hemoglobin Concent 33.0 Mean Corpuscular Volume 86.9 Mean Platelet Volume 10.0 Monocytes # 1.1 H Monocytes % 9.0 Neutrophils # 8.5 H Neutrophils % 71.3 Nucleated Red Blood Cells # 0.0 Nucleated Red Blood Cells % 0.0 Platelet Count 285 Potassium Level 3.4 L Red Blood Count 3.35 L Red Cell Distribution Width 13.2 Sodium Level 142 White Blood Count 11.9 #H Medications Current Medications Ondansetron HCl (Zofran Inj) 4 mg Q6H PRN IV NAUSEA AND/OR VOMITING; Start at 21:00 Acetaminophen (Tylenol Supp) 650 mg Q4H PRN [place] PAIN LEVEL 1-3 OR FEVER; Start 11/25/16 at 21:00 Lorazepam (Ativan) 1 mg Q2H PRN IV ANXIETY Last administered on 12/01/16t 03:34 ; Admin Dose 1 MG; Start 11/25/16 at 21:00 Acetaminophen (Tylenol Liquid) 650 mg Q4H PRN PO TEMP > 37C; Start 11/25/16 at 21:00 Eye Lubricant (Akwa Oint) 1 applic Q6 BOTH EYES Last administered on 12/03/16 11:51; Admin Dose 1 APPLIC; Start 11/26/16 at 00:00 Eye Lubricant (Artificial Tears Oph) 2 drop Q6 BOTH EYES Last administered on 11:50; Admin Dose 2 DROP; Start 11/26/16 at 00:00 Ticagrelor (Brilinta) 90 mg BID PO Last administered on 12/04/16 08:16; Admin Dose 90 MG; Start 11/26/16 at 21:00 Hydralazine HCl 10 mg 10 mg Q6H PRN IV SBP greater than 160 Last administered on 11/27/16 02:19; Admin Dose 10 MG; Start 11/27/16 at 02:30 Imipenem/ Cilastatin Sodium (Primaxin 500 Mg/ 100 ml (Pmx)) 100 ml @ 100 mls/ hr Q12 IVPB Last administered on 12/04/16 08:11; Admin Dose 100 MLS/HR; Start 11/29/16 at 21:00 Aspirin (Aspirin) 81 mg DAILY NGT Last administered on 12/04/16 08:11; Admin Dose 81 MG; Start 11/30/16 at 09:00 Carvedilol (Coreg) 3.125 mg BID NGT Last administered on 12/04/16 08:12; Admin Dose 3.125 MG; Start 11/29/16 at 21:00 Atorvastatin Calcium 40 mg 40 mg DAILY@21 PO Last administered on 12/03/16 20: 30; Admin Dose 40 MG; Start 11/29/16 at 21:00 Potassium Chloride/Dextrose (D5W + KCl 20 Meq) 1,000 ml @ 75 mls/hr [id number] IV Last administered on 12/03/16 23:30; Admin Dose 75 MLS/HR; Start 12/02/16 at 07 :30 Amiodarone HCl (Cordarone) 200 mg BID GTB Last administered on 12/04/16 08:12; Admin Dose 200 MG; Start 12/03/16 at 21:00 Pantoprazole (Protonix Tab) 40 mg BID@06,18 PO Last administered on 12/04/16 06 :41; Admin Dose 40 MG; Start 12/03/16 at 18:00 Assessment/Plan Chief Complaint/Hosp Course 1. Nonoliguric acute kidney injury with previous baseline creatinine 1.16 mg/ dL. Etiology is secondary to acute tubular necrosis. Renal function has slowly been improving. Continue supportive care, renally dose all meds, and avoid nephrotoxins. 2. Volume overload, improving. Continue intermittent diuretic therapy as needed. 3. Mineral bone disorder. Continue to monitor calcium and phosphorus levels. No need for phosphate binders. 4. Hyponatremia secondary to insensible losses. The patient is currently on hypertonic fluid. Continue to monitor and adjust as needed. 5. Hypokalemia, resolved. 6. Cardiac arrest status post percutaneous coronary intervention. Continue current medical management. 7. Upper gastrointestinal bleed. The patient is pending EGD. Continue to monitor H and H levels. 8. Respiratory failure, status post extubation. The patient is currently stable on nasal cannula. Continue to monitor. 9. Encephalopathy, improving. Continue to monitor. 10. Systemic inflammatory response syndrome. Continue empiric antibiotics. 11. Shock liver, improving. Problems: SAMIR PARSONS MD Dec 04, 2016 09:04
[2016-12-04] MEDS ORDERED: POTASSIUM CHLORIDE (SR) 10 MEQ TAB PO ONE (09:30)
--- NOTE | 2016-12-04 09:55 | PN ---
Date/Time of Note Date/Time of Note DATE: 12/04/16 TIME: 09:49 Assessment/Plan VTE Prophylaxis VTE Prophylaxis Intervention: contraindicated, SCD's VTE Contraindication Reason: bleeding Lines/Catheters IV Catheter Type (from Nrs): Peripheral IV Urinary Cath still in place: No Assessment/Plan Chief Complaint/Hosp Course Assessment/Plan: Unfortunate 50 yo M brought in after cardiac arrest in the field found down after unknown period of time with: 1. Status post ventricular fibrillation cardiac arrest. V fib likely 2/2 #2; s /p Hypothermia Protocol, now extubated, more alert, out of ICU. - continue amiodarone PO as needed for arrhythmias/ closely monitor electrolytes - f/u CV rec's, also on Coreg, Lipitor 2. Acute inferior ST-elevation myocardial infarction, status post balloon angioplasty and stent placement of the proximal obtuse marginal as well as manual aspiration thrombectomy of the obtuse marginal. - Cardiology recommending to continue brilinta and aspirin while closely monitoring h/h and Transfusion PRN / Appreciate recs - statin as well 3. Ventilator-dependent respiratory failure - extubated 4 days ago. - f/u pulm input - abx for URI 4. Upper gastrointestinal bleed - NG tube out, seems minimal now, H/h stable. - Continue protonix drip/ still refusing EGD. - monitor for any UGI or LGI bleeding now - On 12/03/16, pt again was explained the importance of having an EGD performed on given his recent Hx of UGI bleed from NG tube. Despite this, he stated yesterday he "wants my hernias evaluated first before I consider having an EGD". I explained to pt that evaluating the hernias by surgery team is unrelated to his potential GI bleeding or having an EGD.and surgery team saw him this morning to discuss this. Presently there is no signs of SBO or abd pain or groin pain. F/u sugery rec's on this. 5. Severe SIRS 2/2 #1 + Lactic acidosis: improved - continue abx (aspiration PNA source) 6. Acute kidney injury with metabolic acidosis 2/2 ATN from shock + superimposed life saving contrast administration - improving now. - Gentle hydration for poor kidney function bearing in mind systolic dysfxn / appreciate Nephrology consult - Avoiding ACEi, ARBs for now . Renally dose all meds. Serial labs. 7. Probable shock liver: improving - monitor 8. Hyperglycemia with Nml A1C - likely reactive - Continue SSI while NPO 9. Hypokalemia: repleted - stable - monitor 10. Mild acute pancreatitis 11. Questionable anoxic brain injury - appears more alert now, however, extubated 3 days ago, alert - monitor for now 12. Recurrent hypocalcemia - monitor levels, replete as needed 13. low plts - sepsis vs med's - resolved now - Plts nL now (117 -> 132 -> 174 - > 207 ->240 -> 285) - cautiously continue ASA + Brilinta - monitor bleeding - have held Cefepime and vanco (can cause low plts), and continue Primaxin low dose for now instead for aspiration PNA 14. inguinal hernia - per verbal discussion with gen surgery team yesterday, no plan for this b/c pt on blood thinners and prob not urgent at this time. - will f/u official consult rec's. - see # 4 as well PROPHYLAXIS: SCDs / Protonix drip Problems: Subjective 24 Hr Interval Summary Free Text/Dictation No acute events overnight, seen by surgery team this AM, still refusing EGD. Exam/Review of Systems Vital Signs Vitals Vital Signs Date Time Temp Pulse Resp B/P Pulse Ox O2 Delivery O2 Flow Rate FiO2 12/04/16 08:10 56 12/04/16 07:52 98.3 18 110/72 98 12/03/16 20:28 Room Air 2.0 12/02/16 17:56 21 Intake and Output 12/03/16 12/03/16 12/04/16 15:00 23:00 07:00 Intake Total 800 ml 1125 ml Balance 800 ml 1125 ml Exam Constitutional: AaOx3 now, NAD Eyes: PERRL, EOMI ENMT: nL Respiratory: clear to auscultation Cardiovascular: regular rate and rhythm, No murmurs/extra sounds Gastrointestinal: bowel sounds, non-tender, soft Extremities: no LE edema B/L Neurological: no focal deficits Results Result Diagram: 12/04/16 0556 12/04/16 0556 Results 24 hrs Laboratory Tests Test 12/04/16 05:56 Anion Gap 14 Basophils # 0.0 Basophils % 0.3 Blood Urea Nitrogen 29 H Calcium Level 8.4 Carbon Dioxide Level 26 Chloride Level 105 Creatinine 1.70 H Eosinophils # 0.5 Eosinophils % 4.0 Glucose Level 108 Hematocrit 29.1 L Hemoglobin 9.6 L Lymphocytes # 1.6 Lymphocytes % 13.1 L Mean Corpuscular Hemoglobin 28.7 L Mean Corpuscular Hemoglobin Concent 33.0 Mean Corpuscular Volume 86.9 Mean Platelet Volume 10.0 Monocytes # 1.1 H Monocytes % 9.0 Neutrophils # 8.5 H Neutrophils % 71.3 Nucleated Red Blood Cells # 0.0 Nucleated Red Blood Cells % 0.0 Platelet Count 285 Potassium Level 3.4 L Red Blood Count 3.35 L Red Cell Distribution Width 13.2 Sodium Level 142 White Blood Count 11.9 #H Medications Medications Current Medications Ondansetron HCl (Zofran Inj) 4 mg Q6H PRN IV NAUSEA AND/OR VOMITING; Start at 21:00 Acetaminophen (Tylenol Supp) 650 mg Q4H PRN [place] PAIN LEVEL 1-3 OR FEVER; Start 11/25/16 at 21:00 Lorazepam (Ativan) 1 mg Q2H PRN IV ANXIETY Last administered on 12/01/16 03:34 ; Admin Dose 1 MG; Start 11/25/16 at 21:00 Acetaminophen (Tylenol Liquid) 650 mg Q4H PRN PO TEMP > 37C; Start 11/25/16 at 21:00 Eye Lubricant (Akwa Oint) 1 applic Q6 BOTH EYES Last administered on 12/03/16 11:51; Admin Dose 1 APPLIC; Start 11/26/16 at 00:00 Eye Lubricant (Artificial Tears Oph) 2 drop Q6 BOTH EYES Last administered on 11:50; Admin Dose 2 DROP; Start 11/26/16 at 00:00 Ticagrelor (Brilinta) 90 mg BID PO Last administered on 12/04/16 08:16; Admin Dose 90 MG; Start 11/26/16 at 21:00 Hydralazine HCl 10 mg 10 mg Q6H PRN IV SBP greater than 160 Last administered on 11/27/16 02:19; Admin Dose 10 MG; Start 11/27/16 at 02:30 Imipenem/ Cilastatin Sodium (Primaxin 500 Mg/ 100 ml (Pmx)) 100 ml @ 100 mls/ hr Q12 IVPB Last administered on 12/04/16 08:11; Admin Dose 100 MLS/HR; Start 11/29/16 at 21:00 Aspirin (Aspirin) 81 mg DAILY NGT Last administered on 12/04/16 08:11; Admin Dose 81 MG; Start 11/30/16 at 09:00 Carvedilol (Coreg) 3.125 mg BID NGT Last administered on 12/04/16 08:12; Admin Dose 3.125 MG; Start 11/29/16 at 21:00 Atorvastatin Calcium 40 mg 40 mg DAILY@21 PO Last administered on 12/03/16 20: 30; Admin Dose 40 MG; Start 11/29/16 at 21:00 Potassium Chloride/Dextrose (D5W + KCl 20 Meq) 1,000 ml @ 75 mls/hr [id number] IV Last administered on 12/03/16 23:30; Admin Dose 75 MLS/HR; Start 12/02/16 at 07 :30 Amiodarone HCl (Cordarone) 200 mg BID GTB Last administered on 12/04/16 08:12; Admin Dose 200 MG; Start 12/03/16 at 21:00 Pantoprazole (Protonix Tab) 40 mg BID@06,18 PO Last administered on 12/04/16 06 :41; Admin Dose 40 MG; Start 12/03/16 at 18:00 SOHAIL DEL CASTILLO Dec 04, 2016 09:55
--- NOTE | 2016-12-04 10:29 | CONS ---
Date/Time of Note Date/Time of Note DATE: 12/04/16 TIME: 10:27 Assessment/Plan Assessment/Plan Chief Complaint/Hosp Course Impression: Inferior STEMI s/p PCI OM Abnormal EKG Ventricular fibrillation arrest Renal failure HTN Anemia Recommendation/plan: ASA 81mg daily Ticagrelor 90mg BID; consider plavix if Ticagrelor is cost prohibitive Monitor Cr; nephrology following Continue Coreg Continue statin Receiving amiodarone; likely taper off if no arrhythmias Problems: Consultation Date/Type/Reason Admit Date/Time Nov 25, 2016 at 20:00 Initial Consult Date 11/26/16 Type of Consultation: GI 24 HR Interval Summary Free Text/Dictation doing well no chest pain or palpitations Exam/Review of Systems Vital Signs Vitals Vital Signs Date Time Temp Pulse Resp B/P Pulse Ox O2 Delivery O2 Flow Rate FiO2 12/04/16 08:10 56 12/04/16 07:52 98.3 18 110/72 98 12/03/16 20:28 Room Air 2.0 12/02/16 17:56 21 Intake and Output 12/03/16 12/03/16 12/04/16 15:00 23:00 07:00 Intake Total 800 ml 1125 ml Balance 800 ml 1125 ml Exam Constitutional: alert, oriented, well developed Psych: nl mood/affect, no complaints Head: atraumatic, normocephalic Eyes: EOMI, PERRL, nl conjunctiva, nl lids, nl sclera ENMT: nl external ears & nose, nl lips & teeth, nl nasal mucosa & septum Neck: non-tender, supple Respiratory: clear to auscultation, normal air movement Cardiovascular: nl pulses, regular rate and rhythm Gastrointestinal: nl liver, spleen, non-tender, soft Musculoskeletal: nl extremities to inspection, nl gait and stance Extremities: normal pulses Neurological: METEOROLOGY PROFESSOR II-XII intact, nl mental status, nl speech, nl strength Skin: nl turgor, No rash or lesions Lymph: nl lymph nodes Results Result Diagram: 12/04/16 0556 12/04/16 0556 Results 24 hrs Laboratory Tests Test 12/04/16 05:56 Anion Gap 14 Basophils # 0.0 Basophils % 0.3 Blood Urea Nitrogen 29 H Calcium Level 8.4 Carbon Dioxide Level 26 Chloride Level 105 Creatinine 1.70 H Eosinophils # 0.5 Eosinophils % 4.0 Glucose Level 108 Hematocrit 29.1 L Hemoglobin 9.6 L Lymphocytes # 1.6 Lymphocytes % 13.1 L Mean Corpuscular Hemoglobin 28.7 L Mean Corpuscular Hemoglobin Concent 33.0 Mean Corpuscular Volume 86.9 Mean Platelet Volume 10.0 Monocytes # 1.1 H Monocytes % 9.0 Neutrophils # 8.5 H Neutrophils % 71.3 Nucleated Red Blood Cells # 0.0 Nucleated Red Blood Cells % 0.0 Platelet Count 285 Potassium Level 3.4 L Red Blood Count 3.35 L Red Cell Distribution Width 13.2 Sodium Level 142 White Blood Count 11.9 #H Medications Medications Current Medications Ondansetron HCl (Zofran Inj) 4 mg Q6H PRN IV NAUSEA AND/OR VOMITING; Start at 21:00 Acetaminophen (Tylenol Supp) 650 mg Q4H PRN [place] PAIN LEVEL 1-3 OR FEVER; Start 11/25/16 at 21:00 Lorazepam (Ativan) 1 mg Q2H PRN IV ANXIETY Last administered on 12/01/16 03:34 ; Admin Dose 1 MG; Start 11/25/16 at 21:00 Acetaminophen (Tylenol Liquid) 650 mg Q4H PRN PO TEMP > 37C; Start 11/25/16 at 21:00 Eye Lubricant (Akwa Oint) 1 applic Q6 BOTH EYES Last administered on 12/03/16 11:51; Admin Dose 1 APPLIC; Start 11/26/16 at 00:00 Eye Lubricant (Artificial Tears Oph) 2 drop Q6 BOTH EYES Last administered on 11:50; Admin Dose 2 DROP; Start 11/26/16 at 00:00 Ticagrelor (Brilinta) 90 mg BID PO Last administered on 12/04/16 08:16; Admin Dose 90 MG; Start 11/26/16 at 21:00 Hydralazine HCl 10 mg 10 mg Q6H PRN IV SBP greater than 160 Last administered on 11/27/16 02:19; Admin Dose 10 MG; Start 11/27/16 at 02:30 Imipenem/ Cilastatin Sodium (Primaxin 500 Mg/ 100 ml (Pmx)) 100 ml @ 100 mls/ hr Q12 IVPB Last administered on 12/04/16 08:11; Admin Dose 100 MLS/HR; Start 11/29/16 at 21:00 Aspirin (Aspirin) 81 mg DAILY NGT Last administered on 12/04/16 08:11; Admin Dose 81 MG; Start 11/30/16 at 09:00 Carvedilol (Coreg) 3.125 mg BID NGT Last administered on 12/04/16 08:12; Admin Dose 3.125 MG; Start 11/29/16 at 21:00 Atorvastatin Calcium 40 mg 40 mg DAILY@21 PO Last administered on 12/03/16 20: 30; Admin Dose 40 MG; Start 11/29/16 at 21:00 Potassium Chloride/Dextrose (D5W + KCl 20 Meq) 1,000 ml @ 75 mls/hr [id number] IV Last administered on 12/03/16 23:30; Admin Dose 75 MLS/HR; Start 12/02/16 at 07 :30 Amiodarone HCl (Cordarone) 200 mg BID GTB Last administered on 12/04/16 08:12; Admin Dose 200 MG; Start 12/03/16 at 21:00 Pantoprazole (Protonix Tab) 40 mg BID@06,18 PO Last administered on 12/04/16 06 :41; Admin Dose 40 MG; Start 12/03/16 at 18:00 ANNIA EVANS 4, 2017 10:29
[2016-12-04] MEDS: D5W + KCL 20 MEQ 1,000 ML IV SCH ×2 (12:50→17:38)
--- NOTE | 2016-12-04 15:28 | CONS ---
Date/Time of Note Date/Time of Note DATE: 12/04/16 TIME: 15:26 Consult Date/Type/Reason Admit Date/Time Nov 25, 2016 at 20:00 Initial Consult Date 11/26/16 Type of Consultation: Pulm Subjective No overnight events. Objective Vital Signs Date Time Temp Pulse Resp B/P Pulse Ox O2 Delivery O2 Flow Rate FiO2 12/04/16 12:15 63 12/04/16 11:55 97.9 17 153/71 98 12/03/16 20:28 Room Air 2.0 12/02/16 17:56 21 Intake and Output 12/03/16 12/03/16 12/04/16 15:00 23:00 07:00 Intake Total 800 ml 1125 ml Balance 800 ml 1125 ml HEENT: Neck supple; no JVD; no LAD CVS: RRR, S1 and S2 CHEST: Clear ABD: Soft, NT, + BS EXT: No c/c/e Results/Medications Result Diagram: 12/04/16 0556 12/04/16 0556 Results 24 hrs Laboratory Tests Test 12/04/16 05:56 Anion Gap 14 Basophils # 0.0 Basophils % 0.3 Blood Urea Nitrogen 29 H Calcium Level 8.4 Carbon Dioxide Level 26 Chloride Level 105 Creatinine 1.70 H Eosinophils # 0.5 Eosinophils % 4.0 Glucose Level 108 Hematocrit 29.1 L Hemoglobin 9.6 L Lymphocytes # 1.6 Lymphocytes % 13.1 L Mean Corpuscular Hemoglobin 28.7 L Mean Corpuscular Hemoglobin Concent 33.0 Mean Corpuscular Volume 86.9 Mean Platelet Volume 10.0 Monocytes # 1.1 H Monocytes % 9.0 Neutrophils # 8.5 H Neutrophils % 71.3 Nucleated Red Blood Cells # 0.0 Nucleated Red Blood Cells % 0.0 Platelet Count 285 Potassium Level 3.4 L Red Blood Count 3.35 L Red Cell Distribution Width 13.2 Sodium Level 142 White Blood Count 11.9 #H Medications Current Medications Ondansetron HCl (Zofran Inj) 4 mg Q6H PRN IV NAUSEA AND/OR VOMITING; Start at 21:00 Acetaminophen (Tylenol Supp) 650 mg Q4H PRN [place] PAIN LEVEL 1-3 OR FEVER; Start 11/25/16 at 21:00 Lorazepam (Ativan) 1 mg Q2H PRN IV ANXIETY Last administered on 12/01/16 03:34 ; Admin Dose 1 MG; Start 11/25/16 at 21:00 Acetaminophen (Tylenol Liquid) 650 mg Q4H PRN PO TEMP > 37C; Start 11/25/16 at 21:00 Eye Lubricant (Akwa Oint) 1 applic Q6 BOTH EYES Last administered on 12/03/16 11:51; Admin Dose 1 APPLIC; Start 11/26/16 at 00:00 Eye Lubricant (Artificial Tears Oph) 2 drop Q6 BOTH EYES Last administered on 11:50; Admin Dose 2 DROP; Start 11/26/16 at 00:00 Ticagrelor (Brilinta) 90 mg BID PO Last administered on 12/04/16 08:16; Admin Dose 90 MG; Start 11/26/16 at 21:00 Hydralazine HCl 10 mg 10 mg Q6H PRN IV SBP greater than 160 Last administered on 11/27/16 02:19; Admin Dose 10 MG; Start 11/27/16 at 02:30 Imipenem/ Cilastatin Sodium (Primaxin 500 Mg/ 100 ml (Pmx)) 100 ml @ 100 mls/ hr Q12 IVPB Last administered on 12/04/16 08:11; Admin Dose 100 MLS/HR; Start 11/29/16 at 21:00 Aspirin (Aspirin) 81 mg DAILY NGT Last administered on 12/04/16 08:11; Admin Dose 81 MG; Start 11/30/16 at 09:00 Carvedilol (Coreg) 3.125 mg BID NGT Last administered on 12/04/16 08:12; Admin Dose 3.125 MG; Start 11/29/16 at 21:00 Atorvastatin Calcium 40 mg 40 mg DAILY@21 PO Last administered on 12/03/16 20: 30; Admin Dose 40 MG; Start 11/29/16 at 21:00 Potassium Chloride/Dextrose (D5W + KCl 20 Meq) 1,000 ml @ 75 mls/hr [id number] IV Last administered on 12/03/16 23:30; Admin Dose 75 MLS/HR; Start 12/02/16 at 07 :30 Amiodarone HCl (Cordarone) 200 mg BID GTB Last administered on 12/04/16 08:12; Admin Dose 200 MG; Start 12/03/16 at 21:00 Pantoprazole (Protonix Tab) 40 mg BID@06,18 PO Last administered on 12/04/16t 06 :41; Admin Dose 40 MG; Start 12/03/16 at 18:00 Assessment/Plan Additional Assessment/Plan IMPRESSION: 1. Status post respiratory failure, safely extubated. 2. Status post acute cardiopulmonary arrest, status post coronary intervention with angioplasty to obtuse marginal branch. 3. Renal insufficiency, likely acute tubular necrosis injury, now improving. 4. Status post ACS RECS: 1. ST to eval swallowing 2. BD's 3. Mobilize JACOB ZABALA MD Dec 04, 2016 15:28
--- NOTE | 2016-12-04 15:35 | CONS ---
Date/Time of Note Date/Time of Note DATE: 12/04/16 TIME: 15:27 Assessment/Plan Assessment/Plan Chief Complaint/Hosp Course 1. Upper gastrointestinal bleed - H/h stable. Patient refusing EGD - dc protonix drip and change to 40 mg po bid dosing - monitor for any UGI or LGI bleeding now. If h/h drop and e/o overt GIB, will re-discuss with patient regarding EGD - check H. pylori serology and treat if positive given pt refusing EGD 2. Status post ventricular fibrillation cardiac arrest. V fib likely 2/2 STEMI; s/p Hypothermia Protocol, now extubated, more alert, out of ICU. - management per test preparation tutor 3. Acute inferior ST-elevation myocardial infarction, status post balloon angioplasty and stent placement of the proximal obtuse marginal as well as manual aspiration thrombectomy of the obtuse marginal. - management per supervisor home energy consultant - ok to start anti-platelet agent as pt refusing EGD. If GI bleeding recurs, will have to stop these agents and re-discuss with patient on EGD for hemostasis. 3. Ventilator-dependent respiratory failure - extubated 4 days ago. Improved. - management per pulmonary. 4. Probable shock liver: improving - monitor for now 5. Questionable anoxic brain injury - appears more alert now, however, extubated 3 days ago, alert and oriented now. 6. inguinal hernia - per verbal discussion with gen surgery team yesterday, no plan for this b/c pt on blood thinners and prob not urgent at this time. - f/u with surgery official consult note Problems: Consultation Date/Type/Reason Admit Date/Time Nov 25, 2016 at 20:00 Initial Consult Date 11/26/16 Type of Consultation: GI 24 HR Interval Summary Free Text/Dictation complains of chest pain, worry about EGD causing more chest pain Exam/Review of Systems Vital Signs Vitals Vital Signs Date Time Temp Pulse Resp B/P Pulse Ox O2 Delivery O2 Flow Rate FiO2 12/04/16 12:15 63 12/04/16 11:55 97.9 17 153/71 98 12/03/16 20:28 Room Air 2.0 12/02/16 17:56 21 Intake and Output 12/03/16 12/03/16 12/04/16 15:00 23:00 07:00 Intake Total 800 ml 1125 ml Balance 800 ml 1125 ml Exam Constitutional: alert, oriented, well developed Psych: nl mood/affect, no complaints Head: atraumatic, normocephalic Eyes: EOMI, nl conjunctiva, nl lids, nl sclera ENMT: mucosa pink and moist, nl external ears & nose, nl lips & teeth, nl nasal mucosa & septum Neck: non-tender, supple Respiratory: clear to auscultation, normal air movement Cardiovascular: nl pulses, regular rate and rhythm Gastrointestinal: bowel sounds, non-tender, soft Results Result Diagram: 12/04/16 0556 12/04/16 0556 Results 24 hrs Laboratory Tests Test 12/04/16 05:56 Anion Gap 14 Basophils # 0.0 Basophils % 0.3 Blood Urea Nitrogen 29 H Calcium Level 8.4 Carbon Dioxide Level 26 Chloride Level 105 Creatinine 1.70 H Eosinophils # 0.5 Eosinophils % 4.0 Glucose Level 108 Hematocrit 29.1 L Hemoglobin 9.6 L Lymphocytes # 1.6 Lymphocytes % 13.1 L Mean Corpuscular Hemoglobin 28.7 L Mean Corpuscular Hemoglobin Concent 33.0 Mean Corpuscular Volume 86.9 Mean Platelet Volume 10.0 Monocytes # 1.1 H Monocytes % 9.0 Neutrophils # 8.5 H Neutrophils % 71.3 Nucleated Red Blood Cells # 0.0 Nucleated Red Blood Cells % 0.0 Platelet Count 285 Potassium Level 3.4 L Red Blood Count 3.35 L Red Cell Distribution Width 13.2 Sodium Level 142 White Blood Count 11.9 #H Medications Medications Current Medications Ondansetron HCl (Zofran Inj) 4 mg Q6H PRN IV NAUSEA AND/OR VOMITING; Start at 21:00 Acetaminophen (Tylenol Supp) 650 mg Q4H PRN [place] PAIN LEVEL 1-3 OR FEVER; Start 11/25/16 at 21:00 Lorazepam (Ativan) 1 mg Q2H PRN IV ANXIETY Last administered on 12/01/16 03:34 ; Admin Dose 1 MG; Start 11/25/16 at 21:00 Acetaminophen (Tylenol Liquid) 650 mg Q4H PRN PO TEMP > 37C; Start 11/25/16 at 21:00 Eye Lubricant (Akwa Oint) 1 applic Q6 BOTH EYES Last administered on 12/03/16 11:51; Admin Dose 1 APPLIC; Start 11/26/16 at 00:00 Eye Lubricant (Artificial Tears Oph) 2 drop Q6 BOTH EYES Last administered on 11:50; Admin Dose 2 DROP; Start 11/26/16 at 00:00 Ticagrelor (Brilinta) 90 mg BID PO Last administered on 12/04/16 08:16; Admin Dose 90 MG; Start 11/26/16 at 21:00 Hydralazine HCl 10 mg 10 mg Q6H PRN IV SBP greater than 160 Last administered on 11/27/16 02:19; Admin Dose 10 MG; Start 11/27/16 at 02:30 Imipenem/ Cilastatin Sodium (Primaxin 500 Mg/ 100 ml (Pmx)) 100 ml @ 100 mls/ hr Q12 IVPB Last administered on 12/04/16 08:11; Admin Dose 100 MLS/HR; Start 11/29/16 at 21:00 Aspirin (Aspirin) 81 mg DAILY NGT Last administered on 12/04/16 08:11; Admin Dose 81 MG; Start 11/30/16 at 09:00 Carvedilol (Coreg) 3.125 mg BID NGT Last administered on 12/04/16 08:12; Admin Dose 3.125 MG; Start 11/29/16 at 21:00 Atorvastatin Calcium 40 mg 40 mg DAILY@21 PO Last administered on 12/03/16 20: 30; Admin Dose 40 MG; Start 11/29/16 at 21:00 Potassium Chloride/Dextrose (D5W + KCl 20 Meq) 1,000 ml @ 75 mls/hr [id number] IV Last administered on 12/03/16 23:30; Admin Dose 75 MLS/HR; Start 12/02/16 at 07 :30 Amiodarone HCl (Cordarone) 200 mg BID GTB Last administered on 12/04/16 08:12; Admin Dose 200 MG; Start 12/03/16 at 21:00 Pantoprazole (Protonix Tab) 40 mg BID@06,18 PO Last administered on 12/04/16 06 :41; Admin Dose 40 MG; Start 12/03/16 at 18:00 JAUN TORIBIO MD Dec 04, 2016 15:35
[2016-12-04] MEDS: ATORVASTATIN 40 MG TAB PO SCH (20:59)
[2016-12-05] VITALS (11 sets, daily range): BP systolic 103–127; BP diastolic 59–80; PULSE 57–69; RESP 16–18
[2016-12-05] MEDS: OCULAR LUBRICANT 3.5 GM OPH OINT BOTH EYES SCH ×4 (05:13→18:00)
[2016-12-05] MEDS: ARTIFICIAL TEARS 15 ML OPH BOTH EYES SCH ×4 (05:13→18:00)
[2016-12-05 06:02] LABS: ADD SCAN DIFF NO
[2016-12-05 06:16] LABS: BASOPHILS % 0.2 % (0.0-2.0); EOSINOPHILS # 0.4 10^3/ul (0.0-0.5); EOSINOPHILS % 3.4 % (0.0-7.0); HEMATOCRIT 29.1 % (42.0-52.0); HEMOGLOBIN 9.5 g/dl (14.0-18.0); LYMPHOCYTES # 1.1 10^3/ul (0.8-2.9); MEAN CORPUSCULAR HEMOGLOBIN 28.6 pg (29.0-33.0); MEAN CORPUSCULAR HGB CONC 32.6 g/dl (32.0-37.0); MEAN CORPUSCULAR VOLUME 87.7 fl (82.0-101.0); MONOCYTE # 0.9 10^3/ul (0.3-0.9); MONOCYTES % 7.8 % (0.0-11.0); NEUTROPHIL # 8.4 10^3/ul (1.6-7.5); NEUTROPHILS % 76.9 % (39.0-77.0); PLATELET COUNT 311 10^3/UL (140-415); RED BLOOD COUNT 3.32 10^6/ul (4.70-6.10); RED CELL DISTRIBUTION WIDTH 13.4 % (11.5-14.5)
[2016-12-05] MEDS: D5W + KCL 20 MEQ 1,000 ML IV SCH ×2 (06:41→18:45)
[2016-12-05] MEDS: PANTOPRAZOLE (EC) 40 MG TAB PO SCH ×2 (06:41→18:44)
[2016-12-05 06:54] LABS: POTASSIUM 3.9 mmol/L (3.5-5.1)
[2016-12-05 06:56] LABS: CREATININE 1.89 mg/dl (0.61-1.24)
[2016-12-05 06:57] LABS: CALCIUM 8.5 mg/dl (8.4-10.2)
[2016-12-05] MEDS: ASPIRIN 81 MG TAB NGT SCH (10:01)
[2016-12-05] MEDS: IMIPENEM-CILAST 500MG IV (PMX) 100 ML IVPB SCH ×2 (10:02→21:02)
[2016-12-05] MEDS: AMIODARONE 200 MG TAB GTB SCH ×2 (10:02→21:02)
[2016-12-05] MEDS: TICAGRELOR 90 MG TABLET PO SCH ×2 (10:05→21:19)
--- NOTE | 2016-12-05 10:08 | CONS ---
Date/Time of Note Date/Time of Note DATE: 12/05/16 TIME: 10:07 Consult Date/Type/Reason Admit Date/Time Nov 25, 2016 at 20:00 Initial Consult Date 11/26/16 Type of Consultation: nephrology Subjective good uop.d/w rn no new events PE: HEENT: Neck supple; no JVD; no LAD CVS: RRR, S1 and S2 CHEST: Clear ABD: Soft, NT, + BS EXT: No c/c/e Objective Vital Signs Date Time Temp Pulse Resp B/P Pulse Ox O2 Delivery O2 Flow Rate FiO2 12/05/16 08:23 58 12/05/16 07:11 98.5 18 122/70 99 12/03/16 20:28 Room Air 2.0 12/02/16 17:56 21 Intake and Output 12/04/16 12/04/16 12/05/16 15:00 23:00 07:00 Intake Total 1250 ml 720 ml Balance 1250 ml 720 ml Results/Medications Result Diagram: 12/05/16 0528 12/05/16 0528 Results 24 hrs Laboratory Tests Test 12/05/16 05:28 Anion Gap 13 Basophils # 0.0 Basophils % 0.2 Blood Urea Nitrogen 30 H Calcium Level 8.5 Carbon Dioxide Level 27 Chloride Level 106 Creatinine 1.89 H Eosinophils # 0.4 Eosinophils % 3.4 Glucose Level 104 Hematocrit 29.1 L Hemoglobin 9.5 L Lymphocytes # 1.1 Lymphocytes % 10.0 L Mean Corpuscular Hemoglobin 28.6 L Mean Corpuscular Hemoglobin Concent 32.6 Mean Corpuscular Volume 87.7 Mean Platelet Volume 10.0 Monocytes # 0.9 Monocytes % 7.8 Neutrophils # 8.4 H Neutrophils % 76.9 Nucleated Red Blood Cells # 0.0 Nucleated Red Blood Cells % 0.0 Platelet Count 311 Potassium Level 3.9 Red Blood Count 3.32 L Red Cell Distribution Width 13.4 Sodium Level 142 White Blood Count 11.0 H Medications Current Medications Ondansetron HCl (Zofran Inj) 4 mg Q6H PRN IV NAUSEA AND/OR VOMITING; Start at 21:00 Acetaminophen (Tylenol Supp) 650 mg Q4H PRN [place] PAIN LEVEL 1-3 OR FEVER; Start 11/25/16 at 21:00 Lorazepam (Ativan) 1 mg Q2H PRN IV ANXIETY Last administered on 12/01/16 03:34 ; Admin Dose 1 MG; Start 11/25/16 at 21:00 Acetaminophen (Tylenol Liquid) 650 mg Q4H PRN PO TEMP > 37C; Start 11/25/16 at 21:00 Eye Lubricant (Akwa Oint) 1 applic Q6 BOTH EYES Last administered on 12/03/16 11:51; Admin Dose 1 APPLIC; Start 11/26/16 at 00:00 Eye Lubricant (Artificial Tears Oph) 2 drop Q6 BOTH EYES Last administered on 11:50; Admin Dose 2 DROP; Start 11/26/16 at 00:00 Ticagrelor (Brilinta) 90 mg BID PO Last administered on 12/04/16 21:21; Admin Dose 90 MG; Start 11/26/16 at 21:00 Hydralazine HCl 10 mg 10 mg Q6H PRN IV SBP greater than 160 Last administered on 11/27/16 02:19; Admin Dose 10 MG; Start 11/27/16 at 02:30 Imipenem/ Cilastatin Sodium (Primaxin 500 Mg/ 100 ml (Pmx)) 100 ml @ 100 mls/ hr Q12 IVPB Last administered on 12/04/16 21:08; Admin Dose 100 MLS/HR; Start 11/29/16 at 21:00 Aspirin (Aspirin) 81 mg DAILY NGT Last administered on 12/04/16 08:11; Admin Dose 81 MG; Start 11/30/16 at 09:00 Carvedilol (Coreg) 3.125 mg BID NGT Last administered on 12/04/16 20:59; Admin Dose 3.125 MG; Start 11/29/16 at 21:00 Atorvastatin Calcium 40 mg 40 mg DAILY@21 PO Last administered on 12/04/16 20: 59; Admin Dose 40 MG; Start 11/29/16 at 21:00 Potassium Chloride/Dextrose (D5W + KCl 20 Meq) 1,000 ml @ 75 mls/hr [id number] IV Last administered on 12/05/16 06:41; Admin Dose 75 MLS/HR; Start 12/02/16 at 07 :30 Amiodarone HCl (Cordarone) 200 mg BID GTB Last administered on 3/4/17at 20:58; Admin Dose 200 MG; Start 12/03/16 at 21:00 Pantoprazole (Protonix Tab) 40 mg BID@06,18 PO Last administered on 12/05/16t 06 :41; Admin Dose 40 MG; Start 12/03/16 at 18:00 Assessment/Plan Chief Complaint/Hosp Course 1. Nonoliguric acute kidney injury with previous baseline creatinine 1.16 mg/ dL. Etiology is secondary to acute tubular necrosis. Renal function has slowly been improving. Continue supportive care, renally dose all meds, and avoid nephrotoxins. 2. Volume overload, improving. Continue intermittent diuretic therapy as needed. 3. Mineral bone disorder. Continue to monitor calcium and phosphorus levels. No need for phosphate binders. 4. Hyponatremia secondary to insensible losses. The patient is currently on hypertonic fluid. Continue to monitor and adjust as needed. 5. Hypokalemia, resolved. 6. Cardiac arrest status post percutaneous coronary intervention. Continue current medical management. 7. Upper gastrointestinal bleed. The patient is pending EGD. Continue to monitor H and H levels. 8. Respiratory failure, status post extubation. The patient is currently stable on nasal cannula. Continue to monitor. 9. Encephalopathy, improving. Continue to monitor. 10. Systemic inflammatory response syndrome. Continue empiric antibiotics. 11. Shock liver, improving. Problems: SAMIR PARSONS MD Dec 05, 2016 10:08
--- NOTE | 2016-12-05 15:40 | CONS ---
Date/Time of Note Date/Time of Note DATE: 12/05/16 TIME: 15:39 Consult Date/Type/Reason Admit Date/Time Nov 25, 2016 at 20:00 Initial Consult Date 11/26/16 Type of Consultation: Pulm Subjective No events overnight. Objective Vital Signs Date Time Temp Pulse Resp B/P Pulse Ox O2 Delivery O2 Flow Rate FiO2 12/05/16 15:12 98.3 61 18 112/66 96 12/03/16 20:28 Room Air 2.0 12/02/16 17:56 21 Intake and Output 12/04/16 12/04/16 12/05/16 15:00 23:00 07:00 Intake Total 1250 ml 720 ml Balance 1250 ml 720 ml HEENT: Neck supple; no JVD; no LAD CVS: RRR, S1 and S2 CHEST: Clear ABD: Soft, NT, + BS EXT: No c/c/e Results/Medications Result Diagram: 12/05/16 0528 12/05/16 0528 Results 24 hrs Laboratory Tests Test 12/05/16 05:28 Anion Gap 13 Basophils # 0.0 Basophils % 0.2 Blood Urea Nitrogen 30 H Calcium Level 8.5 Carbon Dioxide Level 27 Chloride Level 106 Creatinine 1.89 H Eosinophils # 0.4 Eosinophils % 3.4 Glucose Level 104 Hematocrit 29.1 L Hemoglobin 9.5 L Lymphocytes # 1.1 Lymphocytes % 10.0 L Mean Corpuscular Hemoglobin 28.6 L Mean Corpuscular Hemoglobin Concent 32.6 Mean Corpuscular Volume 87.7 Mean Platelet Volume 10.0 Monocytes # 0.9 Monocytes % 7.8 Neutrophils # 8.4 H Neutrophils % 76.9 Nucleated Red Blood Cells # 0.0 Nucleated Red Blood Cells % 0.0 Platelet Count 311 Potassium Level 3.9 Red Blood Count 3.32 L Red Cell Distribution Width 13.4 Sodium Level 142 White Blood Count 11.0 H Medications Current Medications Ondansetron HCl (Zofran Inj) 4 mg Q6H PRN IV NAUSEA AND/OR VOMITING; Start at 21:00 Acetaminophen (Tylenol Supp) 650 mg Q4H PRN [place] PAIN LEVEL 1-3 OR FEVER; Start 11/25/16 at 21:00 Lorazepam (Ativan) 1 mg Q2H PRN IV ANXIETY Last administered on 12/01/16t 03:34 ; Admin Dose 1 MG; Start 11/25/16 at 21:00 Acetaminophen (Tylenol Liquid) 650 mg Q4H PRN PO TEMP > 37C; Start 11/25/16 at 21:00 Eye Lubricant (Akwa Oint) 1 applic Q6 BOTH EYES Last administered on 12/03/16 11:51; Admin Dose 1 APPLIC; Start 11/26/16 at 00:00 Eye Lubricant (Artificial Tears Oph) 2 drop Q6 BOTH EYES Last administered on 11:50; Admin Dose 2 DROP; Start 11/26/16 at 00:00 Ticagrelor (Brilinta) 90 mg BID PO Last administered on 12/05/16 10:05; Admin Dose 90 MG; Start 11/26/16 at 21:00 Hydralazine HCl 10 mg 10 mg Q6H PRN IV SBP greater than 160 Last administered on 11/27/16 02:19; Admin Dose 10 MG; Start 11/27/16 at 02:30 Imipenem/ Cilastatin Sodium (Primaxin 500 Mg/ 100 ml (Pmx)) 100 ml @ 100 mls/ hr Q12 IVPB Last administered on 12/05/16 10:02; Admin Dose 100 MLS/HR; Start 11/29/16 at 21:00 Aspirin (Aspirin) 81 mg DAILY NGT Last administered on 12/05/16 10:01; Admin Dose 81 MG; Start 11/30/16 at 09:00 Carvedilol (Coreg) 3.125 mg BID NGT Last administered on 12/05/16 10:01; Admin Dose 3.125 MG; Start 11/29/16 at 21:00 Atorvastatin Calcium 40 mg 40 mg DAILY@21 PO Last administered on 12/04/16 20: 59; Admin Dose 40 MG; Start 11/29/16 at 21:00 Potassium Chloride/Dextrose (D5W + KCl 20 Meq) 1,000 ml @ 75 mls/hr [id number] IV Last administered on 12/05/16 06:41; Admin Dose 75 MLS/HR; Start 12/02/16 at 07 :30 Amiodarone HCl (Cordarone) 200 mg BID GTB Last administered on 12/05/16 10:02; Admin Dose 200 MG; Start 12/03/16 at 21:00 Pantoprazole (Protonix Tab) 40 mg BID@06,18 PO Last administered on 12/05/16t 06 :41; Admin Dose 40 MG; Start 12/03/16 at 18:00 Assessment/Plan Additional Assessment/Plan IMPRESSION: 1. Status post respiratory failure 2. Status post acute cardiopulmonary arrest, status post coronary intervention 3. Renal insufficiency, likely acute tubular necrosis injury, now improving. 4. Status post ACS RECS: 1. ST to eval swallowing 2. BD's prn 3. Mobilize OOB 4. Titrate FiO2 JACOB RODRIGUEZ MD Dec 05, 2016 15:40
--- NOTE | 2016-12-05 16:46 | PN ---
Date/Time of Note Date/Time of Note DATE: 12/05/16 TIME: 16:43 Assessment/Plan VTE Prophylaxis VTE Prophylaxis Intervention: contraindicated, SCD's VTE Contraindication Reason: bleeding Lines/Catheters IV Catheter Type (from Nrs): Peripheral IV Urinary Cath still in place: No Assessment/Plan Chief Complaint/Hosp Course Assessment/Plan: Unfortunate 50 yo M brought in after cardiac arrest in the field found down after unknown period of time with: 1. Status post ventricular fibrillation cardiac arrest. V fib likely 2/2 #2; s /p Hypothermia Protocol, now extubated, more alert, out of ICU. - continue amiodarone PO as needed for arrhythmias/ closely monitor electrolytes - f/u CV rec's, also on Coreg, Lipitor 2. Acute inferior ST-elevation myocardial infarction, status post balloon angioplasty and stent placement of the proximal obtuse marginal as well as manual aspiration thrombectomy of the obtuse marginal. - Cardiology recommending to continue brilinta and aspirin while closely monitoring h/h and Transfusion PRN / Appreciate recs - statin as well 3. Ventilator-dependent respiratory failure - extubated 5 days ago. - f/u pulm input - abx for URI 4. Upper gastrointestinal bleed - NG tube out, seems minimal now, H/h stable. - Continue protonix drip/ still refusing EGD. - monitor for any UGI or LGI bleeding now - On 12/03/16, pt again was explained the importance of having an EGD performed on given his recent Hx of UGI bleed from NG tube. Despite this, he stated yesterday he "wants my hernias evaluated first before I consider having an EGD". I explained to pt that evaluating the hernias by surgery team is unrelated to his potential GI bleeding or having an EGD.and surgery team saw him this morning to discuss this. Presently there is no signs of SBO or abd pain or groin pain. F/u sugery rec's on this. 5. Severe SIRS 2/2 #1 + Lactic acidosis: improved - continue abx (aspiration PNA source) 6. Acute kidney injury with metabolic acidosis 2/2 ATN from shock + superimposed life saving contrast administration - improving now. - Gentle hydration for poor kidney function bearing in mind systolic dysfxn / appreciate Nephrology consult - Avoiding ACEi, ARBs for now . Renally dose all meds. Serial labs. 7. Probable shock liver: improving - monitor 8. Hyperglycemia with Nml A1C - likely reactive - Continue SSI while NPO 9. Hypokalemia: repleted - stable - monitor 10. Mild acute pancreatitis 11. Questionable anoxic brain injury - appears more alert now, however, extubated 3 days ago, alert - monitor for now 12. Recurrent hypocalcemia - monitor levels, replete as needed 13. low plts - sepsis vs med's - resolved now - Plts nL now (117 -> 132 -> 174 - > 207 ->240 -> 285) - cautiously continue ASA + Brilinta - monitor bleeding - have held Cefepime and vanco (can cause low plts), and continue Primaxin low dose for now instead for aspiration PNA 14. inguinal hernia - per verbal discussion with gen surgery team yesterday, no plan for this b/c pt on blood thinners and prob not urgent at this time. - will f/u official consult rec's. - see # 4 as well PROPHYLAXIS: SCDs / Protonix drip Dispo: hopefully home in 24 hrs - need to make sure he can get his cardiac meds filled at pharmacy - and f/u with CM regarding insurance. Problems: Subjective 24 Hr Interval Summary Free Text/Dictation No acute events overnight. Exam/Review of Systems Vital Signs Vitals Vital Signs Date Time Temp Pulse Resp B/P Pulse Ox O2 Delivery O2 Flow Rate FiO2 12/05/16 16:24 61 12/05/16 15:12 98.3 18 112/66 96 12/03/16 20:28 Room Air 2.0 12/02/16 17:56 21 Intake and Output 12/04/16 12/04/16 12/05/16 15:00 23:00 07:00 Intake Total 1250 ml 720 ml Balance 1250 ml 720 ml Exam Constitutional: AaOx3 now, NAD Eyes: PERRL, EOMI ENMT: nL Respiratory: clear to auscultation Cardiovascular: regular rate and rhythm, No murmurs/extra sounds Gastrointestinal: bowel sounds, non-tender, soft Extremities: no LE edema B/L Neurological: no focal deficits Results Result Diagram: 12/05/1652712/05/16527 Results 24 hrs Laboratory Tests Test 12/05/16 05:28 Anion Gap 13 Basophils # 0.0 Basophils % 0.2 Blood Urea Nitrogen 30 H Calcium Level 8.5 Carbon Dioxide Level 27 Chloride Level 106 Creatinine 1.89 H Eosinophils # 0.4 Eosinophils % 3.4 Glucose Level 104 Hematocrit 29.1 L Hemoglobin 9.5 L Lymphocytes # 1.1 Lymphocytes % 10.0 L Mean Corpuscular Hemoglobin 28.6 L Mean Corpuscular Hemoglobin Concent 32.6 Mean Corpuscular Volume 87.7 Mean Platelet Volume 10.0 Monocytes # 0.9 Monocytes % 7.8 Neutrophils # 8.4 H Neutrophils % 76.9 Nucleated Red Blood Cells # 0.0 Nucleated Red Blood Cells % 0.0 Platelet Count 311 Potassium Level 3.9 Red Blood Count 3.32 L Red Cell Distribution Width 13.4 Sodium Level 142 White Blood Count 11.0 H Medications Medications Current Medications Ondansetron HCl (Zofran Inj) 4 mg Q6H PRN IV NAUSEA AND/OR VOMITING; Start at 21:00 Acetaminophen (Tylenol Supp) 650 mg Q4H PRN [place] PAIN LEVEL 1-3 OR FEVER; Start 11/25/16 at 21:00 Lorazepam (Ativan) 1 mg Q2H PRN IV ANXIETY Last administered on 12/01/16 03:34 ; Admin Dose 1 MG; Start 11/25/16 at 21:00 Acetaminophen (Tylenol Liquid) 650 mg Q4H PRN PO TEMP > 37C; Start 11/25/16 at 21:00 Eye Lubricant (Akwa Oint) 1 applic Q6 BOTH EYES Last administered on 12/03/16 11:51; Admin Dose 1 APPLIC; Start 11/26/16 at 00:00 Eye Lubricant (Artificial Tears Oph) 2 drop Q6 BOTH EYES Last administered on 11:50; Admin Dose 2 DROP; Start 11/26/16 at 00:00 Ticagrelor (Brilinta) 90 mg BID PO Last administered on 12/05/16 10:05; Admin Dose 90 MG; Start 11/26/16 at 21:00 Hydralazine HCl 10 mg 10 mg Q6H PRN IV SBP greater than 160 Last administered on 11/27/16 02:19; Admin Dose 10 MG; Start 11/27/16 at 02:30 Imipenem/ Cilastatin Sodium (Primaxin 500 Mg/ 100 ml (Pmx)) 100 ml @ 100 mls/ hr Q12 IVPB Last administered on 12/05/16 10:02; Admin Dose 100 MLS/HR; Start 11/29/16 at 21:00 Aspirin (Aspirin) 81 mg DAILY NGT Last administered on 12/05/16 10:01; Admin Dose 81 MG; Start 11/30/16 at 09:00 Carvedilol (Coreg) 3.125 mg BID NGT Last administered on 12/05/16 10:01; Admin Dose 3.125 MG; Start 11/29/16 at 21:00 Atorvastatin Calcium 40 mg 40 mg DAILY@21 PO Last administered on 12/04/16 20: 59; Admin Dose 40 MG; Start 11/29/16 at 21:00 Potassium Chloride/Dextrose (D5W + KCl 20 Meq) 1,000 ml @ 75 mls/hr [id number] IV Last administered on 12/05/16 06:41; Admin Dose 75 MLS/HR; Start 12/02/16 at 07 :30 Amiodarone HCl (Cordarone) 200 mg BID GTB Last administered on 12/05/16 10:02; Admin Dose 200 MG; Start 12/03/16 at 21:00 Pantoprazole (Protonix Tab) 40 mg BID@06,18 PO Last administered on 12/05/16 06 :41; Admin Dose 40 MG; Start 12/03/16 at 18:00 SOHAIL DEL CASTILLO Dec 05, 2016 16:46
[2016-12-05] MEDS: ATORVASTATIN 40 MG TAB PO SCH (21:03)
--- NOTE | 2016-12-05 21:19 | CONS ---
Date/Time of Note Date/Time of Note DATE: 12/05/16 TIME: :17 Assessment/Plan Assessment/Plan Chief Complaint/Hosp Course 1. Upper gastrointestinal bleed - H/h stable. Patient refusing EGD secondary to his chest wall pain - continue protonix 40 mg po bid dosing - monitor for any UGI or LGI bleeding now. If h/h drop and e/o overt GIB, will re-discuss with patient regarding EGD - check H. pylori serology and treat if positive given pt refusing EGD 2. Status post ventricular fibrillation cardiac arrest. V fib likely 2/2 STEMI; s/p Hypothermia Protocol, now extubated, more alert, out of ICU. - management per digital analytics manager 3. Acute inferior ST-elevation myocardial infarction, status post balloon angioplasty and stent placement of the proximal obtuse marginal as well as manual aspiration thrombectomy of the obtuse marginal. - management per knowledge management consultant - ok to start anti-platelet agent as pt refusing EGD. If GI bleeding recurs, will have to stop these agents and re-discuss with patient on EGD for hemostasis. 3. Ventilator-dependent respiratory failure - extubated 4 days ago. Improved. - management per pulmonary. 4. Probable shock liver: improving - monitor for now 5. Questionable anoxic brain injury - appears more alert now, however, extubated 3 days ago, alert and oriented now. 6. inguinal hernia - per verbal discussion with gen surgery team yesterday, no plan for this b/c pt on blood thinners and prob not urgent at this time. - f/u with surgery official consult note Problems: Consultation Date/Type/Reason Admit Date/Time Nov 25, 2016 at 20:00 Initial Consult Date 11/26/16 Type of Consultation: Pulm 24 HR Interval Summary Free Text/Dictation complains of abdominal bloating, chest pain, dysuria Exam/Review of Systems Vital Signs Vitals Vital Signs Date Time Temp Pulse Resp B/P Pulse Ox O2 Delivery O2 Flow Rate FiO2 12/05/16 20:21 69 12/05/16 19:30 97.4 18 127/80 98 12/03/16 20:28 Room Air 2.0 12/02/16 17:56 21 Intake and Output 12/04/16 12/04/16 12/05/16 15:00 23:00 07:00 Intake Total 1250 ml 720 ml Balance 1250 ml 720 ml Exam Constitutional: alert, oriented, well developed Psych: nl mood/affect, no complaints Head: atraumatic, normocephalic Eyes: EOMI, nl conjunctiva, nl lids ENMT: nl external ears & nose, nl lips & teeth, nl nasal mucosa & septum Neck: non-tender, supple Respiratory: clear to auscultation, normal air movement Cardiovascular: nl pulses, regular rate and rhythm Gastrointestinal: bowel sounds, non-tender, soft Results Result Diagram: 12/05/1652712/05/16527 Results 24 hrs Laboratory Tests Test 12/05/16 05:28 Anion Gap 13 Basophils # 0.0 Basophils % 0.2 Blood Urea Nitrogen 30 H Calcium Level 8.5 Carbon Dioxide Level 27 Chloride Level 106 Creatinine 1.89 H Eosinophils # 0.4 Eosinophils % 3.4 Glucose Level 104 Hematocrit 29.1 L Hemoglobin 9.5 L Lymphocytes # 1.1 Lymphocytes % 10.0 L Mean Corpuscular Hemoglobin 28.6 L Mean Corpuscular Hemoglobin Concent 32.6 Mean Corpuscular Volume 87.7 Mean Platelet Volume 10.0 Monocytes # 0.9 Monocytes % 7.8 Neutrophils # 8.4 H Neutrophils % 76.9 Nucleated Red Blood Cells # 0.0 Nucleated Red Blood Cells % 0.0 Platelet Count 311 Potassium Level 3.9 Red Blood Count 3.32 L Red Cell Distribution Width 13.4 Sodium Level 142 White Blood Count 11.0 H Medications Medications Current Medications Ondansetron HCl (Zofran Inj) 4 mg Q6H PRN IV NAUSEA AND/OR VOMITING; Start at 21:00 Acetaminophen (Tylenol Supp) 650 mg Q4H PRN CO PAIN LEVEL 1-3 OR FEVER; Start 11/25/16 at 21:00 Lorazepam (Ativan) 1 mg Q2H PRN IV ANXIETY Last administered on 12/01/16 03:34 ; Admin Dose 1 MG; Start 11/25/16 at 21:00 Acetaminophen (Tylenol Liquid) 650 mg Q4H PRN PO TEMP > 37C; Start 11/25/16 at 21:00 Eye Lubricant (Akwa Oint) 1 applic Q6 BOTH EYES Last administered on 12/03/16 11:51; Admin Dose 1 APPLIC; Start 11/26/16 at 00:00 Eye Lubricant (Artificial Tears Oph) 2 drop Q6 BOTH EYES Last administered on 11:50; Admin Dose 2 DROP; Start 11/26/16 at 00:00 Ticagrelor (Brilinta) 90 mg BID PO Last administered on 12/05/16 10:05; Admin Dose 90 MG; Start 11/26/16 at 21:00 Hydralazine HCl 10 mg 10 mg Q6H PRN IV SBP greater than 160 Last administered on 11/27/16 02:19; Admin Dose 10 MG; Start 11/27/16 at 02:30 Imipenem/ Cilastatin Sodium (Primaxin 500 Mg/ 100 ml (Pmx)) 100 ml @ 100 mls/ hr Q12 IVPB Last administered on 12/05/16 21:02; Admin Dose 100 MLS/HR; Start 11/29/16 at 21:00 Aspirin (Aspirin) 81 mg DAILY NGT Last administered on 12/05/16 10:01; Admin Dose 81 MG; Start 11/30/16 at 09:00 Carvedilol (Coreg) 3.125 mg BID NGT Last administered on 12/05/16 21:02; Admin Dose 3.125 MG; Start 11/29/16 at 21:00 Atorvastatin Calcium 40 mg 40 mg DAILY@21 PO Last administered on 12/05/16 21: 03; Admin Dose 40 MG; Start 11/29/16 at 21:00 Potassium Chloride/Dextrose (D5W + KCl 20 Meq) 1,000 ml @ 75 mls/hr [id number] IV Last administered on 12/05/16 18:45; Admin Dose 75 MLS/HR; Start 12/02/16 at 07 :30 Amiodarone HCl (Cordarone) 200 mg BID GTB Last administered on 12/05/16 21:02; Admin Dose 200 MG; Start 12/03/16 at 21:00 Pantoprazole (Protonix Tab) 40 mg BID@06,18 PO Last administered on 12/05/16 18 :44; Admin Dose 40 MG; Start 12/03/16 at 18:00 JAUN TORIBIO MD Dec 05, 2016 21:19
[2016-12-05] MEDS: ACETAMINOPHEN 650MG/20.3ML CUP PO PRN (21:29)
[2016-12-06] VITALS (12 sets, daily range): BP systolic 112–131; BP diastolic 53–77; PULSE 54–69; RESP 16–20
[2016-12-06] MEDS: LORAZEPAM 2 MG INJ IV PRN ×2 (02:35→08:41)
[2016-12-06] MEDS: D5W + KCL 20 MEQ 1,000 ML IV SCH ×3 (02:36→21:43)
[2016-12-06] MEDS: OCULAR LUBRICANT 3.5 GM OPH OINT BOTH EYES SCH ×5 (06:00→17:55)
[2016-12-06] MEDS: ARTIFICIAL TEARS 15 ML OPH BOTH EYES SCH ×5 (06:00→17:55)
[2016-12-06] MEDS: ACETAMINOPHEN 650MG/20.3ML CUP PO PRN ×2 (06:56→21:46)
[2016-12-06] MEDS: PANTOPRAZOLE (EC) 40 MG TAB PO SCH ×2 (06:56→17:40)
[2016-12-06 07:14] LABS: ADD SCAN DIFF NO
[2016-12-06 07:22] LABS: BASOPHILS % 0.3 % (0.0-2.0); EOSINOPHILS # 0.5 10^3/ul (0.0-0.5); EOSINOPHILS % 3.2 % (0.0-7.0); HEMATOCRIT 29.2 % (42.0-52.0); HEMOGLOBIN 9.6 g/dl (14.0-18.0); LYMPHOCYTES # 1.6 10^3/ul (0.8-2.9); LYMPHOCYTES % 9.8 % (15.0-51.0); MEAN CORPUSCULAR HGB CONC 32.9 g/dl (32.0-37.0); MEAN CORPUSCULAR VOLUME 88.2 fl (82.0-101.0); MEAN PLATELET VOLUME 9.8 fl (7.4-10.4); MONOCYTE # 1.1 10^3/ul (0.3-0.9); MONOCYTES % 7.1 % (0.0-11.0); NEUTROPHIL # 12.6 10^3/ul (1.6-7.5); NEUTROPHILS % 78.6 % (39.0-77.0); PLATELET COUNT 420 10^3/UL (140-415); RED BLOOD COUNT 3.31 10^6/ul (4.70-6.10); RED CELL DISTRIBUTION WIDTH 13.3 % (11.5-14.5)
[2016-12-06 07:38] LABS: POTASSIUM 3.9 mmol/L (3.5-5.1)
[2016-12-06 07:40] LABS: CREATININE 1.87 mg/dl (0.61-1.24)
[2016-12-06 07:41] LABS: CALCIUM 8.6 mg/dl (8.4-10.2)
[2016-12-06] MEDS: IMIPENEM-CILAST 500MG IV (PMX) 100 ML IVPB SCH ×2 (08:37→21:43)
[2016-12-06] MEDS: ASPIRIN 81 MG TAB NGT SCH (08:38)
--- NOTE | 2016-12-06 08:39 | PN ---
DATE: 12/06/2016 SUBJECTIVE: The patient is stable, no acute events overnight. No fevers, chills, nausea, vomiting. OBJECTIVE: VITAL SIGNS: Blood pressure 131/74, respirations 18, pulse 59, temperature 98.6. HEENT: Head is normocephalic. NECK: Supple. HEART: Regular rate. LUNGS: Show diminished breath sounds at the base. ABDOMEN: Soft, nontender to palpation without rebound or guarding. EXTREMITIES: Negative for clubbing, cyanosis, no edema. DERMATOLOGIC: No rashes. MUSCULOSKELETAL: No joint effusions. NEUROLOGIC: No change in exam. MEDICATIONS: The patient's medications have been reviewed. LABORATORY DATA: Shows sodium 142, potassium 3.9, chloride 105, BUN 24, creatinine 1.87. White cou nt ____ , hemoglobin 9.6, hematocrit 29.2, platelet count is 420. ASSESSMENT AND PLAN: 1. Nonoliguric acute kidney injury with a previous baseline creatinine of 1.16 mg/dL. Etiology of acute kidney injury is secondary to acute tubular necrosis. Renal function appears to have stabiliz ed around creatinine 1.8 mg/dL. At this point, continue current treatment plan, supportive care, re alta dose all medications, avoid nephrotoxins. 2. Mineral bone disorder. Continue to monitor calcium and phosphorus levels. 3. Electrolyte abnormality, improved. Continue to monitor. 4. Cardiac arrest status post percutaneous coronary intervention. Continue medical management. 5. Respiratory failure, status post extubation. 6. Encephalopathy, improving. Continue to monitor. 7. Upper gastrointestinal bleed. The patient is pending EGD. Continue to monitor hemoglobin and h ematocrit levels. Continue PPI. 8. Systemic inflammatory response syndrome, possible sepsis. Continue current antibiotic regimen. Dictated By: POLO BATES/KENDRA Conf#: [id number] DID#: [id number]
[2016-12-06] MEDS: AMIODARONE 200 MG TAB GTB SCH ×2 (08:40→21:31)
[2016-12-06] MEDS: TICAGRELOR 90 MG TABLET PO SCH ×2 (08:42→22:22)
--- NOTE | 2016-12-06 13:32 | PN ---
Date/Time of Note Date/Time of Note DATE: 12/06/16 TIME: 13:24 Assessment/Plan VTE Prophylaxis VTE Prophylaxis Intervention: SCD's VTE Contraindication Reason: bleeding Lines/Catheters IV Catheter Type (from Nrs): Peripheral IV Urinary Cath still in place: No Assessment/Plan Assessment/Plan Unfortunate 50 yo M brought in after cardiac arrest in the field found down after unknown period of time with: 1. Status post ventricular fibrillation cardiac arrest. V fib likely 2/2 #2; s /p Hypothermia Protocol, now extubated: stable 2. Acute inferior ST-elevation myocardial infarction, status post balloon angioplasty and stent placement of the proximal obtuse marginal as well as manual aspiration thrombectomy of the obtuse marginal. - Cardiology recommending to continue brilinta / statin / aspirin while closely monitoring h/h and Transfusion PRN / Appreciate recs 3. Ventilator-dependent respiratory failure - resolved 4. Upper gastrointestinal bleed - resolved ? / patient refusing prophylactic EGD despite awareness of risks and benefits 5. Severe SIRS + Sepsis 2/2 aspiration PNA: resolved 6. Acute kidney injury with metabolic acidosis 2/2 ATN from shock + superimposed life saving contrast administration - improving now. - Gentle hydration for poor kidney function bearing in mind systolic dysfxn / appreciate Nephrology consult / -Patient's creatinine is likely at baseline now / patient came in fluid overloaded with likely falsely low cr - Avoiding ACEi, ARBs for now . Renally dose all meds. Serial labs. 7. Probable shock liver: improving - monitor 8. Hyperglycemia with Nml A1C - likely reactive - Continue SSI while NPO 9. Hypokalemia: repleted - stable - monitor 10. Mild acute pancreatitis: resolved 11. Thrombocytopenia- sepsis vs med's - resolved now - cautiously continue ASA + Brilinta 12. inguinal hernia - per verbal discussion with gen surgery team yesterday, no plan for this b/c pt on blood thinners and prob not urgent at this time. PLAN: Observe in house till tomorrow. If creatinine is stable, d/c home with for PT CM to ensure patient's Brilinta is covered. PROPHYLAXIS: SCDs / Protonix drip Subjective 24 Hr Interval Summary Free Text/Dictation Patient still refusing EGD No new issues wants to eat Exam/Review of Systems Vital Signs Vitals Vital Signs Date Time Temp Pulse Resp B/P Pulse Ox O2 Delivery O2 Flow Rate FiO2 12/06/16 12:37 54 12/06/16 11:14 97.8 16 126/66 97 12/03/16 20:28 Room Air 2.0 12/02/16 17:56 21 Intake and Output 12/05/16 12/05/16 12/06/16 15:00 23:00 07:00 Intake Total 1620 ml Balance 1620 ml Exam Constitutional: AaOx3 now, NAD Eyes: PERRL, EOMI ENMT: nL Respiratory: clear to auscultation Cardiovascular: regular rate and rhythm, No murmurs/extra sounds Gastrointestinal: bowel sounds, non-tender, soft Extremities: no LE edema B/L Neurological: no focal deficits Results Result Diagram: 12/06/16 0610 12/06/16 0610 Results 24 hrs Laboratory Tests Test 12/06/16 06:10 Anion Gap 12 Basophils # 0.0 Basophils % 0.3 Blood Urea Nitrogen 24 H Calcium Level 8.6 Carbon Dioxide Level 29 Chloride Level 105 Creatinine 1.87 H Eosinophils # 0.5 Eosinophils % 3.2 Glucose Level 100 Hematocrit 29.2 L Hemoglobin 9.6 L Lymphocytes # 1.6 Lymphocytes % 9.8 L Mean Corpuscular Hemoglobin 29.0 Mean Corpuscular Hemoglobin Concent 32.9 Mean Corpuscular Volume 88.2 Mean Platelet Volume 9.8 Monocytes # 1.1 H Monocytes % 7.1 Neutrophils # 12.6 H Neutrophils % 78.6 H Nucleated Red Blood Cells # 0.0 Nucleated Red Blood Cells % 0.0 Platelet Count 420 #H Potassium Level 3.9 Red Blood Count 3.31 L Red Cell Distribution Width 13.3 Sodium Level 142 White Blood Count 16.0 #H Medications Medications Current Medications Ondansetron HCl (Zofran Inj) 4 mg Q6H PRN IV NAUSEA AND/OR VOMITING; Start at 21:00 Acetaminophen (Tylenol Supp) 650 mg Q4H PRN DE PAIN LEVEL 1-3 OR FEVER; Start 11/25/16 at 21:00 Lorazepam (Ativan) 1 mg Q2H PRN IV ANXIETY Last administered on 12/06/16t 08:41 ; Admin Dose 1 MG; Start 11/25/16 at 21:00 Acetaminophen (Tylenol Liquid) 650 mg Q4H PRN PO TEMP > 37C Last administered on 12/06/16 06:56; Admin Dose 650 MG; Start 11/25/16 at 21:00 Eye Lubricant (Akwa Oint) 1 applic Q6 BOTH EYES Last administered on 12/03/16 11:51; Admin Dose 1 APPLIC; Start 11/26/16 at 00:00 Eye Lubricant (Artificial Tears Oph) 2 drop Q6 BOTH EYES Last administered on 11:50; Admin Dose 2 DROP; Start 11/26/16 at 00:00 Ticagrelor (Brilinta) 90 mg BID PO Last administered on 12/06/16 08:42; Admin Dose 90 MG; Start 11/26/16 at 21:00 Hydralazine HCl 10 mg 10 mg Q6H PRN IV SBP greater than 160 Last administered on 11/27/16 02:19; Admin Dose 10 MG; Start 11/27/16 at 02:30 Imipenem/ Cilastatin Sodium (Primaxin 500 Mg/ 100 ml (Pmx)) 100 ml @ 100 mls/ hr Q12 IVPB Last administered on 12/06/16 08:37; Admin Dose 100 MLS/HR; Start 11/29/16 at 21:00 Aspirin (Aspirin) 81 mg DAILY NGT Last administered on 12/06/16 08:38; Admin Dose 81 MG; Start 11/30/16 at 09:00 Carvedilol (Coreg) 3.125 mg BID NGT Last administered on 12/06/16 08:40; Admin Dose 3.125 MG; Start 11/29/16 at 21:00 Atorvastatin Calcium 40 mg 40 mg DAILY@21 PO Last administered on 12/05/16 21: 03; Admin Dose 40 MG; Start 11/29/16 at 21:00 Potassium Chloride/Dextrose (D5W + KCl 20 Meq) 1,000 ml @ 75 mls/hr [id number] IV Last administered on 12/06/16 09:39; Admin Dose 75 MLS/HR; Start 12/02/16 at 07 :30 Amiodarone HCl (Cordarone) 200 mg BID GTB Last administered on 12/06/16 08:40; Admin Dose 200 MG; Start 12/03/16 at 21:00 Pantoprazole (Protonix Tab) 40 mg BID@06,18 PO Last administered on 3/6/17at 06 :56; Admin Dose 40 MG; Start 12/03/16 at 18:00 KYM DUPREE Dec 06, 2016 13:31
--- NOTE | 2016-12-06 21:29 | CONS ---
Date/Time of Note Date/Time of Note DATE: 12/06/16 TIME: 21:26 Assessment/Plan Assessment/Plan Chief Complaint/Hosp Course 1. Upper gastrointestinal bleed - H/h stable. Patient refusing EGD secondary to his chest wall pain - continue protonix 40 mg po bid dosing - monitor for any UGI or LGI bleeding now. If h/h drop and e/o overt GIB, will re-discuss with patient regarding EGD - check H. pylori serology and treat if positive - EGD whenever patient talks to hospitalist and clarified the "poison gas issue " 2. Status post ventricular fibrillation cardiac arrest. V fib likely 2/2 STEMI; s/p Hypothermia Protocol, now extubated, more alert, out of ICU. - management per wall attendant 3. Acute inferior ST-elevation myocardial infarction, status post balloon angioplasty and stent placement of the proximal obtuse marginal as well as manual aspiration thrombectomy of the obtuse marginal. - management per design consultant - ok to start anti-platelet agent as pt refusing EGD. If GI bleeding recurs, will have to stop these agents and re-discuss with patient on EGD for hemostasis. 3. Ventilator-dependent respiratory failure - extubated 4 days ago. Improved. - management per pulmonary. 4. Probable shock liver: improving - monitor for now 5. Questionable anoxic brain injury - appears more alert now, however, extubated 3 days ago, alert and oriented now. 6. inguinal hernia - per verbal discussion with gen surgery team yesterday, no plan for this b/c pt on blood thinners and prob not urgent at this time. - f/u with surgery official consult note 7. Paranoid behavior: consider psych eval. 8. Dr. Hernandez to resume care tomorrow. Problems: Consultation Date/Type/Reason Admit Date/Time Nov 25, 2016 at 20:00 Initial Consult Date 11/26/16 Type of Consultation: GI 24 HR Interval Summary Free Text/Dictation acts paranoid, thinks brother poisoning him, asking me about poison gas which I defer as I don't have expertise in poisoning gas. Although he consented for EGD , he wants to talk to Dr. Goyal whether he should go through with EGD given possible exposure to poisoning gas. No N/v. Exam/Review of Systems Vital Signs Vitals Vital Signs Date Time Temp Pulse Resp B/P Pulse Ox O2 Delivery O2 Flow Rate FiO2 12/06/16 21:18 98.1 63 20 119/75 99 12/03/16 20:28 Room Air 2.0 12/02/16 17:56 21 Intake and Output 12/05/16 12/05/16 12/06/16 15:00 23:00 07:00 Intake Total 1620 ml Balance 1620 ml Exam Constitutional: alert Psych: anxiety, other (paranoid) Eyes: EOMI, nl conjunctiva, nl lids, nl sclera ENMT: nl external ears & nose, nl lips & teeth, nl nasal mucosa & septum Neck: non-tender, supple Respiratory: clear to auscultation, normal air movement Cardiovascular: nl pulses Gastrointestinal: bowel sounds, non-tender, soft Results Result Diagram: 12/06/16 0610 12/06/16 0610 Results 24 hrs Laboratory Tests Test 12/06/16 06:10 Anion Gap 12 Basophils # 0.0 Basophils % 0.3 Blood Urea Nitrogen 24 H Calcium Level 8.6 Carbon Dioxide Level 29 Chloride Level 105 Creatinine 1.87 H Eosinophils # 0.5 Eosinophils % 3.2 Glucose Level 100 Hematocrit 29.2 L Hemoglobin 9.6 L Lymphocytes # 1.6 Lymphocytes % 9.8 L Mean Corpuscular Hemoglobin 29.0 Mean Corpuscular Hemoglobin Concent 32.9 Mean Corpuscular Volume 88.2 Mean Platelet Volume 9.8 Monocytes # 1.1 H Monocytes % 7.1 Neutrophils # 12.6 H Neutrophils % 78.6 H Nucleated Red Blood Cells # 0.0 Nucleated Red Blood Cells % 0.0 Platelet Count 420 #H Potassium Level 3.9 Red Blood Count 3.31 L Red Cell Distribution Width 13.3 Sodium Level 142 White Blood Count 16.0 #H Medications Medications Current Medications Ondansetron HCl (Zofran Inj) 4 mg Q6H PRN IV NAUSEA AND/OR VOMITING; Start at 21:00 Lorazepam (Ativan) 1 mg Q2H PRN IV ANXIETY Last administered on 12/06/16 08:41 ; Admin Dose 1 MG; Start 11/25/16 at 21:00 Acetaminophen (Tylenol Liquid) 650 mg Q4H PRN PO TEMP > 37C Last administered on 12/06/16 06:56; Admin Dose 650 MG; Start 11/25/16 at 21:00 Eye Lubricant (Akwa Oint) 1 applic Q6 BOTH EYES Last administered on 12/03/16 11:51; Admin Dose 1 APPLIC; Start 11/26/16 at 00:00 Eye Lubricant (Artificial Tears Oph) 2 drop Q6 BOTH EYES Last administered on 11:50; Admin Dose 2 DROP; Start 11/26/16 at 00:00 Ticagrelor (Brilinta) 90 mg BID PO Last administered on 12/06/16 08:42; Admin Dose 90 MG; Start 11/26/16 at 21:00 Hydralazine HCl 10 mg 10 mg Q6H PRN IV SBP greater than 160 Last administered on 11/27/16 02:19; Admin Dose 10 MG; Start 11/27/16 at 02:30 Imipenem/ Cilastatin Sodium (Primaxin 500 Mg/ 100 ml (Pmx)) 100 ml @ 100 mls/ hr Q12 IVPB Last administered on 12/06/16 08:37; Admin Dose 100 MLS/HR; Start 11/29/16 at 21:00 Aspirin (Aspirin) 81 mg DAILY NGT Last administered on 12/06/16 08:38; Admin Dose 81 MG; Start 11/30/16 at 09:00 Carvedilol (Coreg) 3.125 mg BID NGT Last administered on 12/06/16 08:40; Admin Dose 3.125 MG; Start 11/29/16 at 21:00 Atorvastatin Calcium 40 mg 40 mg DAILY@21 PO Last administered on 12/05/16 21: 03; Admin Dose 40 MG; Start 11/29/16 at 21:00 Potassium Chloride/Dextrose (D5W + KCl 20 Meq) 1,000 ml @ 75 mls/hr [id number] IV Last administered on 12/06/16 09:39; Admin Dose 75 MLS/HR; Start 12/02/16 at 07 :30 Amiodarone HCl (Cordarone) 200 mg BID GTB Last administered on 12/06/16 08:40; Admin Dose 200 MG; Start 12/03/16 at 21:00 Pantoprazole (Protonix Tab) 40 mg BID@06,18 PO Last administered on 12/06/16 17 :40; Admin Dose 40 MG; Start 12/03/16 at 18:00 JAUN TORIBIO MD Dec 06, 2016 21:29
[2016-12-06] MEDS: ATORVASTATIN 40 MG TAB PO SCH (21:31)
[2016-12-07] VITALS (7 sets, daily range): BP systolic 106–120; BP diastolic 59–80; PULSE 60–72; RESP 18–24
[2016-12-07] MEDS: ARTIFICIAL TEARS 15 ML OPH BOTH EYES SCH ×5 (06:00→23:05)
[2016-12-07] MEDS: PANTOPRAZOLE (EC) 40 MG TAB PO SCH ×2 (06:00→17:29)
[2016-12-07] MEDS: OCULAR LUBRICANT 3.5 GM OPH OINT BOTH EYES SCH ×5 (06:00→23:05)
[2016-12-07 06:05] LABS: ADD SCAN DIFF NO
[2016-12-07 06:13] LABS: BASOPHILS % 0.1 % (0.0-2.0); EOSINOPHILS # 0.4 10^3/ul (0.0-0.5); EOSINOPHILS % 2.9 % (0.0-7.0); HEMATOCRIT 27.9 % (42.0-52.0); HEMOGLOBIN 9.3 g/dl (14.0-18.0); LYMPHOCYTES # 1.4 10^3/ul (0.8-2.9); LYMPHOCYTES % 9.5 % (15.0-51.0); MEAN CORPUSCULAR HEMOGLOBIN 29.3 pg (29.0-33.0); MEAN CORPUSCULAR HGB CONC 33.3 g/dl (32.0-37.0); MEAN PLATELET VOLUME 9.7 fl (7.4-10.4); MONOCYTE # 1.1 10^3/ul (0.3-0.9); MONOCYTES % 7.4 % (0.0-11.0); NEUTROPHIL # 11.2 10^3/ul (1.6-7.5); NEUTROPHILS % 79.3 % (39.0-77.0); PLATELET COUNT 379 10^3/UL (140-415); RED BLOOD COUNT 3.17 10^6/ul (4.70-6.10); RED CELL DISTRIBUTION WIDTH 13.5 % (11.5-14.5); WHITE BLOOD COUNT 14.2 10^3/ul (4.8-10.8)
--- NOTE | 2016-12-07 06:36 | PN ---
DATE: 12/06/2016 SUBJECTIVE: Cardiology followup . Still complained of chest wall tenderness with sneezing or coughing. He has incontinence of the bowel movement. He has refused apparently GI workup, but now he is agreeing to it. MEDICATIONS: Reviewed. PHYSICAL EXAMINATION: VITAL SIGNS: Temperature 97.8, heart rate of 54, blood pressure , respirations 18, saturating 97%. HEENT: Normocephalic, atraumatic. Pupils are equal. CARDIOVASCULAR: Regular rate and rhythm. PULMONARY: With no wheezes. GASTROINTESTINAL: Soft, nontender. CHEST: Positive for chest wall tenderness. EXTREMITIES: With lower extremity edema. NEUROLOGIC: Awake and alert. Responds appropriately. LABORATORY: WBC of 16, hemoglobin 9.6, platelets of 420. Sodium 142, potassium 3.9, BUN of 24, cre atinine 1.87, glucose of 100. ASSESSMENT AND PLAN: 1. Status post cardiopulmonary arrest. 2. Status post ST elevation myocardial infarction and emergent percutaneous coronary intervention. 3. Renal failure. 4. Chest wall tenderness secondary to prolonged CPR. 5. Possible gastrointestinal bleed, currently stable. RECOMMENDATIONS: We will continue the current cardiac care. Aspirin and Plavix needs to be continu ed given his acute IN. GI workup as per GI. Dictated By: RODGER GRIFFIN MD AV/NTS Conf#: [id number] DID#: [id number] CC: KYM DUPREE MD;*EndCC*
[2016-12-07 06:37] LABS: POTASSIUM 3.9 mmol/L (3.5-5.1)
[2016-12-07] MEDS ORDERED: LIDOCAINE 2% (SDV) 5 ML INJ ONE (07:00)
[2016-12-07 08:07] LABS: CREATININE 1.7 mg/dl (0.61-1.24)
[2016-12-07 08:08] LABS: CALCIUM 8.6 mg/dl (8.4-10.2)
[2016-12-07] MEDS: TICAGRELOR 90 MG TABLET PO SCH ×2 (09:00→20:50)
[2016-12-07] MEDS: ASPIRIN 81 MG TAB NGT SCH (09:00)
--- NOTE | 2016-12-07 09:05 | PN ---
DATE: 12/07/2016 SUBJECTIVE: The patient is stable, no acute events overnight. No fevers, chills, nausea, vomiting. OBJECTIVE: VITAL SIGNS: Blood pressure is 120/68, respirations 18, pulse 62, temperature 98.2. HEENT: Head is normocephalic. NECK: Supple. HEART: Regular rate. LUNGS: Show diminished breath sounds at base. ABDOMEN: Soft, nontender to palpation. No rebound or guarding. EXTREMITIES: Negative for clubbing or cyanosis. No edema. DERMATOLOGIC: No rashes. MUSCULOSKELETAL: No joint effusions. NEUROLOGIC: No change in exam. MEDICATIONS: The patient's medications reviewed. LABORATORY DATA: Shows sodium 140, potassium 3.9, BUN 22, creatinine 1.70. White count 14.2, hemog lobin 9.3, hematocrit 27.9, platelet count is 79. ASSESSMENT AND PLAN: 1. Nonoliguric acute kidney injury with previous baseline creatinine 1.16 mg/dL. Etiology secondar y to acute tubular necrosis. Renal function stabilized, creatinine of 1.7 to 1.8 mg/dL. At this po int, continue current treatment plan, supportive care, renally dose all medications. 2. Mineral bone disorder. Continue to monitor calcium and phosphorus levels. 3. Electrolyte abnormalities, improved. 4. Anemia. Continue to monitor hemoglobin and hematocrit levels. 5. Cardiac arrest, status post percutaneous coronary intervention. 6. Upper gastrointestinal bleed. The patient is refusing esophagogastroduodenoscopy. Continue to monitor hemoglobin and hematocrit levels. Continue proton pump inhibitor. 7. Systemic inflammatory response syndrome, possible sepsis. The patient is completing antibiotic course. Dictated By: POLO BATES/KENDRA Conf#: [id number] DID#: [id number]
[2016-12-07] MEDS: IMIPENEM-CILAST 500MG IV (PMX) 100 ML IVPB SCH ×2 (09:45→20:40)
[2016-12-07] MEDS: AMIODARONE 200 MG TAB GTB SCH ×2 (09:47→20:40)
[2016-12-07] MEDS ORDERED: TICA90TA PO (11:38)
[2016-12-07] MEDS ORDERED: PANT40TA4 PO (11:38)
[2016-12-07] MEDS ORDERED: ATOR40TA68 PO (11:38)
[2016-12-07] MEDS ORDERED: ASPI81TA3 PO (11:38)
[2016-12-07] MEDS ORDERED: CARV3.1260 NGT (11:38)
[2016-12-07] MEDS ORDERED: AMIO200T2 GTB (11:38)
[2016-12-07] MEDS ORDERED: PROPOFOL 40 ML ONE (15:05)
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
[2016-12-07] MEDS: ACETAMINOPHEN 650MG/20.3ML CUP PO PRN (19:47)
[2016-12-07] MEDS: ATORVASTATIN 40 MG TAB PO SCH (20:40)
[2016-12-07] MEDS: D5W + KCL 20 MEQ 1,000 ML IV SCH (20:41)
--- NOTE | 2016-12-07 22:34 | GILP ---
DATE OF PROCEDURE: NAME OF PROCEDURE: Esophagogastroduodenoscopy with biopsies. SURGEON: Mikey Hernandez MD HISTORY AND INDICATIONS: The patient being evaluated for progressive drop in hemoglobin and hematoc rit. PREMEDICATION: Monitored anesthesia care by anesthesiologist. INSTRUMENT USED: Olympus panendoscope. TECHNIQUE: After informed consent, with the patient/relatives understanding the procedure, its inga cations, potential risks and complications, including but not limited to: allergic reaction, bleedin g, perforation or infection, and after all pertinent questions were answered to the patient's satisf action, the patient/relatives signed witnessed informed consent. Following this, premedication was administered slowly IV push under careful cardiovascular and respi ratory monitoring with pulse oximetry, automatic blood pressure and outside event sales specialist. Once the sedative effect was achieved the patient was place in the left lateral decubitus, the panen doscope was introduced and advanced under visual control. Careful examination of the upper gastrointestinal tract both on insertion as well as withdrawal of t he instrument disclosed the following findings: ESOPHAGUS: The mucosa of the entire esophagus appears within normal limits. There is no evidence of esophagitis, varices, neoplasm or stricture. No hiatal hernia identified. STOMACH: Upon entrance to the stomach, air was insufflated. The gastric ellis distended normally. There is erythema and edema of the mucosa of a moderate to severe degree. No definitive ulceration is noted. No bleeding site is identified. Biopsies were obtained to rule out H. pylori infection. PYLORUS: Patent and within normal limits. DUODENUM: The duodenal bulb shows erythema and edema of the mucosa graded as severe. No bleeding site or ulceration is present. The second portion of the duodenum appears unremarkable. The instrument was withdrawn, re-examining the mucosa in detail. No additional abnormalities are noted. The instrument was then withdrawn. The patient tolerated the procedure well and was transferred out of the endoscopy suite awake and in good condition to continue recovery under observation IMPRESSION: 1. Severe gastritis, rule out Helicobacter pylori infection, biopsies obtained. 2. Severe duodenitis. PLAN: The patient will be continued on PPIs. There is no definitive contraindication to cautious a nticoagulation. Dictated By: MIKEY HERNANDEZ MS/KENDRA Conf#: [id number] DID#: [id number]
[2016-12-08] MEDS: ARTIFICIAL TEARS 15 ML OPH BOTH EYES SCH ×3 (05:30→16:50)
[2016-12-08] MEDS: OCULAR LUBRICANT 3.5 GM OPH OINT BOTH EYES SCH ×3 (05:30→16:50)
[2016-12-08] MEDS: PANTOPRAZOLE (EC) 40 MG TAB PO SCH ×2 (05:30→16:49)
[2016-12-08 06:11] LABS: ADD SCAN DIFF NO
[2016-12-08 06:32] LABS: CALCIUM 8.6 mg/dl (8.4-10.2); CREATININE 1.87 mg/dl (0.61-1.24)
[2016-12-08 06:33] LABS: BASOPHILS % 0.2 % (0.0-2.0); EOSINOPHILS # 0.4 10^3/ul (0.0-0.5); EOSINOPHILS % 3.2 % (0.0-7.0); HEMATOCRIT 31.4 % (42.0-52.0); HEMOGLOBIN 10.3 g/dl (14.0-18.0); LYMPHOCYTES # 1.5 10^3/ul (0.8-2.9); LYMPHOCYTES % 11.8 % (15.0-51.0); MEAN CORPUSCULAR HEMOGLOBIN 29.2 pg (29.0-33.0); MEAN CORPUSCULAR HGB CONC 32.8 g/dl (32.0-37.0); MEAN PLATELET VOLUME 9.8 fl (7.4-10.4); MONOCYTE # 1.2 10^3/ul (0.3-0.9); MONOCYTES % 9.2 % (0.0-11.0); NEUTROPHIL # 9.5 10^3/ul (1.6-7.5); NEUTROPHILS % 74.7 % (39.0-77.0); PLATELET COUNT 492 10^3/UL (140-415); RED BLOOD COUNT 3.53 10^6/ul (4.70-6.10); RED CELL DISTRIBUTION WIDTH 13.6 % (11.5-14.5); WHITE BLOOD COUNT 12.8 10^3/ul (4.8-10.8)
--- NOTE | 2016-12-08 06:59 | PN ---
DATE: 12/07/2016 CARDIOLOGY FOLLOWUP PROGRESS NOTE SUBJECTIVE: Patient with no chest pain or pressure. Has mild chest wall tenderness when he coughs. He is hungry and is awaiting his GI workup. MEDICATIONS: Reviewed. The patient has been given a coupon for free Brilinta despite my emph asis on it. Medications reviewed. PHYSICAL EXAMINATION: VITAL SIGNS: Temperature 98.2, heart rate of 62, blood pressure 120/68, respiration rate of 18, sat urating 99%. HEENT: Normocephalic, atraumatic. Pupils are equal. CARDIOVASCULAR: Regular rate and rhythm. PULMONARY: With no wheezes. GASTROINTESTINAL: Soft, nontender. EXTREMITIES: With no significant edema. NEUROLOGIC: Awake and alert. LABORATORY: Shows WBC of 14.2, hemoglobin 9.3, platelets 379. Sodium 140, potassium 3.9, BUN of 22 , creatinine 1.7, glucose of 99. ASSESSMENT AND PLAN: 1. Status post cardiopulmonary arrest. 2. arrest. 3. Status post emergent percutaneous coronary intervention of the circumflex artery. 4. Hypertension. 5. Acute renal failure. 6. Anemia. 7. Possible gastrointestinal bleed. RECOMMENDATIONS: GI workup is pending. Aspirin and Brilinta should not be held though. Continue w ith the rest of his cardiac care including his Carvedilol. Dictated By: RODGER CONTRERAS/KENDRA Conf#: [id number] DID#: [id number]
[2016-12-08 07:42] VITALS: BP 101/60; RESP 16
[2016-12-08] MEDS: ASPIRIN 81 MG TAB NGT SCH (08:56)
[2016-12-08] MEDS: IMIPENEM-CILAST 500MG IV (PMX) 100 ML IVPB SCH (08:56)
--- NOTE | 2016-12-08 08:58 | PN ---
DATE: 12/08/2016 CARDIOLOGY FOLLOWUP PROGRESS NOTE SUBJECTIVE: Discussed with the staff. Patient with no chest pressure; however, still complains of chest wall tenderness when he lies on his side or when he sneezes or when he coughs. No bleeding. MEDICATIONS: Reviewed. PHYSICAL EXAMINATION: VITAL SIGNS: Temperature 99.2, heart rate of 55, blood pressure 101/60, respiration rate of 16, sat urating 98%. HEENT: Normocephalic, atraumatic. Pupils are equal. CARDIOVASCULAR: Regular rate and rhythm. PULMONARY: With no wheezes. GASTROINTESTINAL: Soft, nontender. EXTREMITIES: No edema. NEUROLOGIC: Awake and alert, responds appropriately. PSYCHIATRIC: Appears to be calm. LABORATORY: WBC of 12.8, hemoglobin 10.3, platelets of 492,000. Sodium 142, potassium 4, BUN of 22 , creatinine 1.87. ASSESSMENT AND PLAN: 1. Status post ventricular fibrillation arrest. 2. Status post ST elevation myocardial infarction. 3. Status post percutaneous coronary intervention of the circumflex artery. 4. Acute renal failure. 5. Gastrointestinal due to gastritis. 6. Anemia. 7. Dyslipidemia. RECOMMENDATIONS: I will decrease the amiodarone 200 mg daily. Continue with aspirin, Brilinta, and statin. Importance of compliance with the medication was discussed with the patient. No further c ardiac recommendations at this time. We will follow as needed at this point. The patient was suppo sed to follow up for a post-hospital followup up in about a week. Dictated By: RODGER GRIFFIN MD AV/KENDRA Conf#: [id number] DID#: [id number] CC: KYM DUPREE MD;*EndCC*
[2016-12-08] MEDS ORDERED: AMIODARONE 200 MG TAB PO SCH (09:00)
[2016-12-08] MEDS: TICAGRELOR 90 MG TABLET PO SCH (09:05)
--- NOTE | 2016-12-08 09:12 | PN ---
DATE: 12/08/2016 SUBJECTIVE: The patient is status post EGD yesterday which showed evidence of severe gastritis and duodenitis. The patient is currently stable, no other acute events noted. No hemoptysis, hematemes is or hematochezia. OBJECTIVE: VITAL SIGNS: Blood pressure is 101/60, respirations 16, pulse 55, temperature 99.2. HEENT: Head is normocephalic. NECK: Supple. HEART: Regular rate. LUNGS: Show diminished breath sounds at the bases. ABDOMEN: Soft, nontender to palpation. No rebound or guarding. EXTREMITIES: Negative for clubbing, cyanosis. No edema. DERMATOLOGIC: No rashes. MUSCULOSKELETAL: No joint effusions. NEUROLOGIC: No change in exam. MEDICATIONS: The patient's medications have been reviewed. LABORATORY DATA: Sodium 142, potassium 4.0, chloride 106, BUN 22, creatinine 1.87. White count 12. 8, hemoglobin 10.2, hematocrit 31.4, platelet count is 492. ASSESSMENT AND PLAN: 1. Nonoliguric acute kidney injury with previous baseline creatinine of 1.16 mg/dL. Etiology of ac deepthi kidney injury is secondary to acute tubular necrosis. The patient's renal function is stabilize d. creatinine 1.7 to 1.8 mg/dL. At this point, continue current treatment plan, supportive c are, renally dose medications, avoid nephrotoxins. 2. Mineral bone disorder. Continue to monitor calcium and phosphorus levels. 3. anemia. Continue to monitor hemoglobin and hematocrit levels. No need for Epogen. 4. Upper gastrointestinal bleed. The patient is status post EGD which showed evidence of gastritis . Continue proton pump inhibitor. 5. Cardiac arrest status post percutaneous coronary intervention. Continue current medical managem ent and follow up with cardiology. 6. Systemic inflammatory response syndrome. The patient is completing an antibiotic course. Trev nue to monitor. Dictated By: POLO BATES/KENDRA Conf#: [id number] DID#: [id number]
--- NOTE | 2016-12-08 14:09 | PDOCDIS ---
Discharge Instructions DIAGNOSIS Discharge Diagnosis: Cardiac arrest CONDITION Patient Condition: Stable HOME CARE INSTRUCTIONS: Special Diet: low chol, low fat diet OTHER ORDERS: Other Orders: QUIT SMOKING!!! Followup with your primary doctor within the next 1-2 weeks. If you don't have one please let someone know, we can give you resources that may help you pick one. You may also call your insurance company to assign one to you. Review your medication list with your nurse before leaving and if you need new prescriptions please let your nurse know. Stay compliant with your medications and report any side effects to your PCP or pharmacist. Return to the ER if you have any concerns and cannot reach your doctors or call your insurance company, they usually have a nurse that can help you. KYM DUPREE Dec 08, 2016 14:09
[2016-12-08 19:40] VITALS: BP 133/73; PULSE 63; RESP 19
== END 2016-12-08 19:50 | disposition home or self-care (01) | DRG 246 ==
LOC: E/R 14:51 → ICU 18:23 → TEL 12-02 18:00 → MS2 12-06 20:45
PROVIDERS: ADMIT Internal Medicine; ATTEND Internal Medicine
PROC: 02C03ZZ Extirpation of Matter from Coronary Artery, One Artery, Percutaneous Approach (ICD-10-PCS; 2016-11-25)
PROC: 4A023N7 Measurement of Cardiac Sampling and Pressure, Left Heart, Percutaneous Approach (ICD-10-PCS; 2016-11-25)
PROC: B2111ZZ Fluoroscopy of Multiple Coronary Arteries using Low Osmolar Contrast (ICD-10-PCS; 2016-11-25)
PROC: B2151ZZ Fluoroscopy of Left Heart using Low Osmolar Contrast (ICD-10-PCS; 2016-11-25)
PROC: 4A133R1 Monitoring of Arterial Saturation, Peripheral, Percutaneous Approach (ICD-10-PCS; 2016-11-25)
PROC: 027034Z Dilation of Coronary Artery, One Artery with Drug-eluting Intraluminal Device, Percutaneous Approach (ICD-10-PCS; principal; 2016-11-25 18:00)
PROC: 5A1955Z Respiratory Ventilation, Greater than 96 Consecutive Hours (ICD-10-PCS; 2016-11-25 18:00)
PROC: 5A09357 Assistance with Respiratory Ventilation, Less than 24 Consecutive Hours, Continuous Positive Airway Pressure (ICD-10-PCS; 2016-12-01)
PROC: 0DB68ZX Excision of Stomach, Via Natural or Artificial Opening Endoscopic, Diagnostic (ICD-10-PCS; 2016-12-07)
DX: I21.19 ST elevation (STEMI) myocardial infarction involving other coronary artery of inferior wall (principal); N17.0 Acute kidney failure with tubular necrosis; K72.00 Acute and subacute hepatic failure without coma; J96.91 Respiratory failure, unspecified with hypoxia; J69.0 Pneumonitis due to inhalation of food and vomit; A41.9 Sepsis, unspecified organism; G93.1 Anoxic brain damage, not elsewhere classified; K85.90 Acute pancreatitis without necrosis or infection, unspecified; K92.2 Gastrointestinal hemorrhage, unspecified; E87.2 Acidosis; I47.2 Ventricular tachycardia; I25.10 Atherosclerotic heart disease of native coronary artery without angina pectoris; R73.9 Hyperglycemia, unspecified; E87.6 Hypokalemia; K29.80 Duodenitis without bleeding; K29.70 Gastritis, unspecified, without bleeding; E83.51 Hypocalcemia; D69.6 Thrombocytopenia, unspecified; K40.90 Unilateral inguinal hernia, without obstruction or gangrene, not specified as recurrent; I25.5 Ischemic cardiomyopathy; D64.9 Anemia, unspecified; I12.9 Hypertensive chronic kidney disease with stage 1 through stage 4 chronic kidney disease, or unspecified chronic kidney disease; N18.9 Chronic kidney disease, unspecified
CPT/HCPCS: 36600; 70450; 71010; 74000; 76700; 76775; 80048; 80053; 80061; 80202; 80307; 81001; 81003; 82043; 82150; 82270; 82550; 82553; 82803; 82962; 83036; 83605; 83690; 83735; 83880; 84100; 84155; 84300; 84443; 84484; 85025; 85378; 85384; 85610; 85730; 86704; 86709; 86803; 86850; 86900; 86901; 87040; 87081; 87340; 88305; 88312; 92610; 92950; 93005; 93306; 93458; 94002; 94003; 94770; 96374; 97162; 97166; J1940; C1725; C1757; C1760; C1769; C1874; C1887; C1894; C9113; C9460; C9606; J0360; J0610; J0692; J0743; J1644; J1815; J2060; J3010; J3370; J3475; J3480; J7030; J7040; J7042; J7050; J7070; Q9967